=== PATIENT | female | born 1945 | race Caucasian/White ===

== ENCOUNTER 2019-11-26 13:45 | Outpatient (CLI) | payer MEDICARE, SELFPAY ==
--- NOTE | ~2019-11-26 | XR_ITS ---
EXAMINATION: XR lumbar spine 2-3V DATE: 11/26/2019 14:23 INDICATION: Low back pain. Fall. TECHNIQUE: 3 views of lumbar spine were obtained. COMPARISON: None. FINDINGS: There is 3 degrees levocurvature of lumbar spine. There is 6 mm anterolisthesis of L5 on S1 . There is mild chronic anterior wedging of T11 vertebral body. There is moderately decreased disc he ight at T12-L1 and L2-L3, mildly decreased disc height at L3-L4, and severely decreased disc height a t L4-L5 and L5-S1. There is moderate osteoarthritis of the hips. IMPRESSION: 1. Severe lumbar spondylosis. 2. Grade 1 anterolisthesis of L5 on S1, likely secondary to bilateral L5 pars defects. Reviewed, dictated and finalized at location A. IMPRESSION: 1. Severe lumbar spondylosis. 2. Grade 1 anterolisthesis of L5 on S1, likely secondary to bilateral L5 pars d efects.
== END 2019-11-26 13:46 | disposition home or self-care (01) ==
LOC: ANHIMG 13:57
PROVIDERS: PCP Internal Medicine; Visit Provider Internal Medicine
DX: M47.816 Spondylosis without myelopathy or radiculopathy, lumbar region (principal)
CPT/HCPCS: 72100

== ENCOUNTER 2020-08-18 08:50 | Outpatient (CLI) | payer MEDICARE, SELFPAY ==
[2020-08-18 09:19] LABS: Hematocrit 44.5 % (37.0-47.0); Hemoglobin 15.2 g/dL (12.0-15.0)
== END 2020-08-18 08:51 | disposition home or self-care (01) ==
LOC: ANHSURGERY 08:55
PROVIDERS: Anesthesiology; PCP Internal Medicine; Visit Provider Urology
DX: N21.1 Calculus in urethra (principal); D64.9 Anemia, unspecified; Z01.812 Encounter for preprocedural laboratory examination
CPT/HCPCS: 36415; 85014; 85018; 87086; 87088

== ENCOUNTER 2020-08-26 01:36 | Outpatient (CLI) | payer MEDICARE, SELFPAY ==
[2020-08-26 18:13] LABS: SARS-CoV-2 RNA PCR Negative
== END 2020-08-26 01:37 | disposition home or self-care (01) ==
LOC: ANHCOVIDDT 01:37
PROVIDERS: PCP Internal Medicine; Visit Provider Urology
DX: Z01.812 Encounter for preprocedural laboratory examination (principal); Z20.822 Contact with and (suspected) exposure to COVID-19
CPT/HCPCS: C9803; U0003; U0005

== ENCOUNTER 2020-08-29 02:10 | Day surgery (SDC) | payer MEDICARE, SELFPAY ==
[2020-08-15 08:41] VITALS: BMI 32.3
--- NOTE | 2020-08-24 15:43 | PM.IMHP ---
H&P: HPI History of Present Illness Date/Time: 08/24/20 15:43 Chief Complaint: urethral stone Narrative: China Ham is a 75 year old female urethral stone. Previous sling in 2012 by another MD Review of Systems Review of Systems: All systems reviewed & are unremarkable except as noted in HPI and below PMFSH Social History Social History Years smoked: 15 Smoking status: Former smoker Tobacco type: cigarettes Smoking end date: 08/01/74 Alcohol intake: current Drinks per week: 1 Spiritual care concerns: No Meds Home Medications and Allergies Home Medications Medication Instructions Recorded Confirmed Type amlodipine 2.5 mg PO QAM 08/15/20 08/15/20 History aspirin [Adult Low Dose Aspirin] 81 mg PO DAILY 08/15/20 08/15/20 History calcium citrate-vitamin D3 2 tablet PO DAILY 08/15/20 08/15/20 History [Citracal + D Maximum] cyanocobalamin (vitamin B-12) 1,000 mcg SUBLINGUAL DAILY 08/15/20 08/15/20 History escitalopram oxalate 10 mg PO QAM 08/15/20 08/15/20 History ferrous sulfate 324 mg PO DAILY 08/15/20 08/15/20 History gabapentin 300 mg PO HS 08/15/20 08/15/20 History levothyroxine 50 mcg PO HS 08/15/20 08/15/20 History meclizine 25 mg PO PRN PRN 08/15/20 08/15/20 History pravastatin 40 mg PO HS 08/15/20 08/15/20 History Allergies Allergy/AdvReac Type Severity Reaction Status Date / Time No Known Allergies Allergy Unverified 08/15/20 08:25 Exam Const: General: cooperative, healthy appearing, comfortable and no acute distress HENMT: Head: normal to inspection Eyes: General: appearance normal, both eyes and all related structures Resp: Effort & Inspection: normal respiratory effort and able to speak in complete sentences : Speculum Exam - Vagina: normal appearance of the vagina and vagina atrophic Skin: General skin exam: normal color Assessment and Plan Assessment and plan (1) Calculus, urethra: Code(s): N21.1 - Calculus in urethra Status: Acute Assessment and Plan: attempt at endoscopic removal. Made need a ramesh or multiple procedures
--- NOTE | 2020-08-28 14:30 | WPDANESEPPF ---
Anes - Initial Pre Proc Eval Procedure: Operation Date: 08/29/20 10:00 Proposed Procedures p Cystoscopy With Removal Of Urethral Foreign Body - Cody Ware MD s Holmium Laser Procedure - Cody Ware MD Date/Time: 08/28/20 14:30 Surgeon: Cody Ware MD Pre Op Diagnosis: Calculus of Urethra Patient Data Age: 75 Gender: F Height: 1.52 m Weight: 75.25 kg Allergies Allergy/AdvReac Type Severity Reaction Status Date / Time No Known Allergies Allergy Unverified 08/15/20 08:25 Home Medications Medication Instructions Recorded Confirmed Type amlodipine 2.5 mg PO QAM 08/15/20 08/15/20 History aspirin [Adult Low Dose Aspirin] 81 mg PO DAILY 08/15/20 08/15/20 History calcium citrate-vitamin D3 2 tablet PO DAILY 08/15/20 08/15/20 History [Citracal + D Maximum] cyanocobalamin (vitamin B-12) 1,000 mcg SUBLINGUAL DAILY 08/15/20 08/15/20 History escitalopram oxalate 10 mg PO QAM 08/15/20 08/15/20 History ferrous sulfate 324 mg PO DAILY 08/15/20 08/15/20 History gabapentin 300 mg PO HS 08/15/20 08/15/20 History levothyroxine 50 mcg PO HS 08/15/20 08/15/20 History meclizine 25 mg PO PRN PRN 08/15/20 08/15/20 History pravastatin 40 mg PO HS 08/15/20 08/15/20 History Patient hx anesthesia problems: none Family hx anesthesia problems: none [facility] Past Medical History Medical History (Updated 08/28/20 @ 14:32 by Dionicio Jorge MD) Arthritis Calculus, urethra Depression HTN (hypertension) Hypercholesterolemia Hypothyroidism Obesity CAROL on CPAP Social History Social History Years smoked: 15 Smoking status: Former smoker Tobacco type: cigarettes Smoking end date: 08/01/74 Alcohol intake: current Drinks per week: 1 Living arrangements: with family Spiritual care concerns: No Anes - Eval Final PreProcedure Day of Procedure 08/28/20 14:30 Patient weight: obese Heart: regular rate and rhythm Lungs: clear to auscultation and normal air movement Airway: Mallampati scale class II Neurological: alert and oriented Last oral intake: >/= 8 hours ASA classification: III Emergent: no Anesthetic plan: proceed Anesthesia type and monitoring: general GIVS and LMA Informed Consent: The patient's anesthetic plan and its attendant risks and benefits were discussed with the patient/family/POA. Questions were solicited and answers provided to the satisfaction of the patient/family/POA.
[2020-08-29] VITALS (8 sets, daily range): BP systolic 117–163; BP diastolic 60–78; PULSE 59–66; RESP 14–20; TEMP 36.3–36.6; O2SAT 94–100
--- NOTE | 2020-08-29 04:59 | WPDHPUPDATE1 ---
History and Physical Update Update Date/Time: 08/29/20 04:59 History and Physical has been reviewed, including an updated exam of the patient. There are NO changes in the patient's condition. Risks, benefits, and alternatives have been discussed and questions answered. Patient agrees to proceed with procedure. may use holmium laser durring the procedure
[2020-08-29] MEDS: LACTATED RINGERS 1,000 ML 30 ML IV CONT (08:28)
[2020-08-29] MEDS: ceFAZolin 2 GM/D5W 50 ML 2 GM/50 ML BAG IVPB (09:35)
[2020-08-29] MEDS: LIDOCAINE HCL 2% GEL UROJET 10 ML PKG MUCOUS MEM (09:41)
--- NOTE | 2020-08-29 10:21 | PM.PROC ---
Procedure Note - Detailed Date of procedure: 08/29/20 Pre-op diagnosis: Calculus of Urethra Post-op diagnosis: same Procedure performed: Ureteroscopy with holmium laser lithotripsy of foreign body/stone of the urethra Description of procedure: She understood the risks of bleeding, infection, incontinence, damage to the urethra, inability to remove the foreign body, need for repeat procedures. She agrees to proceed She was correctly identified. Informed was obtained. She from the operating room. She was given general anesthesia. Placed in dorsolithotomy position. Pressure points were padded. She was given appropriate preop antibiotics. Time-out performed. Upon cystoscopy was difficult to enter her bladder. I found the tract in the 6 o'clock position and her normal bladder. The bladder was examined and there is no abnormalities. She had a large stone at the 12 o'clock position of her distal urethra. It appeared to be mesh underneath the stone. I used the rigid ureteralscope. I used the holmium laser at settings of 8 and 0.8 to fragment the stone. Underneath the stone there was foreign material consistent with mesh. I ablated this mesh. This was very difficult as it is very distal in the urethra at the 12 o'clock position. I was able to remove all stone. I was able to ablate the foreign material back flush with the mucosa. It was evident I could not remove the entire for material without a urethrotomy and significant urethral reconstruction. This was not something that neither myself number the patient is prepared to do. My hope is this well temporize things as she had her sling about 10 years ago. I could very easily place a Rodney catheter in of the bladder once I completed the procedure. I would like to descend room without a Rodney catheter. She was awakened and transferred to PACU in stable condition. Anesthesia: GLMA Surgeon: Cody Ware MD Estimated blood loss (mL): 1 Drains: No Packing: No Pathology: none sent Complications: No immediate complications Condition: stable
== END 2020-08-29 12:00 | disposition home or self-care (01) ==
PROVIDERS: PCP Internal Medicine; Visit Provider Urology
PROC: (CPT 52352; principal; 2020-08-29 10:00)
PROC: (CPT 57295; 2020-08-29 10:00)
DX: N21.1 Calculus in urethra (principal); T83.722A Exposure of implanted urethral mesh into urethra, initial encounter; Z87.891 Personal history of nicotine dependence; Z79.82 Long term (current) use of aspirin; E03.9 Hypothyroidism, unspecified; Y83.8 Other surgical procedures as the cause of abnormal reaction of the patient, or of later complication, without mention of misadventure at the time of the procedure
CPT/HCPCS: 57295; 52318; 52351; A9270; C1769; J0690; J1100; J2405; J2704; J3010; J7120

== ENCOUNTER 2020-11-25 10:04 | Outpatient (CLI) | payer MEDICARE, SELFPAY ==
--- NOTE | ~2020-11-25 | DEXA_ITS ---
Bone Density Report Name: China Ham Age: 75 Sex: Female Ethnicity: White Date of : 1945 Indication: osteopenia; height loss; prior fracture; hysterectomy; Referring Provider: Shanta, Henok Study: Bone densitometry was performed. Exam Date: November 25, 2020 Accession number: [id number] Bone Density: Region BMD T-score Z-score Classification AP Spine (L1, L2, L3) 0.961 -0.5 2.0 Normal Femoral Neck (Left) 0.636 -1.9 0.3 Osteopenia Total Hip (Left) 0.829 -0.9 1.0 Normal Total Hip Bilateral Avg 0.802 -1.1 0.8 Osteopenia Femoral Neck (Right) 0.655 -1.7 0.4 Osteopenia Total Hip (Right) 0.773 -1.4 0.5 Osteopenia World Health Organization criteria for BMD impression classify patients as: Normal (T-score at or above -1.0), Osteopenia (T-score between -1.0 and -2.5), or Osteoporosis (T-score at or below -2.5). 10-year Fracture Risk(1): Major Osteoporotic Fracture 19% Hip Fracture 4.4% Reported Risk Factors: [place] (), Neck BMD=0.636, BMI=31.8, previous fracture (1) FRAX(R) Version 3.08. Fracture probability calculated for an untreated patient. Fracture probability may be lower if the patient has received treatment. Previous Exams: Region Exam Age BMD T-score BMD Change BMD Change Date g/cm2 vs Baseline vs Previous AP Spine(L1, L2, L3) 11/25/2020 75 0.961 -0.5 -0.006(-0.6%) -0.006(-0.6%) 04/05/2017 71 0.967 -0.5 Total Hip(Left) 11/25/2020 75 0.829 -0.9 0.023(2.9%) 0.023(2.9%) 04/05/2017 71 0.806 -1.1 Total Hip(Right) 11/25/2020 75 0.773 -1.4 0.029(4.0%)* 0.029(4.0%)* 04/05/2017 71 0.744 -1.6 *Denotes significance at 95% confidence level, LSC for AP Spine = 0.022 g/cm2, LSC for Total Hip = 0.027 g/cm2 Clinical Information Provided by Patient: Has had a low trauma fracture Has used the following medications: Vitamin D, Calcium Has the following medical conditions: Hysterectomy Patient maximum height was 62 Menopause Age: 53 Does not regularly consume dairy products Onset of menses at age 11 Number of children 2 Impression: The patient has low bone mass, based on the Left Femoral Neck T-score. The patient has an estimated ten-year risk of hip fracture of 4.4% and an estimated ten-year risk of major fracture of 19%, based on the WHO FRAX algorithm. The patient has risk factors, including: previous fracture. No significant bone loss was observed. Discussion: BONE DENSITY IS LOW AT ONE
== END 2020-11-25 10:05 | disposition home or self-care (01) ==
PROVIDERS: PCP Internal Medicine; Visit Provider Internal Medicine
DX: Z78.0 Asymptomatic menopausal state (principal); M85.852 Other specified disorders of bone density and structure, left thigh; M85.851 Other specified disorders of bone density and structure, right thigh
CPT/HCPCS: 77080

== ENCOUNTER 2022-01-19 07:54 | Outpatient (CLI) | payer MEDICARE, SELFPAY ==
--- NOTE | ~2022-01-19 | MM_ITS ---
EXAMINATION: MM screening tylor BI w baudilio HISTORY: Screening mammogram TECHNIQUE: Craniocaudal and mediolateral oblique 3-D tomosynthesis images were obtained and synthetic 2-D images were generated. CAD analysis was submitted and interpreted. COMPARISON: No prior mammogram is available for comparison at this institution. BREAST PARENCHYMAL COMPOSITION: The breasts are almost entirely fatty. FINDINGS: There is no evidence of suspicious mass, calcification, or architectural distortion to sugg est malignancy in either breast. There has been no suspicious interval change. IMPRESSION: 1. No mammographic evidence of malignancy. 2. Recommend routine screening mammography in one year. BI-RADS Category 1: Negative Reviewed, dictated and finalized at location A.
== END 2022-01-19 07:55 | disposition home or self-care (01) ==
PROVIDERS: PCP Internal Medicine; Visit Provider Internal Medicine
DX: Z12.31 Encounter for screening mammogram for malignant neoplasm of breast (principal)
CPT/HCPCS: 77063; 77067

== ENCOUNTER 2023-05-13 08:13 | Outpatient (CLI) | payer MEDICARE, SELFPAY ==
--- NOTE | ~2023-05-13 | DEXA_ITS ---
Bone Density Report Name: REZA ORONA Age: 77 Sex: Female Ethnicity: White Date of : 1945 Indication: osteopenia; monitoring treatment; height loss; hysterectomy; postmenopausal Referring Provider: MILTON[place]Y Study: Bone densitometry was performed. Exam Date: May 13, 2023 Accession number: [id number] Bone Density: Region BMD T-score Z-score Classification AP Spine(L1-L4) 1.039 -0.1 2.6 Normal Femoral Neck (Left) 0.582 -2.4 -0.1 Osteopenia Total Hip (Left) 0.795 -1.2 0.8 Osteopenia Femoral Neck (Right) 0.632 -2.0 0.3 Osteopenia Total Hip (Right) 0.750 -1.6 0.5 Osteopenia Total Hip Mean 0.773 -1.4 0.7 Osteopenia World Health Organization criteria for BMD impression classify patients as: Normal (T-score at or above -1.0), Osteopenia (T-score between -1.0 and -2.5), or Osteoporosis (T-score at or below -2.5). 10-year Fracture Risk: FRAX not reported because: Treated for osteoporosis Previous Exams: Region Exam Age BMD T-score BMD Change BMD Change Date g/cm2 vs Baseline vs Previous Total Hip(Left) 05/13/2023 77 0.795 -1.2 -0.011 (-1.3%) -0.034 (-4.1%) 11/25/2020 75 0.829 -0.9 0.023 (2.9%) 0.023 (2.9%) 04/05/2017 71 0.806 -1.1 Total Hip(Right) 05/13/2023 77 0.750 -1.6 0.007 (0.9%) -0.023 (-3.0%) 11/25/2020 75 0.773 -1.4 0.029 (4.0%)* 0.029 (4.0%)* 04/05/2017 71 0.744 -1.6 *Denotes significance at 95% confidence level, LSC for Total Hip = 0.027 g/cm2 Clinical Information Provided by Patient: Is being treated for osteoporosis Has used the following medications: Vitamin D, Calcium Has the following medical conditions: Hysterectomy Patient maximum height was 62.5 Menopause Age: 53 Onset of menses at age 12 Number of children 2 Impression: The patient has low bone mass, based on the Left Femoral Neck T-score. The BMD for the Total Hip(Left) decreased, changing by -4.1% since the last DXA exam. Discussion: SIGNIFICANT BONE LOSS OBSERVED. Adherence to therapy (including calcium and vitamin D intake) should be assessed. If compliance is not a factor, review management and exclusion of secondary causes of bone loss. It is important to ask patients whether they are taking their medications and to encourage continued and appropriate compliance with their osteoporosis therapies to reduce fracture risk. It is also important to review their risk factors and encourage appropriate calcium and vitamin D intakes, exercise, fall prev
--- NOTE | ~2023-05-13 | MM_ITS ---
EXAMINATION: MM screening tylor BI w baudilio HISTORY: Screening mammogram TECHNIQUE: Craniocaudal and mediolateral oblique 3-D tomosynthesis images were obtained and synthetic 2-D images were generated. CAD analysis was submitted and interpreted. COMPARISON: 01/19/2022 bilateral screening mammogram BREAST PARENCHYMAL COMPOSITION: The breasts are almost entirely fatty. FINDINGS: There is no evidence of suspicious mass, calcification, or architectural distortion to sugg est malignancy in either breast. There has been no suspicious interval change. IMPRESSION: 1. No mammographic evidence of malignancy. 2. Recommend routine screening mammography in one year. BI-RADS Category 1: Negative Reviewed, dictated and finalized at location A.
== END 2023-05-13 08:14 | disposition home or self-care (01) ==
LOC: ANHIMG 08:22
PROVIDERS: PCP Internal Medicine; Visit Provider Internal Medicine
DX: Z12.31 Encounter for screening mammogram for malignant neoplasm of breast (principal); Z13.820 Encounter for screening for osteoporosis; M85.852 Other specified disorders of bone density and structure, left thigh; M85.851 Other specified disorders of bone density and structure, right thigh
CPT/HCPCS: 77063; 77067; 77080

== ENCOUNTER 2024-04-12 09:30 | Outpatient (RCR) | payer MEDICARE, SELFPAY ==
--- NOTE | 2024-03-29 08:56 | OPREHPOC ---
Outpatient Therapy Plan of Care This is a Multidisciplinary Plan of Care that may contain components documented by all disciplines (PT, OT, and ST.) PT Problem 1 PT Problem #1 Knowledge Deficit PT Goal 1 Goal / Goal Update Pt to be IND with issued HEP. Target Visit 8 PT Problem 2 PT Problem #2 Pain PT Goal 1 Goal / Goal Update Pt to report low back pain no greater than 4/10 in the last week. Target Visit 10 PT Goal 2 Goal / Goal Update Pt to report 50% improvement in overall symptoms. Target Visit 10 PT Problem 3 PT Problem #3 Impaired Gait PT Goal 1 Goal / Goal Update Pt to report being able to walk 20 minutes for exercise. Target Visit 10 PT Goal 2 Goal / Goal Update Pt to ambulate with equal stride length. Target Visit 10 PT Problem 4 PT Problem #4 Impaired Range of Motion PT Goal 1 Goal / Goal Update pt to improve hip flexion to 110 and extension to 10 deg to improve gait and functional squatting. Target Visit 10
--- NOTE | 2024-03-29 08:56 | PTOPEVAL1 ---
Assessment and note entered by Qian Gomes, PT, DPT Evaluation Information Assessment Status Evaluation Diagnosis L knee OA ICD-10 Condition Codes (PT) Pain in left knee M25.562,R26.9 Subjective Information Pt states she has chronic L knee pain, and is getting injections to manage this. States she will eventually need a knee replacement. Pt reports primary concerns of lower back pain that limits her activity. She states at times she cannot stand up straight to walk. She states she finds herself bending forward to relieve the pressure in her back. 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 Reported Pain Level Pain Score 3: Self Report Assessment PT Clinical Summary Pt presents to therapy today for her initial evaluation, with a diagnosis of L knee and chronic low back pain. Today she demonstrates decreased core strength, gait deviations, decreased hip flexion, extension, and int rot and decreased strength in all planes. She reports limited ADL ability d/t limiting pain. Skilled physical therapy services are indicated to improve body mechanics, core strength, and to improve overall functional mobility. Plan of Care Interventions Electrical Stimulation,Gait Training,Hot Pack/Cold Pack,Manual Therapy,Neuro Re-education,Patient/ Caregiver Educati,Therapeutic Activities, Therapeutic Exercise PT Services Indicated Yes Treatment Frequency and 2x/wk for 10 visits Duration These treatments will address the objective and functional deficits as defined above. The patient will be advanced safely and appropriately in order for the patient to progress towards his/her prior level of function. Additional exercises will be introduced and as well as a comprehensive home exercise program upon discharge, if needed, ?to ensure carryover of functional gains achieved in the clinic. This treatment plan has been reviewed and agreement upon by the patient.
--- NOTE | 2024-04-16 09:12 | PTOPDC ---
Assessment and note entered by Qian Gomes, PT, DPT Evaluation Information Assessment Status Discharge - Pt Not Present Diagnosis L knee OA ICD-10 Condition Codes (PT) Pain in left knee M25.562,R26.9 Subjective Information Pt called and cancelled all remaining appointments , she states she is not improving like she expected. Talked to pt prior about getting hip x- ray. Assessment PT Clinical Summary Pt completed 6 visits of skilled therapy, will be d/c'ed at this time per pt request.
== END 2024-04-16 09:47 | disposition home or self-care (01) ==
LOC: ANHGOSHPT 09:30
PROVIDERS: PCP Family Medicine; Visit Provider Physician Assistant Surgical
DX: M17.12 Unilateral primary osteoarthritis, left knee (principal)
CPT/HCPCS: 97110; 97112; 97161; 97530

== ENCOUNTER 2024-04-19 11:43 | Outpatient (CLI) | payer MEDICARE, SELFPAY ==
--- NOTE | ~2024-04-19 | XR_ITS ---
AP view of the pelvis and AP and lateral views of the left hip Clinical history: Pain Findings: No acute fracture or dislocation is seen. Osseous alignment is anatomic. Bilateral hip and SI joint spaces are preserved. Soft tissues are unremarkable. Impression: No significant abnormality is seen. Reviewed, dictated and finalized at location . Impression: No significant abnormality is seen.
== END 2024-04-19 11:44 | disposition home or self-care (01) ==
PROVIDERS: PCP Orthopaedic Surgery; Visit Provider Family Medicine
DX: M25.552 Pain in left hip (principal); R10.32 Left lower quadrant pain
CPT/HCPCS: 73502

== ENCOUNTER 2024-05-26 13:16 | Emergency (ER) | payer MEDICARE, SELFPAY ==
--- NOTE | ~2024-05-26 | XR_ITS ---
XR lumbar spine 2-3V DATE: 05/26/2024 14:17 INDICATION: Fall. Back pain. TECHNIQUE: AP, lateral, coned lateral lumbosacral views COMPARISON: 11/26/2019 lumbar spine FINDINGS: There is osteopenia. There is thoracic dextroscoliosis and mild compensatory lumbar levoscoliosis There is minimal grade 1 anterolisthesis at L2-3 and L3-4. There is grade 2 anterolisthesis at L5-S1. Multilevel degenerative disc disease: Moderately severe degenerative disc disease at L1-2, L2-3, with associated mild retrolisthesis at L1- 2. Moderate degenerative disc disease at L3-4. There is severe degenerative disc disease at L4-5 and L5-S1. No fracture or bone destruction, the included lower thoracic and lumbar pedicles appear intact. The sacroiliac joints are intact. Moderately severe bilateral hip osteoarthritis. IMPRESSION: No fracture is evident Scoliosis Osteopenia Multilevel degenerative disc disease, severe at L4-5 and L5-S1 Grade 2 anterolisthesis at L5-S1, minimal grade 1 anterolisthesis at L2-3 and L3-4 Reviewed, dictated and finalized at location A. IMPRESSION: No fracture is evident Scoliosis Osteopenia Multilevel degenerative disc disease, severe at L4-5 and L5-S1 Grade 2 anterolisthesis at L5-S1, minimal grade 1 anterolisthesis at L2-3 and L 3-4
[2024-05-26 13:24] VITALS: BP 117/64; PULSE 76; RESP 16; TEMP 36.6; O2SAT 98
--- NOTE | 2024-05-26 13:37 | ED.LOWEXIN ---
HPI - Extremity Injury (Lower) General Chief Complaint: Extremity Injury, Lower Stated Complaint: Back Pain/Leg Pain Time Seen by Provider: 05/26/24 13:37 Source: patient, RN notes reviewed and old records reviewed Mode of arrival: ambulatory Limitations: no limitations History of Present Illness HPI Narrative: 78-year-old female to [facility] Care with complaint right lateral upper leg pain and left lower back pain since yesterday. Patient reports that she fell at home yesterday at 5:00 a.m.. Patient states she was walking around a corner in her home when she slipped and fell onto her right side. Patient has attempted to treat at home with rest and ice with little relief. Patient able to ambulate about with and steady gait. Patient numbness, tingling weakness, saddle anesthesia bladder changes. Patient resting comfortably in exam room in no acute distress. Related Data Home Medications Medication Instructions Recorded Confirmed aspirin 81 mg tablet 81 mg PO DAILY 08/15/20 05/30/24 calcium 315 mg (as 2 tablet PO DAILY 08/15/20 05/30/24 citrate)-vitamin D3 6.25 mcg (250 unit) tablet (Citracal + Vitamin D Maximum) cyanocobalamin (vitamin B-12) 1,000 mcg sublingual DAILY 08/15/20 05/30/24 1,000 mcg sublingual tablet ferrous sulfate 324 mg (65 mg 324 mg PO DAILY 08/15/20 05/30/24 iron) tablet,delayed release meclizine 12.5 mg tablet 25 mg PO PRN PRN Dizziness 08/15/20 05/30/24 Allergies Allergy/AdvReac Type Severity Reaction Status Date / Time amoxicillin [From Augmentin] Allergy Vomiting Verified 05/30/24 07:00 clavulanic acid Allergy Vomiting Verified 05/30/24 07:00 [From Augmentin] Review of Systems Review of Systems: All systems reviewed & are unremarkable except as noted in HPI and below Constitutional: Constitutional: Reports no additional constitutional complaints Eyes: Eyes: Reports no additional eye complaints ENT: Reports system reviewed and no additional complaints, except as documented Cardiovascular: Cardiovascular: Reports no additional cardiovascular complaints, Denies chest pain and Denies dyspnea Respiratory: Respiratory: Reports no additional respiratory complaints, Denies cough and Denies dyspnea Musculoskeletal: Musculoskeletal: Reports as per HPI, Reports back pain ( Left, lower) and Reports other ( right lateral leg pain) Neurologic: Reports system reviewed and no additional complaints, except as documented Psychiatric: Psychiatric: Reports no additional psychiatric complaints PMFSH Past Medical History Medical History Arthritis Calculus, urethra Depression HTN (hypertension) Hypercholesterolemia Hypothyroidism Memory change Obesity CAROL on CPAP Pacemaker Uterine prolapse Surgical History Surgical History H/O knee surgery H/O lithotripsy H/O: hysterectomy History of carpal tunnel surgery History of cataract surgery Family History Family History Father CHF (congestive heart failure) Heart disease Mother Heart disease Alzheimer dementia Grandparent Alzheimer dementia Heart attack Sibling No problems noted. Social History Social History Smoking packs per day: 3 Smoking cigarettes per day: 60.0 Years smoked: 15 Smoking pack-years: 45.00 Smoking status: Former smoker Tobacco type: cigarettes Second hand tobacco smoke exposure: No Smoking end date: 08/01/74 Alcohol intake: current Drinks per week: 1 Substance use: never Substance use type: does not use Do You Feel Safe in your Home?: Yes Lack of Transportation: No Lack of Food: Never True Current Housing: I Have Housing Concerned About Future Housing: No Difficulty Paying Gas/Electric Bills: No Difficulty Paying for Meds: No Currently Unemployed: No Education: High School Diploma/GED Difficulty w/ Childcare or Family Care: No Living arrangements: with family Occupation/Education: retired 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 Gender identity (if verbalized by the patient): Female Spiritual care concerns: No Comments At the time of my signature, I reviewed and agree with the nursing past medical, surgical, social, and family history. There is no relevant family history pertinent to the patient complaint. Exam Const: General: cooperative, comfortable, no acute distress, alert and well nourished Nutritional Appearance: well nourished Orientation/consciousness: patient oriented x3 Limitations: no limitations HENMT: Head: normal to inspection Ears: external ears normal Face/Nose/Sinus: Normal external nose present, Normal nares present, normal facial exam, No erythema and No edema Face and sinus: normal facial exam, no erythema and no edema Mouth: Yes Normal oral and palatal mucosa present Eyes: General: appearance normal, both eyes and all related structures Neck: Neck: normal visual inspection, full ROM and no meningeal signs Lymphatic: no lymphadenopathy noted and no lymphedema noted Chest: Chest palpation & inspection: normal inspection of the chest Resp: Effort & Inspection: normal respiratory effort and able to speak in complete sentences Auscultation: clear to auscultation bilaterally Cardio: Jugular venous distension: no JVD Rate: regular rate Rhythm: regular rhythm Back/Spine/Pelvis: Back: No erythema, No warmth, No ecchymosis and No back tenderness Cervical Spine: cervical ROM normal Skin: General skin exam: turgor normal and other Other: 9 cm wide by 10 cm long hematoma with small central ecchymosis to right lateral upper leg Neuro: General: patient oriented x3, gait normal, moves all extremities and no meningeal signs Speech: normal speech Gait exam (Neuro): Normal gait present Extrem: General: normal to inspection, full ROM and capillary refill normal Psych: Appearance: grossly normal and well kempt Course Course Emergency Course: Some parts of this dictation were generated by voice recognition software and may contain typographical and/or grammatical inaccuracies. Level of Care: Express Care Visit Vital Signs Vital signs: Vital Signs Temperature 36.6 C 05/26/24 13:24 Pulse Rate 76 05/26/24 13:24 Respiratory Rate 16 05/26/24 13:24 Blood Pressure 117/64 05/26/24 13:24 Pulse Oximetry 98 05/26/24 13:24 Temperature 36.6 C 05/26/24 13:24 Pulse Rate 76 05/26/24 13:24 Respiratory Rate 16 05/26/24 13:24 Blood Pressure 117/64 05/26/24 13:24 Pulse Oximetry 98 05/26/24 13:24 reviewed MDM - Extremity Injury (Lower) MDM Narrative Medical decision making narrative: 78-year-old female to Express Care with complaint right lateral upper leg pain and left lower back pain since yesterday. Patient reports that she fell at home yesterday at 5:00 a.m.. Patient states she was walking around a corner in her home when she slipped and fell onto her right side. Patient has attempted to treat at home with rest and ice with little relief. Patient able to ambulate about with and steady gait. Patient numbness, tingling weakness, saddle anesthesia bladder changes. Patient resting comfortably in exam room in no acute distress. On exam, 9 cm wide by 10 cm long hematoma with small central ecchymosis to right lateral upper leg. exam otherwise unremarkable. IMPRESSION: No fracture is evident Scoliosis Osteopenia Multilevel degenerative disc disease, severe at L4-5 and L5-S1 Grade 2 anterolisthesis at L5-S1, minimal grade 1 anterolisthesis at L2-3 and L3-4 Patient is sitting comfortably in exam room nontoxic in appearance. Patient appropriate for outpatient treatment and follow-up. Discharge instructions reviewed with patient, as well as provided in writing per nursing staff. The instructions also include specific and strict return/GO TO THE ER as well as f/u information. All questions have been answered, and the patient deny any further questions with discharge and discharge plan. Some parts of this dictation were generated by voice recognition software and may contain typographical and/or grammatical inaccuracies. Differential Diagnosis Differential diagnosis: Likely ankle sprain and strain, acute internal derangement of knee, fracture of femur, fracture of hip, puncture wound of foot, fracture of toe and ankle fracture Imaging Data Radiologist's impression: INDICATION: Fall. Back pain. TECHNIQUE: AP, lateral, coned lateral lumbosacral views COMPARISON: 11/26/2019 lumbar spine FINDINGS: There is osteopenia. There is thoracic dextroscoliosis and mild compensatory lumbar levoscoliosis There is minimal grade 1 anterolisthesis at L2-3 and L3-4. There is grade 2 anterolisthesis at L5-S1. Multilevel degenerative disc disease: Moderately severe degenerative disc disease at L1-2, L2-3, with associated mild retrolisthesis at L1-2. Moderate degenerative disc disease at L3-4. There is severe degenerative disc disease at L4-5 and L5-S1. No fracture or bone destruction, the included lower thoracic and lumbar pedicles appear intact. The sacroiliac joints are intact. Moderately severe bilateral hip osteoarthritis. IMPRESSION: No fracture is evident Scoliosis Osteopenia Multilevel degenerative disc disease, severe at L4-5 and L5-S1 Grade 2 anterolisthesis at L5-S1, minimal grade 1 anterolisthesis at L2-3 and L3-4 Discharge Plan Discharge Clinical Impression: Contusion of right thigh, Lumbar strain, Hematoma of right thigh Patient Disposition: Home, Self-Care Condition: Stable Instructions: Low Back Strain (ED), Contusion in Adults (ED), Hematoma (ED) Additional Instructions: Please review attached instructions and implement suggestions as tolerated. Alternate Tylenol and ibuprofen as needed for pain. Rest, ice, protect from additional injury. For new or worsening symptoms please go directly to the emergency department Prescriptions: No Action escitalopram oxalate 20 mg tablet 20 mg PO DAILY Qty: 90 1RF amlodipine 2.5 mg tablet 2.5 mg PO QAM Qty: 90 1RF levothyroxine 50 mcg tablet 50 mcg PO HS Qty: 90 1RF gabapentin 300 mg capsule 300 mg PO HS Qty: 90 1RF naproxen 500 mg tablet 500 mg PO BID PRN (Reason: pain) Qty: 60 0RF pravastatin 40 mg tablet 40 mg PO HS Qty: 90 1RF cyclobenzaprine 10 mg tablet 10 mg PO TID Qty: 60 0RF aspirin 81 mg Tablet 81 mg PO DAILY meclizine 12.5 mg tablet 25 mg PO PRN PRN (Reason: Dizziness) cyanocobalamin (vitamin B-12) 1,000 mcg Tablet, Sublingual 1,000 mcg SUBLINGUAL DAILY calcium citrate-vitamin D3 [Citracal + D Maximum] 315 mg-6.25 mcg (250 unit) Tablet 2 tablet PO DAILY ferrous sulfate 324 mg (65 mg iron) Tablet,Delayed Release (Dr/Ec) 324 mg PO DAILY baclofen 10 mg tablet 10 mg PO TID Qty: 30 0RF Rx Instructions: 0.5-1.0 tablets 2-3 times per day PRN for pain Follow-up/Referrals: Crys Dunn DO [Primary Care Provider] -
== END 2024-05-26 15:17 | disposition home or self-care (01) ==
PROVIDERS: Emergency Provider Nurse Practitioner Family; PCP Family Medicine
DX: S70.11XA Contusion of right thigh, initial encounter (principal); S39.012A Strain of muscle, fascia and tendon of lower back, initial encounter; W01.0XXA Fall on same level from slipping, tripping and stumbling without subsequent striking against object, initial encounter; I10 Essential (primary) hypertension; E78.00 Pure hypercholesterolemia, unspecified; E03.9 Hypothyroidism, unspecified; G47.33 Obstructive sleep apnea (adult) (pediatric); M19.90 Unspecified osteoarthritis, unspecified site; Z95.0 Presence of cardiac pacemaker
CPT/HCPCS: 72100; 99213; G0463

== ENCOUNTER 2024-06-01 12:55 | Emergency (ER) | payer MEDICARE, SELFPAY ==
--- NOTE | ~2024-06-01 | CT_ITS ---
EXAMINATION: CT thoracic lumbar wo con DATE: 06/01/2024 13:42 INDICATION: Back pain. Fall. TECHNIQUE: Computed tomography (CT) of the thoracic and lumbar spine was performed without intravenou s contrast. Automated exposure control and iterative reconstruction technique were employed. The dose -length product was 1135.29 mGy-cm. COMPARISON: Lumbar spine radiographs 05/26/24, 11/26/2019 FINDINGS: CT THORACIC SPINE: There is a trace left pleural effusion. There is 10 degrees dextroscoliosis of tho racic spine. There is mild chronic anterior wedging of T6 and T7 vertebral bodies. There is a rose markos fracture of T10 with 1/5 loss of height. There is mildly decreased disc height at most levels. T here is moderately decreased disc height at T11-T12 and severely decreased disc height at T12-L1. The re is multilevel facet joint osteoarthritis, severe in upper thoracic spine. On the right, there is m ild neural foraminal stenosis at T3-T4, T4-T5, and T7-T8. On the left, there is mild neural foraminal stenosis at T4-T5 and T8-T9. There is mild central canal stenosis at T10-T11 and T11-T12. CT LUMBAR SPINE: There is 6 degrees levocurvature of lumbar spine. There are old healed bilateral L5 pars defects. There is 8 mm anterolisthesis of L5 on S1. There is moderately decreased disc height at L1-L2, severely decreased disc height at L2-L3, moderately decreased disc at L3-L4, and severely dec reased disc height at L4-L5 and L5-S1. There is mild chronic height loss of L5 vertebral body posteri kay. The following disc levels are specifically discussed: L1-L2: The disc is bulging. There is mild bilateral facet joint osteoarthritis. There is mild bilater al neural foraminal stenosis. There is mild central canal stenosis. L2-L3: The disc is bulging. There is severe bilateral facet joint osteoarthritis. There is mild bilat eral neural foraminal stenosis. There is mild central canal stenosis. L3-L4: The disc is bulging. There is severe bilateral facet joint osteoarthritis. There is mild bilat eral neural foraminal stenosis. There is mild central canal stenosis. L4-L5: The disc is bulging. There is severe bilateral facet joint osteoarthritis. There is mild bilat eral neural foraminal stenosis. There is mild central canal stenosis. L5-S1: The disc does not extend beyond the endplate margin. There is severe bilateral facet joint ost eoarthritis. There is moderate bilateral neural foraminal stenosis. There is no central canal stenosi s. IMPRESSION: 1. T10 compression fracture, likely acute or subacute. 2. Moderate thoracic spondylosis and severe lumbar spondylosis. Reviewed, dictated and finalized at location B.
[2024-06-01 12:56] VITALS: BP 121/64; PULSE 76; RESP 18; TEMP 36.5; O2SAT 100
--- NOTE | 2024-06-01 13:17 | ED_ITS ---
HPI - Back Pain/Injury General Chief Complaint: Back Pain/Injury Stated Complaint: back pain Time Seen by Provider: 06/01/24 13:17 Focused HPI: This is a 78 year old female that presents to the ER for mid/low back pain. Reports a fall about a week ago. Reports her leg slipped and she fell. Reports she hit the door jam going into the bedroom. Had x-rays which were negative. Has been taking muscle relaxers, Tylenol and Naproxen with little relief. Last dose of medications this morning. Denies saddle anesthesia, or bowel/bladder incontinence. GENERAL: Well-appearing, well-nourished, and in no acute distress. HEAD: Normocephalic, atraumatic. CHEST: Clear to auscultation. ?No respiratory distress. HEART: Regular rate and rhythm.? NEURO: ?Alert and oriented x3. Patient screened in triage and initial orders placed.? ?Additional care and disposition to be based upon?diagnostic testing and treatment. Related Data Home Medications Medication Instructions Recorded Confirmed aspirin 81 mg tablet 81 mg PO DAILY 08/15/20 05/30/24 calcium 315 mg (as 2 tablet PO DAILY 08/15/20 05/30/24 citrate)-vitamin D3 6.25 mcg (250 unit) tablet (Citracal + Vitamin D Maximum) cyanocobalamin (vitamin B-12) 1,000 mcg sublingual DAILY 08/15/20 05/30/24 1,000 mcg sublingual tablet ferrous sulfate 324 mg (65 mg 324 mg PO DAILY 08/15/20 05/30/24 iron) tablet,delayed release meclizine 12.5 mg tablet 25 mg PO PRN PRN Dizziness 08/15/20 05/30/24 Allergies Allergy/AdvReac Type Severity Reaction Status Date / Time amoxicillin [From Augmentin] Allergy Vomiting Verified 05/30/24 07:00 clavulanic acid Allergy Vomiting Verified 05/30/24 07:00 [From Augmentin] Review of Systems Review of Systems: CONSTITUTIONAL: Denies fever MUSCULOSKELETAL: Reports back pain, joint pain, and myalgia. NEUROLOGIC: Denies numbness, or weakness. All systems reviewed & are unremarkable except as noted in HPI and below PMFSH Past Medical History Medical History Arthritis Calculus, urethra Depression HTN (hypertension) Hypercholesterolemia Hypothyroidism Memory change Obesity CAROL on CPAP Pacemaker Uterine prolapse Surgical History Surgical History H/O knee surgery H/O lithotripsy H/O: hysterectomy History of carpal tunnel surgery History of cataract surgery Family History Family History Father CHF (congestive heart failure) Heart disease Mother Heart disease Alzheimer dementia Grandparent Alzheimer dementia Heart attack Sibling No problems noted. Social History Social History Smoking packs per day: 3 Smoking cigarettes per day: 60.0 Years smoked: 15 Smoking pack-years: 45.00 Smoking status: Former smoker Tobacco type: cigarettes Second hand tobacco smoke exposure: No Smoking end date: 08/01/74 Alcohol intake: current Drinks per week: 1 Substance use: never Substance use type: does not use Do You Feel Safe in your Home?: Yes Lack of Transportation: No Lack of Food: Never True Current Housing: I Have Housing Concerned About Future Housing: No Difficulty Paying Gas/Electric Bills: No Difficulty Paying for Meds: No Currently Unemployed: No Education: High School Diploma/GED Difficulty w/ Childcare or Family Care: No Living arrangements: with family Occupation/Education: retired 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 Gender identity (if verbalized by the patient): Female Spiritual care concerns: No Exam Narrative: GENERAL: Well-appearing, well-nourished, and in no acute distress. HEAD: Normocephalic, atraumatic. EYES: EOMI. CHEST: Clear to auscultation. No respiratory distress. No wheezes rales or rhonchi HEART: Regular rate and rhythm. No murmur heard. Normal peripheral pulses. EXTREMITIES: Normal range of motion. No edema. SKIN: Warm, dry, no rash. NEURO: No focal deficits. Alert and oriented x3. Normal gait PSYCH: Normal mood and affect Course Course Emergency Course: Patient updated on her workup and agrees with plan of care Vital Signs Vital signs: Vital Signs Temperature 97.7 F 06/01/24 12:56 Pulse Rate 76 06/01/24 12:56 Respiratory Rate 18 06/01/24 12:56 Blood Pressure 121/64 06/01/24 12:56 Pulse Oximetry 100 06/01/24 12:56 Oxygen Delivery Room Air 06/01/24 12:56 Temperature 97.7 F 06/01/24 12:56 Pulse Rate 76 06/01/24 12:56 Respiratory Rate 18 06/01/24 12:56 Blood Pressure 121/64 06/01/24 12:56 Pulse Oximetry 100 06/01/24 12:56 Oxygen Delivery Room Air 06/01/24 12:56 MDM - Back Pain/Injury MDM Narrative Medical decision making narrative: Patient presents to the emergency department for mid to low back pain after a fall. CT thoracic and lumbar spine shows a T2 compression fracture. Patient was updated on her workup. She is neurovascularly intact. Instructed to have further follow-up with her primary provider. Given information for interventional pain consult if needed. She was given warnings to return to the ER Differential Diagnosis Differential diagnosis: Likely strain of lumbar region, thoracic back pain and other (Compression fracture) Imaging Data Radiologist's impression: ITS Impressions Thoracic/Lumbar Spine CT 06/01/24 13:46 IMPRESSION: 1. T10 compression fracture, likely acute or subacute. 2. Moderate thoracic spondylosis and severe lumbar spondylosis. Critical Care Time Critical Care Time Critical Care Time: No Discharge Plan Discharge Clinical Impression: Thoracic compression fracture Qualifiers: Encounter type: initial encounter Thoracic vertebra fracture level: T10 Qualified Code(s): S22.070A - Wedge compression fracture of T9-T10 vertebra, initial encounter for closed fracture Patient Disposition: Home, Self-Care Condition: Stable Instructions: Vertebral Compression Fracture (ED) Additional Instructions: Return to the ER if you experience fever, numbness, weakness, or any other symptoms that are concerning to you Rest. Ice to the area. Over the counter pain medication as needed. Prescribed pain medication ([place]) as needed Follow up with your primary care doctor. Dr. Holden is our neurosurgeon sculpture conservator if needed Interventional pain consultants if needed [phone] Prescriptions: New hydrocodone-acetaminophen 5-325 mg tablet 1 tablet PO Q8H PRN (Reason: pain) Qty: 20 0RF No Action escitalopram oxalate 20 mg tablet 20 mg PO DAILY Qty: 90 1RF amlodipine 2.5 mg tablet 2.5 mg PO QAM Qty: 90 1RF levothyroxine 50 mcg tablet 50 mcg PO HS Qty: 90 1RF gabapentin 300 mg capsule 300 mg PO HS Qty: 90 1RF naproxen 500 mg tablet 500 mg PO BID PRN (Reason: pain) Qty: 60 0RF pravastatin 40 mg tablet 40 mg PO HS Qty: 90 1RF cyclobenzaprine 10 mg tablet 10 mg PO TID Qty: 60 0RF aspirin 81 mg Tablet 81 mg PO DAILY meclizine 12.5 mg tablet 25 mg PO PRN PRN (Reason: Dizziness) cyanocobalamin (vitamin B-12) 1,000 mcg Tablet, Sublingual 1,000 mcg SUBLINGUAL DAILY calcium citrate-vitamin D3 [Citracal + D Maximum] 315 mg-6.25 mcg (250 unit) Tablet 2 tablet PO DAILY ferrous sulfate 324 mg (65 mg iron) Tablet,Delayed Release (Dr/Ec) 324 mg PO DAILY baclofen 10 mg tablet 10 mg PO TID Qty: 30 0RF Rx Instructions: 0.5-1.0 tablets 2-3 times per day PRN for pain Follow-up/Referrals: Nicole Holden MD [Physician] - Crys Dunn DO [Primary Care Provider] - 3 Days
[2024-06-01] MEDS: KETOROLAC 30 MG/ML VIAL (*BKC) IM (13:30)
[2024-06-01] MEDS: ACETAMINOPHEN 500 MG TABLET 1000 MG PO (13:31)
[2024-06-01 15:03] VITALS: BP 137/65; PULSE 82; RESP 16; TEMP 36.6; O2SAT 97
== END 2024-06-01 15:03 | disposition home or self-care (01) ==
LOC: ANHED 14:58
PROVIDERS: Emergency Provider Physician Assistant; PCP Family Medicine
DX: S22.070A Wedge compression fracture of T9-T10 vertebra, initial encounter for closed fracture (principal); I10 Essential (primary) hypertension; E78.00 Pure hypercholesterolemia, unspecified; E03.9 Hypothyroidism, unspecified; E66.9 Obesity, unspecified; Z68.31 Body mass index [BMI] 31.0-31.9, adult; G47.33 Obstructive sleep apnea (adult) (pediatric); M19.90 Unspecified osteoarthritis, unspecified site; Z95.0 Presence of cardiac pacemaker; Z98.49 Cataract extraction status, unspecified eye; Z90.710 Acquired absence of both cervix and uterus; Z87.891 Personal history of nicotine dependence; M47.816 Spondylosis without myelopathy or radiculopathy, lumbar region; M47.814 Spondylosis without myelopathy or radiculopathy, thoracic region; W01.0XXA Fall on same level from slipping, tripping and stumbling without subsequent striking against object, initial encounter
CPT/HCPCS: 72128; 72131; 96372; 99284; A9270; J1885

== ENCOUNTER 2024-09-20 07:17 | Outpatient (CLI) | payer MEDICARE, SELFPAY ==
--- OUTSIDE RECORDS SUMMARY | 2024-09-20 07:26 | XMS_ITS | Referral Summary ---
Author Organization [facility] Address [address] [facility] [address] [place] [address] Phone Care Team Providers Care Carrier Associate Name Role Phone Giorgio Dixon MD Unavailable Rashard De La Rosa MD Unavailable [phone] Cleve Renae MD Unavailable Bebeto Woodard MD, Alex Shelton Unavailable John Womack MD Primary Care Provide r Encounters Date Type Department Care Team Description 07/09/2024 1:28 PM LIQUIFIED NATURAL GAS SPECIALIST - 07/09/2024 11:59 PM LIQUIFIED NATURAL GAS SPECIALIST Hospital Encounter [facility] [place] [address] Discharge Disposition: Discharge to home or self care 07/09/2024 12:09 PM LIQUIFIED NATURAL GAS SPECIALIST - 07/09/2024 11:59 PM LIQUIFIED NATURAL GAS SPECIALIST Hospital Encounter [facility] [place] [address] Memory loss Discharge Disposition: Discharge to home or self care from Last 3 Months Allergies Active Allergy Reactions Criticality Noted Date Comments Amoxicillin-Pot Clavulanate Other (See comments),Sweating Low 03/13/2024 Dry heaving; patient stated that she didn't have anything in her stomach to throw up only mucous would come up Medications amLODIPine (NORVASC) 2.5 mg tablet Take 1 tablet (2.5 mg total) by mouth Active aspirin-calcium carbonate 81 mg-300 mg calcium(777 mg) tablet Take 81 mg by mouth. Active levothyroxine (SYNTHROID, LEVOTHROID) 50 mcg tablet Take 0.5 mcg by mouth. Active pravastatin (PRAVACHOL) 20 mg tablet Take 1 tablet (20 mg total) by mouth Active gabapentin (NEURONTIN) 300 mg capsule Take 1 capsule (300 mg total) by mouth as needed 05/07/2020 Active ferrous sulfate ER 324 mg (65 mg iron) EC tablet Take 1 tablet (324 mg total) by mouth daily Active CALCIUM CITRATE-VITAMIN D3 ORAL Take 2 tablets by mouth daily 10/09/2019 Active cyanocobalamin (Vitamin B-12) 1,[address] 1 tablet (1,000 mcg total) under the tongue daily 05/07/2020 Active escitalopram (LEXAPRO) 20 mg tablet Take 1 tablet (20 mg total) by mouth daily Active Active Problems Problem Noted Date Diagnosed Date Memory loss 03/30/2024 Strain of lumbar region 12/12/2019 Grade 1 isthmic spondylolisthesis at L5-S1 12/11 Lumbar spondylosis 12/12/2019 BMI 30.0-30.9,adult 04/30/2019 Recurrent syncope 10/04/2018 Overview (04/30/2019): Implanted loop recorder CAROL (obstructive sleep apnea) 10/04/2018 Blood in stool 08/02/2018 Overview (08/02/2018): Added automatically from request for surgery [id number] Rectal bleeding 07/24/2018 Assessment & Plan (07/24/2018 1:10 PM LIQUIFIED NATURAL GAS SPECIALIST): GI has been consulted for which we appreciate their evaluation and recommendations. Anusol suppository. Colace. Holding ASA for now. Anemia 07/24/2018 Assessment & Plan (07/24/2018 1:11 PM LIQUIFIED NATURAL GAS SPECIALIST): With dizziness, likely 2/2 recent rectal bleeding. To receive 1 unit of PRBC. H&H after transfusion. Hypertension 07/24/2018 Assessment & Plan (07/24/2018 1:11 PM LIQUIFIED NATURAL GAS SPECIALIST): Stable. On Norvasc. HLD (hyperlipidemia) 07/24/2018 Assessment & Plan (07/24/2018 1:12 PM LIQUIFIED NATURAL GAS SPECIALIST): On Statin. Check lipid panel. History of vertigo 07/24/2018 Assessment & Plan (07/24/2018 1:12 PM LIQUIFIED NATURAL GAS SPECIALIST): Resumed prn meclizine. Presence of cardiac device 09/02/2017 Lightheadedness 06/02/2017 Palpitations 06/02/2017 Depression 09/08/2016 Emotional lability 09/08/2016 Cold intolerance 03/10/2016 Dysphagia 03/10/2016 Fatigue 03/10/2016 Osteopenia 01/05/2016 Overview (12/12/2019): Bone density due 2018 Prediabetes 01/05/2016 Syncope and collapse 11/21/2015 Acquired hypothyroidism 09/16/2015 Primary osteoarthritis of right knee 09/16/2015 Thyroid nodule 05/21/2015 Bilateral carotid artery disease 03/21/2015 Urgency of urination 01/13/2015 Overview (12/12/2019): Post robotic sacrocolpopexy 03/21/13 New onset urgency, frequency and nocturia-> could not tolerate ditropan; toviaz 4mg Unresponsive to anticholinergics Last Assessment & Plan: - compound pharmacy estrace - UDS - 2 doses abx Arthritis of right knee 09/19/2014 Left leg pain 07/04/2013 Overview (12/12/2019): Began one month after robotic sacrocolpopexy. Left lateral thigh and left lateral calf sharp/stabbing pain, not burning/tingling. Lower back pain, possibly shooting pain down left leg. Last Assessment & Plan: Ms. Ham's discomfort could be due to positioning but its location and quality does not seem consistent with this. It may be on the order of tensor fascia josh irritation or sciatic nerve irritation. We will refer to Dr. Dixon of Orthopedic Surgery for evaluation of her lower back pain as well. Continue to follow with PT. Female genital prolapse 11/20/2012 Overview (12/12/2019): -s/p lap assisted total vaginal hysterectomy with bilateral SPO, anterior and posterior colporrhaphy, enterocele repair, sacrospinous ligament fixation, graft augmentation of anterior and posterior colporrhaphy and retropubic urethral sling on 04/19/[address] Juvenal Vásquez -recurrence post-operatively with grade 4 apical pelvic organ prolapse -Urodynamics (+/-) pessary 01/29/13: DO and complete emptying; no stress leak -Robotic sacrocolpopexy (03/21/13) - doing well with some nocturia and urgency during the day. Last Assessment & Plan: - [place] well supported and patient happy with results - New Daytime urgency and nocturia -d/c Ditropan due to failure and side effects -start on Toviaz 4mg -Start timed and double voiding with new medication -Follow up in 2 months -s/p lap assisted total vaginal hysterectomy with bilateral SPO, anterior and posterior colporrhaphy, enterocele repair, sacrospinous ligament fixation, graft augmentation of anterior and posterior colporrhaphy and retropubic urethral sling on 04/19/[address] Juvenal Vásquez -recurrence post-operatively with grade 4 apical pelvic organ prolapse -Urodynamics (+/-) pessary 01/29/13: DO and complete emptying; no stress leak -Robotic sacrocolpopexy (03/21/13) - doing well with some nocturia and urgency during the day. Last Assessment & Plan: - [place] well supported and patient happy with results - New Daytime urgency and nocturia -d/c Ditropan due to failure and side effects -start on Toviaz 4mg -Start timed and double voiding with new medication -Follow up in 2 months Cystocele, midline 08/07/2012 Incomplete emptying of bladder 08/07/2012 Urge incontinence of urine 06/02/2012 Urinary tract infection 06/02/2012 Overview (12/12/2019): IMO Replacement Update Social History Tobacco Use Types Packs/Day Years Used Date Smoking Tobacco: Former Smokeless Tobacco: Never Tobacco Cessation:Counseling Given: Not Answered Alcohol Use Standard Drinks/Week Comments Yes 2 (1 standard drink = 0.6 oz pur e alcohol) Comments No Sex and Gender Information Value Date Recorded Sex Assigned at Not on file Legal Sex Female 1:38 PM CDT Gender Identity Female 04/12/2019 12:30 PM CDT Sexual Orientation Not on file Last Filed Vital Signs Vital Sign Reading Time Taken Comments Blood Pressure 156/85 04/24/2024 2:59 PM CDT Pulse 71 04/24/2024 2:58 PM CDT Temperature 36.5 C (97.7 F) 04/24/2024 2:58 PM CDT Respiratory Rate 16 08/10/2018 1:15 PM LIQUIFIED NATURAL GAS SPECIALIST Oxygen Saturation 97% 04/30/2019 11:54 AM CDT Inhaled Oxygen Concentration - - Weight 69.6 kg (153 lb 6.4 oz) 03/13/2024 8:39 A M CDT Height 152.4 cm (5') 04/24/2024 12:27 PM CDT Body Mass Index 29.96 03/13/2024 8:39 AM CDT Plan of Treatment Not on file Procedures Procedure Name Priority Date/Time Associated Diagnosis Comments PET/CT AMYLOID BRAIN Schedule Routine, Read Routine (OP Routine) 07/09/2024 2:08 PM LIQUIFIED NATURAL GAS SPECIALIST Memory loss from Last 3 Months Results * PET/CT Amyloid Brain (07/09/2024 2:08 PM LIQUIFIED NATURAL GAS SPECIALIST) Anatomical Region Laterality Modality Positron Emissio n Tomography (PET) 07/09/2024 2:32 PM LIQUIFIED NATURAL GAS SPECIALIST Impressions 07/09/2024 6:00 PM LIQUIFIED NATURAL GAS SPECIALIST Positive amyloid-PET study, 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 General comments on amyloid-PET interpretation: A negative amyloid-PET study indicates sparse to no neuritic plaques and is inconsistent with Alzheimer disease at the time of the study. A negative study reduces the likelihood that the patient's cognitive impairment is due to Alzheimer disease. A positive amyloid-PET study indicates moderate to frequent neuritic plaques which is the amount present in patients with Alzheimer disease. However, a positive amyloid-PET study does not establish the diagnosis of Alzheimer disease. Moderate to frequent neuritic plaques can also be present in patients with other neurological conditions as well as in older people with normal cognition. Dictated by: Chandni Kaminski MD The radiology attending physician has personally reviewed this study, and had reviewed and/or edited this written report and agrees with it. Electronically signed by: Estrella Belle M.D. Narrative 07/09/2024 6:00 PM LIQUIFIED NATURAL GAS SPECIALIST EXAMINATION: BRAIN AMYLOID-PET/CT IMAGING DATE OF STUDY: 07/09/2024 SCANNER: [email or web address] N mCT RADIOPHARMACEUTICAL: 11.9 mCi F-18 florbetapir i.v. HISTORY: 79-year-old woman undergoing evaluation for cognitive impairment. Reported worsening cognitive decline starting in 2019. TECHNIQUE: At 32 minutes after injection of tracer, non-contrast CT images of the head were obtained for attenuation correction and for fusion with emission PET images to allow for anatomical localization of PET findings. Standard emission PET imaging of the brain was then performed. The study was interpreted on the [email or web address] workstation. COMPARISON: No relevant prior imaging is available for comparison. FINDINGS: There is normal cortical-white matter contrast in the cerebellum. There is absent cortical-white matter contrast involving the bilateral cerebral hemispheres. Incidental CT findings: Bilateral ocular lens replacements1. Procedure Note Estrella Belle MD - 07/09/2024 EXAMINATION: BRAIN AMYLOID-PET/CT IMAGING DATE OF STUDY: 07/09/2024 SCANNER: [employer] N mCT RADIOPHARMACEUTICAL: 11.9 mCi F-18 florbetapir i.v. HISTORY: 79-year-old woman undergoing evaluation for cognitive impairment. Reported worsening cognitive decline starting in 2019. TECHNIQUE: At 32 minutes after injection of tracer, non-contrast CT images of the head were obtained for attenuation correction and for fusion with emission PET images to allow for anatomical localization of PET findings. Standard emission PET imaging of the brain was then performed. The study was interpreted on the [email or web address] workstation. COMPARISON: No relevant prior imaging is available for comparison. FINDINGS: There is normal cortical-white matter contrast in the cerebellum. There is absent cortical-white matter contrast involving the bilateral cerebral hemispheres. Incidental CT findings: Bilateral ocular lens replacements1. 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 General comments on amyloid-PET interpretation: A negative amyloid-PET study indicates sparse to no neuritic plaques and is inconsistent with Alzheimer disease at the time of the study. A negative study reduces the likelihood that the patient's cognitive impairment is due to Alzheimer disease. A positive amyloid-PET study indicates moderate to frequent neuritic plaques which is the amount present in patients with Alzheimer disease. However, a positive amyloid-PET study does not establish the diagnosis of Alzheimer disease. Moderate to frequent neuritic plaques can also be present in patients with other neurological conditions as well as in older people with normal cognition. Dictated by: Chandni Kaminski MD The radiology attending physician has personally reviewed this study, and had reviewed and/or edited this written report and agrees with it. Electronically signed by: Estrella Belle M.D. Kris León MD PhD IMG PET PROCEDURES Fin al Result from Last 3 Months Insurance MEDICARE SOLUTIONS MEDICARE SOLUTIONS Advance Directives For more information, please contact: [phone] * Full Code (Latest Code Status on File) Date Activated Date Inactivated Comments 07/24/2018 5:12 AM 07/26/2018 4:18 PM Care Teams Carrier Associate Relationship Specialty Start Date End Date John Womack MD [address] [facility] [address] [place] [address] PCP - General Internal Medicine 06/27/24 Giorgio Dixon MD Consulting Physician Gastroenterology 07/26/18 Rashard De La Rosa MD Consulting Physician Cardiology 04/30/19 Cleve Renae MD Consulting Physician Cardiovascular Disease 07/07/20 Alex Tate Jr., MD [address] [place] [address] Consulting Physician Cardiovascular Disease 10/08/20
--- OUTSIDE RECORDS SUMMARY | 2024-09-20 07:26 | XMS_ITS | Data Portability ---
Author Organization [place] - [facility] [employer], Main Office Address [address] [place] [address] Care Team Providers Care Cathode Maker Name Role Phone SONY WOMACK Primary Care Provider SONY WOMACK Referring Provider [phone] [facility] Neurosurgeon [phone] ALEX WALL Quality Compliance Consultant ERNIE CHERY Dog Races Manager Assessment Encounter Date Assessment Date Assessment LastModified by Organization Details LastModified Time 08/29/2023 08/29/2023 HPI: Patient returns. We saw her in 2021 for pain in left knee. She had moderately severe osteoarthritis at that time in the medial compartment. She had a cortisone injection. She has had recurrence of her symptoms. She has had symptoms a little bit progressively worsening over last 6-7 months. She was taking meloxicam approximately 1 year ago however her seo associate recommended that she stop taking this. Most of the pain she is having is over the medial knee. Physical exam: 78-year-old female very alert pleasant. She walks very well today without limp or assistance. she is 5 ft 2 and 155 lb. She has a mild effusion the left knee. Range of motion is from 0-140 degrees. Mild tenderness over the medial joint line to palpation. Hip range of motion is full without discomfort. No pain with patellofemoral grind. After alcohol was used on skin 20 mg Kenalog and 3 cc of 0.5% ropivacaine was injected into the left knee. impression: 78 old female who has moderately severe medial compartment osteoarthritis in the left knee. I discussed x-ray findings with her. She is not a candidate for anti-inflammatori es due to her seo associate's recommendation. We talked about cortisone injection which she had in 2021 and she wished to proceed with that. She has had the right knee replaced in the past and is not wanting to have surgery on the left if at all possible. She may repeat cortisone injections As often as every 3 months. She will call when she feels she needs additional injection. 20 minutes was spent in treatment patient with more than half of this in [id number] conversation [email or web address] Not available 08/29/2023 17:38:06 09/12/2023 09/12/2023 01/20/2023: A1C 6.2 LDL 115 WBC 4.1 05/25/2023: Glob 2.4, TP WNL LDL 99 Not available 09/12/2023 14:27:42 10/12/2023 10/12/2023 01/20/2023: A1C 6.2 LDL 115 WBC 4.1 05/25/2023: Glob 2.4, TP WNL LDL 99 09/15/2023: A1C 5.5 B12>1000 Urine micro alb 24.5 TP 6.2, glob 2.3 Not available 10/11/2023 18:12:35 08/09/2024 08/09/2024 01/20/2023: A1C 6.2 LDL 115 WBC 4.1 05/25/2023: Glob 2.4, TP WNL LDL 99 Not available 08/03/2024 22:21:34 Plan of Treatment Reminders Order Date Submit Date Provider Last Modified By Organization Details Last Modified Time Details Appointments Any 15 2024 08:45A Bonifacio bains MD Not available Not available Not available Lab glycohemo globin, total, blood 2024 025 [email or web address] [facility], [address], [place], [address], 08/09/2024 14:08:57 microalbu min, urine 2024 025 [email or web address] [facility], [address], [place], [address], 08/09/2024 14:08:57 lipid panel, serum 2024 025 [email or web address] [facility], [address] [place] [address], [place], [address], 08/09/2024 14:08:55 CMP, serum or plasma 2024 025 [email or web address] [facility], [address] [place] [address], [place], [address], 08/09/2024 14:08:56 CBC w/ auto diff 2024 025 [email or web address] [facility], [address] [place] [address], [place], [address], 08/09/2024 14:08:56 TSH + free T4, serum 2024 025 [email or web address] [facility], [address] [place] [address], [place], [address], 08/09/2024 14:08:57 vitamin D, 25-hydrox y, total, serum 2024 025 [email or web address] [facility], [address] [place] [address], [place], [address], 08/16/2024 11:31:51 vitamin B12 + folate, serum or blood 2024 025 [email or web address] [facility], [address] [place] [address], [place], [address], 08/09/2024 14:08:58 glycohemo globin, total, blood 2023 024 JOE Not available 09/15/2023 15:47:22 microalbu min, urine 2023 024 JOE Not available 09/15/2023 14:02:05 lipid panel, serum 2023 024 JOE Not available 09/15/2023 13:02:12 CMP, serum or plasma 2023 024 JOE Not available 09/15/2023 13:02:17 CBC w/ auto diff 2023 024 JOE Not available 09/15/2023 12:40:19 TSH + free T4, serum 2023 024 [email or web address] Not available 03/14/2024 09:47:00 vitamin B12 + folate, serum or blood 2023 024 [email or web address] Not available 03/14/2024 09:47:00 Referral neurologi madiha surgeon referral 2024 025 [place], [address] [facility], [place], [address], 08/21/2024 16:56:56 pulmonolo gist referral - Please call patient to schedule. 2024 025 NOAH Live Chi, MD, [address] [facility] [address], [address], 09/19/2024 16:45:26 cardiolog ist referral 2024 025 [email or web address] Alex Wall MD, [address] [facility] [address], [address], 08/13/2024 18:14:28 dermatolo gist referral - Please call patient to schedule an appointme nt. Thank you. 2024 025 ATHENADENEEN Shi MD, [address] [place], [address], 09/19/2024 13:35:[address] referral 2023 024 [email or web address] Ho Koenig MD, [address] [facility], [place], [address], 03/14/2024 09:47:18 pulmonolo gist referral 2023 024 [email or web address] Calos Ingram MD, [address], [address], [place], [address], 03/14/2024 09:47:17 cardiolog ist referral 2023 024 [email or web address] Alex Wall MD, [address], [address], [place], [address], 03/14/2024 09:47:17 dermatolo gist referral 2023 024 [email or web address] Hardik Shi MD, [address] [place], [address], 03/14/2024 09:47:20 Procedures injection /aspirati on joint/bur sa (PROC) - in office procedure , administe red by provider 2023 024 In-Office Order, Internal Use Only DO Not Attach Compendium DO Not Attach Compendium, Do Not Delete/merge, [id number] 08/29/2023 17:25:15 Surgeries None recorded. Imaging DEXA 2024 025 [email or web address] (Imaging), [address] [facility] [address], [place], [address], 09/12/2024 15:25:22 XR, knee 2023 024 [email or web address] [facility], [address] [facility] [address], [place], [address], 08/29/2023 17:43:01 Medication Orders Augmentin 875 mg-125 mg tablet 2023 024 [email or web address] [id number], [address], [place], [id number], 11/17/2023 17:38:53 amoxicill in 500 mg capsule 2023 024 [facility], [address], [place], [id number], 11/16/2023 15:44:07 amoxicill in 875 mg-potass ium clavulana te 125 mg tablet 2023 024 [facility] #29742, [address], [place], [id number], 11/17/2023 17:38:53 Kenalog 10 mg/mL suspensio n for injection 2023 024 [email or web address] #27938, [address], [place], [id number], 09/12/2023 14:19:20 ropivacai ne (PF) 5 mg/mL (0.5 %) injection solution 2023 024 [email or web address] #21765, [address], [place], [id number], 09/12/2023 14:19:27 Patient TargetsNo targets recorded. Patient Instructions Encounter Date Encounter Id Patient Instructions Last Modified By Organization Details Last Modified Time 08/09/2024 [id number] dementia rating scale-2* [email or web address] 2 Not available 08/09/2024 10:27:13 alcohol misuse* [email or web address] 2 Not available 08/09/2024 10:27:13 depression screening* [email or web address] 2 Not available 08/09/2024 10:27:13 Timed Up and Go test (TUG)* [email or web address] 2 Not available 08/09/2024 10:27:13 multi-dimensiona l health assessment questionnaire* [email or web address] Not available 08/15/2024 12:54:21 Personalized Hea lt Plan and Screening Recommendations Advance Directives - Do you have one? Yes Advance Directives - Do we have your advance directive on file in your health record? Primary Prevention/Interven tion (prevents or decreases the chance of common diseases from occurring) Smoking Risk: Non Smoker Alcohol Misuse Screening: Negative Weight: Appropriate Overwei ght continue your current weight loss efforts try to lose 5% of your body weight try to lose 10% of your body weight Physical activity: Need more exercise/physical activity decrease sitting time to no more than 5hr/day Nutrition: Good Average Refer to attached handout Heart-Healthy Diet: After Your Visit Fall Risk (screened today): Low Intermediate Refer to attached handout Preventing Falls: After your Visit Vaccines Pneumococcal: Ordered Recommended today Recommended today, but you have declined No further needed Influenza: Your next one in the fall of this year Chronic Disease Risks Stroke: Low Risk Intermediate Risk Heart Attack: Low risk Intermediate Risk Clogging of the Arteries: Low risk Intermediate Risk Diabetes: Low Risk Intermediate Risk I have no recommendations Ref er to attached handout P re-diabetes: After Your Visit Drastically limit sugar and products made with any type of flour (bread, pasta, cereal, cookies, crackers, etc.) Secondary Prevention/Interven tion (detects treatable diseases before they may cause symptoms, disability, or ) Breast Cancer Screening with mammogram: Your next mammogram: Ordered Cervical/Uterine/Ov erik Cancer Screening: No screening necessary Osteoporosis Screening: Your next DEXA in: Ordered Date Screening Last Performed: 05/13/2023 Colon Cancer Screening: Colonoscopy Date Screening Last Performed: Declined Eye Disease Screening: Ordered Recommended today Dementia Risk: High My recommendation would be to have an appointment with the Neurologist Depression Screening: Negative Active diagnosis, Continue current treatment plan [email or web address] Not available 08/09/2024 11:44:02 Reason for Referral Quality Compliance Consultant Referral for Sy ncope Referring Physician: Sony Womack Internal [facility], Encounter Date: 09/12/2023 Band Tumbler Referral for O bstructive sleep apnea syndrome Referring Physician: Sony Womack [facility], Encounter Date: 09/12/2023 Neurologist Referral for For getful Referring Physician: Sony Womack [facility], Encounter Date: 09/12/2023 Pressing Machine Operator Referral for S kin lesion Referring Physician: Sony Womack [facility], Encounter Date: 09/12/2023 Quality Compliance Consultant Referral for Sy ncope Referring Physician: Sony Womack [facility], Encounter Date: 08/09/2024 Band Tumbler Referral for O bstructive sleep apnea syndrome Please call patient to schedule. Referring Physician: Sony Womack Internal [facility], Encounter Date: 08/09/2024 Pressing Machine Operator Referral for S kin lesion Please call patient to schedule an appointment. Thank you. Referring Physician: Sony Womack Internal [facility], Encounter Date: 08/09/2024 Neurological Surgeon Referra fabiola for Low back pain Referring Physician: Sony Womack Internal [facility], Encounter Date: 08/09/2024 Results Created Date Observation Date Name Description Value Unit Range Abnormal Flag Note LastModifiedBy Organization Detail LastModifiedTime 09/15/19 24 09/15/2023 CBC/C OMPLE TE BLD COUNT W/DIF F white blood cells 5.6 x10'3 /uL 4.2-10 .8 Not Available [facility] (Lab) [address] [place], [address], 09/15/2023 12:40:19 09/15/19 24 09/15/2023 CBC/C OMPLE TE BLD COUNT W/DIF F red blood cells 4.69 x10'6 /uL 3.80-5 .20 Not Available [facility] (Lab) [address] [place], [address], 09/15/2023 12:40:19 09/15/19 24 09/15/2023 CBC/C OMPLE TE BLD COUNT W/DIF F hemoglobin 15.1 g/dL 12.0-1 5.6 Not Available [facility] (Lab) [address] [place], [address], 09/15/2023 12:40:19 09/15/19 24 09/15/2023 CBC/C OMPLE TE BLD COUNT W/DIF F hematocrit 45.0 % 35.7-4 5.7 Not Available [facility] (Lab) [address] [place], [address], 09/15/2023 12:40:19 09/15/19 24 09/15/2023 CBC/C OMPLE TE BLD COUNT W/DIF F mean red cell volume 95.9 fL 82.0-9 9.0 Not Available [facility] (Lab) [address] [place], [address], 09/15/2023 12:40:19 09/15/19 24 09/15/2023 CBC/C OMPLE TE BLD COUNT W/DIF F mean red cell hemoglobin 32.2 pg 27.0-3 3.0 Not Available [facility] (Lab) [address] [place], [address], 09/15/2023 12:40:19 09/15/19 24 09/15/2023 CBC/C OMPLE TE BLD COUNT W/DIF F mean RBC HGB concentratio n 33.6 g/dL 31.0-3 6.0 Not Available [facility] (Lab) [address] [place], [address], 09/15/2023 12:40:19 09/15/19 24 09/15/2023 CBC/C OMPLE TE BLD COUNT W/DIF F red cell distribution width 13.6 % 11.8-1 5.5 Not Available [facility] (Lab) [address] [place], [address], 09/15/2023 12:40:19 09/15/19 24 09/15/2023 CBC/C OMPLE TE BLD COUNT W/DIF F platelets 187 x10'3 /uL 150-40 0 Not Available [facility] (Lab) [address] [place], [address], 09/15/2023 12:40:19 09/15/19 24 09/15/2023 CBC/C OMPLE TE BLD COUNT W/DIF F mean platelet volume 10.3 fL 9.0-12 .4 Not Available [facility] (Lab) [address] [place], [address], 09/15/2023 12:40:19 09/15/19 24 09/15/2023 CBC/C OMPLE TE BLD COUNT W/DIF F neutrophils 67.5 % 39.0-7 2.0 Not Available [facility] (Lab) [address] [place], [address], 09/15/2023 12:40:19 09/15/19 24 09/15/2023 CBC/C OMPLE TE BLD COUNT W/DIF F lymphocytes 17.1 % 16.0-4 7.0 Not Available [facility] (Lab) [address] [place], [address], 09/15/2023 12:40:19 09/15/19 24 09/15/2023 CBC/C OMPLE TE BLD COUNT W/DIF F monocytes 11.5 % 5.0-12 .0 Not Available [facility] (Lab) [address] [place], [address], 09/15/2023 12:40:19 09/15/19 24 09/15/2023 CBC/C OMPLE TE BLD COUNT W/DIF F eosinophils 3.2 % 1.0-7. 0 Not Available [facility] (Lab) [address] [place], [address], 09/15/2023 12:40:19 09/15/19 24 09/15/2023 CBC/C OMPLE TE BLD COUNT W/DIF F basophils 0.2 % 0.0-2. 0 Not Available [facility] (Lab) [address] [place], [address], 09/15/2023 12:40:19 09/15/19 24 09/15/2023 CBC/C OMPLE TE BLD COUNT W/DIF F immature granulocytes 0.5 % 0.00-0 .50 Not Available [facility] (Lab) [address] [place], [address], 09/15/2023 12:40:19 09/15/19 24 09/15/2023 CBC/C OMPLE TE BLD COUNT W/DIF F neutrophils, absolute count 3.75 x10'3 /uL 1.5-8. 0 Not Available [facility] (Lab) [address] [place], [address], 09/15/2023 12:40:19 09/15/19 24 09/15/2023 CBC/C OMPLE TE BLD COUNT W/DIF F lymphocytes, absolute count 0.95 x10'3 /uL 1.07-3 .43 low Not Available [facility] (Lab) [address] [place], [address], 09/15/2023 12:40:19 09/15/19 24 09/15/2023 CBC/C OMPLE TE BLD COUNT W/DIF F monocytes, absolute count 0.64 x10'3 /uL 0.29-0 .99 Not Available [facility] (Lab) [address] [place], [address], 09/15/2023 12:40:19 09/15/19 24 09/15/2023 CBC/C OMPLE TE BLD COUNT W/DIF F eosinophils, absolute count 0.18 x10'3 /uL 0.02-0 .53 Not Available [facility] (Lab) [address] [place], [address], 09/15/2023 12:40:19 09/15/19 24 09/15/2023 CBC/C OMPLE TE BLD COUNT W/DIF F basophils, absolute count 0.01 x10'3 /uL 0.01-0 .08 Not Available [facility] (Lab) [address] [place], [address], 09/15/2023 12:40:19 09/15/19 24 09/15/2023 CBC/C OMPLE TE BLD COUNT W/DIF F immature granulocytes ,absolute 0.03 x10'3 /uL 0.00-0 .05 Not Available [facility] (Lab) [address] [place], [address], 09/15/2023 12:40:19 09/15/19 24 09/15/2023 CBC/C OMPLE TE BLD COUNT W/DIF F nucleated red blood cells 0.0 % -0 Not Available [facility] (Lab) [address] [place], [address], 09/15/2023 12:40:19 09/15/19 24 09/15/2023 CBC/C OMPLE TE BLD COUNT W/DIF F NRBC# 0.00 x10'3 /uL Not Available [facility] (Lab) [address] [place], [address], 09/15/2023 12:40:19 09/15/19 24 09/15/2023 LIPID PANEL cholesterol 149 mg/dL 140-19 9 NIH CELINE NSUS RECOM MENDA TION FOR VERO STERO L: ADULT CHILD LOW RISK: <200 <170 BORDE RLINE : <200- 239 ----- HIGH RISK: >240 >200 Not Available [facility] (Lab) [address] [place], [address], 09/15/2023 13:02:12 09/15/19 24 09/15/2023 LIPID PANEL triglyceride s 97 mg/dL 0-150 NIH CELINE NSUS REPOR T RECOM MENDA TION FOR TRIGL YCERI ADE: ADULT CHILD LOW RISK: <150 ----- BODER LINE: 150-1 99 ----- HIGH RISK: >200 ----- Not Available [facility] (Lab) [address] [place], [address], 09/15/2023 13:02:12 09/15/19 24 09/15/2023 LIPID PANEL HDL cholesterol 58 mg/dL 40- Not Available [facility] (Lab) [address] [place], [address], 09/15/2023 13:02:12 09/15/19 24 09/15/2023 LIPID PANEL LDL cholesterol, calculated 72 mg/dL 0-130 NIH CELINE NSUS REPOR T RECOM MENDA TIONS FOR LDL: ADULT CHILD LOW RISK <130 <110 (OPTI MAL LDL) <100 ----- BORDE RLINE : 130-1 59 ----- HIGH RISK: >160 >130 A TRIGL YCERI DE RESUL T >400 INVAL IDATE S THE CALCU LATIO N FOR LDL FRACT IONAT ION - THE LDL RESUL T WILL NOT BE REPOR DONNY. Not Available [facility] (Lab) [address] [place], [address], 09/15/2023 13:02:12 09/15/19 24 09/15/2023 COMPR EHENS TAHMINA METAB OLIC PANEL sodium 139 mmol/ L 137-14 5 Not Available [facility] (Lab) [address] [place], [address], 09/15/2023 13:02:16 09/15/19 24 09/15/2023 COMPR EHENS TAHMINA METAB OLIC PANEL potassium 4.1 mmol/ L 3.5-5. 1 Not Available [facility] (Lab) [address] [place], [address], 09/15/2023 13:02:16 09/15/19 24 09/15/2023 COMPR EHENS TAHMINA METAB OLIC PANEL chloride 104 mmol/ L 98-107 Not Available [facility] (Lab) [address] [place], [address], 09/15/2023 13:02:16 09/15/19 24 09/15/2023 COMPR EHENS TAHMINA METAB OLIC PANEL carbon dioxide 30 mmol/ L 22-30 Not Available [facility] (Lab) [address] [place], [address], 09/15/2023 13:02:16 09/15/19 24 09/15/2023 COMPR EHENS TAHMINA METAB OLIC PANEL anion gap 9.1 mmol/ L 14-22 low Not Available [facility] (Lab) [address] [place], [address], 09/15/2023 13:02:16 09/15/19 24 09/15/2023 COMPR EHENS TAHMINA METAB OLIC PANEL glucose 84 mg/dL 70-99 Not Available [facility] (Lab) [address] [place], [address], 09/15/2023 13:02:16 09/15/19 24 09/15/2023 COMPR EHENS TAHMINA METAB OLIC PANEL BUN 19 mg/dL 8-19 Not Available [facility] (Lab) [address] [place], [address], 09/15/2023 13:02:16 09/15/19 24 09/15/2023 COMPR EHENS TAHMINA METAB OLIC PANEL creatinine 0.62 mg/dL 0.66-1 .25 low Not Available [facility] (Lab) [address] [place], [address], 09/15/2023 13:02:16 09/15/19 24 09/15/2023 COMPR EHENS TAHMINA METAB OLIC PANEL GFR >60 Refer ence Range : [place] ge GFR Healt hy Adult : >60 mL/mi n/1.7 3 m2 Chron ic Kidne y Disea se: 15-60 mL/mi n/1.7 3 m2 Kidne y Failu re: <15/m L/min /1.73 m2 www.n iddk. nih.g ov The MDRD study equat ion has not been valid ated in child elena <18 years of age; pregn ant women ; the elder ly >85 years of age; or in some racia l or ethni c subgr oups, such as Hispa nics. Outsi de the valid ated nasreen eters , estim ated GFR is less accur ate, requi ring clini madiha judgm ent on a case- by-ca se basis . Clini madiha inter preta tion for other races and ages must be made by the clini gwen. The MDRD study equat ion has not been valid ated for the evalu ation of serum creat inine relat ed to nutri isaiah l statu s or medic ation usage . For perso ns <18 years of age, a pedia tric GFR calcu lator is avail able on the [facility] websi te: https ://ww w.kid shell.o rg/pr ofess ional s/kdo qi/gf r_cal culat or Not Available [facility] (Lab) [address] [place], [address], 09/15/2023 13:02:16 09/15/19 24 09/15/2023 COMPR EHENS TAHMINA METAB OLIC PANEL alkaline phosphatase 50 U/L 38-126 Not Available [facility] (Lab) [address] [place], [address], 09/15/2023 13:02:16 09/15/19 24 09/15/2023 COMPR EHENS TAHMINA METAB OLIC PANEL alanine aminotransfe rase 26 U/L 0-35 Not Available [facility] (Lab) [address] [place], [address], 09/15/2023 13:02:16 09/15/19 24 09/15/2023 COMPR EHENS TAHMINA METAB OLIC PANEL aspartate aminotransfe rase 28 U/L 15-37 Not Available [facility] (Lab) [address] [place], [address], 09/15/2023 13:02:16 09/15/19 24 09/15/2023 COMPR EHENS TAHMINA METAB OLIC PANEL bilirubin, total 0.50 mg/dL 0.20-1 .30 Not Available [facility] (Lab) [address] [place], [address], 09/15/2023 13:02:16 09/15/19 24 09/15/2023 COMPR EHENS TAHMINA METAB OLIC PANEL calcium 9.2 mg/dL 8.4-10 .2 Not Available [facility] (Lab) [address] [place], [address], 09/15/2023 13:02:16 09/15/19 24 09/15/2023 COMPR EHENS TAHMINA METAB OLIC PANEL total protein 6.2 g/dL 6.3-8. 2 low Not Available [facility] (Lab) [address] [place], [address], 09/15/2023 13:02:16 09/15/19 24 09/15/2023 COMPR EHENS TAHMINA METAB OLIC PANEL albumin 3.9 g/dL 3.0-4. 4 Not Available [facility] (Lab) [address] [place], [address], 09/15/2023 13:02:16 09/15/19 24 09/15/2023 COMPR EHENS TAHMINA METAB OLIC PANEL globulin 2.3 g/dL 2.6-4. 2 low Not Available [facility] (Lab) [address] [place], [address], 09/15/2023 13:02:16 09/15/19 24 09/15/2023 COMPR EHENS TAHMINA METAB OLIC PANEL A/G ratio 1.7 ratio 1.0-2. 0 Not Available [facility] (Lab) [address] [place], [address], 09/15/2023 13:02:16 09/15/19 24 09/15/2023 T4 FREE free T4 1.16 NG/dL 0.78-2 .19 Not Available [facility] (Lab) [address] [place], [address], 09/15/2023 13:24:27 09/15/19 24 09/15/2023 TSH thyroid-stim ulating hormone 1.010 uIU/m L 0.465- 4.680 Not Available [facility] (Lab) [address] [place], [address], 09/15/2023 13:31:51 09/15/19 24 09/15/2023 MICRO ALBUM IN RANDO M URINE microalbumin , urine 24.5 mg/L 0.0-16 .6 high Not Available [facility] (Lab) [address] [place], [address], 09/15/2023 14:02:05 09/15/19 24 09/15/2023 VITAM IN B12 (FRANCHESKA LOY ) vb12 >1000 pg/mL 239-93 1 high Not Available [facility] (Lab) [address] [place], [address], 09/15/2023 14:52:45 09/15/19 24 09/15/2023 FOLAT E, SERUM /PLAS MA folate 11.6 NG/mL 2.76-2 0.0 Not Available [facility] (Lab) [address] [place], [address], 09/15/2023 14:52:47 09/15/19 24 09/15/2023 HEMOG LOBIN A1C HA1C 5.5 % 4.0-6. 0 Diabe brant Scree misty Crite beth: <5.7% Consi stent with absen ce of diabe brant 5.7-6 .4% Consi stent with incre ased risk for diabe brant (pred iabet es) >OR=6 .5% Consi stent with diabe brant REFER ENCE: Diabe brant Care 2016, 39(Laureano ppl.1 ):s13 -s22 Not Available [facility] (Lab) [address] [place], [address], 09/15/2023 15:47:22 08/29/19 24 XR, knee No observ ation record ed. [email or web address] [facility] [place] [address], [place], [address], 08/29/2023 17:35:16 Result Notes None recorded. Problems Name Problem SNOMED Code Status Onset Date Resolution Date Notes Provider Name and Address Organization Details Recorded Time Acute sinusitis 40631712 Active 2021 Not Available [facility] 3 02:51:32 Closed fracture of distal end of radius 61280656 Active Not Available [facility] 3 02:51:32 Localized, primary osteoarthr itis of the hand 722519803 Active Not Available [facility] 3 02:51:32 Closed fracture proximal humerus, greater tuberosity 436345705 Active Not Available [facility] 3 02:51:32 Shoulder joint pain 485478422 Active Not Available [facility] 3 02:51:32 Pain of left wrist 1542765219803 02 Active 2021 Not Available [facility] 3 02:51:32 Vitamin D deficiency 78807104 Active 2021 Not Available [facility] 3 02:51:32 Hypothyroi dism 66379733 Active 2018 Not Available [facility] 3 02:51:32 Pain of left knee joint 3760155424944 07 Active 2021 Not Available [facility] 3 02:51:32 Hyperlipid emia 01810148 Active 2021 Not Available [facility] 3 02:51:32 Carpal tunnel syndrome 02113775 Active Not Available [facility] 3 02:51:32 Osteoporos is 97239494 Active 2018 Not Available [facility] 3 02:51:32 Fracture of forearm 60993656 Active Not Available [facility] 3 02:51:32 Fracture of humerus 14717332 Active Not Available [employer] 3 02:51:33 Hyperglyce chadd 23739004 Active 09/21/ 2022 Not Available [employer] 3 02:51:33 Pain in right hand 3644029075289 09 Active 2022 POLINA Ken null, [facility] 3 08:58:30 Pain of right wrist 5998531793994 00 Active 2022 Jerri Lozano null, [facility] 3 09:41:12 Carpal tunnel syndrome of right wrist 9646624253197 08 Active 2022 Cassius Page MD [address], [address], [place], [address] , [facility] 3 09:44:59 Ulnar nerve entrapment at elbow 243140090 Active 2022 Cassius Page MD [address], [address], [place], [address] , [facility] 3 09:45:29 Bilateral carpal tunnel syndrome 8430880614226 9101 Active 2022 POLINA Gonzales null, [facility] 3 08:57:10 Essential hypertensi on 26022907 Active 2022 oSny renner MD [address], [address], [place], [address] , [facility] 3 08:57:47 Obstructiv e sleep apnea syndrome 85008922 Active 2022 Sony renner MD [address], [address], [place], [address] , [facility] 3 08:58:00 Depressive disorder 14308676 Active 2022 Sony renner MD [address], [address], [place], [address] , [facility] 3 08:58:06 Syncope 309493129 Active 2022 Sony renner MD [address], [place], [address] , [place] [facility] 3 08:58:16 Numbness of hand 630999439 Active 2022 Sony renner MD [address], [address], [place], [address] , [place] [facility] 3 08:58:29 Dizziness 679909825 Active 2022 Sony renner MD [address], [address], [place], [address] , [place] [facility] 3 08:58:36 Low back pain 093499206 Active 2022 Sony renner MD [address], [address], [place], [address] , [place] 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 3 08:59:06 Pain of bilateral knee joints 2526456125179 04 Active 2022 Sony renner MD [address], [address], [place], [address] , [place] [facility] 3 08:59:44 Prediabete s 625879613 Active 2022 Sony renner MD [address], [address], [place], [address] , [facility] 3 09:26:40 Leukopenia 10632382 Active 2022 Sony renner MD [address], [place], [address] , [place] [facility] 3 09:31:09 Benign paroxysmal positional vertigo 824477110 Active 2022 Sony renner MD [address], [place], [address] , [facility] 3 09:49:21 Seasonal allergic rhinitis 294874103 Active 2022 Sony renner MD [address], [place], [address] , [facility] 3 10:54:33 Forgetful 50746719 Active 2022 Sony renner MD [address], [place], [address] , [facility] 3 10:56:43 Skin lesion 31353468 Active 2022 Sony renner MD [address], [place], [address] , [facility] 3 11:01:09 Otitis media 33606286 Active 2023 Sony renner MD [address], [place], [address] , [facility] 4 14:48:04 Upper respirator y infection 63042813 Active 2023 Eveline Stewart MA null, [facility] 4 16:00:37 Proteinuri a 49258484 Active 2023 YOVANY Mcgill, MS - [facility] 4 16:12:32 Reactive lymphadeno chiquita 868785041 Active 2023 Sony renner MD [address], [place], [address] , [facility] 4 16:15:23 Serum vitamin B12 below reference range 922799000 Active 2024 Sony renner MD [address], [facility] [address], [place], [address] , [employer] 5 10:26:02 Notes:coronary artery diseas e depression high cholesterol hypertension migraines urinary/bladder/kidney infections Problem Notes None recorded. Procedures Surgical History Date Name Laterality Status Provider Name and Address Organization Details Recorded Time 08/09/19 25 Medicare Wellness CPT Code, subsequent completed Michel Sharma LPN [employer] 07/26/2024 10:04:30 11/26/19 21 Most Recent Bone Density completed Not Available [facility] 09/29/2022 02:44:52 09/25/19 21 Pacemaker completed Not Available [facility] 02:44:54 02/24/20 16 Thyroid Surgery completed Not Available [facility] 08/2022 02:44:54 09/16/19 16 Orthopedic Surgery completed Not Available [facility] 09/29/2022 02:44:54 01/30/20 15 Date of Last Colonoscopy completed Not Available [facility] 09/29/2022 02:44:52 01/30/20 15 Colonoscopy with biopsy completed Not Available [facility] 09/29/2022 02:44:54 03/02/20 13 other completed Not Available [facility] 3 02:44:54 03/01/20 13 [employer] Surgery completed Not Available [facility] 09/30/19 23 02:44:54 03/01/20 13 other completed Not Available [facility] 3 02:44:54 04/19/20 12 other completed Not Available [facility] 3 02:44:54 04/19/20 12 Bso omentectomy w/sarah completed Not Available [facility] 09/29/2022 02:44:54 Eye Surgery completed Not Available [facility] 09/29/2022 02:44:54 other completed Not Available [facility] 08/2022 02:44:54 other completed Not Available [facility] 08/2022 02:44:54 Imaging Results Imaging Date Name Status LastModified by Organiz ation Details LastModified Time 08/29/2023 XR, knee completed [email or web address] [address], [place], [address], 08/29/2023 17:35:16 Procedure Notes None recorded. Medical Equipment None Reported. Allergies Allergen ID Allergen Name Allergen Category Reaction Reaction Severity Criticality Documentation Date Start Date Code Code System Note Provider Name and Address Organization Details Recorded Time 77640 Augmentin medicatio n vomiting Not available Not available 11/16/2023 18452 2 RxNorm YOVANY Mcgill, JOSE ARMANDO [facility] [employer] 17:39:20 Medications Name Sig Start Date Stop Date Status Note LastModified by Organization Details LastModified Time cyclobenz aprine 10 mg tablet TAKE 1 TABLET BY MOUTH THREE TIMES DAILY 08/09 completed Not Available Not Available Not Available amoxicill in 500 mg capsule TAKE 1 CAPSULE BY MOUTH TWICE DAILY FOR 7 DAYS 11/15 completed Not Available Not Available Not Available Augmentin 875 mg-125 mg tablet Take 1 tablet every 12 hours by oral route for 7 days. 11/16 completed Not Available Not Available Not Available clindamyc in HCl 300 mg capsule TAKE 1 CAPSULE BY MOUTH EVERY 6 HOURS FOR 10 DAYS 08/09 completed Not Available Not Available Not Available polyethyl gayle glycol 3350 17 gram oral powder packet 08/14 completed Not Available Not Available Not Available cetirizin e 10 mg tablet TAKE 1 TABLET BY MOUTH DAILY 08/09 completed Not Available Not Available Not Available oxybutyni n chloride ER 10 mg tablet,ex tended release 24 hr TAKE 1 TABLET BY MOUTH DAILY 04/24 completed Not Available Not Available Not Available pravastat in 40 mg tablet TAKE 1 TABLET BY MOUTH EVERY DAY AT BEDTIME active Not Available Not Available No t Available tizanidin e 4 mg tablet active Not Available Not Available Not Available hydrocodo ne 5 mg-acetam inophen 325 mg tablet TAKE 1 TABLET BY MOUTH EVERY 8 HOURS NEEDED FOR PAIN active Not Available Not Available No t Available meloxicam 15 mg tablet TAKE 1 TABLET BY MOUTH EVERY DAY WITH FOOD NEEDED 11/15 completed Not Available Not Available Not Available ondansetr on HCl 4 mg tablet 05/23 completed Not Available Not Available Not Available meclizine 12.5 mg tablet Take 1 tablet twice a day by oral route as needed for 30 days. active Not Available Not Available No t Available amlodipin e 2.5 mg tablet TAKE 1 TABLET BY MOUTH EVERY DAY active Not Available Not Available No t Available ciproflox acin 500 mg tablet TAKE 1 TABLET BY MOUTH EVERY 12 HOURS active Not Available Not Available No t Available aspirin 81 mg tablet,de layed release Take 1 tablet every day by oral route. 2019 active Not Available Not Available Not Avai lable tramadol 50 mg tablet TAKE 1 TABLET BY MOUTH EVERY 6 HOURS NEEDED PAIN active Not Available Not Available No t Available amoxicill in 500 mg tablet 09/26 completed Not Available Not Available Not Available levothyro xine 25 mcg tablet 03/29 completed Not Available Not Available Not Available ferrous sulfate 324 mg tablet Take 1 tablet every day by oral route. 2019 active Not Available Not Available Not Avai lable amoxicill in 875 mg tablet 08/14 completed Not Available Not Available Not Available gabapenti n 800 mg tablet 09/12 completed Not Available Not Available Not Available ondansetr on 4 mg tablet Take 2 tablets every 12 hours by oral route. 02/17 completed Not Available Not Available Not Available Kenalog 10 mg/mL suspensio n for injection in office 09/12 completed [facility]: 0003-049 11-18 Not Available Not Available Not Available meclizine 25 mg tablet Take 1 tablet as needed by oral route. 04/24 completed Not Available Not Available Not Available baclofen 10 mg tablet TAKE 1 TABLET BY MOUTH THREE TIMES DAILY NEEDED 08/09 completed Not Available Not Available Not Available levothyro xine 50 mcg tablet TAKE 1 TABLET BY MOUTH DAILY active Not Available Not Available No t Available cephalexi n 500 mg capsule TAKE 1 CAPSULE BY MOUTH THREE TIMES DAILY FOR 5 DAYS active Not Available Not Available No t Available gabapenti n 300 mg capsule TAKE ONE CAPSULE BY MOUTH TWICE DAILY. NO ALCOHOL, DRIVING, OR WITH OTHER SEDATING MEDICATI ONS active Not Available Not Available No t Available diclofena c sodium 75 mg tablet,de layed release TAKE 1 TABLET BY MOUTH TWICE DAILY WITH FOOD 04/28 completed Not Available Not Available Not Available pravastat in 20 mg tablet Take 20 mg every day by oral route. 05/08 completed Not Available Not Available Not Available levofloxa derrick 750 mg tablet TAKE 1 TABLET BY MOUTH EVERY DAY FOR 7 DAYS 08/09 completed Not Available Not Available Not Available methylpre dnisolone 4 mg tablets in a dose pack FOLLOW PACKAGE DIRECTIO NS 08/09 completed Not Available Not Available Not Available ondansetr on 4 mg disintegr ating tablet DIS ONE T PO Q 8 H PRN N active Not Available Not Available No t Available fluticaso ne propionat e 50 mcg/actua tion nasal spray,sanjay pension SPRAY ONCE IN EACH NOSTRIL EVERY DAY 08/09 completed Not Available Not Available Not Available naproxen 500 mg tablet TAKE 1 TABLET BY MOUTH TWICE DAILY NEEDED FOR PAIN active Not Available Not Available No t Available Blood Glucose Test strips test once daily 02/07 completed Not Available Not Available Not Available escitalop lavinia 10 mg tablet TAKE 1 TABLET BY MOUTH EVERY DAY active Not Available Not Available No t Available escitalop lavinia 20 mg tablet TAKE 1 TABLET BY MOUTH DAILY active Not Available Not Available No t Available Asprin Ec Low Dose 81 mg tablet,de layed release Take 1 tablet every day by oral route. 06/14 completed Not Available Not Available Not Available moxifloxa derrick 0.5 % eye drops INSTILL 1 DROP IN RIGHT EYE THREE TIMES DAILY FOR 1 WEEK 11/09 completed Not Available Not Available Not Available bupropion HCl XL 150 mg 24 hr tablet, extended release qd 02/07 completed Not Available Not Available Not Available escitalop lavinia 5 mg tablet TAKE 1 TABLET BY MOUTH DAILY 06/15 completed take 2, 5 mg tab per day Not Available Not Available Not Available aspirin 81mg 1 daily 10/20 completed Not Available Not Available Not Available levothyro xine .05mg 1 daily 02/22 completed Not Available Not Available Not Available Vitamin D3 qd 05/01 completed Not Available Not Available Not Available Slow-Mag takes one daily 04/12 completed Not Available Not Available Not Available ondansetr on 4 mg 1 as needed for nausea 02/22 completed Not Available Not Available Not Available Culturell e 08/22 completed Not Available Not Available Not Available lidocaine (PF) 10 mg/mL (1 %) injection solution In office injectio n administ ered by the provider 04/19 completed [facility]: 0409-427 6-17 Not Available Not Available Not Available Voltaren 1 % topical gel 08/22 completed Not Available Not Available Not Available Vitamin D-3 with Aloe 2ooomg 1 tablet daily 10/20 completed Not Available Not Available Not Available Citracal + D Maximum 2 TABS Daily 2019 active Not Available Not Available Not Avai lable levothyro xine 50 mcg capsule TAKE 1 CAPSULE BY MOUTH EVERY MORNING 04/19 completed duplicat e Not Available Not Available Not Available amlodipin e besylate (bulk) 2.5 mg 1 daily 02/22 completed Not Available Not Available Not Available Suprep Bowel Prep Kit 17.5 gram-3.13 gram-1.6 gram oral solution 08/14 completed Not Available Not Available Not Available Vitamin D3 50 mcg (2,000 unit) capsule Take 1 capsule every day by oral route. 11/09 completed Not Available Not Available Not Available ropivacai ne (PF) 5 mg/mL (0.5 %) injection solution in office 09/12 completed [facility] 64475-35 4-01 Not Available Not Available Not Available Citracal- D3 Gummies twice a day 10/21 completed Not Available Not Available Not Available cyanocoba loy (vit B-12) 1,000 mcg sublingua l lozenge Place by sublingu al route. 2019 active Not Available Not Available Not Avai lable Fluzone High-Dose 2490-7120 (PF) 180 mcg/0.5 mL intramusc ular syringe ADM 0.5ML IM UTD 06/28 completed Not Available Not Available Not Available Fluzone High-Dose 2018- (PF) 180 mcg/0.5 mL intramusc ular syringe ADM 0.5ML IM UTD 06/11 completed Not Available Not Available Not Available Fluzone High-Dose Quad (PF) 240 mcg/0.7 mL IM syringe ADM 0.7ML IM UTD 06/16 completed Not Available Not Available Not Available BinaxNOW COVID-19 Ag Self Test kit TEST DIRECTED TODAY 04/19 completed Not Available Not Available Not Available Vitals Date Recorded Body height Provider Name an d Address Organization Details Last Updated DateTime 08/29/2023 157.48 cm Nuris Dolan Gianfrnaco MS [employer] [facility] [employer] 08/29/2023 16:56:22 Date Recorded Body height Body mass index (BMI) Body weight Body temperature Heart rate Systolic blood pressure Diastolic blood pressure Provider Name and Address Organization Details Last Updated DateTime 4 157.48 cm 28.9 kg/m2 93416.5 9 g 97.7 [degF] 60 /min 116 mm[Hg] 62 mm[Hg] Sanjuana Craft Gianfranco [employer] [facility] [employer] 4 14:24:22 Date Recorded Body height Body mass index (BMI) Body weight Body temperature Heart rate Systolic blood pressure Diastolic blood pressure Provider Name and Address Organization Details Last Updated DateTime 4 157.48 cm 28.5 kg/m2 69463.4 1 g 97.7 [degF] 60 /min 118 mm[Hg] 64 mm[Hg] Sanjuana Craft Gianfranco [employer] [facility] [employer] 4 10:03:47 Date Recorded Body height Body mass index (BMI) Body weight Body temperature Heart rate Oxygen saturation Oxygen saturation in Arterial blood by Pulse oximetry Systolic blood pressure Diastolic blood pressure Provider Name and Address Organization Details Last Updated DateTime 4 157.48 cm 29.1 kg/m2 88165.1 9 g 96.9 [degF] 68 /min 99 % 99 % 118 mm[Hg] 62 mm[Hg] Kay Walsh MA [employer] [facility] [employer] 4 15:41:37 Date Recorded Body height Provider Name an d Address Organization Details Last Updated DateTime 08/09/2024 157.48 cm Kay Walsh MA [employer] [facility] [employer] 08/09/2024 09:08:54 Date Recorded Body mass index (BMI) Body weight Body temperature Heart rate Respiratory rate Oxygen saturation Oxygen saturation in Arterial blood by Pulse oximetry Pain severity - 0-10 verbal numeric rating [Score] - Reported Systolic blood pressure Diastolic blood pressure Provider Name and Address Organization Details Last Updated DateTime 29.1 kg/m2 69198.1 9 g 98.2 [degF] 88 /min 16 /min 96 % 96 % 6 108 mm[Hg] 54 mm[Hg] Michel Sharma LPN [employer] 09:34:24 Social History Question Answer Notes LastModified by Organization Details LastModified Time Tobacco Smoking Status Former Smoker quit 1978 Emelyn dubon, [employer] 03/30/2023 09:38:18 Do You Have An Advance Directive? Yes [id number] Information not available 09/29/2022 What Is Your Level Of Alcohol Consumption? Occasional [id number] Information not available 09/29/2022 How Many Years Have You Consumed Alcohol? 60 [email or web address] Information not available 08/09/2024 Do You Wear A Helmet When Biking? No Does Not Bike [email or web address] Information not available 08/09/2024 Are You Blind Or Do You Have Difficulty Seeing? No Information not available 03/30/2023 Is Blood Transfusion Acceptable In An Emergency? Yes [email or web address] Information not available 08/09/2024 What Is Your Level Of Caffeine Consumption? None [id number] Information not available 09/29/2022 How Much Tobacco Do You Chew? None [id number] Information not available 09/29/2022 What Is Your Code Status? DNR [email or web address] Information not available 08/09/2024 In The 14 Days Before Symptom Onset, Have You Had Close Contact With A Laboratory-conf irmed COVID-19 While That Case Was Ill? No Information not available 03/30/2023 In The 14 Days Before Symptom Onset, Have You Had Close Contact With A Person Who Is Under Investigation For COVID-19 While That Person Was Ill? No Information not available 03/30/2023 Are You Currently Employed? No Retired Information not available 08/09/2024 Are You Deaf Or Do You Have Serious Difficulty Hearing? No Information not available 03/30/2023 What Type Of Diet Are You Following? REGULAR [email or web address] Information not available 08/09/2024 Which Illicit Or Recreational Drugs Have You Used? None Information not available 03/30/2023 Do You Or Have You Ever Used E-cigarettes Or Vape? Never Used Electronic Cigarettes Information not available 03/30/2023 What Is The Highest Grade Or Level Of School You Have Completed Or The Highest Degree You Have Received? [id number] Information not available 03/30/2023 How Many Days Of Moderate To Strenuous Exercise, Like A Brisk Walk, Did You Do In The Last 7 Days? 0 [email or web address] Information not available 08/09/2024 Have There Been Any Changes To Your Family Or Social Situation? No Information not available 03/30/2023 What Is The Fluoride Status Of Your Home? Unknown Information not available 03/30/2023 When Did You Quit Smoking? 16+[email or web address] igarette Information not available 03/30/2023 Are There Any Guns Present In Your Home? No Information not available 03/30/2023 Do You Use Insect Repellent Routinely? No Information not available 03/30/2023 Where Do You Live? SingleLevelHouse With Basement Information not available 03/30/2023 Advance Directive- Providers Has Reviewed Directive And Consents To Follow Them (insert Provider Name With Any Objectives In Notes Field) Yes Information not available 08/09/2024 Presence Of Domestic Violence No [email or web address] Information not available 08/09/2024 Guns Present In The Home? No [email or web address] Information not available 08/09/2024 Are You Able To Care For Yourself? Yes [email or web address] Information not available 08/09/2024 Are You Blind Or Do Yo Have Difficulty Seeing? No [email or web address] Information not available 08/09/2024 Are You Deaf Or Do You Have Serious Difficulty Hearing? No [email or web address] Information not available 08/09/2024 General Stress Level? Low Information not available 08/09/2024 Live Alone Of With Others? With Others [email or web address] Information not available 08/09/2024 Do You Have A Medical Power Of Personal Shopper? Yes Information not available 03/30/2023 What Was The Date Of Your Most Recent Tobacco Screening? 11/16/2023 [email or web address] Information not available 11/16/2023 How Many Children Do You Have? 1 Information not available 08/09/2024 What Is Your Current Pack Years? 10-19packyears Information not available 03/30/2023 Have You Ever Been Counseled For Unhealthy Alcohol Use? No [email or web address] Information not available 08/09/2024 Do You Have Any Pets? No Information not available 03/30/2023 What Is Your Relationship Status? [id number] Information not available 09/29/2022 Do You Use Your Seat Belt Or Car Seat Routinely? Yes Information not available 03/30/2023 Are You Sexually Active? No [email or web address] Information not available 08/09/2024 Do You Have Smoke And Carbon Monoxide Detectors In Your Home? Yes Information not available 03/30/2023 At What Age Did You Start Smoking Tobacco? 19 Information not available 03/30/2023 Are You Passively Exposed To Smoke? No Information not available 03/30/2023 Are There Any Smokers In Your House? No Information not available 03/30/2023 How Much Tobacco Do You Smoke? No [id number] Information not available 09/29/2022 What Types Of Sporting Activities Do You Participate In? None [email or web address] Information not available 08/09/2024 Do You Feel Stressed (tense, Restless, Nervous, Or Anxious, Or Unable To Sleep At Night)? [id number] Information not available 03/30/2023 Do You Use Any Illicit Or Recreational Drugs? No Information not available 03/30/2023 Do You Use Sunscreen Routinely? No Information not available 03/30/2023 Has Tobacco Cessation Counseling Been Provided? No N/A Information not available 03/30/2023 How Many Years Have You Smoked Tobacco? 15 Information not available 03/30/2023 Have You Recently Traveled Abroad? No Information not available 03/30/2023 Do You Have Any Dietary Restrictions? No Information not available 03/30/2023 Do You Or Have You Ever Used Any Other Forms Of Tobacco Or Nicotine? No Information not available 03/30/2023 How Many Days In The Past Year Have You Consumed 4 Or More Drinks? -1 [email or web address] Information not available 08/09/2024 Sex: Female Functional Status Question Answer Note LastModified by Organizat ion Details LastModified Time Do you have transportation difficulties? No Information not available 03/30/2023 Are you able to walk? [email or web address] Information not available 03/30/2023 Do you have difficulty doing errands alone? No Information not available 03/30/2023 Are you able to care for yourself? Yes Information not available 03/30/2023 Do you have difficulty dressing or bathing? No Information not available 03/30/2023 What is your exercise level? None [email or web address] Information not available 08/09/2024 Mental Status Question Answer Note LastModified by Organizat ion Details LastModified Time Do you have difficulty concentrating, remembering or making decisions? Yes Poor memory [email or web address] Information no t available 08/09/2024 Family History Relationship Description Onset Age of this Age Resolved Age Notes LastModified by Organization Details LastModified Time Maternal Aunt Diabetes mellitus [id number] Not available 09/29/2022 02:45:00 Brother Diabetes mellitus [id number] Not available 09/29/2022 02:45:00 Brother Family history of stroke Not available 2022 08:50:29 Brother Malignant melanoma [email or web address] Not available 2022 09:25:37 Father Hypertensive disorder [id number] Not available 09/29/2022 02:45:01 Father Heart disease [id number] Not available 09/29/2022 02:45:01 Father Family history of stroke Not available 2022 08:50:29 Father Heart failure 93 Not available 2022 08:50:29 Paternal Grandmother Family history of stroke 70 Not available 2022 08:50:29 Mother Alzheimer's disease 93 Not available 2022 08:50:29 Mother Cardiac arrhythmia Not available 12/14 08:50:29 Maternal Grandmother Dementia 70 Not available 08:50:29 Maternal Grandfather Myocardial infarction 60 [id number] Not available 09/29/2022 02:45:01 Medical History Condition Response KIDNEY STONES Y SLEEP APNEA Y HIGH CHOLESTEROL / HYPERLIPIDEMIA Y HYPOTHYROIDISM Y DEPRESSION (INCLUDING POST ) Y HAVE YOU BEEN HOSPITALIZED OR SEEN IN [facility] ER IN THE PAST YEAR ? N OSTEOPOROSIS Y URINARY/BLADDER/KIDNEY PROBLEMS Y ARTHRITIS Y DIZZINESS Y KIDNEY DISEASE Y HEART DISEASE/HEART PROBLEMS Y HYPERTENSION Y Gynecological History Statement/Question Response Date of Last Pap Date of Last Mammogram 01/19/2022 Current Control Method Hysterectom y Date of Last Colonoscopy 01/29/2015 Most Recent Bone Density 11/25/2020 Obstetrics History GPAL:G 2 P 2 0 0 2 Type Value Full Term 2 Living 2 Total 2 Immunizations Vaccine Type Date Status Note Provider Nam e and Address Organization Details Recorded Time Influenza, high-dose, quadrivalent, PF 1 completed Not Available Counts include 234 beds at the [facility] 09/29/2022 02:58:55 COVID-19 vaccine, vector-nr, rS-Ad26, PF, 0.5 mL 1 completed Not Available Counts include 234 beds at the [facility] 09/29/2022 02:58:55 SARS-COV-2 (COVID-19) vaccine, UNSPECIFIED 1 completed Not Available Counts include 234 beds at the [facility] 09/29/2022 02:58:55 SARS-COV-2 (COVID-19) vaccine, UNSPECIFIED 1 completed Not Available [facility] 09/29/2022 02:58:55 Influenza, high-dose, quadrivalent, PF 0 completed Not Available [facility] 09/29/2022 02:58:55 Influenza, high-dose, trivalent, PF 9 completed Not Available [facility] 09/29/2022 02:58:55 Influenza, MDCK, trivalent, PF 2 completed Not Available [facility] 09/29/2022 02:58:55 SARS-COV-2 (COVID-19) vaccine, UNSPECIFIED 2 completed Not Available Counts include 234 beds at the [facility] 09/29/2022 02:58:56 SARS-COV-2 (COVID-19) vaccine, UNSPECIFIED 2 completed Not Available [facility] 09/29/2022 02:58:56 Influenza, split virus, quadrivalent, preservative 8 completed Not Available [facility] 09/29/2022 02:58:56 influenza, unspecified formulation 6 completed Not Available [facility] 09/29/2022 02:58:56 influenza, unspecified formulation 6 completed Not Available [facility] 09/29/2022 02:58:56 influenza, unspecified formulation 5 completed Not Available [facility] 09/29/2022 02:58:56 Pneumococcal conjugate PCV 13 5 completed Not Available Counts include 234 beds at the [facility] 09/29/2022 02:58:56 Tdap 3 completed Not Available [facility] 09/29/2022 02:58:56 pneumococcal polysaccharide PPV23 0 completed Not Available Counts include 234 beds at the [facility] 09/29/2022 02:58:56 herpes simplex 2 7 completed Not Available Counts include 234 beds at the [facility] 09/29/2022 02:58:56 TST-PPD intradermal 3 completed Not Available Counts include 234 beds at the [facility] 09/29/2022 02:58:56 Influenza, high-dose, trivalent, PF 7 completed Not Available Counts include 234 beds at the [facility] 09/29/2022 02:58:56 Influenza, high-dose, quadrivalent, PF 3 completed POLINA Newberry null, [place] - [facility] [employer] [facility] 06/01/2023 10:15:26 zoster recombinant 3 completed Sanjuana Craft RMA null, [place] - [facility] [employer] [facility] 06/01/2023 10:16:02 zoster recombinant 3 completed Sanjuana Craft RMA null, [facility] [employer] [facility] 06/01/2023 10:16:12 COVID-19, mRNA, LNP-S, PF, 3 mcg/0.2 mL dose, malia-sucrose 06/29/202 3 completed POLINA Newberry null, [facility] [employer] [facility] 06/01/2023 10:17:18 tetanus toxoid, unspecified formulation 3 completed POLINA Newberry null, [facility] [employer] [facility] 06/01/2023 10:17:48 RSV, recombinant, protein subunit RSVpreF, adjuvant reconstituted, 0.5 mL, PF 3 completed POLINA Newberry, [facility] [employer] [facility] 06/01/2023 10:20:21 Past Encounters Encounter ID Performer Location Encounter Start Date Encounter Closed Date Diagnosis/Indication Diagnosis SNOMED-CT Code Diagnosis ICD10 Code Diagnosis Note [id number] [facility] [address] [place] [address] y , [place] [address] 10/20/2020 00:00:00 10/21/2020 17:01:59 [id number] [facility] [address] [place] [address] y , [place] [address] 11/10/2020 00:00:00 11/10/2020 12:22:53 [id number] _ATHENA_M IGRATION_ DEFAULT_1 _1 , 11/27/2020 00:00:00 11/27/2020 11:52:46 [id number] [facility] [address] [place] [address] y , [place] [address] 02/16/2021 00:00:00 02/18/2021 09:38:17 [id number] [facility] [place] [address] [facility] [address] [place] [address] 04/24/2021 00:00:00 04/24/2021 10:55:26 [id number] [facility] Internal Med [address] y , [place] [address] 2021 00:00:00 06/11/2021 12:54:17 [id number] [facility] Internal Med Rickey Sullivan [facility] [place] [address] [place] [address] 11/09/2021 00:00:00 11/09/2021 12:39:05 [id number] [facility] [place] [address] [place] [address] 12/16/2021 00:00:00 12/16/2021 16:40:10 [id number] [facility] Internal Med Rickey Sullivan [facility] [place] [address] 04/19/2022 00:00:00 04/19/2022 17:10:16 [id number] [facility] [place] [address] [facility] [address] [place] [address] 05/12/2022 00:00:00 05/12/2022 09:43:57 [id number] [facility] [place] [address] [place] [address] 09/20/2022 00:00:00 09/20/2022 17:33:57 [id number] Cassius Page MD [facility] [place] [address] 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 [place] [address] 12/14/2022 08:49:14 12/14/2022 09:31:01 Pain in right hand 9620230688 00466 M79.641 Carpal abram ratna syndrome of right wrist 5307467149 65396 G56.01 Ulnar nerv e entrapment at elbow 593118406 G56.[id number] [facility] [place] [address] [place] [address] 01/11/2023 08:48:44 01/11/2023 09:06:00 Pain in right hand 2282318637 22367 M79.641 Bilateral carpal tunnel syndrome 5761293576 7486334 G56.01 patient can continue with a stress and load program to the palm we will see her back in a few months for final evaluation . Ulnar nerv e entrapment at elbow 796894295 G56.21 [id number] Sony renner MD [facility] Internal Med [place] [id number] [facility] [place] [address] 01/24/2023 09:16:50 01/24/2023 09:48:05 Screening - NAD 231720150 Z13.9 C-scope: DId do this 01/29/15 Dr Salter-sco pe Dr Dixon in [facility] 08/10/18, referred to colorectal surgeon for hemorrhoid s, no more c-scope recommende d, does not know the name Mammogram/ PAP: Not doing any PAPMammogr am 03/25/17: Neg, 03/27/18: NegMammogr am: 08/29/2019 : NegMammogr am: 10/16/2020 : Neg, orderedMam mogram: 01/19/2022 : NegOrdered 01/24/2023 PAP: Did see Dr Johnson, noted to have prolapse of vagina and is referred to a urogynecol ogyDoes not see an OB any more UTD on flu shot 04/29/2020 UTD on zostavax 04/20/2007 UTD on pneumonia shot #13 2014 and 2009UTD tdap 10/03/12UT D on COVID 19 vaccine DEXA 02/13/19: Osteopenia , on ca and vit dDEXA 11/25/2020 : Low bone mass, get on calcium and vit d RTC in 3 monthswith labsER if any life threatenin g symptomssh e did verbalize her understand ing of the above Essential hypertension 86549880 I10 On ASAOn amlodipine 2.5mg dailyGet labs Hyperlipidemia 38640420 E78.5 On pravastati n 40mg dailyGet labs again Hypothyroidism 52676432 E03.9 On levothyrox ine 50mcgs dailySees Dr Conde Obstructiv e sleep apnea syndrome 85655211 G47.33 07/07/2020 : Dr Ingram: good compliance and is on autoCPAP or 6-12cm of H2O and a small Mirage FX nasal mask2020: Dr Pat: excellent compliance , f/u in one monthOV :Needs to see her pulmonary MD Depressive disorder 0548 9007 F32.A On lexapro 10mg dailyDoes wellNot suicidal or homicidalD eclines any referrals to psychiatry Syncope 569868175 R55 Has had ECHO, stress test, and CT head, US carotidCar diologist Dr. Desmond Kendall in [facility] [phone] recall last such episode, she is to see Dr De La Rosa in [place] on 06/02/17OV 08/22/17:Khai joy today, s/p now on the medtronic device 07/15/17 and now will see Dr De La Rosa next 08/19Sandy does want an apt with Dr Avlia a cardiologi whom she has seen with her husbandOV 11/21/17:S [facility] Records:St ress test 05/15: NegSandy is seeing Dr Avila, next apt is on 11/28/17No more episodes of syncope, did have a episode of presyncope , advised ER if this occursNow sees also sleep MD Dr Ingram and Dr Atkins neurologyM RI brain 10/28/17: Neg as per Dr Patel carotid 10/28/17: Neg as per Dr Florian 03/06/18:K eep apt with Dr Will and next apt with Dr Will 03/20/18h e does want a 2nd opinion with a cardiologi st, will refer to Dr. Kam 06/28/18:S ees cardiology Dr Will, Dr De La Rosa cardiology 08/24/18, Wash UDid see Dr Renae 03/29/18Di d see Dr Whitehead in [place] [facility] he may use the [place] for her UE and LE strength training at their gym, this note was provided to herOV 10/04/18:I s to see Dr De La Rosa today and Dr Whitehead neurology this monthOV 02/07/19:D id see Dr Whitehead yesterday, and is doing wellDid see Dr De La Rosa cardiology and next apt is in one yearOV 06/11/19:S ee cardiology See neurologyO V 10/22/2019 :Sees Dr De La Rosa, now wants to see Dr Renae, get an appointmen tSees Dr Whitehead, but does not want to do this at this timeDoes well at this timeOV 02/18/2020 :She did see Dr Renae and is now to follow up with himOV 04/30/2020 :Needs to see Dr Renae on 05/07/2020 OV 06/16/2020 :Does well at this time, did see Dr Renae 05/08/2020 OV 10/20/2020 :: [facility] Dr Wall s/p pacemaker insertion s/p syncopeKee p apt with Dr Stark 02/16/2021 :Keep apt with Dr Wall 03/24/2021 She would like to get an ECHO done as she would like Dr Wall to see what it isGet ECHOOV 2021 :Does wellDid see Dr Wall 03/18/2021 , next apt in one yearOV 11/09/2021 :See Dr Stark 04/19/2022 :See cardiology OV 09/20/2022 :Alex Wall [facility] 04/21/2022 OV 01/24/2023 : Keep apt with Dr Wall Numbness of hand 6998464 04 R20.0 R>LGet EMG/NCVDid see Dr Mcknight/p EMG 08/25/17/ p Corrina Ott s well nowPain in L wrist seen by Dr Page next on 04/12/2023 Dizziness 091245462 R42 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 urology, [facility], Dr Goldstein/p surgery for vaginal prolapse, 03/02/2013 Dr Dot hernández, [facility] in [facility]/p f/u Dr Ware 08/11/2020 Pain of bi lateral knee joints 4010058320 70173 M25.[address] Cheatham, last OV 04/24/2021 , 05/12/2022 Does well now Screening mammography 24 185133 Z12.31 Screening for osteoporosis 607231159 Z13.820 Prediabetes 862043492 R7 3.03 Needs to diet and exercise!, repeat the labs Pain in right hand 47112 62547 32370 M79.641 Evan MEYERS 12/14/2022 Leukopenia 14380033 D72. 819 Repeat the CBC again Benign par oxysmal positional vertigo 927145521 H81.13 C/o shree BPPV, states that she has noted dizziness with standing up from a sitting position [id number] Igor Castañeda MD [facility] [place] [address] [place] [address] 03/30/2023 09:37:06 03/30/2023 10:10:52 Pain in right hand 9243895863 13765 M79.305 [id number] Sony renner MD [facility] [place] [id number] [facility] [place] [address] 06/01/2023 10:11:19 06/01/2023 11:06:29 Screening - NAD 219550514 Z13.9 C-scope: DId do this 01/29/15 Dr Salter-sco pe Dr Dixon in [facility] 08/10/18, referred to colorectal surgeon for hemorrhoid s, no more c-scope recommende d, does not know the name Mammogram/ PAP: Not doing any PAPMammogr am 03/25/17: Neg, 03/27/18: NegMammogr am: 08/29/2019 : NegMammogr am: 10/16/2020 : Neg, orderedMam mogram: 01/19/2022 : NegMammogr am: 05/13/2023 : Neg PAP: Did see Dr Johnson, noted to have prolapse of vagina and is referred to a urogynecol ogyDoes not see an OB any more UTD on flu shot 04/29/2020 UTD on zostavax 04/20/2007 UTD on pneumonia shot #13 2014 and 23 2009UTD tdap 10/03/12UT D on COVID 19 vaccine DEXA 02/13/19: Osteopenia , on ca and vit dDEXA 11/25/2020 : Low bone mass, get on calcium and vit dDEXA: 05/13/2023 : Low bone mass RTC in 3 monthswith labsER if any life threatenin g symptomssh e did verbalize her understand ing of the above Essential hypertension 28319495 I10 On ASAOn amlodipine 2.5mg dailyGet labs Hyperlipidemia 96633044 E78.5 On pravastati n 40mg dailyGet labs again Hypothyroidism 77208739 E03.9 On levothyrox ine 50mcgs dailySeen by Dr Conde Obstructiv e sleep apnea syndrome 63943093 G47.33 07/07/2020 : Dr Ingram: good compliance and is on autoCPAP or 6-12cm of H2O and a small Mirage FX nasal mask 10/08/2020 : Dr Pat: excellent compliance , f/u in one month OV :Needs to see her pulmonary MD OV 06/01/2023 : Keep apt with Dr Chil Depressive disorder 3548 9007 F32.A On lexapro 10mg dailyDoes well Not suicidal or homicidalD eclines any referrals to psychiatry Syncope 427045939 R55 Has had ECHO, stress test, and CT head, US carotidCar diologist Dr. Desmond Kendall in [facility] [phone] recall last such episode, she is to see Dr De La Rosa in [place] on 06/02/17OV 08/22/17:D oing well today, s/p now on the medtronic device 07/15/17 and now will see Dr De La Rosa next 08/19She does want an apt with Dr Avila a cardiologi st whom she has seen with her husbandOV 11/21/17:S [facility] Records:St ress test 05/15: NegSharcadio is seeing Dr Avila, next apt is on 11/28/17No more episodes of syncope, did have a episode of presyncope , advised ER if this occursNow sees also sleep MD Dr Ingram and Dr Atkins neurologyM RI brain 10/28/17: Neg as per Dr Patel carotid 10/28/17: Neg as per Dr Florian 03/06/18:K eep apt with Dr Will and next apt with Dr Will 03/20/18h e does want a 2nd opinion with a cardiologi st, will refer to Dr. Kam 06/28/18:S ees cardiology Dr Will, Dr De La Rosa cardiology 08/24/18, [place] UDid see Dr Renae 03/29/18Di d see Dr [facility] he may use the [facility] for her UE and LE strength training at their gym, this note was provided to herOV 10/04/18:I s to see Dr De La Rosa today and Dr Whitehead neurology this monthOV 02/07/19:D id see Dr Whitehead yesterday, and is doing wellDid see Dr De La Rosa cardiology and next apt is in one yearOV 06/11/19:S ee cardiology See neurologyO V 10/22/2019 :Sees Dr De La Rosa, now wants to see Dr Renae, get an appointmen tSees Dr Whitehead, but does not want to do this at this timeDoes well at this timeOV 02/18/2020 :She did see Dr Renae and is now to follow up with himOV 04/30/2020 :Needs to see Dr Renae on 05/07/2020 OV 06/16/2020 :Does well at this time, did see Dr Renae 05/08/2020 OV 10/20/2020 :: [facility] Dr Wall s/p pacemaker insertion s/p syncopeKee p apt with Dr Stark 02/16/2021 :Keep apt with Dr Wall 03/24/2021 She would like to get an ECHO done as she would like Dr Wall to see what it isGet ECHOOV 2021 :Does wellElmirad see Dr Wall 03/18/2021 , next apt in one yearOV 11/09/2021 :See Dr Stark 04/19/2022 :See cardiology OV 09/20/2022 :Alex Wall [facility] 04/21/2022 OV 01/24/2023 : Keep apt with Dr Wall OV 06/01/2023 :ECHO [facility] 05/06/2023 : Dr Wall Numbness of hand 4827422 04 R20.0 R>LGet EMG/NCVDid see Dr Mcknight/jo EMG 08/25/17/ p Corrina Ott s well nowPain in L wrist seen by Dr Page next on 04/12/2023 Dizziness 004667812 R42 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/p surgery for vaginal prolapse, 03/02/2013 Dr Dot hernández, [facility] [place] Dr Ware 08/11/2020 Pain of bi lateral knee joints 4316539992 67316 M25.[address] Cheatham, last OV 04/24/2021 , 05/12/2022 Does well now Prediabetes 303888709 R7 3.03 Needs to diet and exercise!, repeat the labs Pain in right hand 71330 26054 47712 M79.641 Evan MEYERS 12/14/2022 Leukopenia 12011262 D72. 819 Repeat the CBC again Benign par oxysmal positional vertigo 918967947 H81.13 C/o shree BPPV, states that she has noted dizziness with standing up from a sitting position Seasonal a llergic rhinitis 784299580 J30.2 Get on flonaseGet on zyrtec as needed Forgetful 37704240 R41.3 Get neurology apt, get labs, get MRI brain Skin lesion 67960623 L98 .9 Flat crusty lesion noted on the L lower lateral neckRefer to dermatolog y [id number] MIRA Chaney [facility] [place] [address] [place] [address] 08/29/2023 16:46:40 08/29/2023 17:39:17 Pain of left knee joint 4781026610 47454 M25.492 [id number] Sony renner MD [facility] Internal Med [address] [facility] [place] [address] 09/12/2023 14:11:18 09/12/2023 15:06:24 Screening - NAD 760717823 Z13.9 C-scope: DId do this 01/29/15 Dr Salter-sco pe Dr Dxion in [facility] 08/10/18, referred to colorectal surgeon for hemorrhoid s, no more c-scope recommende d, does not know the name Mammogram/ PAP: Not doing any PAPMammogr am 03/25/17: Neg, 03/27/18: NegMammogr am: 08/29/2019 : NegMammogr am: 10/16/2020 : Neg, orderedMam mogram: 01/19/2022 : NegMammogr am: 05/13/2023 : Neg PAP: Did see Dr Johnson, noted to have prolapse of vagina and is referred to a urogynecol ogyDoes not see an OB any more UTD on flu shot 04/29/2020 UTD on zostavax 04/20/2007 UTD on pneumonia shot #13 2015 and 23 2009UTD tdap 10/03/12UT D on COVID 19 vaccineGet RSV vaccine DEXA 02/13/19: Osteopenia , on ca and vit dDEXA 11/25/2020 : Low bone mass, get on calcium and vit dDEXA: 05/13/2023 : Low bone mass RTC in 3 monthswith labsER if any life threatenin g jassonsh e did verbalize her understand ing of the above Essential hypertension 66317815 I10 On ASAOn amlodipine 2.5mg dailyGet labs Hyperlipidemia 50225451 E78.5 On pravastati n 40mg dailyGet labs again Hypothyroidism 55952787 E03.9 On levothyrox ine 50mcgs dailySeen by Dr Conde Obstructiv e sleep apnea syndrome 96061330 G47.33 07/07/2020 : Dr Ingram: good compliance and is on autoCPAP or 6-12cm of H2O and a small Mirage FX nasal mask 10/08/2020 : Dr Pat: excellent compliance , f/u in one month OV :Needs to see her pulmonary MD OV 06/01/2023 : Keep apt with Dr Pat OV 09/12/2023 : See Dr Pat her lung MD Depressive disorder 8978 9007 F32.A On lexapro 10mg dailyDoes well Not suicidal or homicidalD eclines any referrals to psychiatry Syncope 765010987 R55 Has had ECHO, stress test, and CT head, US carotidCar diologist Dr. Desmond Kendall in [facility] [phone] recall last such episode, she is to see Dr De La Rosa in [place] on 06/02/17OV 08/22/17:D oing well today, s/p now on the medtronic device 07/15/17 and now will see Dr De La Rosa next 08/19She does want an apt with Dr Avila a cardiologi st whom she has seen with her husbandOV 11/21/17:S [facility] Records:St ress test 05/15: Chandana is seeing Dr Avila, next apt is on 11/28/17No more episodes of syncope, did have a episode of presyncope , advised ER if this occursNow sees also sleep MD Dr Ingram and Dr Atkins neurologyM RI brain 10/28/17: Neg as per Dr Patel carotid 10/28/17: Neg as per Dr Florian 03/06/18:K eep apt with Dr Will and next apt with Dr Will 03/20/18h e does want a 2nd opinion with a cardiologi st, will refer to Dr. Kam 06/28/18:S ees cardiology Dr Will, Dr De La Rosa cardiology 08/24/18, [place] UDid see Dr Renae 03/29/18Di d see Dr Whitehead [facility] he may use the [facility] for her UE and LE strength training at their gym, this note was provided to herOV 10/04/18:I s to see Dr De La Rosa today and Dr Whitehead neurology this monthOV 02/07/19:D id see Dr Whitehead yesterday, and is doing wellDid see Dr De La Rosa cardiology and next apt is in one yearOV 06/11/19:S ee cardiology See neurologyO V 10/22/2019 :Sees Dr De La Rosa, now wants to see Dr Renae, get an appointmen tSees Dr Whitehead, but does not want to do this at this timeDoes well at this timeOV 02/18/2020 :She did see Dr Renae and is now to follow up with himOV 04/30/2020 :Needs to see Dr Renae on 05/07/2020 OV 06/16/2020 :Does well at this time, did see Dr Renae 05/08/2020 OV 10/20/2020 : 1: HV Dr Wall s/p pacemaker insertion s/p syncopeKee p apt with Dr Stark 02/16/2021 :Keep apt with Dr Wall 03/24/2021 She would like to get an ECHO done as she would like Dr Wall to see what it isGet ECHOOV 2021 :Does wellDid see Dr Wall 03/18/2021 , next apt in one yearOV 11/09/2021 :See Dr Stark 04/19/2022 :See cardiology OV 09/20/2022 :Alex Wall [facility] 04/21/2022 OV 01/24/2023 : Keep apt with Dr Wall OV 06/01/2023 :ECHO [facility] 05/06/2023 : Dr Wall OV 09/12/2023 : Sees Dr Wall, last OV 06/29/2023 Numbness of hand 1069931 04 R20.0 R>LGet EMG/NCVDid see Dr Mcknight/p EMG 08/25/17/ p Corrina Ott s well nowPain in L wrist seen by Dr Page next on 04/12/2023 Dizziness 864035961 R42 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 urology, [facility], Dr Goldstein/p surgery for vaginal prolapse, 03/02/2013 Dr Dot Almanzar n, [facility] [place] Dr Ware 08/11/2020 Pain of bi lateral knee joints [id number] 26983 M25[address] Cheatham, last OV 04/24/2021 , 05/12/2022 Does well now Fredo Branch PA 08/29/2023 Prediabetes 568616833 R7 3.03 Needs to diet and exercise!, repeat the labs Dr Mcnamara 06/02/2023 Pain in right hand 34281 99689 28486 M79.641 Evan Felix MIRA 12/14/2022 Leukopenia 73837009 D72. 819 Repeat the CBC again Benign par oxysmal positional vertigo 766717519 H81.13 C/o shree BPPV, states that she has noted dizziness with standing up from a sitting position Seasonal a llergic rhinitis 303114656 J30.2 On flonaseOn zyrtec as needed Forgetful 86623311 R41.3 Get neurology apt, get labs, get MRI brain CT head 06/07/2023 Skin lesion 86793364 L98 .9 Flat crusty lesion noted on the L lower lateral neckRefer to dermatolog y Otitis media 80194968 H6 6.92 Get on augmentin 875mg po bid for 7 days, ER if worse [id number] Sony renner MD [facility] Internal Med [address] [place] [address] 10/12/2023 09:43:37 10/12/2023 10:27:05 Otitis media 64754031 H66.92 Ear flushed with warm water, she tolerated the procedure well Get on amoxicilli nIf not better will see ENT [id number] Sony renner MD [facility] Internal Med [address] [place] [address] 11/16/2023 15:16:39 11/16/2023 16:07:05 Reactive lymphadenopathy 705412917 R59.1 Likely reactive, d/t URIWill get on augmentin, if not better may need US neck [id number] Sony renner MD [facility] Internal Med [facility] [address] , [facility] [address] [place] [address] 08/09/2024 09:05:48 08/09/2024 10:28:53 Adult health examination 112184204 Z00.00 Screening for disorder 463000863 Z13.9 Screening - NAD 15045342 3 Z13.9 C-scope: DId do this 01/29/15 Dr Salter-sco pe Dr Dixon in [facility] 08/10/18, referred to colorectal surgeon for hemorrhoid s, no more c-scope recommende d, does not know the name Mammogram/ PAP: Not doing any PAPMammogr am 03/25/17: Neg, 03/27/18: NegMammogr am: 08/29/2019 : NegMammogr am: 10/16/2020 : Neg, orderedMam mogram: 01/19/2022 : NegMammogr am: 05/13/2023 : Neg PAP: Did see Dr Johnson, noted to have prolapse of vagina and is referred to a urogynecol ogyDoes not see an OB any more UTD on flu shot 04/29/2020 UTD on zostavax 04/20/2007 UTD on pneumonia shot #13 2014 and 23 2009UTD tdap 10/03/12UT D on COVID 19 vaccineGet RSV vaccine DEXA 02/13/19: Osteopenia , on ca and vit dDEXA 11/25/2020 : Low bone mass, get on calcium and vit dDEXA: 05/13/2023 : Low bone mass RTC in 3 monthswith labsER if any life threatenin g symptomssh e did verbalize her understand ing of the above Essential hypertension 35484961 I10 On ASAOn amlodipine 2.5mg dailyGet labs Hyperlipidemia 82578029 E78.5 On pravastati n 40mg dailyGet labs again Hypothyroidism 91616955 E03.9 On levothyrox ine 50mcgs dailySeen by Dr Conde Obstructiv e sleep apnea syndrome 91249596 G47.33 07/07/2020 : Dr Ingram: good compliance and is on autoCPAP or 6-12cm of H2O and a small Mirage FX nasal mask 10/08/2020 : Dr Pat: excellent compliance , f/u in one month OV :Needs to see her pulmonary MD OV 06/01/2023 : Keep apt with Dr Pat OV 09/12/2023 : See Dr Pat her lung MD OV 08/09/2024 : Keep apt with her lung MD Depressive disorder 3548 9007 F32.A On lexapro 10mg dailyDoes well Not suicidal or homicidalD eclines any referrals to psychiatry Syncope 603311469 R55 Has had ECHO, stress test, and CT head, US carotidCar diologist Dr. Desmond Kendall in [facility] [phone] recall last such episode, she is to see Dr De La Rosa in [place] on 06/02/17OV 08/22/17:D oing well today, s/p now on the medtronic device 07/15/17 and now will see Dr De La Rosa next 08/19Sharcadio does want an apt with Dr Avila a cardiologi st whom she has seen with her husbandOV 11/21/17:S [facility] Records:St ress test 05/15: NegSandy is seeing Dr Avila, next apt is on 11/28/17No more episodes of syncope, did have a episode of presyncope , advised ER if this occursNow sees also sleep MD Dr Ingram and Dr Atkins neurologyM RI brain 10/28/17: Neg as per Dr Patel carotid 10/28/17: Neg as per Dr Florian 03/06/18:K eep apt with Dr Will and next apt with Dr Will 03/20/18h e does want a 2nd opinion with a cardiologi st, will refer to Dr. Kam 06/28/18:S ees cardiology Dr Will, Dr De La Rosa cardiology 08/24/18, [place] UDid see Dr Renae 03/29/18Di d see [facility] he may use the [facility] for her UE and LE strength training at their gym, this note was provided to herOV 10/04/18:I s to see Dr De La Rosa today and Dr Whitehead neurology this monthOV 02/07/19:D id see Dr Whitehead yesterday, and is doing wellDid see Dr De La Rosa cardiology and next apt is in one yearOV 06/11/19:S ee cardiology See neurologyO V 10/22/2019 :Sees Dr De La Rosa, now wants to see Dr Renae, get an appointmen Sharon Whitehead, but does not want to do this at this timeDoes well at this timeOV 02/18/2020 :She did see Dr Renae and is now to follow up with himOV 04/30/2020 :Needs to see Dr Renae on 05/07/2020 OV 06/16/2020 :Does well at this time, did see Dr Renae 05/08/2020 OV 10/20/2020 :: [facility] Dr Wall s/p pacemaker insertion s/p syncopeKee p apt with Dr Stark 02/16/2021 :Keep apt with Dr Wall 03/24/2021 She would like to get an ECHO done as she would like Dr Wall to see what it isGet ECHOOV 2021 :Does Luzd see Dr Wall 03/18/2021 , next apt in one yearOV 11/09/2021 :See Dr Stark 04/19/2022 :See cardiology OV 09/20/2022 :Alex Wall [facility] 04/21/2022 OV 01/24/2023 : Keep apt with Dr Wall OV 06/01/2023 :ECHO [facility] 05/06/2023 : Dr Wall OV 09/12/2023 : Sees Dr Wall, last OV 06/29/2023 Numbness of hand 7688428 04 R20.0 R>LGet EMG/NCVDid see Dr Mcknight/p EMG 08/25/17/ p Corrina Ott s well nowPain in L wrist seen by Dr Page next on 04/12/2023 Dizziness 063556080 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, Dr Goldstein/p surgery for vaginal prolapse, 03/02/2013 Dr Dot hernández, [facility] in [facility]/p f/u Dr Ware 08/11/2020 Pain of bi lateral knee joints 2285690773 12093 [address]25.[address] Cheatham, last OV 04/24/2021 , 05/12/2022 Does well now Fredo MEYERS 08/29/2023 Prediabetes 501614852 R7 3.03 Needs to diet and exercise!, repeat the labs Dr Mcnamara 06/02/2023 Pain in right hand 30934 97121 79084 M79.641 Evan MEYERS 12/14/2022 Leukopenia 17957847 D72. 819 Repeat the CBC again Benign par oxysmal positional vertigo 151647451 H81.13 C/o shree BPPV, states that she has noted dizziness with standing up from a sitting position Seasonal a llergic rhinitis 141351363 J30.2 On flonaseOn zyrtec as needed Forgetful 32630940 R41.3 Get neurology apt, get labs, get MRI brain CT head 06/07/2023 Skin lesion 22030996 L98 .9 Flat crusty lesion noted on the L lower lateral neckRefer to dermatolog y Screening for osteoporosis 318882485 Z13.820 Vitamin D deficiency 347 88223 E55.9 Serum alida min B12 below reference range 728022252 R79.89 Osteoporosis 06227226 M8 1.0 Health Concerns Section Related Observation LastModified by Organization Detai ls LastModified Time None Recorded Concern Status LastModified by Organization Details LastModified Time None Recorded Advance Directives Directive Y: Payers Encounter Date Sequence Insurance Name Policy Number Policy Renee Covered Member ID Renee Member ID Guarantor Name 08/29/2023 1 [facility] (MEDICARE REPLACEMENT/A DVANTAGE - PPO) [id number] [place] [id number] [place] 09/12/2023 1 [facility] (MEDICARE REPLACEMENT/A DVANTAGE - PPO) [id number] [place] [id number] [place] 10/12/2023 1 [facility] (MEDICARE REPLACEMENT/A DVANTAGE - PPO) [id number] Chian Ham [id number] [place] 11/16/2023 1 [facility] (MEDICARE REPLACEMENT/A DVANTAGE - PPO) [id number] [place] [id number] [place] Fatoumata 08/09/2024 1 [facility] (MEDICARE REPLACEMENT/A DVANTAGE - PPO) [id number] [place] Fatoumata [id number] [place] Notes Date Note Type Note Provider Name and Address Organization Details Recorded Time 09/12/2023 text/html Here to hu acosta care:Past Hx:HTNDepressionHypothy roidismReviewed social, family and surgical historyHere to get established, review above and get labs.She is doing well, noted to have pain in the R elbow, did fall and hit her R elbowOV 05/23/17:Here to review the labs, otherwise doing well, no syncopal episodes at this time, is to see Dr De La RosaOV 08/22/17:Here for her routine follow up, she did do the labs on 07/05/17OV 11/21/17:Here for her routine aptShe states that she was in Dr Atkins's office and was told she was 'orthostatic'She states that she did have a MRI of the brainShe also states that she has not done the labs yet and also is waiting for her shoulder issues to resolved OV 03/06/18:Here for her routine aptShe has not done labs recentlyShe states that she is dietingAlso wants a 2nd cardiology referraland needs to have her LN noted on the R neck area, this is after she has had her tooth pulled on the R side, it is slightly tender, but better nowOV 06/28/18:Here for her routine aptShe states that she is doing wellShe did do the labs 06/14/18 OV 08/14/18:Here s/p hospitalizationShe did do the labs on 08/11/18She feels that she is doing wellOV 10/04/18:Here for her routine aptShe states that she is doing wellHer last labs were on 09/28/18OV 12/07/18:ACVHere with L wrist fractureWas in [facility] and slipped and tripped over a baby stroller and fell on her outstretched handShe returned to [facility] the next day and ws seen in the ER at [facility] and treated with a cast, now she has an apt with Dr Puente is here as she does have some pain and wants pain medsNo N/T in the fingersOV 02/07/19:Here for her routine aptShe did do the labsFeels wellExtensive ROS was negativeOV 06/11/19:Here for her routine aptHere with her husbandShe did see Dr Conde and has done labs via her officeShe did fall on Tuesday and now L sided rib pain, no SOB, no CABRERA, no cough, no wheezing, no redness nor bruising notedHer ROS is negative otherwiseOV 10/22/2019:Here to discuss her anti depressantsShe states otherwise she is doing wellShe did state that about a week ago she felt slightly dizzy and then that went awayHer rest of ROS extensively today is negativeShe would like to now see Dr RenaeOV 02/18/2020:Here for her routine aptShe is doing wellShe did do the labsShe also had a fall in 11/18/2019 and had to have some opiates but is doing well todayShe is here for her MWV alsoOV 04/30/2020:Tele visit and she is agreeable to do this visitShe wants to discuss the referral to urogynecologyNo new labsOV 06/16/2020:Here for her routine aptShe is doing well todayShe did see Dr Ware and was told she did not need to do surgery, also started on oxybutynin, but has not taken d/t extreme dry mouthOV 10/20/2020:Here for her routine 4 month visitShe feels John did do the labs on 10/16/2020OV 02/18/2021:Her for her routine aptShe is doing very wellShe did do the labs on 02/12/2021Her LBP is better, she states that that gabapentin has helped, but she would like to get xrays for the backOV 2021:Here for her routine aptShe is doing wellNo new labsShe is here for her MWVOV 11/09/2021:Here for her routine aptShe is doing wellShe has lost weight and has done her labs OV 04/19/2022:Here for her f/u apt, she is doing very well, she did the labs on 04/15/2022 OV 09/20/2022:Here for her routine apt, she is doing well, labs just done today OV 01/24/2023: Here for her f/u apt, she is doing well today, she did do the labs on 01/20/2023 Ov 06/01/2023: Here for her f/u apt, she did do the labs, she c/o some nasal congestion, this has caused her to have some anosmia, she has also noted some forgetfulness, she would also like to get a referral to dermatology as she has noted her brothers have had melanoma, and she does have a lesion by her L neck OV 09/12/2023: Here for her f/u apt, she is doing very well today, no new labs Sony Womack MD [address] [facility], [facility] [address], [place], [address], [place] [facility] [employer] 09/18/2023 20:27:54 10/12/2023 text/html Here to hu parada:Past Hx:HTNDepressionHypothy roidismReviewed social, family and surgical historyHere to get established, review above and get labs.She is doing well, noted to have pain in the R elbow, did fall and hit her R elbowOV 05/23/17:Here to review the labs, otherwise doing well, no syncopal episodes at this time, is to see Dr De La RosaOV 08/22/17:Here for her routine follow up, she did do the labs on 07/05/17OV 11/21/17:Here for her routine aptShe states that she was in Dr Atkins's office and was told she was 'orthostatic'She states that she did have a MRI of the brainShe also states that she has not done the labs yet and also is waiting for her shoulder issues to resolved OV 03/06/18:Here for her routine aptShe has not done labs recentlyShe states that she is dietingAlso wants a 2nd cardiology referraland needs to have her LN noted on the R neck area, this is after she has had her tooth pulled on the R side, it is slightly tender, but better nowOV 06/28/18:Here for her routine aptShe states that she is doing wellShe did do the labs 06/14/18 OV 08/14/18:Here s/p hospitalizationShe did do the labs on 08/11/18She feels that she is doing wellOV 10/04/18:Here for her routine aptShe states that she is doing wellHer last labs were on 09/28/18OV 12/07/18:ACVHere with L wrist fractureWas in [facility] and slipped and tripped over a baby stroller and fell on her outstretched handShe returned to [facility] the next day and ws seen in the ER at [facility] and treated with a cast, now she has an apt with Dr Piercehe is here as she does have some pain and wants pain medsNo N/T in the fingersOV 02/07/19:Here for her routine aptShe did do the labsFeels wellExtensive ROS was negativeOV 06/11/19:Here for her routine aptHere with her husbandShe did see Dr Conde and has done labs via her officeShe did fall on Tuesday and now L sided rib pain, no SOB, no CABRERA, no cough, no wheezing, no redness nor bruising notedHer ROS is negative otherwiseOV 10/22/2019:Here to discuss her anti depressantsShe states otherwise she is doing wellShe did state that about a week ago she felt slightly dizzy and then that went awayHer rest of ROS extensively today is negativeShe would like to now see Dr Kam 02/18/2020:Here for her routine aptShe is doing wellShe did do the labsShe also had a fall in 11/18/2019 and had to have some opiates but is doing well todayShe is here for her MWV alsoOV 04/30/2020:Tele visit and she is agreeable to do this visitShe wants to discuss the referral to urogynecologyNo new labsOV 06/16/2020:Here for her routine aptShe is doing well todayShe did see Dr Ware and was told she did not need to do surgery, also started on oxybutynin, but has not taken d/t extreme dry mouthOV 10/20/2020:Here for her routine 4 month visitShe feels John did do the labs on 10/16/2020OV 02/18/2021:Her for her routine aptShe is doing very wellShe did do the labs on 02/12/2021Her LBP is better, she states that that gabapentin has helped, but she would like to get xrays for the backOV 2021:Here for her routine aptShe is doing wellNo new labsShe is here for her MWVOV 11/09/2021:Here for her routine aptShe is doing wellSlauren has lost weight and has done her labs OV 04/19/2022:Here for her f/u apt, she is doing very well, she did the labs on 04/15/2022 OV 09/20/2022:Here for her routine apt, she is doing well, labs just done today OV 01/24/2023: Here for her f/u apt, she is doing well today, she did do the labs on 01/20/2023 Ov 06/01/2023: Here for her f/u apt, she did do the labs, she c/o some nasal congestion, this has caused her to have some anosmia, she has also noted some forgetfulness, she would also like to get a referral to dermatology as she has noted her brothers have had melanoma, and she does have a lesion by her L neck OV 09/12/2023: Here for her f/u apt, she is doing very well today, no new labs OV 10/12/2023: ACVC/o L ear ache, feels that she also has some ringing in her L ear, no fevers or chills, no d/c from the ear, no other URI sx Sony Womack MD [address] [facility], [facility] [address], [place], [address], [place] [facility] [employer] [employer] 10/12/2023 14:09:45 11/16/2023 text/html Here to hu acosta care:Past Hx:HTNDepressionHypothy roidismReviewed social, family and surgical historyHere to get established, review above and get labs.She is doing well, noted to have pain in the R elbow, did fall and hit her R elbowOV 05/23/17:Here to review the labs, otherwise doing well, no syncopal episodes at this time, is to see Dr Graham 08/22/17:Here for her routine follow up, she did do the labs on 07/05/17OV 11/21/17:Here for her routine aptShe states that she was in Dr Atkins's office and was told she was 'orthostatic'She states that she did have a MRI of the brainShe also states that she has not done the labs yet and also is waiting for her shoulder issues to resolved OV 03/06/18:Here for her routine aptShe has not done labs recentlyShe states that she is dietingAlso wants a 2nd cardiology referraland needs to have her LN noted on the R neck area, this is after she has had her tooth pulled on the R side, it is slightly tender, but better nowOV 06/28/18:Here for her routine aptShe states that she is doing wellShe did do the labs 06/14/18 OV 08/14/18:Here s/p hospitalizationShe did do the labs on 08/11/18She feels that she is doing wellOV 10/04/18:Here for her routine aptShe states that she is doing wellHer last labs were on 09/28/18OV 12/07/18:ACVHere with L wrist fractureWas in [facility] and slipped and tripped over a baby stroller and fell on her outstretched handShe returned to [facility] the next day and ws seen in the ER at [facility] and treated with a cast, now she has an apt with Dr Piercehe is here as she does have some pain and wants pain medsNo N/T in the fingersOV 02/07/19:Here for her routine aptShe did do the labsFeels wellExtensive ROS was negativeOV 06/11/19:Here for her routine aptHere with her husbandShe did see Dr Conde and has done labs via her officeShe did fall on Tuesday and now L sided rib pain, no SOB, no CABRERA, no cough, no wheezing, no redness nor bruising notedHer ROS is negative otherwiseOV 10/22/2019:Here to discuss her anti depressantsShe states otherwise she is doing wellShe did state that about a week ago she felt slightly dizzy and then that went awayHer rest of ROS extensively today is negativeShe would like to now see Dr Kam 02/18/2020:Here for her routine aptShe is doing wellShe did do the labsShe also had a fall in 11/18/2019 and had to have some opiates but is doing well todayShe is here for her MWV alsoOV 04/30/2020:Tele visit and she is agreeable to do this visitShe wants to discuss the referral to urogynecologyNo new labsOV 06/16/2020:Here for her routine aptShe is doing well todayShe did see Dr Ware and was told she did not need to do surgery, also started on oxybutynin, but has not taken d/t extreme dry mouthOV 10/20/2020:Here for her routine 4 month visitShe feels John did do the labs on 10/16/2020OV 02/18/2021:Her for her routine aptShe is doing very wellShe did do the labs on 02/12/2021Her LBP is better, she states that that gabapentin has helped, but she would like to get xrays for the backOV 2021:Here for her routine aptShe is doing wellNo new labsShe is here for her MWVOV 11/09/2021:Here for her routine aptShe is doing wellShe has lost weight and has done her labs OV 04/19/2022:Here for her f/u apt, she is doing very well, she did the labs on 04/15/2022 OV 09/20/2022:Here for her routine apt, she is doing well, labs just done today OV 01/24/2023: Here for her f/u apt, she is doing well today, she did do the labs on 01/20/2023 Ov 06/01/2023: Here for her f/u apt, she did do the labs, she c/o some nasal congestion, this has caused her to have some anosmia, she has also noted some forgetfulness, she would also like to get a referral to dermatology as she has noted her brothers have had melanoma, and she does have a lesion by her L neck OV 09/12/2023: Here for her f/u apt, she is doing very well today, no new labs OV 10/12/2023: ACVC/o L ear ache, feels that she also has some ringing in her L ear, no fevers or chills, no d/c from the ear, no other URI sx OV11/16/2023: Beba noted 'glands; over the R side of her neck, non tender, has noted that she does still have a URI and some R earache now, no fever or chills, no cough, no chest pain or SOB, no nasal congestion, no wheezing Sony Womack MD [address] [facility], [address], [place], [address], [place] [facility] [employer] 11/16/2023 16:20:03 08/09/2024 text/html Here to hu acosta care:Past Hx:HTNDepressionHypothy roidismReviewed social, family and surgical historyHere to get established, review above and get labs.She is doing well, noted to have pain in the R elbow, did fall and hit her R elbowOV 05/23/17:Here to review the labs, otherwise doing well, no syncopal episodes at this time, is to see Dr De La RosaOV 08/22/17:Here for her routine follow up, she did do the labs on 07/05/17OV 11/21/17:Here for her routine aptShe states that she was in Dr Atkins's office and was told she was 'orthostatic'She states that she did have a MRI of the brainShe also states that she has not done the labs yet and also is waiting for her shoulder issues to resolved OV 03/06/18:Here for her routine aptShe has not done labs recentlyShe states that she is dietingAlso wants a 2nd cardiology referraland needs to have her LN noted on the R neck area, this is after she has had her tooth pulled on the R side, it is slightly tender, but better nowOV 06/28/18:Here for her routine aptShe states that she is doing wellShe did do the labs 06/14/18 OV 08/14/18:Here s/p hospitalizationShe did do the labs on 08/11/18She feels that she is doing wellOV 10/04/18:Here for her routine aptShe states that she is doing wellHer last labs were on 09/28/18OV 12/07/18:ACVHere with L wrist fractureWas in [facility] and slipped and tripped over a baby stroller and fell on her outstretched handShe [facility] and ws seen in the ER at [facility] and treated with a cast, now she has an apt with Dr Piercehe is here as she does have some pain and wants pain medsNo N/T in the fingersOV 02/07/19:Here for her routine aptShe did do the labsFeels wellExtensive ROS was negativeOV 06/11/19:Here for her routine aptHere with her husbandShe did see Dr Conde and has done labs via her officeShe did fall on Tuesday and now L sided rib pain, no SOB, no CABRERA, no cough, no wheezing, no redness nor bruising notedHer ROS is negative otherwiseOV 10/22/2019:Here to discuss her anti depressantsShe states otherwise she is doing wellShe did state that about a week ago she felt slightly dizzy and then that went awayHer rest of ROS extensively today is negativeShe would like to now see Dr RenaeOV 02/18/2020:Here for her routine aptShe is doing wellShe did do the labsShe also had a fall in 11/18/2019 and had to have some opiates but is doing well todayShe is here for her MWV alsoOV 04/30/2020:Tele visit and she is agreeable to do this visitShe wants to discuss the referral to urogynecologyNo new labsOV 06/16/2020:Here for her routine aptShe is doing well todayShe did see Dr Ware and was told she did not need to do surgery, also started on oxybutynin, but has not taken d/t extreme dry mouthOV 10/20/2020:Here for her routine 4 month visitShe feels John did do the labs on 10/16/2020OV 02/18/2021:Her for her routine aptShe is doing very wellShe did do the labs on 02/12/2021Her LBP is better, she states that that gabapentin has helped, but she would like to get xrays for the backOV 2021:Here for her routine aptShe is doing wellNo new labsShe is here for her MWVOV 11/09/2021:Here for her routine aptSharcadio is doing wellShe has lost weight and has done her labs OV 04/19/2022:Here for her f/u apt, she is doing very well, she did the labs on 04/15/2022 OV 09/20/2022:Here for her routine apt, she is doing well, labs just done today OV 01/24/2023: Here for her f/u apt, she is doing well today, she did do the labs on 01/20/2023 Ov 06/01/2023: Here for her f/u apt, she did do the labs, she c/o some nasal congestion, this has caused her to have some anosmia, she has also noted some forgetfulness, she would also like to get a referral to dermatology as she has noted her brothers have had melanoma, and she does have a lesion by her L neck OV 09/12/2023: Here for her f/u apt, she is doing very well today, no new labs OV 10/12/2023: ACVC/o L ear ache, feels that she also has some ringing in her L ear, no fevers or chills, no d/c from the ear, no other URI sx OV 11/16/2023: ACVHas noted 'glands; over the R side of her neck, non tender, has noted that she does still have a URI and some R earache now, no fever or chills, no cough, no chest pain or SOB, no nasal congestion, no wheezing OV 08/09/2024: Here to re establish care, she feels well today Sony Womack MD [address], [facility] [address], [place], [address], [place] [employer] 08/29/2024 18:47:16 OBGyn Episode No OBEpisode recorded.
--- OUTSIDE RECORDS SUMMARY | 2024-09-20 07:26 | XMS_ITS | Referral Summary ---
Author Organization [facility] Address [address] [place] [address] Care Team Providers Care Firer Locomotive Name Role Phone Henok Womack MD Primary Care Provider Source Comments [facility],non-owned Affiliates and Associated Physician Practices is amultiple site organization consisting of ambulatory clinics and hospital sitesin [place], [place], [place] and [place]. This disclosure is being madepursuant to the Care Everywhere program and may not contain all information available regarding this patient. Last updated 18.[facility] Encounters Date Type Department Care Team Description 09/04/2024 9:09 AM NARROW FABRIC CALENDERER - 09/09/2024 11:59 PM [facility] Hospital Encounter [facility] - Nuclear Medicine [address] [place] [id number] Desmond Burns MD Discharge Disposition: Home or Self Care from Last 3 Months Allergies No known active allergies Medications * Be aware that medications may not be up to date on this document. Alwaysverify current medications with the patient. Medication Sig Dispensed Refills Start Date End Date Status aspirin EC (ECOTRIN) 81 MG tablet Take 81 mg by mouth once daily Active amLODIPine (NORVASC) 2.5 MG tablet Take 2.5 mg by mouth once daily Active escitalopram (LEXAPRO) 10 MG tablet Take 10 mg by mouth once daily Active levothyroxine (SYNTHROID) 50 MCG tablet Take 0.5 mcg by mouth daily before breakfast Active pravastatin (PRAVACHOL) 20 MG tablet Take 40 mg by mouth at bedtime Active Cholecalciferol (VITAMIN D3) 400 UNITS tablet Take 2,000 Units by mouth once daily Active meclizine (ANTIVERT) 25 MG tablet Take 25 mg by mouth 3 times daily as needed for Dizziness Active gabapentin (NEURONTIN) 300 MG capsule Take 300 mg by mouth at bedtime Active ferrous sulfate EC (FERROUS SULFATE) 324 (65 Fe) MG tablet Take 324 mg by mouth once daily Active cyanocobalamin (VITAMIN B-12) 1000 MCG tablet Take 1,000 mcg by mouth once daily Active Active Problems Problem Noted Date Diagnosed Date HTN (hypertension), benign 08/20/2020 Hypothyroidism 08/20/2020 Syncope 08/20/2020 CAROL (obstructive sleep apnea) 08/20/2020 AV block, 3rd degree 08/20/2020 Vertigo 08/20/2020 Social History Tobacco Use Types Packs/Day Years Used Date Smoking Tobacco: Former Cigarettes Q uit: 1975 Smokeless Tobacco: Never Alcohol Use Standard Drinks/Week Comments Yes 2 (1 standard drink = 0.6 oz pur e alcohol) Sex and Gender Information Value Date Recorded Sex Assigned at Not on file Gender Identity Not on file Sexual Orientation Not on file Last Filed Vital Signs Vital Sign Reading Time Taken Comments Blood Pressure 110/56 02/05/2019 10:03 AM CDT Pulse 63 08/20/2020 11:34 AM NARROW FABRIC CALENDERER Temperature 36.2 C (97.2 F) 03/14/2018 11:14 AM CDT Respiratory Rate 10 08/20/2020 11:34 AM NARROW FABRIC CALENDERER Oxygen Saturation 97% 02/05/2019 10:03 AM CDT Inhaled Oxygen Concentration - - Weight 75.1 kg (165 lb 9.6 oz) 08/20/2020 11:34 AM NARROW FABRIC CALENDERER Height 155.6 cm (5' 1.25 ) 08/20/2020 11:[address] Body Mass Index 31.03 08/20/2020 11:34 AM NARROW FABRIC CALENDERER Plan of Treatment Not on file Procedures Procedure Name Priority Date/Time Associated Diagnosis Comments NM BONE SCAN WHOLE BODY Routine 09/04/2024 1:33 PM NARROW FABRIC CALENDERER Lumbar back pain Wedge compression fracture of T9-T10 vertebra, initial encounter for closed fracture (HCC) from Last 3 Months Results * NM Bone Scan Whole Body (09/04/2024 1:33 PM NARROW FABRIC CALENDERER) Anatomical Region Laterality Modality Abdomen Nuclear Medicine 09/04/2024 1:53 PM NARROW FABRIC CALENDERER Impressions 09/04/2024 2:20 PM NARROW FABRIC CALENDERER IMPRESSION: 1. Intense radiotracer activity at T9-10, consistent with known compression deformity. 2. Mild to moderate uptake in the lumbar spine is likely degenerative. Additional degenerative changes as detailed above. > Interpreting Provider: Marquis Kolb DO on 09/04/2024 2:20 PM Narrative 09/04/2024 2:20 PM NARROW FABRIC CALENDERER PROCEDURE: NM BONE SCAN WHOLE BODY with SPECT/CT DATE/TIME OF EXAM: 09/04/2024 1:33 PM CLINICAL INFORMATION: None relevant/not provided if blank. Indication: M54.50: Low back pain, unspecified S22.070A: Wedge compression fracture of T9-T10 vertebra, initial encounter for closed fracture (HCC) COMPARISON: None. HISTORY: 79-year-old with low back pain and wedge compression fracture of T9-10. TECHNIQUE: The patient was injected with 27.4 mCi of [id number] MDP IV. Anterior and posterior whole body images were obtained after 3 hours. Additional images of the lumbar spine and pelvis were also obtained as well as SPECT/CT images of the thoracic and lumbar spine.. FINDINGS: Planar whole body images demonstrate focal intense radiotracer activity in the region of T9-T10. That there is otherwise mild heterogeneous uptake within the mid to lower lumbar spine. Photopenia is seen in the right knee, likely representing arthroplasty. Mild degenerative changes in the bilateral shoulders, hips, left knee and feet. The biodistribution of radiopharmaceutical is normal. SPECT/CT images demonstrate focal intense uptake in a compression deformity at T8 9-10. Moderate increased uptake is seen between L4-5 and L2-3. Incidental CT images demonstrate a calcified granuloma in the anterior right lung base. Minimal bibasilar atelectasis. No evidence of pneumothorax or pleural effusion. Cardiac leads are seen in the heart. Atherosclerotic calcifications within the coronary arteries. The liver, kidneys, adrenal glands, spleen and pancreas are grossly unremarkable. Atherosclerotic calcifications within the abdominal aorta. Procedure Note Marquis Kolb DO - 09/04/2024 PROCEDURE: NM BONE SCAN WHOLE BODY with SPECT/CT DATE/TIME OF EXAM: 09/04/2024 1:33 PM CLINICAL INFORMATION: None relevant/not provided if blank. Indication: M54.50: Low back pain, unspecified S22.070A: Wedge compression fracture of T9-T10 vertebra, initialencounter for closed fracture (HCC) COMPARISON: None. HISTORY: 79-year-old with low back pain and wedge compression fractureof T9-10. TECHNIQUE: The patient was injected with 27.4 mCi of [id number] MDPIV. Anterior and posterior whole body images were obtained after 3 hours. Additional images of the lumbar spine and pelvis were also obtained aswell as SPECT/CT images of the thoracic and lumbar spine.. FINDINGS: Planar whole body images demonstrate focal intenseradiotracer activity in the region of T9-T10. That there is otherwise mild heterogeneous uptake within the mid to lower lumbar spine. Photopenia is seen in the right knee, likely representing arthroplasty. Milddegenerative changes in the bilateral shoulders, hips, left knee and feet. The biodistribution of radiopharmaceutical is normal. SPECT/CT images demonstrate focal intense uptake in a compressiondeformity at T8 9-10. Moderate increased uptake is seen between L4-5 and L2-3. Incidental CT images demonstrate a calcified granuloma in the anterior right lung base. Minimal bibasilar atelectasis. No evidence ofpneumothorax or pleural effusion. Cardiac leads are seen in the heart.Atherosclerotic calcifications within the coronary arteries. The liver, kidneys, adrenal glands, spleen and pancreas are grossly unremarkable. Atherosclerotic calcifications within the abdominal aorta. IMPRESSION: 1. Intense radiotracer activity at T9-10, consistent with knowncompression deformity. 2. Mild to moderate uptake in the lumbar spine is likely degenerative. Additional degenerative changes as detailed above. > Interpreting Provider: Marquis Kolb DO on 09/04/2024 2:20 PM Desmond Burns MD NM ORDERABLES from Last 3 Months Care Teams Firer Locomotive Relationship Specialty Start Date End Date Henok Womack MD [address] [address] PCP - General Internal Medicine 03/10/18
--- OUTSIDE RECORDS SUMMARY | 2024-09-20 07:26 | XMS_ITS | Clinical Summary ---
Author Organization [facility] Address [address] [place] [address] Phone Care Team Providers Care Operations Welder Name Role Phone Giorgio Dixon MD Unavailable [phone] Rashard De La Rosa MD Unavailable [phone] Cleve Renae MD Unavailable Bebeto Woodard MD, Alex Shelton Unavailable [phone] John Womack MD Primary Care Provide r Allergies Active Allergy Reactions Criticality Noted Date [...] (08/02/2018): Added automatically from request for surgery [id number] Rectal bleeding 07/24/2018 Assessment & Plan (07/24/2018 1:10 PM ELECTRONICS TECHNICIAN): GI has been consulted for which we appreciate their evaluation and recommendations. Anusol suppository. Colace. Holding ASA for now. Anemia 07/24/2018 Assessment & Plan (07/24/2018 1:11 PM ELECTRONICS TECHNICIAN): With dizziness, likely 2/2 recent rectal bleeding. To receive 1 unit of PRBC. H&H after transfusion. Hypertension 07/24/2018 Assessment & Plan (07/24/2018 1:11 PM ELECTRONICS TECHNICIAN): Stable. On Norvasc. HLD (hyperlipidemia) 07/24/2018 Assessment & Plan (07/24/2018 1:12 PM ELECTRONICS TECHNICIAN): On Statin. Check lipid panel. History of vertigo 07/24/2018 Assessment & Plan (07/24/2018 1:12 PM ELECTRONICS TECHNICIAN): Resumed prn meclizine. Presence of cardiac device [...] the day. Last Assessment & Plan: - [place] well supported and patient happy with results [...] the day. Last Assessment & Plan: - [place] well supported and patient happy with results - New Daytime urgency and nocturia -d/c Ditropan due to failure and side effects -start on Toviaz 4mg -Start timed and double voiding with new medication -Follow up in 2 months Cystocele, midline 08/07/2012 Incomplete emptying of bladder 08/07/2012 Urge incontinence of urine 06/02/2012 Urinary tract infection 06/02/2012 Overview (12/12/2019): IMO Replacement Update Encounters Date Type Department Care Team Description 07/09/2024 1:28 PM ELECTRONICS TECHNICIAN - 07/09/2024 11:59 PM ELECTRONICS TECHNICIAN Hospital Encounter [facility] [address] [place] [address] Discharge Disposition: Discharge to home or self care 07/09/2024 12:09 PM ELECTRONICS TECHNICIAN - 07/09/2024 11:59 PM ELECTRONICS TECHNICIAN Hospital Encounter [facility] [address] [place] [address] Memory loss Discharge Disposition: Discharge to home or self care from Last 3 Months Surgical History Surgery Date Site/Laterality Comments REPLACEMENT TOTAL KNEE Right COLONOSCOPY last colonoscopy 2014, recent bleeding Medical History Medical History Date Comments HTN (hypertension) HLD (hyperlipidemia) Hypothyroid CAD (coronary artery disease) Recurrent syncope CAROL (obstructive sleep apnea) Anemia Syncope History of transfusion Kidney stone Family History Medical History Relation Name Comments Diabetes Brother Family history of diabetes mellitus - (Added by TW Conv) Heart failure Father Stroke Father Family history of stroke - (Added by TW Conv) Emphysema Mother Diabetes Other Family history of diabetes mellitus - (Added by TW Conv) Relation Name Status Comments Brother Father Mother Other Social History Tobacco Use Types Packs/Day Years [...] PM CDT Sexual Orientation Not on file Obstetrics History Last Filed Vital Signs Vital Sign Reading Time Taken Comments Blood Pressure 156/85 04/24/2024 2:59 PM CDT Pulse 71 04/24/2024 2:58 PM CDT Temperature 36.5 C (97.7 F) 04/24/2024 2:58 PM CDT Respiratory Rate 16 08/10/2018 1:15 PM ELECTRONICS TECHNICIAN Oxygen Saturation 97% 04/30/2019 11:54 AM CDT Inhaled Oxygen Concentration - - Weight 69.6 kg (153 lb 6.4 oz) 03/13/2024 8:39 A M CDT Height 152.4 cm (5') 04/24/2024 12:27 PM CDT Body Mass Index 29.96 03/13/2024 8:39 AM CDT Plan of Treatment Health Maintenance Due Date Last Done Comments Depression Screening 1943 Fall Risk Assessment 1945 Osteoporosis Screening-Bone Density Scan 1943 Hepatitis B Screening 1961 Well Visit 65+ 2008 DTaP/Tdap/Td Vaccine (2 - Td or Tdap) 10/03/2022 10/03/2012 Influenza Vaccine (#1) 2024 2, 04/29/2020, 05/21/2019, Additional history exists Pneumococcal vaccine 65+ Completed 12/30/2014, 04/02 Zoster Vaccine Completed 05/16/2023, 10/2022, 04/20/2007 Procedures Procedure Name Priority Date/Time Associated Diagnosis Comments PET/CT AMYLOID BRAIN Schedule Routine, Read Routine (OP Routine) 07/09/2024 2:08 PM ELECTRONICS TECHNICIAN Memory loss from Last 3 Months Results * PET/CT Amyloid Brain (07/09/2024 2:08 PM ELECTRONICS TECHNICIAN) Anatomical Region Laterality Modality Positron Emissio n Tomography (PET) 07/09/2024 2:32 PM ELECTRONICS TECHNICIAN Impressions 07/09/2024 6:00 PM ELECTRONICS TECHNICIAN Positive amyloid-PET study, 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 Narrative 07/09/2024 6:00 PM ELECTRONICS TECHNICIAN EXAMINATION: BRAIN AMYLOID-PET/CT IMAGING DATE OF STUDY: 07/09/2024 SCANNER: [facility] RADIOPHARMACEUTICAL: 11.9 mCi F-18 florbetapir i.v. HISTORY: [...] performed. The study was interpreted on the i[employer]ories workstation. COMPARISON: No relevant prior imaging is available for comparison. FINDINGS: There is normal cortical-white matter contrast in the cerebellum. There is absent cortical-white matter contrast involving the bilateral cerebral hemispheres. Incidental CT findings: Bilateral ocular lens replacements1. Procedure Note Estrella Belle MD - 07/09/2024 EXAMINATION: BRAIN AMYLOID-PET/CT IMAGING DATE OF STUDY: 07/09/2024 SCANNER: [facility] RADIOPHARMACEUTICAL: 11.9 mCi F-18 florbetapir i.v. HISTORY: [...] performed. The study was interpreted on the i[employer]ories workstation. COMPARISON: No relevant prior imaging is [...] it. Electronically signed by: Estrella Belle M.D. us Kris León MD PhD IMG PET PROCEDURES Fin al Result from Last 3 Months Insurance MED[employer]ARE [employer] MEDICARE [employer] [place] [id number] Advance Directives For more information, please contact: [phone] * Full Code (Latest Code Status on File) Date Activated Date Inactivated Comments 07/24/2018 5:12 AM 07/26/2018 4:18 PM Care Teams Operations Welder Relationship Specialty Start Date End Date John Womack MD [address] [place] [address] PCP - General Internal Medicine 06/27/24 Giorgio Dixon MD Consulting Physician Gastroenterology 07/26/18 Rashard De La Rosa MD Consulting Physician Cardiology 04/30/19 Cleve Renae MD Consulting Physician Cardiovascular Disease 07/07/20 Alex Tate Jr., MD [address] [place] [address] Consulting Physician Cardiovascular Disease 10/08/20
--- OUTSIDE RECORDS SUMMARY | 2024-09-20 07:26 | XMS_ITS | Patient Health Summary ---
Author Organization [facility] Address [address] [place] [address] Care Team Providers Care Pastry Cook Name Role Phone Henok Womack MD Primary Care Provider Note from [facility],non-owned Affiliates and Associated Physician Practices is amultiple site organization consisting of ambulatory clinics and hospital sitesin [place], [place], [place] and [place]. This disclosure is being madepursuant to the Care Everywhere program and may not contain all information available regarding this patient. Last updated 18.[facility] Allergies No known active allergies Medications * Be aware that medications may not be up to date on this document. Alwaysverify current medications with the patient. * aspirin EC (ECOTRIN) 81 MG tablet Take 81 mg by mouth once daily * amLODIPine (NORVASC) 2.5 MG tablet Take 2.5 mg by mouth once daily * escitalopram (LEXAPRO) 10 MG tablet Take 10 mg by mouth once daily * levothyroxine (SYNTHROID) 50 MCG tablet Take 0.5 mcg by mouth daily before breakfast * pravastatin (PRAVACHOL) 20 MG tablet Take 40 mg by mouth at bedtime * Cholecalciferol (VITAMIN D3) 400 UNITS tablet Take 2,000 Units by mouth once daily * meclizine (ANTIVERT) 25 MG tablet Take 25 mg by mouth 3 times daily as needed for Dizziness * gabapentin (NEURONTIN) 300 MG capsule Take 300 mg by mouth at bedtime * ferrous sulfate EC (FERROUS SULFATE) 324 (65 Fe) MG tablet Take 324 mg by mouth once daily * cyanocobalamin (VITAMIN B-12) 1000 MCG tablet Take 1,000 mcg by mouth once daily Active Problems Problem Noted Date Diagnosed Date [...] AM CDT Pulse 63 08/20/2020 11:34 AM SANITATION TRUCK DRIVER Temperature 36.2 C (97.2 F) 03/14/2018 11:14 AM CDT Respiratory Rate 10 08/20/2020 11:34 AM SANITATION TRUCK DRIVER Oxygen Saturation 97% 02/05/2019 10:03 AM CDT Inhaled Oxygen Concentration - - Weight 75.1 kg (165 lb 9.6 oz) 08/20/2020 11:34 AM SANITATION TRUCK DRIVER Height 155.6 cm (5' 1.25 ) 08/20/2020 11:[address] Body Mass Index 31.03 08/20/2020 11:34 AM SANITATION TRUCK DRIVER Procedures * NM BONE SCAN WHOLE BODY(Performed 09/04/2024) Performed for Lumbar back pain, Wedge compression fracture of T9-T10 vertebra, initial encounter for closed fracture (HCC) * IMAGING/RADIOLOGY/XRAY RESULTS ORDER(Performed 08/26/2020) * IMAGING/RADIOLOGY/XRAY RESULTS ORDER(Performed 08/25/2020) * EKG 12-LEAD(Performed 08/20/2020) Performed for Vasovagal syncope, HTN (hypertension), benign * EKG 12-LEAD(Performed 05/07/2020) * US CAROTID DUPLEX BILAT(Performed 01/02/2020) * ECHO COMPLETE(Performed 01/02/2020) * ECHOCARDIOGRAM(Performed 01/02/2020) * VITAMIN B12(Performed 10/24/2018) Performed for MCI (mild cognitive impairment) * VAS CAROTID DUPLEX BILATERAL(Performed 10/23/2018) Performed for Bruit of right carotid artery * EEG AWAKE OR DROWSY ROUTINE(Performed 03/30/2018) * CARDIAC EKG ORDER(Performed 03/16/2018) * VASCULAR LAB ORDER(Performed 03/16/2018) Results * NM Bone Scan Whole Body (09/04/2024 1:33 PM SANITATION TRUCK DRIVER) Anatomical Region Laterality Modality Abdomen Nuclear Medicine 09/04/2024 1:53 PM SANITATION TRUCK DRIVER Impressions 09/04/2024 2:20 PM SANITATION TRUCK DRIVER IMPRESSION: 1. Intense radiotracer activity at T9-10, consistent with known compression deformity. 2. Mild to moderate uptake in the lumbar spine is likely degenerative. Additional degenerative changes as detailed above. > Interpreting Provider: Marquis Kolb DO on 09/04/2024 2:20 PM Narrative 09/04/2024 2:20 PM SANITATION TRUCK DRIVER PROCEDURE: NM BONE SCAN WHOLE BODY with SPECT/CT DATE/TIME OF EXAM: 09/04/2024 1:33 PM CLINICAL INFORMATION: None relevant/not provided if blank. Indication: M54.50: Low back pain, unspecified S22.070A: Wedge compression fracture of T9-T10 vertebra, initial encounter for closed fracture (HCC) COMPARISON: None. HISTORY: 79-year-old with low back pain and wedge compression fracture of T9-10. TECHNIQUE: The patient was injected with 27.4 mCi of -w MDP IV. Anterior and posterior whole body [...] patient was injected with 27.4 mCi of [id number] MDPIV. Anterior and posterior whole body images [...] on 09/04/2024 2:20 PM Desmond Burns MD DE ORDERABLES * IMAGING RADIOLOGY XRAY RESULTS ORDER (08/26/2020) Only the most recent of2 resultswithin the time period is included. Anatomical Region Laterality Modality Other Alex Tate MD IMAGING * EKG 12-LEAD (08/20/2020 12:21 PM SANITATION TRUCK DRIVER) Only the most recent of2 resultswithin the time period is included. Narrative Erica Bales - 08/20/2020 12:21 PM SANITATION TRUCK DRIVER Veronica SuhSIOBHAN 08/20/2020 12:22 PM SEE SCAN Procedure Note Veronica Suh SIOBHAN - 08/20/2020 12:21 PM CST SEE SCAN Kevyn Sandoval MD ECG ORDERABLES * ECHOCARDIOGRAM (01/02/2020) Cleve Renae MD SCANNING ONLY * ECHO COMPLETE (01/02/2020) Historical Provider ECHO ORDERABLES * US CAROTID DUPLEX BILAT (01/02/2020) Anatomical Region Laterality Modality Other Historical Provider VASCULAR LAB ORDArcadio REESE * VITAMIN B12 (10/24/2018 9:36 AM CDT) Vitamin B12 384 232 - 1,245 pg/mL [facility] INSURANCE BILL Comment:FASTING Blood BLOOD SPECIMEN / Unknown 10/24/2018 9:36 AM CDT 10/24/2018 Narrative [facility]ing [facility] [address] [facility] [facility] [id number] Cassius Whitehead MD LAB - CHEMISTRY ORD ERABLES [facility] INSURANCE BILL [address] [place] [address] * VAS CAROTID DUPLEX BILATERAL (10/23/2018 11:11 AM CDT) Anatomical Region Laterality Modality Ultrasound 10/23/2018 10:5 9 AM CDT Narrative Procedure Note Jake Todd MD - 10/23/2018 [facility] [place] [address], [address] [place] [address] Carotid Duplex Report Pat.Name: CHINA ORONA.ID: [id number] .Date: 10/23/2018 Refer.MD: GREGORY DREW Exam Time: 10:59:00 AM Study Type:Carotid Age: 11 1945,73Y Sex: FEMALE Sonogrphr: Sanya Arrington RVT Pat. Stat.:Outpatient ICD - 9: I67.89 Other cerebrovascular disease CPT - 4: 60413 Procedures: Carotid Duplex - Bilateral Race: 2 Visit ID: [id number] ++++++++++++++++++++++++++++++++++++ SUMMARY: ++++++++++++++++++++++++++++++++++++ 1. Less than 50% stenosis bilaterally of the internal carotid arteries. 2. Antegrade flow in the vertebral arteries bilaterally. ++++++++++++++++++++++++++++++++++++ FINDINGS: ++++++++++++++++++++++++++++++++++++ Procedure: The extracranial carotid systems were examined bilaterally with duplex and color flow imaging as well as spectral Doppler analysis. Study Quality: This study is of adequate technical quality. Rt CCA: Intimal thickening is present Rt ICA: There is smooth, heterogenous plaque in the proximal ICA. Rt Vert: Antegrade flow within the right vertebral Artery. Lt CCA: Intimal thickening is present Lt ICA: There is smooth, heterogenous plaque in the proximal ICA. Lt Vert: Antegrade flow within the left vertebral Artery. ++++++++++++++++++++++++++++++++++++ MEASUREMENTS: ++++++++++++++++++++++++++++++++++++ DOPPLER Left CCA Dist CCA Dist EDV 17 cm/s CCA Dist PSV 57 cm/s CCA Dist EDV 17 cm/s CCA Dist PSV 57 cm/s Left CCA Prox CCA Prox EDV 19 cm/s CCA Prox PSV 61 cm/s CCA Prox EDV 19 cm/s CCA Prox PSV 61 cm/s Left ECA ECA EDV 45 cm/s ECA PSV 313 cm/s ECA EDV 45 cm/s ECA PSV 313 cm/s Left ECA PSV/EDV ECA PSV/EDV 6.9 ECA PSV/EDV 6.9 Left ICA Dist ICA Dist EDV 26 cm/s ICA Dist PSV 93 cm/s ICA Dist EDV 26 cm/s ICA Dist PSV 93 cm/s Left ICA Prox ICA Prox EDV 23 cm/s ICA Prox PSV 81 cm/s ICA Prox EDV 23 cm/s ICA Prox PSV 81 cm/s Left ICA/CCA ICA/CCA PSV 1.6 ICA/CCA PSV 1.6 Right CCA Dist CCA Dist EDV 16 cm/s CCA Dist PSV 64 cm/s CCA Dist EDV 16 cm/s CCA Dist PSV 64 cm/s Right CCA Prox CCA Prox EDV 12 cm/s CCA Prox PSV 43 cm/s CCA Prox EDV 12 cm/s CCA Prox PSV 43 cm/s Right ECA ECA EDV 18 cm/s ECA PSV 51 cm/s ECA EDV 18 cm/s ECA PSV 51 cm/s Right ECA PSV/EDV ECA PSV/EDV 2.8 ECA PSV/EDV 2.8 Right ICA Dist ICA Dist EDV 18 cm/s ICA Dist PSV 58 cm/s ICA Dist EDV 18 cm/s ICA Dist PSV 58 cm/s Right ICA Prox ICA Prox EDV 25 cm/s ICA Prox PSV 87 cm/s ICA Prox EDV 25 cm/s ICA Prox PSV 87 cm/s Right ICA/CCA ICA/CCA PSV 1.4 ICA/CCA PSV 1.4 Signed 10/23/2018 02:59 PM Jake Todd MD Cassius Whitehead MD VASCULAR LAB ORDERA BLES * EEG AWAKE OR DROWSY ROUTINE (03/30/2018 11:48 PM CDT) Narrative [facility] MARIA R - 03/30/2018 11:48 PM CDT Richmond Robison MD 03/30/2018 11:48 PM [facility] EEG/EMG [id number] [facility] [id number] Electroencephalogram China Orona 03/30/2018 Indication: China Orona is a 72 y.o. female who presents with Syncope. Current Outpatient Prescriptions Medication meclizine (ANTIVERT) 25 MG tablet aspirin EC (ECOTRIN) 81 MG tablet amLODIPine (NORVASC) 2.5 MG tablet escitalopram (LEXAPRO) 10 MG tablet levothyroxine (SYNTHROID) 50 MCG tablet ondansetron (ZOFRAN) 4 MG tablet pravastatin (PRAVACHOL) 20 MG tablet Cholecalciferol (VITAMIN D3) 400 UNITS tablet No current facility-administered medications for this encounter. Procedure: Pt is awake and drowsy during the recording. A 16 channel EEG was performed in the International 10-20 system. One lead of EKG records a regular rate of 72 bpm. The technical quality is good.The background rhythm is alpha in the range of 8-9 hertz, with faster beta activity present anteriorly. Voltages range from 20-75 microvolts. Hyperventilation was not performed and photic stimulation produced no abnormal responses. There are no epileptiform discharges identified. Sleep was attempted. Impression: This is a normal electroencephalogram. Please note that a normal EEG cannot exclude a seizure disorder. If strongly suspected, further study may be performed with a sleep-deprived EEG. Richmond Robison MD PhD Cassius Whitehead MD [facility]OLOG[facility] ORDERABLE [facility] * CARDIAC EKG ORDER (03/16/2018 9:42 PM CDT) Narrative 03/16/2018 9:42 PM CDT Ordered by an unspecified provider. Scanned Document CARDIAC SERVICES ORD ERABLES * VASCULAR LAB ORDER (03/16/2018 9:42 PM CDT) Anatomical Region Laterality Modality Other Narrative 03/16/2018 9:42 PM CDT Ordered by an unspecified provider. Scanned Document VASCULAR LAB ORDERAB LES Care Teams Pastry Cook Relationship Specialty Start Date End Date Henok Womack MD [address] [phone] PCP - General Internal Medicine 03/10/18
--- OUTSIDE RECORDS SUMMARY | 2024-09-20 07:26 | XMS_ITS | Encounter Summary ---
Author Organization [facility] Address [address] [place] [address] Phone Care Team Providers Care Horticultural Specialty Grower Name Role Phone John Womack MD Primary Care Provide r Giorgio Dixon MD Unavailable [phone] Rashard De La Rosa MD Unavailable [phone] Cleve Renae MD Unavailable Bebeto Woodard MD, lAex Shelton Unavailable [phone] Crys Dunn DO Primary Care Provider [phone] John Womack MD Primary Care Provide r Encounter Details Date Type Department Care Team (Latest Contact Info) Description 07/07/2020 Orders Only [facility] SLEEP Scanning, Provider Social History Tobacco Use Types Packs/Day Years Used Date Smoking Tobacco: Former Smokeless Tobacco: Never Alcohol Use Standard Drinks/Week Comments Yes 2 (1 standard drink = 0.6 oz pur e alcohol) Comments No Sex and Gender Information Value Date Recorded Sex Assigned at Not on file Legal Sex Female 1:38 PM CDT Gender Identity Female 04/12/2019 12:30 PM CDT Sexual Orientation Not on file documented as of this encounter Plan of Treatment Not on file documented as of this encounter Procedures Procedure Name Priority Date/Time Associated Diagnosis Comments SLEEP LAB/STUDY - RESULT 07/07/2020 documented in this encounter Results * SLEEP LAB/STUDY - RESULT (07/07/2020) us Provider Scanning Final Result documented in this encounter Visit Diagnoses Not on filedocumented in this encounter Care Teams Horticultural Specialty Grower Relationship Specialty Start Date End Date John Womack MD [address] [facility] [address] [place] [address] PCP - General 08/11/17 04/30/24 Crys Dunn DO [address] [place] [address] [id number] PCP - General Family Medicine 05/01/24 06/26/24 John Womack MD [address] [address] PCP - General Internal Medicine 06/27/24 Giorgio Dixon MD [address] [address] Consulting Physician Gastroenterology 07/26/18 Rashard De La Rosa MD [address] [place] [address] Consulting Physician Cardiology 04/30/19 Cleve Renae MD [address] [place] [address] Consulting Physician Cardiovascular Disease 07/07/20 Alex Tate Jr., MD [address] [place] [address] Consulting Physician Cardiovascular Disease 10/08/20 documented as of this encounter
--- OUTSIDE RECORDS SUMMARY | 2024-09-20 07:26 | XMS_ITS | Clinical Summary ---
Author Organization [facility] Address [address] [place] [address] Phone Care Team Providers Care Structural Metal Worker Name Role Phone Henok Womack MD Primary Care Provider Allergies Active Allergy Reactions Criticality Noted Date Comments Amoxicillin-Pot Clavulanate Other (See Comments) Low 03/13/2024 Dry heaving; patient stated that she didn't have anything in her stomach to throw up only mucous would come up Medications amLODIPine (NORVASC) 2.5 mg tablet Take 1 Tablet by mouth daily. 07/01/2024 Active escitalopram oxalate (LEXAPRO) 20 mg tablet Take 1 Tablet by mouth daily. 07/02/2024 Active gabapentin (NEURONTIN) 300 mg capsule 05/28/2024 Active HYDROcodone-joseph taminophen (NORCO) 5-325 mg tablet Take 1 Tablet by mouth every 8 hours as needed for Pain. 06/01/2024 Active levothyroxine 50 mcg tablet Take 1 Tablet by mouth daily. 07/01/2024 Active naproxen (NAPROSYN) 500 mg tablet Take 500 mg by mouth 2 times daily as needed for Pain. 06/25/2024 Active pravastatin (PRAVACHOL) 40 mg tablet take 1 tablet by mouth every day at bedtime 07/01/2024 Active aspirin (ECOTRIN EC) 81 mg Tablet, Delayed Release (E.C.) Take 81 mg by mouth daily. Active meclizine (ANTIVERT) 25 mg tablet Take 25 mg by mouth 3 times daily as needed for Dizziness. Active CYANOCOBALAMIN, VITAMIN B-12, ORAL Take by mouth. Active calcium phosphate trib/vit D3 (CITRACAL-D3 GUMMIES ORAL) Take by mouth. Active ferrous gluconate 324 mg (38 mg iron) tablet Take 324 mg by mouth. Active tiZANidine (ZANAFLEX) 4 mg Tablet Take 1 Tablet (4 mg) by mouth every 6 hours as needed for Spasm. 40 Tablet 08/21/2024 Active Active Problems No known active problems Encounters Date Type Department Care Team Description 08/29/2024 External Device Data [facility] ABSTRACTION Provider, Abstract 08/28/2024 External Device Data [facility] ABSTRACTION Provider, Abstract 08/23/2024 External Device Data [facility] ABSTRACTION Provider, Abstract 08/21/2024 9:55 AM MATCHER OFFBEARER Ancillary Procedure [facility] [address] [phone] Joshua Erazo NP Closed wedge compression fracture of T11 vertebra, initial encounter ([facility]) 08/21/2024 9:00 AM MATCHER OFFBEARER Office Visit [facility] [address] [phone] Joshua Erazo NP Closed wedge compression fracture of T11 vertebra, initial encounter ([facility]) (Primary Dx) 08/21/2024 Abstract [facility] [address] [phone] Provider, Abstract 08/21/2024 Orders Only [facility] [address] [phone] Crys Dunn, 08/20/2024 Abstract [facility] [address] [phone] Jim Govea MD from Last 3 Months Family History Relation Name Status Comments Father Mother Social History Tobacco Use Types Packs/Day Years Used Date Smoking Tobacco: Former Cigarettes Smokeless Tobacco: Never Tobacco Cessation:Counseling Given: Not Answered Alcohol Use Standard Drinks/Week Comments Not Currently 0 (1 standard drink = 0.6 oz pur e alcohol) Comments Unknown Sex and Gender Information Value Date Recorded Sex Assigned at Not on file Legal Sex Female 12:12 PM MATCHER OFFBEARER Gender Identity Not on file Sexual Orientation Not on file Last Filed Vital Signs Vital Sign Reading Time Taken Comments Blood Pressure 147/83 08/21/2024 9:08 AM MATCHER OFFBEARER Pulse 82 08/21/2024 9:08 AM MATCHER OFFBEARER Temperature 36.3 C (97.3 F) 08/21/2024 9:08 AM MATCHER OFFBEARER Respiratory Rate 16 08/21/2024 9:08 AM MATCHER OFFBEARER Oxygen Saturation 99% 08/21/2024 9:08 AM MATCHER OFFBEARER Inhaled Oxygen Concentration - - Weight 73.3 kg (161 lb 8 oz) 08/21/2024 9:08 AM MATCHER OFFBEARER Height 152.4 cm (5') 08/21/2024 9:08 AM MATCHER OFFBEARER Body Mass Index 31.54 08/21/2024 9:08 AM MATCHER OFFBEARER Plan of Treatment Health Maintenance Due Date Last Done Comments OSTEOPOROSIS SCREENING 2008 RSV VACCINE (60+ or ) (1 - 1-dose 75+ series) 2018 DTAP/TDAP/TD VACCINES (2 - T d or Tdap) 10/03/2022 10/03/2012 INFLUENZA VACCINE (#1) 2024 , 05/01/2022, 04/29/2021, Additional history exists Medicare Ad[place]age ([place]) Preventative Visit/Annual Wellness Visit 08/01/2024 PNEUMOCOCCAL VACCINE 65+ YEARS Completed 12/30/2014 , 04/24/2010 ZOSTER VACCINE Completed 05/16/2023, 0810/2022, 04/20/2007 Procedures Procedure Name Priority Date/Time Associated Diagnosis Comments XR THORACOLUMBAR SPINE 2 VW Routine 08/21/2024 9:59 AM MATCHER OFFBEARER Closed wedge compression fracture of T11 vertebra, initial encounter ([facility]) from Last 3 Months Results * XR THORACOLUMBAR SPINE 2 VW (08/21/2024 9:59 AM MATCHER OFFBEARER) Anatomical Region Laterality Modality Spine Computed Radiogr aphy Narrative 09/13/2024 7:04 PM MATCHER OFFBEARER L-spine xray report: Clinical Indications: h/o compression fracture at T10 Technique: AP and lateral lumbar spine films were performed today in clinic and personally reviewed by me. My findings/interpretation are: There is no acute evidence of fracture or traumatic subluxation identified apart from T10. Overall sagittal alignment shows normal lumbar lordosis. AP alignment of the lumbar spine shows degenerative scoliosis. Vertebrae show normal architecture apart from T10 which shows an inferior endplate fracture and about 20% loss of height Intervertebral disc spaces show significant degeneration and collapse at all levels. There is a grade 2 anterolisthesis of L5 on S1. The sacroiliac joints appear symmetric. Joshua Erazo PROJECT OFFICER DIAGNOSTIC IMAGING ORDERAB LES Final Result from Last [address] [facility] [id number] Member Subscriber Plan / Payer (Ef fective 2024-Present) Name:China Ham Relation to Subscriber:Self Name:Fatoumata China Payer ID:[id number] (NAIC) Type:O Address: [place] [id number] Care Teams Structural Metal Worker Relationship Specialty Start Date End Date Henok Womack MD [address] [place] [address] PCP - General Internal Medicine 08/21/24
--- OUTSIDE RECORDS SUMMARY | 2024-09-20 07:26 | XMS_ITS | Clinical Summary ---
Author Organization [facility] [employer] Address [address] [place] [address] Care Team Providers Care Food Cashier Name Role Phone Henok Womack MD Primary Care Provider Source Comments [employer],non-owned Affiliates and Associated Physician Practices is amultiple site organization consisting of ambulatory clinics and hospital sitesin [place], [place], [place] and [place]. This disclosure is being madepursuant to the Care Everywhere program and may not contain all information available regarding this patient. Last updated 18.[employer] Allergies No known active allergies Medications * [...] AV block, 3rd degree 08/20/2020 Vertigo 08/20/2020 Encounters Date Type Department Care Team Description 09/04/2024 9:09 AM PRINTING PRESSMAN - 09/09/2024 11:59 PM PRINTING PRESSMAN Hospital Encounter [facility] - Nuclear Medicine [address] [place] [address] Desmond Burns MD Discharge Disposition: Home or Self Care from Last 3 Months Family History Medical History Relation Name Comments Other Brother TIA CVA Father Diabetes - Type 2 Father Hypertension Father Other Father CHF Alzheimer's Disease Mother CAD (Coronary Artery Disease) Mother Migraine Mother Relation Name Status Comments Brother Father Mother Social History Tobacco Use Types [...] AM CDT Pulse 63 08/20/2020 11:34 AM PRINTING PRESSMAN Temperature 36.2 C (97.2 F) 03/14/2018 11:14 AM CDT Respiratory Rate 10 08/20/2020 11:34 AM PRINTING PRESSMAN Oxygen Saturation 97% 02/05/2019 10:03 AM CDT Inhaled Oxygen Concentration - - Weight 75.1 kg (165 lb 9.6 oz) 08/20/2020 11:34 AM PRINTING PRESSMAN Height 155.6 cm (5' 1.25 ) 08/20/2020 11:34 AM C Body Mass Index 31.03 08/20/2020 11:34 AM PRINTING PRESSMAN Plan of Treatment Health Maintenance Due Date Last Done Comments BONE DENSITY TESTING 1945 MEDICARE AWV 12 MONTHS 1945 DTAP/TDAP/TD VACCINES (1 - Tdap) 1962 PNEUMOCOCCAL VACCINE 50+ (1 of 1 - PCV) 1993 ZOSTER VACCINE (1 of 2) 1993 Respiratory Syncytial Virus (RSV) Vaccine Pt: or over 60 yrs (1 - 1-dose 75+ series) 2018 COVID-19 VACCINE ( season) 2024 04/29/2021 INFLUENZA VACCINE (#1) 2024 2, 04/29/2020, 05/21/2019, Additional history exists DEPRESSION SCREENING 08/01/2024 HEPATITIS B VACCINE Aged Out No longe r eligible based on patient's age to complete this topic HIB VACCINE Aged Out No longer eligi ble based on patient's age to complete this topic HPV VACCINE Aged Out No longer eligi ble based on patient's age to complete this topic MENINGOCOCCAL (Group B) VACCINE Aged Out No longer eligible based on patient's age to complete this topic MENINGOCOCCAL VACCINE Aged Out No angeline brenda eligible based on patient's age to complete this topic Procedures Procedure Name Priority Date/Time Associated Diagnosis Comments NM BONE SCAN WHOLE BODY Routine 09/04/2024 1:33 PM PRINTING PRESSMAN Lumbar back pain Wedge compression fracture of T9-T10 vertebra, initial encounter for closed fracture (HCC) from Last 3 Months Results * NM Bone Scan Whole Body (09/04/2024 1:33 PM PRINTING PRESSMAN) Anatomical Region Laterality Modality Abdomen Nuclear Medicine 09/04/2024 1:53 PM PRINTING PRESSMAN Impressions 09/04/2024 2:20 PM PRINTING PRESSMAN IMPRESSION: 1. Intense radiotracer activity at T9-10, consistent with known compression deformity. 2. Mild to moderate uptake in the lumbar spine is likely degenerative. Additional degenerative changes as detailed above. > Interpreting Provider: Marquis Kolb DO on 09/04/2024 2:20 PM Narrative 09/04/2024 2:20 PM PRINTING PRESSMAN PROCEDURE: NM BONE SCAN WHOLE BODY with SPECT/CT DATE/TIME OF EXAM: 09/04/2024 1:33 PM CLINICAL INFORMATION: None relevant/not provided if blank. Indication: M54.50: Low back pain, unspecified S22.070A: Wedge compression fracture of T9-T10 vertebra, initial encounter for closed fracture (HCC) COMPARISON: None. HISTORY: 79-year-old with low back pain and wedge compression fracture of T9-10. TECHNIQUE: The patient was injected with 27.4 mCi of ffrrhtyckv07-i MDP IV. Anterior and posterior whole body [...] within the abdominal aorta. Procedure Note Marquis Kolb, - 09/04/2024 PROCEDURE: NM BONE SCAN WHOLE BODY with SPECT/CT DATE/TIME OF EXAM: 09/04/2024 1:33 PM CLINICAL INFORMATION: None relevant/not provided if blank. Indication: M54.50: Low back pain, unspecified S22.070A: Wedge compression fracture of T9-T10 vertebra, initialencounter for closed fracture (HCC) COMPARISON: None. HISTORY: 79-year-old with low back pain and wedge compression fractureof T9-10. TECHNIQUE: The patient was injected with 27.4 mCi of [id number]-b MDPIV. Anterior and posterior whole body images [...] ORDERABLES from Last 3 Months Care Teams Food Cashier Relationship Specialty Start Date End Date Henok Womack MD [address] [facility] [address] [place] [phone] PCP - General Internal Medicine 03/10/18
--- OUTSIDE RECORDS SUMMARY | 2024-09-20 07:26 | XMS_ITS | Encounter Summary ---
Author Organization [facility] Address [address] [place] [address] Phone Care Team Providers Care Lime Sludge Kiln Operator Name Role Phone John Womack MD Primary Care Provide r Giorgio Dixon MD Unavailable [phone] Rashard De La Rosa MD Unavailable [phone] Venkatesh Avila MD Unavailable [phone] Cleve Renae MD Unavailable Bebeto Woodard MD, Alex Shelton Unavailable [phone] Crys Dunn DO Primary Care Provider [phone] John Womack MD Primary Care Provide r Encounter Details Date Type Department Care Team (Late st Contact Info) Description 10/16/2017 Orders Only [facility] Provider, MD Andrea [address] [place] [address] Social History Tobacco Use Types Packs/Day Years Used Date Smoking Tobacco: Former Comments Unknown Sex and Gender Information Value Date Recorded Sex Assigned at Not on file Legal Sex Female 1:38 PM CDT Gender Identity Female 04/12/2019 12:30 PM CDT Sexual Orientation Not on file documented as of this encounter Plan of Treatment Not on file documented as of this encounter Procedures Procedure Name Priority Date/Time Associated Diagnosis Comments CARDIOLOGY REPORT 10/16/2017 CARDIOLOGY REPORT 10/16/2017 documented in this encounter Results * CARDIOLOGY REPORT (10/16/2017) Anatomical Region Laterality Modality Other Narrative 10/16/2017 Ordered by an unspecified provider. us Historical Provider [facility] CARDIAC SERVICES PROCE DURES Final Result * CARDIOLOGY REPORT (10/16/2017) Anatomical Region Laterality Modality Other Narrative 10/16/2017 Ordered by an unspecified provider. us Historical Provider CV CARDIAC SERVICES PROCE DURES Final Result documented in this encounter Visit Diagnoses Not on filedocumented in this encounter Care Teams Lime Sludge Kiln Operator Relationship Specialty Start Date End Date John Womack MD [address] [facility] [address] [place] [address] PCP - General 08/11/17 04/30/24 Crys Dunn DO [address] [place] [address] PCP - General Family Medicine 05/01/24 06/26/24 John Womack MD [address] [facility] [address] [place] [address] PCP - General Internal Medicine 06/27/24 Giorgio Dixon MD [address] [facility] [address] [place] [address] Consulting Physician Gastroenterology 07/26/18 Rashard De La Rosa MD [address] [address] Consulting Physician Cardiology 04/30/19 Venkatesh Avila MD [address] [address] Referring Physician Cardiology 04/30/19 07/06/20 Cleve Renae MD [address] [address] Consulting Physician Cardiovascular Disease 07/07/20 Alex Tate Jr., MD [address] [place] [address] Consulting Physician Cardiovascular Disease 10/08/20 documented as of this encounter
[2024-09-20 07:42] LABS: Basophils Percent Auto 0.9 % (0.2-1.2); Eosinophils Absolute Auto 0.2 K/mm3 (0-0.3); Eosinophils Percent Auto 3.2 % (0-4.4); Hematocrit 42.2 % (37.0-47.0); Hemoglobin 13.8 g/dL (12.0-15.0); Immature Granulocyte Absolute 0.03 K/mm3 (0.00-0.031); Immature Granulocyte Percent A 0.6 % (0-0.5); Lymphocytes Absolute Auto 1.22 K/mm3 (0.9-3.2); Lymphocytes Percent Auto 26.1 % (18.3-44.2); Mean Corpuscular HGB Conc 32.7 g/dl (32-36); Mean Corpuscular Hemoglobin 30.5 pg (26-34); Mean Corpuscular Volume 93.2 fl (80-100); Mean Platelet Volume 9.6 fl (7.4-10.4); Monocytes Absolute Auto 0.4 K/mm3 (0.1-0.6); Monocytes Percent Auto 9.2 % (2.6-8.5); Neutrophils Absolute Auto 2.8 K/mm3 (1.3-6.7); Platelet Count Result 187 k/mm3 (150-375); Red Blood Count 4.53 M/mm3 (4.2-5.4); Red Cell Distribution Width 13.2 % (11.5-14.5); White Blood Count 4.7 K/mm3 (4.5-10.0)
[2024-09-20 07:59] LABS: Alanine Aminotransferase 21 U/L (6-35); Alkaline Phosphatase 68 U/L (38-126); Anion Gap 6 mmol/L (4-12); Aspartate Amino Transferase 23 U/L (14-36); Bilirubin,Total 0.6 mg/dL (0.2-1.3); Blood Urea Nitrogen 15 mg/dL (7-17); Calcium 9.3 mg/dL (8.4-10.2); Carbon Dioxide 33 mmol/L (22-30); Chloride 102 mmol/L (98-107); Cholesterol 162 mg/dL (0-200); Estimated Glomerular Filt Rate > 60; Glucose 95 mg/dL (65-110); HDL Direct 57 mg/dL; Potassium 3.6 mmol/L (3.4-5.0); Sodium 141 mmol/L (137-145); Triglycerides 104 mg/dL (<150)
[2024-09-20 08:10] LABS: LDL Cholesterol Direct 83 mg/dL
[2024-09-20 09:14] LABS: Folic Acid > 20.0 ng/mL (2.76->20); Vitamin B12 > 1000.0 pg/mL (239-931)
[2024-09-20 10:33] LABS: Free T4 Free Thyroxine 1.29 ng/dL (0.78-2.19); Vitamin D 25 Hydroxy 38.6 ng/mL
[2024-09-20 10:47] LABS: Hemoglobin A1C 5.9 % (<5.7)
[2024-09-20 11:08] LABS: Creatinine Urine 6.7 mg/dL
[2024-09-20 12:05] LABS: MALB Creatinine Ratio < 89.6 mg/g (0-30); Microalbumin Urine Random < 6.0 mg/L (0-16.7)
== END 2024-09-20 07:18 | disposition home or self-care (01) ==
PROVIDERS: PCP Internal Medicine; Visit Provider Internal Medicine
DX: E55.9 Vitamin D deficiency, unspecified (principal); E78.5 Hyperlipidemia, unspecified; R73.03 Prediabetes; R79.89 Other specified abnormal findings of blood chemistry
CPT/HCPCS: 36415; 80053; 80061; 82043; 82306; 82607; 82746; 83036; 84439; 84443; 85025

== ENCOUNTER 2025-02-07 07:55 | Outpatient (CLI) | payer MEDICARE, SELFPAY ==
--- OUTSIDE RECORDS SUMMARY | 2025-02-07 08:02 | XMS_ITS | Clinical Summary ---
Author Organization [facility] Address [address] [place] [address] Phone Care Team Providers Care Hand Scudder Name Role Phone Giorgio Dixon MD Unavailable Rashard De La Rosa MD Unavailable Cleve Renae MD Unavailable Bebeto Woodard MD, Alex Shelton Unavailable [phone] John Womack MD Primary Care Provide r Kris León MD PhD Unavailable [phone] Allergies Active Allergy Reactions Criticality Noted Date [...] (20 mg total) by mouth daily Active naproxen (NAPROSYN) 500 mg tablet Take 1 tablet (500 mg total) by mouth 2 (two) times a day as needed Active donepeziL (ARICEPT) 5 mg tabletIndicatio ns:Alzheimer's disease (HCC) Take 1 tablet (5 mg total) by mouth nightly 30 tablet 1 10/30/2024 Active Active Problems Problem Noted Date Diagnosed Date ICD (implantable cardioverter-defibrillator) in place 02/05/2025 Alzheimer's disease 09/24/2024 Memory loss 03/30/2024 Strain of lumbar region 12/12/2019 Grade 1 isthmic spondylolisthesis at L5-S1 12/11 Lumbar spondylosis 12/12/2019 BMI 30.0-30.9,adult 04/30/2019 Recurrent syncope 10/04/2018 Overview (04/30/2019): Implanted loop recorder CAROL (obstructive sleep apnea) 10/04/2018 Blood in stool 08/02/2018 Overview (08/02/2018): Added automatically from request for surgery [id number] Rectal bleeding 07/24/2018 Assessment & Plan (07/24/2018 1:10 PM FABRICATION LEAD): GI has been consulted for which we appreciate their evaluation and recommendations. Anusol suppository. Colace. Holding ASA for now. Anemia 07/24/2018 Assessment & Plan (07/24/2018 1:11 PM FABRICATION LEAD): With dizziness, likely 2/2 recent rectal bleeding. To receive 1 unit of PRBC. H&H after transfusion. Hypertension 07/24/2018 Assessment & Plan (07/24/2018 1:11 PM FABRICATION LEAD): Stable. On Norvasc. HLD (hyperlipidemia) 07/24/2018 Assessment & Plan (07/24/2018 1:12 PM FABRICATION LEAD): On Statin. Check lipid panel. History of vertigo 07/24/2018 Assessment & Plan (07/24/2018 1:12 PM FABRICATION LEAD): Resumed prn meclizine. Presence of cardiac device [...] the day. Last Assessment & Plan: - [place] well supported and patient happy with results [...] the day. Last Assessment & Plan: - [place] well supported and patient happy with results [...] Encounters Date Type Department Care Team Description 02/05/2025 10:53 AM CDT - 02/05/2025 11:59 PM CDT Hospital Encounter [facility] [address] [place] [address] Syncope and collapse; 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 Discharge Disposition: Discharge to home or self care 02/05/2025 10:30 AM CDT Office Visit [facility] [address] [place] [address] [place] [address] [place] [address] Bing Jones NP Syncope and collapse (Primary Dx); Hypertension; 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 02/05/2025 10:00 AM CDT Ancillary Procedure [facility] [address] [place] [address] [place] [address] Cardiomyopathy, unspecified type (HCC) (Primary Dx); Syncope and collapse; Fitting and adjustment of cardiac pacemaker 02/05/2025 Results Follow-Up [facility] Building [address] [place] [phone] Bing Jones NP XR Chest Pa Lateral 2 Views 01/28/2025 Telephone [facility] [address] [place] [address] [place] [address] Rachael Banegas 01/25/2025 Orders Only [facility] [address] [place] [address] [place] [address] [place] [address] Bing Jones NP Syncope and collapse (Primary Dx) from Last 3 Months Surgical History Surgery [...] Sign Reading Time Taken Comments Blood Pressure 148/69 02/05/2025 9:53 AM CDT Pulse 68 02/05/2025 9:53 AM CDT Temperature 36.7 C (98 F) 09/24/2024 10:09 AM FABRICATION LEAD Respiratory Rate 16 08/10/2018 1:15 PM FABRICATION LEAD Oxygen Saturation 94% 02/05/2025 9:53 AM CDT Inhaled Oxygen Concentration - - Weight 67.2 kg (148 lb 3.2 oz) 02/05/2025 9:53 A M CDT Height 152.4 cm (5') 02/05/2025 9:53 AM CDT Body Mass Index 28.94 02/05/2025 9:53 AM CDT Plan of Treatment Health Maintenance Due Date Last Done Comments Depression Screening 1943 Fall Risk Assessment 1945 Osteoporosis Screening-Bone Density Scan 1945 Hepatitis B Screening 1961 Well Visit 65+ 2008 DTaP/Tdap/Td Vaccine (2 - Td or Tdap) 10/03/2022 10/03/2012 Influenza Vaccine (#1) 2025 , 04/29/2020, 05/21/2019, Additional history exists Pneumococcal vaccine 65+ Completed 12/30/2014, 04/02 Zoster Vaccine Completed 05/16/2023, 0810/2022, 04/20/2007 Medical Devices Implanted Type Area Bolt Cutter Device Identifier Shelf Expiration Date Model / Serial / Lot Biotronik Ra Lead [id number]/25/20 Implanted:08/02 (Quantity not on file) Lead Heart Biotronik [id number] / / Biotronik Rv Lead [id number]/25/20 21 Implanted:08/02 (Quantity not on file) Lead Heart Biotronik [id number] / / Biotronik Pm [id number]/25/20 21 Implanted:08/02 (Quantity not on file) Pacemaker Chest Wall Biotronik [id number] / / Procedures Procedure Name Priority Date/Time Associated Diagnosis Comments XR CHEST PA LATERAL 2 VIEWS Schedule AGUILAR, Read AGUILAR (Appt Today, Awaiting Results) 02/05/2025 10:59 AM CDT Syncope and collapse ICD (implantable cardioverter-defib rillator) in place from Last 3 Months Results * XR Chest Pa Lateral 2 Views (02/05/2025 10:59 AM CDT) Anatomical Region Laterality Modality Body, Chest N/A Computed Radiogr aphy 02/05/2025 11:0 1 AM CDT Impressions 02/05/2025 11:01 AM CDT No prior radiograph is available for comparison. Pacemaker seen with leads overlying the right atrium and right ventricle. No pneumothorax or pulmonary edema. No pneumonia or pleural effusion. The heart size and mediastinal contour are unchanged. Vertebroplasty changes are seen in the lower thoracic spine. Electronically signed by: Apolinar Ring M.D. Narrative 02/05/2025 11:01 AM CDT EXAMINATION: 2 view chest radiograph Procedure Note Apolinar Ring MD - 02/05/2025 EXAMINATION: 2 view chest radiograph IMPRESSION: No prior radiograph is available for comparison. Pacemaker seen with leads overlying the right atrium and right ventricle. No pneumothorax or pulmonary edema. No pneumonia or pleural effusion. The heart size and mediastinal contour are unchanged. Vertebroplasty changes are seen in the lower thoracic spine. Electronically signed by: Apolinar Ring M.D. Bing Jones DOPE WORKER IMG XR PROCEDURES Final R esult from Last 3 Months Insurance MEDICARE AD[facility]ANTAGE [facility] Address: [address] [address] [place] [address] MEDICARE ADVANTAGE [facility] Address: [address] [address] [place] [id number] Advance Directives For more information, please contact: [phone] * Full Code (Latest Code Status on File) Date Activated Date Inactivated Comments 07/24/2018 5:12 AM 07/26/2018 4:18 PM Care Teams Hand Scudder Relationship Specialty Start Date End Date John Womack MD [address] [place] [address] PCP - General Internal Medicine 06/27/24 Giorgio Dixon MD Consulting Physician Gastroenterology 07/26/18 Rashard De La Rosa MD Consulting Physician Cardiology 04/30/19 Cleve Renae MD Consulting Physician Cardiovascular Disease 07/07/20 Alex Tate Jr., MD [address] [place] [address] Consulting Physician Cardiovascular Disease 10/08/20 Kris León MD PhD [address] [place] [address] Referring Physician Neurology 09/24/24
--- OUTSIDE RECORDS SUMMARY | 2025-02-07 08:02 | XMS_ITS | Patient Health Record ---
Author Organization [facility] Address [address] [place] [address] Care Team Providers Care Senior Structural Engineer Name Role Phone DaisyShawn rennerallati Primary Care Provider Desmond Gonzalez Unavailable [phone] Jim Govea Unavailable Unavailable Allergies Allergen (clinical drug ingredient) Drug/Non Drug Allergy documented on EMR Reaction Allergy Type Onset Date Status amoxicillin Amoxicillin Unknown Drug Allergy Act natasha Reason For Referral Reason T10 Kypho Diagnosis 1 Age-related osteopor osis with current pathological fracture, vertebra(e), initial encounter for fracture (M80.08XA) Referred Organization [facility] Referred Provider Desmond Burns Referred Address [address],[place], [place],[address], Procedure 1 PERCUTANEOUS VERTEBR AL AUGMENTATION ([address]) General Notes No auth needed per [facility], info scanned into pt chart, Reshma Goodrich 09/12/2024 12:52:14 PM > Referral Priority Routine Reason Osteoporosis Evaluat ion and Treatment Diagnosis 1 Age-related osteopor osis with current pathological fracture, vertebra(e), initial encounter for fracture (M80.08XA) Referral Organization [facility] Referring Provider First Name Desmond Referring Provider Last Name Grant Referring Provider Speciality Pain Medic ine Referred Provider Specialty Internal Med icine Referral Priority Routine Reason Finding of elevated blood pressure Diagnosis 1 Elevated blood-press ure reading, without diagnosis of hypertension (R03.0) Referral Organization [facility] Referring Provider First Name Desmond Referring Provider Last Name Grant Referring Provider Speciality Pain Medic ine Referred Provider Specialty General phys ician Referral Priority Routine Reason Osteoporosis Evaluat ion and Treatment Diagnosis 1 Age-related osteopor osis with current pathological fracture, vertebra(e), initial encounter for fracture (M80.08XA) Referral Organization [facility] Referring Provider First Name Desmond Referring Provider Last Name Grant Referring Provider Speciality Pain Medic paddy Referred Provider Specialty Internal Med icine Referral Priority Routine Reason Eval and treat for m id and low back pain, history of T10 and T11 fractures, Had kyphoplasty done for both Diagnosis 1 Age-related osteopor osis with current pathological fracture, vertebra(e), initial encounter for fracture (M80.08XA) Referral Organization [facility] Referring Provider First Name Desmond Referring Provider Last Name Grant Referring Provider Speciality Pain Medic paddy Referred Provider Specialty Physical The rapist Referral Priority Routine Medications Medication SIG (Take, Route, Fr equency, Duration) Notes Start Date End Date Status Gabapentin Active Levothyroxine Sodium Active Meclizine HCl Active Citracal +D3 Active Ferrous Sulfate Acti ve Pravastatin Sodium A ctive B12 Active amLODIPine Besylate Active Escitalopram Oxalate Active Aspirin Active Social History Tobacco Use: Social History Observation Description Date Details (start date - stop date) Former Smoker NA - NA Tobacco Use/Smoking Question Answer Notes Are you a former smoker Alcohol Screen (Audit-C) Question Answer Notes Did you have a drink contain ing alcohol in the past year? Yes How often did you have a dri nk containing alcohol in the past year? 2 to 4 times a month (2 points) Points 2 Interpretation Negative Problems Problem Type SNOMED Code ICD Code Onset Dates Problem Status W/U Status Risk Notes Problem Radiculopathy, thoracic region (M54.14) Active confirmed Problem Pathological fracture of vertebra (863022263) Age-related osteoporosis with current pathological fracture, vertebra(e), initial encounter for fracture (M80.08XA) Active confirmed Vital Signs Heart Rate 75 /min 12/04/2024 Temperature 96.7 degrees Fahrenheit 12/04/2024 Respiratory Rate 18 /min 12/04/2024 Blood pressure diastolic 93 mm Hg 12/04/2024 Height 60 in 12/04/2024 Blood pressure systolic 156 mm Hg 12/04/2024 Weight 155 lbs 12/04/2024 BMI 30.27 kg/m2 12/04/2024 Encounters Encounter Location Date Provider Diagnosis [facility] [address] [facility] [address] [place] [phone] 08/29/2024 Desmond Burns Wedge compression fracture of T9-T10 vertebra, initial encounter for closed fracture S22.070A and Radiculopathy, thoracic region M54.14 [facility] [address] [facility] [address] [place], [place] [id number] 09/14/2024 Desmond Burns Age-related osteoporosis with current pathological fracture, vertebra(e), initial encounter for fracture M80.08XA and Wedge compression fracture of T9-T10 vertebra, initial encounter for closed fracture S22.070A [facility] [address] [place] [address] [place] [phone] 09/26/2024 Desmond Burns Age-related osteoporosis with current pathological fracture, vertebra(e), initial encounter for fracture M80.08XA and Wedge compression fracture of T9-T10 vertebra, initial encounter for closed fracture S22.070A [facility] [address] [place] [phone] 12/04/2024 Desmond Burns Age-related osteoporosis with current pathological fracture, vertebra(e), initial encounter for fracture M80.08XA ; Wedge compression fracture of T11-T12 vertebra, initial encounter for closed fracture S22.080A and Elevated blood-pressure reading, without diagnosis of hypertension R03.0 [facility] [address] [place] [phone] 11/30/2024 Desmond Burns [facility] [address] [place] [phone] 08/30/2024 Desmond Burns [facility] [address] [place] [phone] 09/05/2024 Desmond Burns [facility] [address] [place] [address] [place] [phone] 09/07/2024 Desmond Burns [facility] [address] [place] [phone] 09/12/2024 [facility] [address] [place] [address] [place] [phone] 10/01/2024 Des[facility] [address] [place] [address] [place] [phone] 10/03/2024 Desmond Burns Age-related osteoporosis with current pathological fracture, vertebra(e), initial encounter for fracture M80.08XA and Radiculopathy, thoracic region M54.14 [facility] [address] [place] [address] [place] [phone] 10/24/2024 Desmond Burns [facility] [address] [place] [phone] 12/13/2024 Desmond Burns Assessments Encounter Date Diagnosis (ICD Code) Assessment Notes Treatment Notes Treatment Clinical Notes Section Notes 09/14/2024 Age-related osteoporosis with current pathological fracture, vertebra(e), initial encounter for fracture (ICD-10 - M80.08XA) I will proceed with a T10 kyphoplasty under fluoroscopic guidance. For complete details please see the attached procedure note. I discussed with the patient the risks of the procedure including those of bleeding, infection, neurologic injury, cement embolization of the spinal canal or lungs and the possibility of limited improvement. They understood the risk and wished to proceed with the kyphoplasty. The patient will continue to be part of a comprehensive pain management program as tolerated., while and after the treatment plan is carried out. The patient was instructed to follow up with his primary care physician for a bone density test and evaluation for treatment of osteoporosis. Following the procedure, the patient was monitored for 15-20 minutes to ensure no side effects from procedure were present. 09/26/2024 Age-related osteoporosis with current pathological fracture, vertebra(e), initial encounter for fracture (ICD-10 - M80.08XA) Patient has a history of a treated vertebral fracture. She did very well with the T10 kyphoplasty and then the pain returned we need to make sure that there is not another fracture going on. Like to order a MRI of both the mid back in the low back however it needs to be a specialized MRI since she does have a pacemaker. Reshma is going to check on that in the morning and order the most appropriate 1 09/26/2024 Wedge compression fracture of T9-T10 vertebra, initial encounter for closed fracture (ICD-10 - S22.070A) 10/03/2024 Age-related osteoporosis with current pathological fracture, vertebra(e), initial encounter for fracture (ICD-10 - M80.08XA) 12/04/2024 Age-related osteoporosis with current pathological fracture, vertebra(e), initial encounter for fracture (ICD-10 - M80.08XA) I will proceed with a T11 kyphoplasty under fluoroscopic guidance. For complete details please see the attached procedure note. We did review the patient's films the other day. I did been read as a T12 compression fracture I believe it was a T11 compression fracture. And then there was a questionable lesion in the sacrum. We did call the radiologist and we got an addendum report saying indeed it is a T11 fracture and that the lesion is very common and the bone scan was negative and no further testing is required. I did talk to the patient today she agreed she does not want to get the biopsy today. I discussed with the patient the risks of the procedure including those of bleeding, infection, neurologic injury, cement embolization of the spinal canal or lungs and the possibility of limited improvement. They understood the risk and wished to proceed with the kyphoplasty. The patient will continue to be part of a comprehensive pain management program as tolerated., while and after the treatment plan is carried out. The patient was instructed to follow up with his primary care physician for a bone density test and evaluation for treatment of osteoporosis. Following the procedure, the patient was monitored for 15-20 minutes to ensure no side effects from procedure were present. Patient is requesting additional visits for her phsyical therapy as well. 09/14/2024 Wedge compression fracture of T9-T10 vertebra, initial encounter for closed fracture (ICD-10 - S22.070A) 08/29/2024 Radiculopathy, thoracic region (ICD-10 - M54.14) 08/29/2024 Wedge compression fracture of T9-T10 vertebra, initial encounter for closed fracture (ICD-10 - S22.070A) Thoracic radicular pain. Redo a bilateral T7 transforaminal epidural steroid injection under fluoroscopy. Patient has a fracture has a lot of uncomfortableness. Does not been able to do many of her daily activities. We talked to her quite in detail today about a kyphoplasty. She is getting a bone scan and then we will go from there 12/04/2024 Wedge compression fracture of T11-T12 vertebra, initial encounter for closed fracture (ICD-10 - S22.080A) 12/04/2024 Elevated blood-pressure reading, without diagnosis of hypertension (ICD-10 - R03.0) 10/03/2024 Radiculopathy, thoracic region (ICD-10 - M54.14) 08/29/2024 Other The risk of thi s procedure were discussed with the patient in which they verbalized understanding and wished to proceed. The patient will continue to be part of a comprehensive pain management program. 09/26/2024 Other 12/04/2024 Other Plan Of Treatment Pending Test Test Name Order Date Physical Therapy 10/03/2024 Whole Body Bone Scan 08/29/2024 Insurance Providers Payer Name Payer Address Payer Phone Subscriber Number Group Number Insured Name Patient Relationship to Insured Coverage Start Date Coverage End Date [facility] Medicare Complete [address] [address] [place], [place] [id number] [place] Self - patient is the insured Medical (General) History Medical History History ICD Code high blood pressure pacemaker osteoarthritis kidney stones urinary incontinence depression Surgical History Surgery Date(Month/Year) carpal tunnel release 2017 cataract removal 2014
--- OUTSIDE RECORDS SUMMARY | 2025-02-07 08:02 | XMS_ITS | Encounter Summary ---
Author Organization [facility] Healthcare Address [address] [place] [address] Care Team Providers Care Sidewalk Inspector Name Role Phone Giorgio Dixon MD Unavailable Rashard De La Rosa MD Unavailable Cleve Renae MD Unavailable Bebeto Woodard MD, Alex Shelton Unavailable [phone] John Womack MD Primary Care Provide r Kris León MD PhD Unavailable [phone] Encounter Details Date Type Department Care Team (Latest Contact Info) Description 02/05/2025 10:53 AM CDT - 02/05/2025 11:59 PM CDT Hospital Encounter [facility] [address] [place] [address] Syncope and collapse; 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 CALCIUM CITRATE-VITAMIN D3 ORAL Take 2 tablets by mouth daily 10/09/2019 cyanocobalamin (Vitamin B-12) 1,[address] 1 tablet (1,000 mcg total) under the tongue daily 05/07/2020 escitalopram (LEXAPRO) 20 mg tablet Take 1 tablet (20 mg total) by mouth daily ferrous sulfate ER 324 mg (65 mg iron) EC tablet Take 1 tablet (324 mg total) by mouth daily gabapentin (NEURONTIN) 300 mg capsule Take 1 capsule (300 mg total) by mouth as needed 05/07/2020 levothyroxine (SYNTHROID, LEVOTHROID) 50 mcg tablet Take 0.5 mcg by mouth. naproxen (NAPROSYN) 500 mg tablet Take 1 tablet (500 mg total) by mouth 2 (two) times a day as needed pravastatin (PRAVACHOL) 20 mg tablet Take 1 tablet (20 mg total) by mouth documented as of this encounter Discharge Disposition Disposition Code Departure Means Destination Discharge to home or self care documented in this encounter Plan of Treatment Not on file documented as of this encounter Procedures Procedure Name Priority Date/Time Associated Diagnosis Comments XR CHEST PA LATERAL 2 VIEWS Schedule AGUILAR, Read AGUILAR (Appt Today, Awaiting Results) 02/05/2025 10:59 AM CDT Syncope and collapse ICD (implantable cardioverter-defib rillator) in place documented in this encounter Results * XR Chest Pa Lateral 2 [...] spine. Electronically signed by: Apolinar Ring M.D. us [facility] [employer] IMG XR PROCEDURES Final R esult documented in this encounter Visit Diagnoses Diagnosis Syncope and collapse ICD (implantable cardioverter-defibrillator) in place documented in this encounter Care Teams Sidewalk Inspector Relationship Specialty Start Date End Date John Womack MD [address] [id number] PCP - General Internal Medicine 06/27/24 Giorgio Dixon MD Consulting Physician Gastroenterology 07/26/18 Rashard De La Rosa MD Consulting Physician Cardiology 04/30/19 Cleve Renae MD Consulting Physician Cardiovascular Disease 07/07/20 Alex Tate Jr., MD [address] [place] [address] Consulting Physician Cardiovascular Disease 10/08/20 Kris León MD PhD [address] [place] [address] Referring Physician Neurology 09/24/24 documented as of this encounter
--- OUTSIDE RECORDS SUMMARY | 2025-02-07 08:02 | XMS_ITS | Data Portability ---
Author Organization [place] [facility], Main Office Address [address] [place] [address] Care Team Providers Care Photogrammetric Surveyor Name Role Phone SONY WOMACK Primary Care Provider SONY WOMACK Referring Provider [facility] Neurosurgeon ALEX WALL Youth Leader ERNIE CHERY Ophthalmic Medical Technician Assessment Encounter Date Assessment Date Assessment LastModified by Organization Details LastModified Time 08/09/2024 08/09/2024 01/20/2023: A1C 6.2 LDL 115 WBC 4.1 05/25/2023: Glob 2.4, TP WNL LDL 99 Not available 08/03/2024 22:21:34 09/20/2024 09/20/2024 01/20/2023: A1C 6.2 LDL 115 WBC 4.1 05/25/2023: Glob 2.4, TP WNL LDL 99 Not available 09/20/2024 09:59:03 12/26/2024 12/26/2024 01/20/2023: A1C 6.2 LDL 115 WBC 4.1 05/25/2023: Glob 2.4, TP WNL LDL 99 09/20/2024: A1C 5.9 Not available 12/26/2024 15:55:05 Plan of Treatment Reminders Order Date Submit Date Provider Last Modified By Organization Details Last Modified Time Details Appointments Follow Up 15 2024 08:45Gianfranco bains MD Not available Not available Not available Lab glycohemo globin, total, blood 2024 025 [facility], [address] [place] [address], [facility], [place], [address], 12/26/2024 10:30:33 microalbu min, urine 2024 025 [facility], [address] [place] [address], [place], [place], [address], 12/26/2024 10:30:32 measles virus IgG Ab, quant, immunoass ay, serum 2024 025 [facility], [address] [place] [address] 2, [place], [address], 12/26/2024 10:30:34 lipid panel, serum 2024 025 [facility], [address] [place] [address], [facility], [place], [address], 12/26/2024 10:30:33 CMP, serum or plasma 2024 025 JOE [facility], [address] [place] [address], [facility], [place], [address], 12/26/2024 10:30:34 CBC w/ auto diff 2024 025 [facility], [address] [place] [address], [place], [place], [address], 12/26/2024 10:30:33 TSH + free T4, serum 2024 025 [facility], [address] [place] [address], [facility], [place], [address], 12/26/2024 10:30:32 vitamin D, 25-hydrox y, total, serum 2024 025 [facility], [address] [place] [address], [facility], [place], [address], 12/26/2024 10:30:33 vitamin B12 + folate, serum or blood 2024 025 [facility], [address] [place] [address], [place], [address], 12/26/2024 10:30:32 glycohemo globin, total, blood 2024 025 [email or web address], [address] [place] [address], [place], [address], 09/20/2024 11:58:32 microalbu min, urine 2024 025 [email or web address], [address] [place] [address], [place], [address], 09/20/2024 11:58:33 measles virus IgG Ab, quant, immunoass ay, serum 2024 025 [email or web address] [facility], [address] [place] [address], [place], [address], 10/17/2024 15:06:25 lipid panel, serum 2024 025 [facility], [address] [place] [address], [place], [address], 09/20/2024 13:54:04 CMP, serum or plasma 2024 025 JOE [facility], [address] [place] [address], [place], [address], 09/20/2024 10:52:33 CBC w/ auto diff 2024 025 JOE [facility], [address] [place] [address], [place], [address], 09/20/2024 10:52:33 TSH + free T4, serum 2024 025 [email or web address], [address] [place] [address], [place], [address], 09/20/2024 11:58:31 vitamin D, 25-hydrox y, total, serum 2024 025 [email or web address], [address] [place] [address], [place], [address], 09/20/2024 11:58:33 vitamin B12 + folate, serum or blood 2024 025 [email or web address] [facility], [address] [place] [address], [place], [address], 09/20/2024 11:58:34 glycohemo globin, total, blood 2024 025 [email or web address] [facility], [address] [place] [address], [place], [address], 02/05/2025 08:22:36 microalbu min, urine 2024 025 [email or web address] [facility], [address] [place] [address], [place], [address], 02/05/2025 08:22:36 lipid panel, serum 2024 025 JOE [facility], [address] [place] [address], [place], [address], 09/20/2024 10:52:33 CMP, serum or plasma 2024 025 JOE [facility], [address] [place] [address], [place], [address], 09/20/2024 10:54:20 CBC w/ auto diff 2024 025 [facility], [address] [place] [address], [place], [address], 02/05/2025 08:22:36 TSH + free T4, serum 2024 025 JOE [facility], [address] [place] [address], [place], [address], 09/20/2024 13:54:04 vitamin D, 25-hydrox y, total, serum 2024 025 [email or web address] [facility], [address] [facility], [place], [address], 08/16/2024 11:31:51 vitamin B12 + folate, serum or blood 2024 025 [email or web address] [facility], [address] [facility] [address], [place], [address], 02/05/2025 08:22:36 Referral otolaryng ologist referral - Please call patient to schedule an appointme nt. Thank you. 2024 025 ATHDONG Almeida MD, [address], [place], [address], 12/28/2024 11:00:44 otolaryng ologist referral - Please call patient to schedule an appointme nt. Thank you. 2024 025 [email or web address] Storm Almeida MD, [address], [place], [address], 10/04/2024 15:48:19 neurologi madiha surgeon referral 2024 025 [place], [address] [facility], [place], [address], 08/21/2024 16:56:56 pulmonolo gist referral - Please call patient to schedule. 2024 025 cash Live Chi, MD, [address] [facility] [address], [place], [address], 01/04/2025 11:09:08 cardiolog ist referral 2024 025 [email or web address] Alex Wall MD, [address], [place], [address], 08/13/2024 18:14:28 dermatolo gist referral - Please call patient to schedule an appointme nt. Thank you. 2024 025 NOAH Shi MD, [address] [place], [address], 09/19/2024 13:35:19 Procedures marialuisa maneuver (PROC) 2024 025 [email or web address] [facility], [address] [facility] [address], [place], [address], 12/25/2024 10:33:13 Surgeries None recorded. Imaging DEXA [address] (Imaging), [address] [facility] [address], [place], [address], 09/21/2024 10:12:58 Medication Orders meclizine 12.5 mg tablet 2024 025 [id number], [address] [place], [place], [id number], 09/20/2024 10:07:36 Augmentin 875 mg-125 mg tablet [email or web address] [facility] [address] [facility], [address], [place], [id number], 11/17/2023 17:38:53 Patient TargetsNo targets recorded. Patient Instructions Encounter Date Encounter Id Patient Instructions Last Modified By Organization Details Last Modified Time 08/09/2024 [id number] dementia rating scale-2* mallorieinwala 2 Not available 08/09/2024 10:27:13 alcohol misuse* mbahrainwala 2 Not available 08/09/2024 10:27:13 depression screening* terrancerainwala 2 Not available 08/09/2024 10:27:13 Timed Up and Go test (TUG)* silasahrainwala 2 Not available 08/09/2024 10:27:13 multi-dimensiona l health assessment questionnaire* [email or web address] Not available 08/15/2024 12:54:21 Personalized a lt Plan and Screening Recommendations Advance Directives - Do you have one? Yes Advance Directives - Do we have your advance directive on file in your health record? Primary Prevention/Interven tion (prevents or decreases the chance of common diseases from occurring) Smoking Risk: Non Smoker Alcohol Misuse Screening: Negative Weight: Overweight try to lose 10% of your body weight Physical activity: Need more exercise/physical activity decrease sitting time to no more than 5hr/day Nutrition: Average Refer to attached handout Heart-Healthy Diet: After Your Visit Fall Risk (screened today): Intermediate Refer to attached handout Preventing Falls: After your Visit Vaccines Pneumococcal: No further needed Influenza: Your next one in the fall of this year Chronic Disease Risks Stroke: Intermediate Risk Follow heart Healthy diet. Heart Attack: Intermediate Risk Follow heart Healthy diet. Clogging of the Arteries: Intermediate Risk Follow heart Healthy diet. Diabetes: Intermediate Risk Drastically limit sugar and products made with any type of flour (bread, pasta, cereal, cookies, crackers, etc.) Secondary Prevention/Interven tion (detects treatable diseases before they may cause symptoms, disability, or ) Breast Cancer Screening with mammogram: Ordered Cervical/Uterine/Ov erik Cancer Screening: No screening necessary Osteoporosis Screening: Ordered Date Screening Last Performed: 05/13/2023 Colon Cancer Screening: Colonoscopy Date Screening Last Performed: Declined Eye Disease Screening: Recommended today Dementia Risk: High My recommendation would be to have an appointment with the Neurologist Depression Screening: Negative Active diagnosis, Continue current treatment plan Not available 08/09/2024 11:44:02 09/20/2024 [id number] diabetic eye exam* mbahradavionw ala 2 Not available 09/21/2024 10:12:58 09/24/2024 [id number] patient will hav e a Fartnu-Hallpike testing and Marialuisa maneuvers if indicated by PT. she will have an audiogram and tympanogram completed. We will follow up when those results become available. [email or web address] Not available 09/24/2024 16:10:37 Reason for Referral Youth Leader Referral for Sy ncope Referring Physician: Sony Womack, Internal Medicine, Encounter Date: 08/09/2024 Storage Architect Referral for O bstructive sleep apnea syndrome Please call patient to schedule. Referring Physician: Sony Womack Internal Medicine, Encounter Date: 08/09/2024 Coping Machine Assembler Referral for S kin lesion Please call patient to schedule an appointment. Thank you. Referring Physician: Sony Womack Internal Medicine, Encounter Date: 08/09/2024 Neurological Surgeon Referra l for Low back pain Referring Physician: Sony Womack Internal Medicine, Encounter Date: 08/09/2024 Ophthalmic Medical Technician Referral fo r Benign paroxysmal positional vertigo Please call patient to schedule an appointment. Thank you. Referring Physician: Sony Womack Internal Medicine, Encounter Date: 09/20/2024 Ophthalmic Medical Technician Referral fo r Benign paroxysmal positional vertigo Please call patient to schedule an appointment. Thank you. Referring Physician: Sony Womack, Internal Medicine, Encounter Date: 12/26/2024 Results Created Date Observation Date Name Description Value Unit Range Abnormal Flag Note LastModifiedBy Organization Detail LastModifiedTime Result Notes None recorded. Problems Name Problem SNOMED Code Status Onset Date Resolution Date Notes Provider Name and Address Organization Details Recorded Time Acute sinusitis 48277900 Active 2021 Not Available [facility] 3 02:51:32 Closed fracture of distal end of radius 54912060 Active Not Available [facility] 3 02:51:32 Localized, primary osteoarthr itis of the hand 448416266 Active Not Available [facility] 3 02:51:32 Closed fracture proximal humerus, greater tuberosity 086957907 Active Not Available [facility] 3 02:51:32 Shoulder joint pain 817099876 Active Not Available [facility] 3 02:51:32 Pain of left wrist 2988188620659 02 Active 2021 Not Available [facility] 3 02:51:32 Vitamin D deficiency 71306585 Active 2021 Not Available [facility] 3 02:51:32 Hypothyroi dism 91210078 Active 2018 Not Available [facility] 3 02:51:32 Pain of left knee joint 5624729540687 07 Active 2021 Not Available [facility] 3 02:51:32 Hyperlipid emia 34923123 Active 2021 Not Available [facility] 3 02:51:32 Carpal tunnel syndrome 63502930 Active Not Available [facility] 3 02:51:32 Osteoporos is 60910849 Active 2018 Not Available [facility] 3 02:51:32 Fracture of forearm 66321101 Active Not Available [facility] 3 02:51:32 Fracture of humerus 85403881 Active Not Available [facility] 3 02:51:33 Hyperglyce chadd 43292721 Active 2021 Not Available [facility] 3 02:51:33 Pain in right hand 4665836949557 09 Active 2022 POLINA Ken, [facility] [employer] [facility] 3 08:58:30 Pain of right wrist 2337406451753 00 Active 2022 Jerri Lozano null, [facility] [employer] [facility] 3 09:41:12 Carpal tunnel syndrome of right wrist 9016573650949 08 Active 2022 Cassius Page MD [address] [address], [place], [address] , [facility] [employer] [facility] 3 09:44:59 Ulnar nerve entrapment at elbow 225635929 Active 2022 Cassius Page MD [address] [address], [place], [address] , [facility] [employer] [facility] 3 09:45:29 Bilateral carpal tunnel syndrome 5421370997743 9101 Active 2022 POLINA Gonzales, [facility] [employer] [facility] 3 08:57:10 Essential hypertensi on 58828726 Active 2022 Sony renner MD [address], [place], [address] , [facility] [employer] [facility] 3 08:57:47 Obstructiv e sleep apnea syndrome 08715222 Active 2022 Sony renner MD [address], [place], [address] , [facility] [employer] [facility] 3 08:58:00 Depressive disorder 02010587 Active 2022 Sony renner MD [address], [place], [address] , [facility] [employer] [facility] 3 08:58:06 Syncope 725869968 Active 2022 Sony renner MD [address], [place], [address] , [facility] [employer] [facility] 3 08:58:16 Numbness of hand 235151764 Active 2022 Sony renner MD [address], [place], [address] , [facility] [employer] [facility] 3 08:58:29 Dizziness 949213352 Active 2022 Sony renner MD [address], [place], [address] , [facility] [employer] [facility] 3 08:58:36 Low back pain 649406034 Active 2022 Sony renner MD [address], [place], [address] , [facility] [employer] [facility] 3 08:58:41 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 25515803 Active 2022 Sony renner MD [address], [place], [address] , [place] [facility] 3 08:59:06 Pain of bilateral knee joints 3041876982750 04 Active 2022 Sony renner MD [address], [place], [address] , [place] [facility] 3 08:59:44 Prediabete s 010961446 Active 2022 Sony renner MD [address], [place], [address] , [place] [facility] 3 09:26:40 Leukopenia 58483966 Active 2022 Sony renner MD [address], [place], [address] , [place] [facility] 3 09:31:09 Benign paroxysmal positional vertigo 107970807 Active 2022 Sony renner MD [address], [place], [address] , [place] [facility] 3 09:49:21 Seasonal allergic rhinitis 550548759 Active 2022 Sony renner MD [address], [place], [address] , [place] [facility] 3 10:54:33 Forgetful 23293542 Active 2022 Sony renner MD [address], [place], [address] , [place] [facility] 3 10:56:43 Skin lesion 97937983 Active 2022 Sony renner MD [address], [place], [address] , [place] [facility] 3 11:01:09 Otitis media 23336081 Active 2023 Sony renner MD [address], [place], [address] , [facility] 4 14:48:04 Upper respirator y infection 97459496 Active 2023 Eveline Stewart MA null, [place] [facility] 4 16:00:37 Proteinuri a 20339640 Active 2023 Eveline Stewart MA null, [place] [facility] 4 16:12:32 Reactive lymphadeno chiquita 612653547 Active 2023 Sony renner MD [address], [place], [address] , [facility] 4 16:15:23 Serum vitamin B12 below reference range 533198403 Active 2024 Sony renner MD [address], [place], [address] , [facility] 5 10:26:02 Sensorineu ral hearing loss 78338464 Active 2024 Ruth East RN null, [place] [facility] 5 16:03:20 Tinnitus 93102114 Active 2024 Ruth East RN null, [place] [facility] 5 16:03:55 Benign paroxysmal positional vertigo 391229776 Active 2024 Ruth East RN null, [place] [facility] 5 16:04:32 Benign paroxysmal positional vertigo 722153326 Active 2024 DASHAWN Ureña [address], [place], [address] , [facility] 5 16:08:25 Bilateral tinnitus 7272631239050 Active 2024 DASHAWN Ureña [address], [place], [address] , [place] [employer] 5 16:08:45 Sensorineu ral hearing loss of bilateral ears 341596084 Active 2024 DASHAWN Ureña [address] [facility], [address], [place], [address] , [employer] [facility] 5 16:09:28 Osteoporot ic fracture 526983161 Active 2024 Sony renner MD [address] [facility], [address], [place], [address] , [employer] 5 13:28:08 Notes:coronary artery diseas e depression high cholesterol hypertension migraines urinary/bladder/kidney infections Problem Notes None recorded. Procedures Surgical History Date Name Laterality Status Provider Name and Address Organization Details Recorded Time 08/09/19 25 Medicare Wellness CPT Code, subsequent completed Michel Sharma LPN [facility] 07/26/2024 10:04:30 11/26/19 21 Most Recent Bone Density completed Not Available [facility] 09/29/2022 02:44:52 09/25/19 21 Pacemaker completed Not Available [facility] 3 02:44:54 02/24/20 16 Thyroid Surgery completed Not Available [facility] 08/2022 02:44:54 09/16/19 16 Orthopedic Surgery completed Not Available [facility] 09/29/2022 02:44:54 01/30/20 15 Date of Last Colonoscopy completed Not Available [facility] 09/29/2022 02:44:52 01/30/20 15 Colonoscopy with biopsy completed Not Available [facility] 09/29/2022 02:44:54 03/02/20 13 other completed Not Available [facility] 3 02:44:54 03/01/20 13 MANAGER COMMUNITY Surgery completed Not Available [facility] 09/30/19 23 02:44:54 03/01/20 13 other completed Not Available [facility] 3 02:44:54 04/19/20 12 other completed Not Available [facility] 3 02:44:54 04/19/20 12 Bso omentectomy w/sarah completed Not Available [facility] 09/29/2022 02:44:54 Back completed Kay Walsh MA [facility] [employer] [facility] 12/26/2024 09:45:40 Eye Surgery completed Not Available [facility] 09/29/2022 02:44:54 other completed Not Available [facility] 08/2022 02:44:54 other completed Not Available [facility] 08/2022 02:44:54 Imaging Results None recorded. Procedure Notes None recorded. Medical Equipment None Reported. Allergies Allergen ID Allergen Name Allergen Category Reaction Reaction Severity Criticality Documentation Date Start Date Code Code System Note Provider Name and Address Organization Details Recorded Time 10099 Augmentin medicatio n vomiting Not available Not available 11/16/2023 19304 2 [facility] [employer] [facility] 17:39:20 Medications Name Sig Start Date Stop [...] tablet TAKE 1 TABLET BY MOUTH DAILY 12/26 completed Not Available Not Available Not Available oxybutyni n chloride ER 10 mg tablet,ex tended release 24 hr TAKE 1 TABLET BY MOUTH DAILY 04/24 completed Not Available Not Available Not Available pravastat in 40 mg tablet TAKE 1 TABLET BY MOUTH AT BEDTIME active Not Available Not Available No t Available tizanidin e 4 mg tablet 09/20 completed Not Available Not Available Not Available hydrocodo ne 5 mg-acetam inophen 325 mg tablet TAKE 1 TABLET BY MOUTH EVERY 6 HOURS FOR 23 DAYS NEEDED active Not Available Not Available No t Available meloxicam 15 mg tablet TAKE 1 TABLET BY MOUTH EVERY DAY WITH FOOD NEEDED 11/15 completed Not Available Not Available Not Available ondansetr on HCl 4 mg tablet 05/23 completed Not Available Not Available Not Available meclizine 12.5 mg tablet TAKE 1 TABLET BY MOUTH TWICE DAILY NEEDED active Not Available Not Available No t Available amlodipin e 2.5 mg tablet TAKE 1 TABLET BY MOUTH EVERY MORNING active Not Available Not Available No t [...] n for injection in office 09/12 completed [facility]: [id number] 11-18 Not Available Not Available Not [...] tablet TAKE 1 TABLET BY MOUTH DAILY 12/26 completed Not Available Not Available Not Available Asprin Ec Low Dose 81 mg [...] administ ered by the provider 04/19 completed [facility]: [phone] Not Available Not Available Not Available Voltaren [...] %) injection solution in office 09/12 completed [facility] [id number] 4- Not Available Not Available Not Available Citracal- D3 Gummies twice a day 10/21 completed Not Available Not Available Not Available cyanocoba loy (vit B-12) 1,000 mcg sublingua l lozenge Place by sublingu al route. 2019 active Not Available Not Available Not Avai lable Fluzone High-Dose (PF) 180 mcg/0.5 mL intramusc ular syringe ADM 0.5ML IM UTD 06/28 completed Not Available Not Available Not Available Fluzone High-Dose 2019-20 (PF) 180 mcg/0.5 mL intramusc ular syringe ADM 0.5ML IM UTD 06/11 completed Not Available Not Available Not Available Fluzone High-Dose Quad 2019- (PF) 240 mcg/0.7 mL IM syringe ADM 0.7ML IM UTD 06/16 completed Not Available Not Available Not Available [employer] COVID-19 Ag Self Test kit TEST DIRECTED TODAY 04/19 completed Not Available Not Available Not Available Vitals Date Recorded Body height Provider Name an d Address Organization Details Last Updated DateTime 08/09/2024 157.48 cm Kay Walsh MA [facility] [email or web address] 08/09/2024 09:08:54 Date Recorded Body mass index (BMI) Body weight Body temperature Heart rate Respiratory rate Oxygen saturation Oxygen saturation in Arterial blood by Pulse oximetry Systolic And Diastolic Provider Name and Address Organization Details Last Updated DateTime 5 29.1 kg/m2 71738.1 9 g 98.2 [degF] 88 /min 16 /min 96 % 96 % 108/54 mm[Hg] iMchel Sharma LPN [facility] 5 09:34:24 Date Recorded Body height Body mass index (BMI) Body weight Body temperature Heart rate Systolic And Diastolic Provider Name and Address Organization Details Last Updated DateTime 5 157.48 cm 29.1 kg/m2 53875.1 9 g 97.7 [degF] 84 /min 100/58 mm[Hg] POLINA Newberry [facility] 5 09:56:39 Date Recorded Body height Body mass index (BMI) Body weight Body temperature Provider Name and Address Organization Details Last Updated DateTime 09/24/2024 157.48 cm 28 kg/m2 88534.63 g 97.7 [degF] Ruth East RN [facility] 09/24/2024 15:14:34 Date Recorded Body height Body mass index (BMI) Body weight Body temperature Heart rate Oxygen saturation Oxygen saturation in Arterial blood by Pulse oximetry Systolic And Diastolic Provider Name and Address Organization Details Last Updated DateTime 4 157.48 cm 29.1 kg/m2 51918.1 9 g 96.9 [degF] 68 /min 99 % 99 % 118/62 mm[Hg] Kay Walsh MA [facility] [employer] [facility] 4 15:41:37 Date Recorded Body height Body mass index (BMI) Body weight Body temperature Heart rate Oxygen saturation Oxygen saturation in Arterial blood by Pulse oximetry Systolic And Diastolic Provider Name and Address Organization Details Last Updated DateTime 5 149.86 cm 31.1 kg/m2 37820.2 2 g 98 [degF] 64 /min 97 % 97 % 149/86 mm[Hg] Kay Walsh MA [facility] [employer] [facility] 5 09:43:09 Social History Question Answer Notes LastModified by Organization Details LastModified Time Tobacco Smoking Status Former Smoker quit 1960 Ruth East RN [facility], [facility] [employer] [facility] 09/24/2024 15:13:49 Do You Have An Advance Directive? Yes [id number] Information not available 09/29/2022 How Many Years Have You Consumed Alcohol? 60 Information not available 08/09/2024 Do You Wear A Helmet When Biking? No Does Not Bike Information not available 08/09/2024 Are You Blind Or Do You Have Difficulty Seeing? No Information not available 03/30/2023 Is Blood Transfusion Acceptable In An Emergency? Yes Information not available 08/09/2024 What Is Your Level Of Caffeine Consumption? None [id number] [id number] Information not available 09/29/2022 How Much Tobacco Do You Chew? None MIGRATION.[id number] [id number] Information not available 09/29/2022 What Is Your Code Status? DNR [email or web address] Information not available 08/09/2024 In The 14 [...] No Information not available 03/30/2023 Are You Deaf Or Do You Have Serious Difficulty Hearing? No Information not available 03/30/2023 What Type Of Diet Are You Following? REGULAR [email or web address] Information not available 08/09/2024 Which Illicit Or Recreational Drugs Have You Used? None Information not available 03/30/2023 What Is The Highest Grade Or Level Of School You Have Completed Or The Highest Degree You Have Received? [id number] Information not available 03/30/2023 How Many Days Of Moderate To Strenuous Exercise, Like A Brisk Walk, Did You Do In The Last 7 Days? 0 Information not available 08/09/2024 Have There Been [...] With Any Objectives In Notes Field) Yes [email or web address] Information not available 08/09/2024 Presence Of Domestic Violence No [email or web address] Information not available 08/09/2024 Guns Present In The Home? No [email or web address] Information not available 08/09/2024 Are You Able To Care For Yourself? Yes [email or web address] Information not available 08/09/2024 Are You Blind Or Do Yo Have Difficulty Seeing? No [email or web address] Information not available 08/09/2024 Are You Deaf Or Do You Have Serious Difficulty Hearing? No [email or web address] Information not available 08/09/2024 General Stress Level? Low [email or web address] Information not available 08/09/2024 Live Alone Of With Others? 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 12/26/2024 [email or web address] Information not available 12/26/2024 How Many Children Do You Have? 1 Information not available 08/09/2024 What Is Your Current Pack Years? 10-19packyears Information not available 03/30/2023 Have You Ever Been Counseled For Unhealthy Alcohol Use? No [email or web address] Information not available 08/09/2024 Do You Have Any Pets? No Information not available 03/30/2023 What Is Your Relationship Status? MIGRATION.[id number] [id number] Information not available 09/29/2022 Do You Use Your Seat Belt Or Car Seat Routinely? Yes Information not available 03/30/2023 Are You Sexually Active? No [email or web address] Information not available 08/09/2024 Do You Have [...] Much Tobacco Do You Smoke? No MIGRATION.[id number] [id number] Information not available 09/29/2022 What Types Of Sporting Activities Do You Participate In? None [email or web address] Information not available 08/09/2024 Do You Use Sunscreen Routinely? No Information not available 03/30/2023 Has Tobacco Cessation Counseling Been Provided? No N/A Information not available 03/30/2023 How Many Years Have You Smoked Tobacco? 15 Information not available 03/30/2023 Have You Recently Traveled Abroad? No Information not available 03/30/2023 Do You Have Any Dietary Restrictions? No Information not available 03/30/2023 Sex: Female Functional Status Question Answer Note LastModified by Organizat ion Details LastModified Time Do you use any illicit or recreational drugs? No Information not available 03/30/2023 Do you or have you ever used any other forms of tobacco or nicotine? No Information not available 03/30/2023 What is your level of alcohol consumption? Occasional [id number] Information not available 09/29/2022 Are you currently employed? No Retired [email or web address] Information not available 08/09/2024 Do you have transportation difficulties? No Information not available 03/30/2023 Are you able to walk? YESWOREST Information not available 03/30/2023 Do you have difficulty doing errands alone? No Information not available 03/30/2023 Are you able to care for yourself? Yes Information n ot available 03/30/2023 Do you have difficulty dressing or bathing? No Information not available 03/30/2023 Do you or have you ever used e-cigarettes or vape? Never used electronic cigarettes Information not available 03/30/2023 What is your exercise level? None Information not available 08/09/2024 Mental Status Question Answer Note LastModified by Organizat ion Details LastModified Time Do you feel stressed (tense, restless, nervous, or anxious, or unable to sleep at night)? [id number] Information not available 03/30/2023 Do you have difficulty concentrating, remembering or making decisions? Yes Poor memory Information not available 08/09/2024 Family History Relationship Description Onset Age of this Age Resolved Age Notes LastModified by Organization Details LastModified Time Maternal Aunt Diabetes mellitus MIGRATION.806 [id number] Not available 09/29/2022 02:45:00 Brother Diabetes mellitus MIGRATION.988 [id number] Not available 09/29/2022 02:45:00 Brother Family history of stroke [email or web address] Not available 09/02 15:01:59 Brother Malignant melanoma [email or web address] Not available 09/02 15:01:59 Father Hypertensive disorder MIGRATION.142 [id number] Not available 09/29/2022 02:45:01 Father Heart disease MIGRATION.654 [id number] Not available 09/29/2022 02:45:01 Father Family history of stroke [email or web address] Not available 09/02 15:01:59 Father Heart failure 93 Not available 09/02 15:01:59 Paternal Grandmother Family history of stroke 70 [email or web address] Not available 09/02 15:01:59 Mother Alzheimer's disease 93 Not available 09/02 15:01:59 Mother Cardiac arrhythmia [email or web address] Not available 15:01:59 Maternal Grandmother Dementia 70 Not available 0 09/24/2024 15:01:59 Maternal Grandfather Myocardial infarction 60 MIGRATION.709 [id number] Not available 09/29/2022 02:45:01 Notes:NO ENT Medical History Condition Response ARTHRITIS Y KIDNEY STONES Y DIZZINESS Y HYPOTHYROIDISM Y SLEEP APNEA Y HEART DISEASE/HEART PROBLEMS Y KIDNEY DISEASE Y OSTEOPOROSIS Y URINARY/BLADDER/KIDNEY PROBLEMS Y DEPRESSION (INCLUDING POST ) Y HAVE YOU BEEN HOSPITALIZED OR SEEN IN [facility] ER IN THE PAST YEAR ? N HYPERTENSION Y HIGH CHOLESTEROL / HYPERLIPIDEMIA Y Gynecological History Statement/Question Response Date of Last Mammogram 01/19/2022 Date of Last Colonoscopy 01/29/2015 Date of LMP Most Recent Bone Density 11/25/2020 Date of Last Pap Current Control Method Hysterectom y Obstetrics History GPAL:G 2 P 2 0 0 2 Type Value Multiple Births 0 Full Term 2 Induced 0 Spontaneous 0 Premature 0 Living 2 Ectopics 0 Total 2 Immunizations Vaccine Type Date Status Note Provider Nam e and Address Organization Details Recorded Time Influenza, high-dose, quadrivalent, PF 1 completed Not Available [facility] 09/29/2022 02:58:55 COVID-19 vaccine, vector-nr, rS-Ad26, PF, 0.5 mL 1 completed Not Available [facility] 09/29/2022 02:58:55 SARS-COV-2 (COVID-19) vaccine, UNSPECIFIED 1 completed Not Available [facility] 09/29/2022 02:58:55 SARS-COV-2 (COVID-19) vaccine, UNSPECIFIED 1 completed Not Available [facility] 09/29/2022 02:58:55 Influenza, high-dose, quadrivalent, PF 0 completed Not Available [facility] 09/29/2022 02:58:55 Influenza, high-dose, trivalent, PF 9 completed Not Available [facility] 09/29/2022 02:58:55 Influenza, MDCK, trivalent, PF 2 completed Not Available [facility] 09/29/2022 02:58:55 SARS-COV-2 (COVID-19) vaccine, UNSPECIFIED 2 completed Not Available [facility] 09/29/2022 02:58:56 SARS-COV-2 (COVID-19) vaccine, UNSPECIFIED 2 completed Not Available [facility] 09/29/2022 02:58:56 Influenza, split virus, quadrivalent, preservative 8 completed Not Available [facility] 09/29/2022 02:58:56 influenza, unspecified formulation 6 completed Not Available [facility] 09/29/2022 02:58:56 influenza, unspecified formulation 6 completed Not Available [facility] 09/29/2022 02:58:56 influenza, unspecified formulation 5 completed Not Available [facility] 09/29/2022 02:58:56 Pneumococcal conjugate PCV 13 5 completed Not Available [facility] 09/29/2022 02:58:56 Tdap 3 completed Not Available [facility] 09/29/2022 02:58:56 pneumococcal polysaccharide PPV23 0 completed Not Available [facility] 09/29/2022 02:58:56 herpes simplex 2 7 completed Not Available [facility] 09/29/2022 02:58:56 TST-PPD intradermal 3 completed Not Available [facility] 09/29/2022 02:58:56 Influenza, high-dose, trivalent, PF 7 completed Not Available [facility] 09/29/2022 02:58:56 Influenza, high-dose, quadrivalent, PF 3 completed POILNA [place] [facility] 06/01/2023 10:15:26 zoster recombinant 3 completed POLINA [place] [facility] 06/01/2023 10:16:02 zoster recombinant 3 completed POLINA [place], [facility] [employer] [facility] 06/01/2023 10:16:12 COVID-19, mRNA, LNP-S, PF, 3 mcg/0.2 mL dose, malia-sucrose 3 completed POLINA [place] null, [facility] [employer] [facility] 06/01/2023 10:17:18 tetanus toxoid, unspecified formulation 3 completed POLINA [place], [facility] [employer] [facility] 06/01/2023 10:17:48 RSV, recombinant, protein subunit RSVpreF, adjuvant reconstituted, 0.5 mL, PF 3 completed POLINA [place], [place] [employer] [facility] [employer] [facility] 06/01/2023 10:20:21 Past Encounters Encounter ID Performer Location Encounter Start Date Encounter Closed Date Diagnosis/Indication Diagnosis SNOMED-CT Code Diagnosis ICD10 Code Diagnosis Note [id number] [facility] [address] [place] [address] 10/20/2020 00:00:00 10/21/2020 17:01:59 [id number] Sony renner MD [facility] Internal [address] [place] [address] 11/10/2020 00:00:00 11/10/2020 12:22:53 [id number] Tasia Conde MD _ATHYAZ_Bonifacio IGRATION_ DEFAULT_1 _1 , 11/27/2020 00:00:00 11/27/2020 11:52:46 [id number] Sony renner MD [facility] Internal [address] [place] [address] 02/16/2021 00:00:00 02/18/2021 09:38:17 [id number] Glenn Cheatham MD [facility] Ortho [place] [address] [place] [address] 04/24/2021 00:00:00 04/24/2021 10:55:26 [id number] Sony renner MD [facility] Internal Med [place] [address] [place] [address] [place] [address] 2021 00:00:00 06/11/2021 12:54:17 [id number] Sony renner MD [facility] Internal Med [place] [address] [place] [address] 11/09/2021 00:00:00 11/09/2021 12:39:05 [id number] Cassius Page MD [facility] Ortho [place] [address] [facility] [address] [place] [address] 12/16/2021 00:00:00 12/16/2021 16:40:10 [id number] Sony renner MD [facility] Internal [address] [place] [address] 04/19/2022 00:00:00 04/19/2022 17:10:16 [id number] Glenn Cheatham MD [facility] Orth[facility] [place] [address] [facility] [address] [place] [address] 05/12/2022 00:00:00 05/12/2022 09:43:57 [id number] Sony renner MD [facility] Internal Med [address] [place] [address] 09/20/2022 00:00:00 09/20/2022 17:33:57 [id number] Cassius Page MD [facility] Orth[facility] [place] [address] [place] [address] 11/16/2022 08:54:44 11/16/2022 09:47:44 Pain in right hand 3316150919 92480 M79.641 patient has a small lesion in the palm over the small finger we will excise that at the same time that we the carpal and cubital tunnel release she states it has been there for few years and is tender Carpal abram ratna syndrome of right wrist [id number] 53745 G56.01 Ulnar nerv e entrapment at elbow 244613582 G56.21 patient has some atrophy of the [...] tunnel release and right cubital tunnel release [id number] Cassius Page MD [facility] Orth[facility] [place] [address] [place] [address] 12/14/2022 08:49:14 12/14/2022 09:31:01 Pain in right hand 4812314663 67977 M79.641 Carpal abram ratna syndrome of right wrist 2335938105 59176 G56.01 Ulnar nerv e entrapment at elbow 409047465 G56.21 [id number] Cassius Page MD [facility] [place] [address] [place] [address] 01/11/2023 08:48:44 01/11/2023 09:06:00 Pain in right hand 2121419100 94088 M79.641 Bilateral carpal tunnel syndrome [id number] 0653081 G56.01 patient can continue with a stress and load program to the palm we will see her back in a few months for final evaluation . Ulnar nerv e entrapment at elbow 484744003 G56.21 [id number] Sony renner MD [facility] Internal Med [place] [address] [place] [address] 01/24/2023 09:16:50 01/24/2023 09:48:05 Screening - NAD 103168702 Z13.9 C-scope: DId do this 01/29/15 Dr Salter-sco pe Dr Dixon in [facility] 08/10/18, referred to colorectal surgeon for hemorrhoid [...] understand ing of the above Essential hypertension 41635854 I10 On ASAOn amlodipine 2.5mg dailyGet labs Hyperlipidemia 41450668 E78.5 On pravastati n 40mg dailyGet labs again Hypothyroidism 99675072 E03.9 On levothyrox ine 50mcgs dailySees Dr Conde Obstructiv e sleep apnea syndrome 08783449 G47.33 07/07/2020 : Dr Ingram: good compliance and is on autoCPAP or 6-12cm of H2O and a small Mirage FX nasal mask2020: Dr Pat: excellent compliance , f/u in one monthOV :Needs to see her pulmonary MD Depressive disorder 9644 9007 F32.A On lexapro 10mg dailyDoes wellNot suicidal or homicidalD eclines any referrals to psychiatry Syncope 742634216 R55 Has had ECHO, stress test, and CT head, US carotidCar diologist Dr. Desmond Kendall in [place] [phone] recall last such episode, she is to see Dr De La Rosa in [place] on 06/02/17OV 08/22/17:D oing well today, s/p now on the medtronic device 07/15/17 and now will see Dr De La Rosa next 08/19Sharcadio does want an apt with Dr Avila a cardiologi st whom she has seen with her husbandOV 11/21/17:S [facility] Records:St ress test 05/15: Chandana is seeing [...] Renae 03/29/18Di d see Dr Whitehead in [facility] neurologyS he may use the CA for [...] to see Dr Renae, [facility], but does not want to do this at this timeDoes well at this timeOV 02/18/2020 :She did see Dr [facility]ae [facility]Needs to see Dr Renae on [...] apt with Dr Wall Numbness of hand 6625713 04 R20.0 R>LGet EMG/NCVDid see Dr Mcknight/p EMG 08/25/17/ p surgeryDr Ott s well nowPain in L wrist seen by Dr Page next on 04/12/2023 Dizziness 400346200 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820 Prediabetes 175273865 R7 3.03 Needs to diet and exercise!, repeat the labs Pain in right hand 65923 34161 29951 M79.641 Evan Felix PA 12/14/2022 Leukopenia 40004128 D72. 819 Repeat the CBC again Benign par oxysmal positional vertigo 443930770 H81.13 C/o shree BPPV, states that she has noted dizziness with standing up from a sitting position [id number] Igor Castañeda MD [facility] Ortho [place] [address] [place] [address] 03/30/2023 09:37:06 03/30/2023 10:10:52 Pain in right hand 4653802678 17748 M79.092 [id number] Sony renner MD [facility] Internal Med [place] [address], [place] [facility] [place] [address] 06/01/2023 10:11:19 06/01/2023 11:06:29 Screening - NAD 953920604 Z13.9 C-scope: DId do this 01/29/15 Dr Salter-sco pe Dr Dixon in [facility] 08/10/18, referred to colorectal surgeon for hemorrhoid [...] understand ing of the above Essential hypertension 24471945 I10 On ASAOn amlodipine 2.5mg dailyGet labs Hyperlipidemia 59118339 E78.5 On pravastati n 40mg dailyGet labs again Hypothyroidism 43909017 E03.9 On levothyrox ine 50mcgs dailySeen by Dr Conde Obstructiv e sleep apnea syndrome 49234733 G47.33 07/07/2020 : Dr Ingram: good compliance and is on autoCPAP or 6-12cm of H2O and a small Mirage FX nasal mask 10/08/2020 : Dr Pat: excellent compliance , f/u in one month OV :Needs to see her pulmonary MD OV 06/01/2023 : Keep apt with Dr Pat Depressive disorder 9568 9007 F32.A On lexapro 10mg dailyDoes well Not suicidal or homicidalD eclines any referrals to psychiatry Syncope 031161514 R55 Has had ECHO, stress test, and CT head, US carotidCar diologist Dr. Desmond Kendall in [place] [phone] recall last such episode, she is to see Dr De La Rosa in [place] on 06/02/17OV 08/22/17:Khai vogel well today, s/p now on the medtronic device 07/15/17 and now will see Dr De La Rosa next 08/19She does want an apt with Dr Avila a cardiologi whom she has seen with her husbandOV 11/21/17:S [facility] Records:St ress test 05/15: NegShe is seeing Dr Avila, next apt is [...] Renae 03/29/18Di d see Dr Whitehead in [facility] neurologyS he may use the [facility] for her UE and LE strength training [...] see Dr Renae 05/08/2020 OV 10/20/2020 :: HV Dr Wall s/p pacemaker insertion s/p [...] 05/06/2023 : Dr Wall Numbness of hand 6927720 04 R20.0 R>LGet EMG/NCVDid see Dr Mcknight/p EMG 08/25/17/ p surgeryDr Pamelaoe s well nowPain in L wrist seen by Dr Page next on 04/12/2023 Dizziness 858597731 R42 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, 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 Low back pain 431158645 M54.50 Patient fell 11/19/2019 , did get [...] 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 819 Repeat the CBC again Benign par oxysmal positional vertigo 866247675 H81.13 C/o shree BPPV, states that she has noted dizziness with standing up from a sitting position Seasonal a llergic rhinitis 995059224 J30.2 Get on flonaseGet on zyrtec as needed Forgetful 10650841 R41.3 Get neurology apt, get labs, get MRI brain Skin lesion 63497857 L98 .9 Flat crusty lesion noted on the L lower lateral neckRefer to dermatolog y [id number] Glenn Cheatham MD [facility] [place] [address] [place] [address] 08/29/2023 16:46:40 08/29/2023 17:39:17 Pain of left knee joint 2651133188 37308 M25.632 [id number] Sony renner MD [facility] Internal Med [place] [address] [place] [address] 09/12/2023 14:11:18 09/12/2023 15:06:24 Screening - NAD 216912570 Z13.9 C-scope: DId do this 01/29/15 Dr Salter-sco pe Dr Dixon in [facility] 08/10/18, referred to colorectal surgeon for hemorrhoid [...] understand ing of the above Essential hypertension 72040080 I10 On ASAOn amlodipine 2.5mg dailyGet labs Hyperlipidemia 67382235 E78.5 On pravastati n 40mg dailyGet labs again Hypothyroidism 70034377 E03.9 On levothyrox ine 50mcgs dailySeen by Dr Conde Obstructiv e sleep apnea syndrome 00716921 G47.33 07/07/2020 : Dr Ingram: good compliance and is on autoCPAP or 6-12cm of H2O and a small Mirage FX nasal mask 10/08/2020 : Dr Pat: excellent compliance , f/u in one month OV :Needs to see her pulmonary MD OV 06/01/2023 : Keep apt with Dr Pat OV 09/12/2023 : See Dr Pat her lung MD Depressive disorder 2807 2124 F32.A On lexapro 10mg dailyDoes well Not suicidal or homicidalD eclines any referrals to psychiatry Syncope 932555787 R55 Has had ECHO, stress test, and CT head, US carotidCar diologist Dr. Desmond Kendall in [place] [phone] recall last such episode, she is to see Dr De La Rosa in [place] on 06/02/17OV 08/22/17:D oing well today, s/p now on the medtronic device 07/15/17 and now will see Dr De La Rosa next 08/19She does want an apt with Dr Avila a cardiologi st whom she has seen with her husbandOV 11/21/17:S [facility] Records:St ress test 05/15: NegSharcadio is seeing [...] Renae 03/29/18Di d see Dr Whitehead in [facility] neurologyS he may use the [facility] for her UE and LE strength training [...] Wall, last OV 06/29/2023 Numbness of hand 9157716 04 R20.0 R>LGet EMG/NCVDid see Dr Mcknight/p EMG 18s/ p santanaDr Pamelaoe s well nowPain in L wrist seen by Dr Page next on 04/12/2023 Dizziness 456268109 R42 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, 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 Low back pain 222898990 M54.50 Patient fell 11/19/2019 , did get [...] 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 55386828 N99.3 S/p hysterecto my 04/19/[address] [facility] urology, [address] [facility], Dr Goldstein/p surgery for vaginal prolapse, 03/02/2013 Dr Dot hernández, [facility] in [facility]/p f/u Dr Ware 08/11/2020 Pain of bi lateral knee joints 4445583530 98465 M25.[address] Cheatham, last OV 04/24/2021 , 05/12/2022 Does well now Fredo MEYERS 08/29/2023 Prediabetes 138189499 R7 3.03 Needs to diet and exercise!, repeat the labs Dr Mcnamara 06/02/2023 Pain in right hand 64061 85827 42593 M79.641 Evan MEYERS 12/14/2022 Leukopenia 85063456 D72. 819 Repeat the CBC again Benign par oxysmal positional vertigo 625251255 H81.13 C/o shree BPPV, states that she has noted dizziness with standing up from a sitting position Seasonal a llergic rhinitis 759265474 J30.2 On flonaseOn zyrtec as needed Forgetful 77864489 R41.3 Get neurology apt, get labs, get MRI brain CT head 06/07/2023 Skin lesion 05865649 L98 .9 Flat crusty lesion noted on the L lower lateral neckRefer to dermatolog y Otitis media 72629047 H6 6.92 Get on augmentin 875mg po bid for 7 days, ER if worse [id number] Sony renner MD [facility] Internal Med [place] [address] [facility] [place] [address] 10/12/2023 09:43:37 10/12/2023 10:27:05 Otitis media 36233574 H66.92 Ear flushed with warm water, she tolerated the procedure well Get on amoxicilli nIf not better will see ENT [id number] MD RAKESH [facility] Internal Med [place] [address] [facility] [place] [address] 11/16/2023 15:16:39 11/16/2023 16:07:05 Reactive lymphadenopathy 108006852 R59.1 Likely reactive, d/t URIWill get on augmentin, if not better may need US neck [id number] Sony renner MD [facility] Internal Med [facility] [address] [facility], [address] [place] [address] 08/09/2024 09:05:48 08/09/2024 10:28:53 Adult health examination 051628829 Z00.00 Screening for disorder 795519410 Z13.9 Screening - NAD 64030260 3 Z13.9 C-scope: DId do this 01/29/15 Dr Salter-sco pe Dr Dixon in [facility] 08/10/18, referred to colorectal surgeon for hemorrhoid [...] understand ing of the above Essential hypertension 50521717 I10 On ASAOn amlodipine 2.5mg dailyGet labs Hyperlipidemia 65823812 E78.5 On pravastati n 40mg dailyGet labs again Hypothyroidism 08042475 E03.9 On levothyrox ine 50mcgs dailySeen by Dr Conde Obstructiv e sleep apnea syndrome 88202692 G47.33 07/07/2020 : Dr Ingram: good compliance [...] apt with her lung MD Depressive disorder 5386 9007 F32.A On lexapro 10mg dailyDoes well Not suicidal or homicidalD eclines any referrals to psychiatry Syncope 551899067 R55 Has had ECHO, stress test, and CT head, US carotidCar diologist Dr. Desmond Kendall in [facility] [phone] recall last such episode, she is to see Dr De La Rosa in [place] on 06/02/17OV 08/22/17:Khai vogel well today, s/p now on the medtronic device 07/15/17 and now will see Dr De La Rosa next 08/19Sandy does want an apt with Dr Avila a cardiologi st whom she has seen with her husbandOV 11/21/17:S [facility] Records:St ress test 05/15: NegSandy is seeing Dr Avila, next apt is on 11/28/17No more episodes of syncope, did have a episode of presyncope , advised ER if this occursNow sees also sleep MD Dr Ingram and Dr Atkins neurology [place] brain 10/28/17: Neg as per Dr [...] Renae 03/29/18Di d see Dr Whitehead in [facility] neurologyS he may use the [employer] for her UE and LE strength training [...] Wall, last OV 06/29/2023 Numbness of hand 4694827 04 R20.0 R>LGet EMG/NCVDid see Dr Mcknight/p EMG 08/25/17/ p surgeryDr Pamelaoe s well nowPain in L wrist seen by Dr Page next on 04/12/2023 Dizziness 972994187 R42 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, 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 Low back pain 478646558 M54.50 Patient fell 11/19/2019 , did get [...] 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 88927880 N99.3 S/p hysterecto my 04/19/2012 with [facility] urology, [address] [facility], Dr Goldstein/p surgery for vaginal prolapse, 03/02/2013 Dr Dot hernández, [facility] in [facility]/p f/u Dr Ware 08/11/2020 Pain of bi lateral knee joints 6865742842 21569 M25.[address] Cheatham, last OV 04/24/2021 , 05/12/2022 Does well now Fredo MEYERS 08/29/2023 Prediabetes 976192005 R7 3.03 Needs to diet and exercise!, repeat the labs Dr Mcnamara 06/02/2023 Pain in right hand 24659 64416 75577 M79.641 Evan MEYERS 12/14/2022 Leukopenia 76564980 D72. 819 Repeat the CBC again Benign par oxysmal positional vertigo 281198729 H81.13 C/o shree BPPV, states that she has noted dizziness with standing up from a sitting position Seasonal a llergic rhinitis 479988315 J30.2 On flonaseOn zyrtec as needed Forgetful 67308396 R41.3 Get neurology apt, get labs, get MRI brain CT head 06/07/2023 Skin lesion 60722524 L98 .9 Flat crusty lesion noted on the L lower lateral neckRefer to dermatolog y Screening for osteoporosis 464613577 Z13.820 Vitamin D deficiency 347 45556 E55.9 Serum alida min B12 below reference range 586232904 R79.89 Osteoporosis 46839981 M8 1.0 [id number] Sony renner MD [facility] [address] , [address] [place] [address] 09/20/2024 09:45:22 09/20/2024 10:38:15 Screening - NAD 272171799 Z13.9 C-scope: DId do this 01/29/15 Dr Salter-alfo pe Dr Dixon in [facility] 08/10/18, referred to colorectal surgeon for hemorrhoid s, no more c-scope recommende d, does not know the name Mammogram/ PAP: Not doing any PAPMammogr am 03/25/17: Neg, 03/27/18: NegMammogr am: 08/29/2019 : NegMammogr am: 10/16/2020 : Neg, orderedMam mogram: 01/19/2022 : NegMammogr am: 05/13/2023 : NegNo more mammograms will do SBE PAP: Did see Dr Johnson, noted to [...] understand ing of the above Essential hypertension 29914113 I10 On ASAOn amlodipine 2.5mg dailyGet labs Hyperlipidemia 26849197 E78.5 On pravastati n 40mg dailyGet labs again Hypothyroidism 95273576 E03.9 On levothyrox ine 50mcgs dailySeen by Dr Conde Obstructiv e sleep apnea syndrome 02781966 G47.33 07/07/2020 : Dr Ingram: good compliance [...] : Keep apt with her lung MD OV 09/20/2024 : As per her history she does see Dr Ingram on 09/24/2024 Depressive disorder 7305 7054 F32.A On lexapro 10mg dailyDoes well Not suicidal or homicidalD eclines any referrals to psychiatry Syncope 189625083 R55 Has had ECHO, stress test, and CT head, US carotidCar diologist Dr. Desmond Kendall in [facility] [phone] recall last such episode, she is to see Dr De La Rosa in [place] on 06/02/17OV 08/22/17:D oing well today, s/p now on the medtronic device 07/15/17 and now will see Dr De La Rosa next 08/19Sandy does want an apt with Dr Avila a cardiologi st whom she has seen with her husbandOV 11/21/17:S [facility] Records:St ress test 05/15: NegSandy is seeing [...] Renae 03/29/18Di d see Dr Whitehead in [facility] neurologyS he may use the [facility] for [...] : Sees Dr Wall, last OV 06/29/2023 OV 09/20/2024 : Dr Wall 04/19/2024 , f/u in one year Numbness of hand 7704374 04 R20.0 R>LGet EMG/NCVDid see Dr Mcknight/p EMG 08/25/17/ p Corrina Ott s well nowPain in L wrist seen by Dr Page Dizziness 443679837 R42 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, 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 Low back pain 401895935 M54.50 Patient fell 11/19/2019 , did get tramadol, but not much relief is asking for hydrocodon e 12/12/2019 : Dr Decker, to do PT, gabapentin , meloxicam, MDP for 12 weeks XR LS spine: 02/17/2021 : Multilevel advanced DJD Did see Dr Cheatham for knee pain on 04/24/2021 , and was told to see NS Dr Adams, declined On gabapentin Does well Now see Uriel Erazo [employer]ACHINE ADJUST[employer] LEADER NS last OV 08/21/2024 , to get injections 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 68276368 N99.3 S/p hysterecto my 04/19/2012 with [facility] urology, [address] [facility], Dr Goldstein/p surgery for vaginal prolapse, 03/02/2013 Dr Dot hernández, [facility] [place] Dr Ware 08/11/2020 Pain of bi lateral knee joints 7313224114 03823 M25.[address] Cheatham, last OV 04/24/2021 , 05/12/2022 Does well now Fredo MEYERS 08/29/2023 Prediabetes 538013642 R7 3.03 Needs to diet and exercise!, repeat the labs Dr Mcnamara 06/02/2023 Pain in right hand 96556 63728 22026 M79.641 Evan MEYERS 12/14/2022 Leukopenia 76015270 D72. 819 Repeat the CBC again Benign par oxysmal positional vertigo 195203163 H81.13 C/o shree BPPV, states that she has noted dizziness with standing up from a sitting positionWi ll start on meclizine, also see ENT Seasonal a llergic rhinitis 831751398 J30.2 On flonaseOn zyrtec as needed Forgetful 68916726 R41.3 Get neurology apt, get labs, get MRI brain CT head 06/07/2023 OV 09/20/2024 :Dr Zelaya neurology, next apt on 10/30/2024 , to discuss Alzheimer' s disease Skin lesion 38246571 L98 .9 Flat crusty lesion noted on the L lower lateral neckRefer to dermatolog y OV 09/20/2024 : Does well now Vitamin D deficiency 347 12484 E55.9 Serum alida min B12 below reference range 126775913 R79.89 Exposure t o viral disease 2372259449 82498 Z20.828 Exposed to measels maybe her grandchild , get measels titer 2820400 Storm Almeida MD [facility] E[facility] [place] [address] [place] [address] 09/24/2024 15:01:40 09/24/2024 16:11:16 Benign paroxysmal positional vertigo 685907879 H81.10 Sensorineu ral hearing loss of bilateral ears 744825284 H90.3 [id number] Sony renner MD [facility] Primary Care Henna hansen [address] [facility] [address] [facility] [address] 12/26/2024 09:34:21 12/26/2024 10:42:26 Screening - NAD 433822893 Z13.9 C-scope: DId do this 01/29/15 Dr Salter-sco pe Dr Dixon in [facility] 08/10/18, referred to colorectal surgeon for hemorrhoid s, no more c-scope recommende d, does not know the name Mammogram/ PAP: Not doing any PAPMammogr am 03/25/17: Neg, 03/27/18: NegMammogr am: 08/29/2019 : NegMammogr am: 10/16/2020 : Neg, orderedMam mogram: 01/19/2022 : NegMammogr am: 05/13/2023 : NegNo more mammograms will do SBE PAP: Did see Dr Johnson, noted to [...] and vit dDEXA: 05/13/2023 : Low bone massCan do prolia as per the RTC in 3 monthswith labsER if any life threatenin g symptomssh e did verbalize her understand ing of the above Essential hypertension 89175176 I10 On ASAOn amlodipine 2.5mg dailyGet labs Hyperlipidemia 93416095 E78.5 On pravastati n 40mg dailyGet labs again Hypothyroidism 76565071 E03.9 On levothyrox ine 50mcgs dailySeen by Dr Conde Obstructiv e sleep apnea syndrome 85453676 G47.33 07/07/2020 : Dr Ingram: good compliance [...] : Keep apt with her lung MD OV 09/20/2024 : As per her history she does see Dr Ingram on 09/24/2024 OV 12/26/2024 :Sees Dr Ingram last OV 09/24/2024 Depressive disorder 6692 9007 F32.A On lexapro 10mg dailyDoes well Not suicidal or homicidalD eclines any referrals to psychiatry Syncope 773244154 R55 Has had ECHO, stress test, and CT head, US carotidCar diologist Dr. Desmond Kendall in [facility] [place] [phone] recall last such episode, she is to see Dr De La Rosa in [place] on 06/02/17OV 08/22/17:Khai vogel well today, s/p now on the medtronic device 07/15/17 and now will see Dr De La Rosa next 08/19She does want an apt with Dr Avila a cardiologi st whom she has seen with her husbandOV 11/21/17:S [facility] Records:St ress test 05/15: NegShe is seeing Dr Avila, next apt is [...] Renae 03/29/18Di d see Dr Whitehead in [facility] neurologyS he may use the [facility] for her UE and LE strength training [...] : Sees Dr Wall, last OV 06/29/2023 OV 09/20/2024 : Dr Wall 04/19/2024 , f/u in one year OV 12/26/2024 : Keep the apt with [facility] Numbness of hand 9423545 04 R20.0 R>LGet EMG/NCVDid see Dr Mcknight/p EMG 08/25/17/ p surgeryDr Ott s well nowPain in L wrist seen by Dr Page Dizziness 958418057 R42 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, 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 Low back pain 693045361 M54.50 Patient fell 11/19/2019 , did get tramadol, but not much relief is asking for hydrocodon e 12/12/2019 : Dr Decker, to do PT, gabapentin , meloxicam, MDP for 12 weeks XR LS spine: 02/17/2021 : Multilevel advanced DJD Did see Dr Cheatham for knee pain on 04/24/2021 , and was told to see NS Dr Adams, declined On gabapentin Does well Now see Uriel Erazo MACH[employer] ADJUST[employer] LEADER NS last OV 08/21/2024 , to get injections Dr Burns 09/26/2024 , as per her and Suhas she needs to be on a 'bone shot' as per recommenda tions of Dr Burns, will order prolia 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 03542523 N99.3 S/p hysterecto my 04/19/2012 with [facility] urology, [facility], Dr Goldstein/p surgery for vaginal prolapse, 03/02/2013 Dr Dot hernández, [facility] in [facility]/p f/u Dr Ware 08/11/2020 Pain of bi lateral knee joints 0466930920 89612 M25.[address] Cheatham, last 12/03/2024 Does well now Fredo MEYERS 08/29/2023 Prediabetes 783520363 R7 3.03 Needs to diet and exercise!, repeat the labs Dr Mcnamara 06/02/2023 Pain in right hand 96672 47178 75611 M79.641 Evan MEYERS 12/14/2022 Leukopenia 84357455 D72. 819 Repeat the CBC again Benign par oxysmal positional vertigo 504901358 H81.13 C/o shree BPPV, states that she has noted dizziness with standing up from a sitting positionWi ll start on meclizine, also see ENT Seasonal a llergic rhinitis 696674542 J30.2 On flonaseOn zyrtec as needed Forgetful 61108157 R41.3 Get neurology apt, get labs, get MRI brain CT head 06/07/2023 Dr Zelaya neurology, as per her history today now to get MRI brain again Skin lesion 90416974 L98 .9 Flat crusty lesion noted on the L lower lateral neckRefer to dermatolog y OV 09/20/2024 : Does well now Vitamin D deficiency 347 55364 E55.9 Serum alida min B12 below reference range 728898892 R79.89 Exposure t o viral disease 8869033663 36544 Z20.828 Exposed to measels maybe her grandchild , get measels titer Health Concerns Section Related Observation LastModified by Organization Detai ls LastModified Time None Recorded Concern Status LastModified by Organization Details LastModified Time None Recorded Advance Directives Directive Y: Payers Insurance Date Sequence Insurance Name Policy Number Policy Renee Covered Member ID Renee Member ID Guarantor Name 12/23/2024 1 [facility] (MEDICARE REPLACEMENT/A DVANTAGE - PPO) [id number] [place] [id number] [place] Notes Date Note Type Note Provider Name and Address Organization Details Recorded Time 11/16/2023 text/html Here to hu acosta care:Past [...] 09/28/18OV 12/07/18:ACVHere with L [facility] and [facility] and tripped over a baby stroller and fell on her outstretched handShe returned to [facility] the next day and ws seen in the ER at [facility] and treated with a cast, [...] the ear, no other URI sx OV11/16/2023: ACVHaabelardo noted 'glands; over the R side of her neck, non tender, has noted that she does still have a URI and some R earache now, no fever or chills, no cough, no chest pain or SOB, no nasal congestion, no wheezing Sony Womack MD [address], [address], [place], [address], [place] [facility] 11/16/2023 16:20:03 08/09/2024 text/html Here to hu [...] 09/28/18OV 12/07/18:ACVHere with L wrist fractureWas in [facility] and slipped and tripped over a baby stroller and fell on her outstretched handShe returned to [facility] the next day and ws seen in the ER at [facility] and treated with a cast, [...] ear, no other URI sx OV 11/16/2023: Beba noted 'glands; over the R side of her neck, non tender, has noted that she does still have a URI and some R earache now, no fever or chills, no cough, no chest pain or SOB, no nasal congestion, no wheezing OV 08/09/2024: Here to re establish care, she feels well today Sony Womack MD [address] [facility], [address], [place], [address], [facility] [employer] 08/29/2024 18:47:16 09/20/2024 text/html Here to hu acosta care:Past Hx:HTNDepressionHypothy [...] 09/28/18OV 12/07/18:ACVHere with L wrist fractureWas in [facility] and slipped and tripped over a baby stroller and fell on her outstretched handShe returned to [facility] the next day and ws seen in the ER at [facility] and treated with a cast, [...] negativeShe would like to now see Dr ReaneOV 02/18/2020:Here for her routine aptShe is doing [...] ear, no other URI sx OV 11/16/2023: ACVincent noted 'glands; over the R side of her neck, non tender, has noted that she does still have a URI and some R earache now, no fever or chills, no cough, no chest pain or SOB, no nasal congestion, no wheezing OV 08/09/2024: Here to re establish care, she feels well today OV 09/20/2024: Here for her f/u one month apt, she is doing well today, here with her , still has some ringing in shree ears, also has noted some vertigo, she is also now seeing a neurologist Dr Chandra for possible Alzheimer's dementia Sony Womack MD [address] [facility], [address], [place], [address], [facility] [employer] [facility] 09/20/2024 11:15:12 09/24/2024 text/html This patient has a past medical history significant for hypothyroidism, vitamin-D deficiency, HLD, CAROL, depression, carpal tunnel syndrome, and BPPV. She presents to the office with a complaint of persistent vertigo that has been present intermittently for years. She states that she has had episodes in which she has completely passed out due to her vertigo symptoms. She notes that in 2018 she did have a tilt-table test done which was negative. She has had an Marialuisa maneuver completed in the past which has alleviated symptoms. She denies use of any nygn-ysm-htbnnsb medications to help alleviate her symptoms such as meclizine. She does report that her vertigo is positional with head movements. She also reports bilateral tinnitus that has been present for years. She denies any loud noise exposures. She does report having to turn up the volume on her television to aid in hearing better. She has not had a recent audiogram completed. Ruth Daniels, DASHAWN [address] [facility], [address], [place], [address], [facility] [employer] [facility] 09/24/2024 16:10:42 12/26/2024 text/html Here to hu acosta care:Past Hx:HTNDepressionHypothy [...] 09/28/18OV 12/07/18:ACVHere with L wrist fractureWas in [facility] and slipped and tripped over a baby stroller and fell on her outstretched handShe returned to [facility] the next day and ws seen in the ER at [facility] and treated with a cast, [...] ear, no other URI sx OV 11/16/2023: ACVincent noted 'glands; over the R side of her neck, non tender, has noted that she does still have a URI and some R earache now, no fever or chills, no cough, no chest pain or SOB, no nasal congestion, no wheezing OV 08/09/2024: Here to re establish care, she feels well today OV 09/20/2024: Here for her f/u one month apt, she is doing well today, here with her , still has some ringing in shree ears, also has noted some vertigo, she is also now seeing a neurologist Dr Chandra for possible Alzheimer's dementia OV 12/26/2024: Here for her f/u apt with her , she is doing well, she has seen her back surgeon who told her to see her PCP for a 'bone shot' Sony Womack MD [address] [place] [address], [address], [place], [address], [place] [facility] 12/26/2024 18:40:38 OBGyn Episode No OBEpisode recorded.
--- OUTSIDE RECORDS SUMMARY | 2025-02-07 08:02 | XMS_ITS | Encounter Summary ---
Author Organization [facility] Address [address] [place] [address] Phone Care Team Providers Care Binding Dyer Name Role Phone Giorgio Dixon MD Unavailable Rashard De La Rosa MD Unavailable [phone] Cleve Renae MD Unavailable Bebeto Woodard MD, Alex Shelton Unavailable John Womack MD Primary Care Provide r Kris León MD PhD Unavailable [phone] Encounter Details Date Type Department Care Team (Late st Contact Info) Description 02/05/2025 Results Follow-Up [facility] Cardiology [address] [facility] [address] [place] [address] Bing Jones, CAUSTIC ROOM OPERATOR [facility] [address] XR Chest Pa Lateral 2 Views Social History Tobacco Use Types Packs/Day Years [...] on file documented as of this encounter Visit Diagnoses Not on filedocumented in this encounter Care Teams Binding Dyer Relationship Specialty Start Date End Date John Womack MD [address] [facility] [address] [place] [address] PCP - General Internal Medicine 06/27/24 Giorgio Dixon MD Consulting Physician Gastroenterology 07/26/18 Rashard De La Rosa MD Consulting Physician Cardiology 04/30/19 Cleve Renae MD Consulting Physician Cardiovascular Disease 07/07/20 Alex Tate Jr., MD [address] [place] [address] Consulting Physician Cardiovascular Disease 10/08/20 Kris León MD PhD [address] [place] [address] Referring Physician Neurology 09/24/24 documented as of this encounter
--- OUTSIDE RECORDS SUMMARY | 2025-02-07 08:02 | XMS_ITS | Referral Summary ---
Author Organization [facility] [employer] [facility] Address [address] [place] [address] Phone Care Team Providers Care Fixing Machine Operator Name Role Phone Giorgio Dixon MD Unavailable [phone] Rashard De La Rosa MD Unavailable [phone] Cleve Renae MD Unavailable Bebeto Woodard MD, Alex Shelton Unavailable [phone] John Womack MD Primary Care Provide r Kris León MD PhD Unavailable [phone] Encounters Date Type Department Care Team Description 02/05/2025 Results Follow-Up [facility] [address] [place] [address] Bing Jones, ELOINA XR Chest Pa Lateral 2 Views 02/05/2025 10:53 AM CDT - 02/05/2025 11:59 PM CDT Hospital Encounter [facility] ([facility]) Counts include 234 beds at the [facility] [place] [address] Syncope and collapse; 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 Discharge Disposition: Discharge to home or self care 02/05/2025 10:30 AM CDT Office Visit [facility] [address] [place] [address] [place] [address] Bing Jones NP Syncope and collapse (Primary Dx); Hypertension; 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 02/05/2025 10:00 AM CDT Ancillary Procedure [facility] [address] [place] [phone] Cardiomyopathy, unspecified type (HCC) (Primary Dx); Syncope and collapse; Fitting and adjustment of cardiac pacemaker 01/28/2025 Telephone [facility] [address] [place] [phone] Rachael Banegas 01/25/2025 Orders Only [facility] [address] [place] [phone] Bing Jones NP Syncope and collapse (Primary Dx) from Last 3 Months Allergies Active Allergy [...] (08/02/2018): Added automatically from request for surgery [id number] Rectal bleeding 07/24/2018 Assessment & Plan (07/24/2018 1:10 PM DIRECTOR DENTAL SERVICES): GI has been consulted for which we appreciate their evaluation and recommendations. Anusol suppository. Colace. Holding ASA for now. Anemia 07/24/2018 Assessment & Plan (07/24/2018 1:11 PM DIRECTOR DENTAL SERVICES): With dizziness, likely 2/2 recent rectal bleeding. To receive 1 unit of PRBC. H&H after transfusion. Hypertension 07/24/2018 Assessment & Plan (07/24/2018 1:11 PM DIRECTOR DENTAL SERVICES): Stable. On Norvasc. HLD (hyperlipidemia) 07/24/2018 Assessment & Plan (07/24/2018 1:12 PM DIRECTOR DENTAL SERVICES): On Statin. Check lipid panel. History of vertigo 07/24/2018 Assessment & Plan (07/24/2018 1:12 PM DIRECTOR DENTAL SERVICES): Resumed prn meclizine. Presence of cardiac device [...] the day. Last Assessment & Plan: - Aurora well supported and patient happy with results [...] the day. Last Assessment & Plan: - Aurora well supported and patient happy with results [...] 36.7 C (98 F) 09/24/2024 10:09 AM DIRECTOR DENTAL SERVICES Respiratory Rate 16 08/10/2018 1:15 PM DIRECTOR DENTAL SERVICES Oxygen Saturation 94% 02/05/2025 9:53 AM CDT Inhaled Oxygen Concentration - - Weight 67.2 kg (148 lb 3.2 oz) 02/05/2025 9:53 A M CDT Height 152.4 cm (5') 02/05/2025 9:53 AM CDT Body Mass Index 28.94 02/05/2025 9:53 AM CDT Plan of Treatment Not on file Medical Devices Implanted Type Area Network Planner Device Identifier Shelf Expiration Date Model / Serial / Lot Biotronik Ra Lead [id number]/25/20 21 Implanted:08/02 (Quantity not on file) Lead Heart Biotronik [id number] / / Biotronik Rv Lead [id number]/25/20 21 Implanted:08/02 (Quantity not on file) Lead Heart Biotronik [id number] / / Biotronik Pm [id number]/25/20 21 Implanted:08/02 (Quantity not on file) Pacemaker Chest Wall Biotronik [id number] / / Procedures Procedure Name Priority Date/Time [...] signed by: Apolinar Ring M.D. Bing Jones PRODUCTION POSTING CLERK IMG XR PROCEDURES Final R esult from Last 3 Months Insurance MEDICARE ADVANTAGE [facility] MEDICARE ADVANTAGE Advance Directives For more information, please contact: [phone] * Full Code (Latest Code Status on File) Date Activated Date Inactivated Comments 07/24/2018 5:12 AM 07/26/2018 4:18 PM Care Teams Fixing Machine Operator Relationship Specialty Start Date End Date John Womack MD [address] [facility] [address] [place] [address] PCP - General Internal Medicine 06/27/24 Giorgio Dixon MD Consulting Physician Gastroenterology 07/26/18 Rashard De La Rosa MD Consulting Physician Cardiology 04/30/19 Cleve Renae MD Consulting Physician Cardiovascular Disease 07/07/20 Alex Tate Jr., MD [address] [place] [address] Consulting Physician Cardiovascular Disease 10/08/20 Kris León MD PhD [address] [place] [address] Referring Physician Neurology 09/24/24
--- OUTSIDE RECORDS SUMMARY | 2025-02-07 08:02 | XMS_ITS | Clinical Summary ---
Author Organization [facility] Address [address] [place] [address] Phone Care Team Providers Care Coat Joiner Lockstitch Name Role Phone Henok Womack MD Primary [...] Encounters Date Type Department Care Team Description 01/16/2025 External Device Data [facility]STRACTION Provider, Abstract 01/15/2025 External Device Data [facility] Provider, Abstract 01/02/2025 Abstract [facility] [address] [place] [id number] Provider, Abstract 12/25/2024 External Device Data [facility] ABSTRACTION Provider, Abstract 12/19/2024 External Device Data [facility]STRACTION Provider, Abstract 12/18/2024 External Device Data [facility]STRACTION Provider, Abstract from Last 3 Months Family History Relation [...] on file Legal Sex Female 12:12 PM [employer] Gender Identity Not on file Sexual Orientation Not on file Last Filed Vital Signs Vital Sign Reading Time Taken Comments Blood Pressure 147/83 08/21/2024 9:08 AM [employer] Pulse 82 08/21/2024 9:08 AM [employer] Temperature 36.3 C (97.3 F) 08/21/2024 9:08 AM [employer] Respiratory Rate 16 08/21/2024 9:08 AM [employer] Oxygen Saturation 99% 08/21/2024 9:08 AM [employer] Inhaled Oxygen Concentration - - Weight 73.3 kg (161 lb 8 oz) 08/21/2024 9:08 AM [employer] Height 152.4 cm (5') 08/21/2024 9:08 AM [employer] Body Mass Index 31.54 08/21/2024 9:08 AM [employer] Plan of Treatment Health Maintenance Due Date Last Done Comments OSTEOPOROSIS SCREENING 2008 RSV VACCINE (60+ or ) (1 - 1-dose 75+ series) 2018 DTAP/TDAP/TD VACCINES (2 - T d or Tdap) 10/03/2022 10/03/2012 INFLUENZA VACCINE (#1) 2025 , 05/01/2022, 04/29/2021, Additional history exists PNEUMOCOCCAL VACCINE 50+ YEARS Completed 12/30/2014 , 04/24/2010 ZOSTER VACCINE Completed 05/16/2023, 08/10/2022, 04/20/2007 Insurance [facility] [id number] Care Teams Coat Joiner Lockstitch Relationship Specialty Start Date End Date Henok Womack MD [address] [place] [phone] PCP - General Internal Medicine 08/21/24
--- OUTSIDE RECORDS SUMMARY | 2025-02-07 08:02 | XMS_ITS | Clinical Summary ---
Author Organization [facility] Address [address] [place] [address] Care Team Providers Care Optical Lab Technician Name Role Phone Henok Womack MD Primary Care Provider Cleve Renae MD Unavailable Source Comments [facility],non-owned Affiliates and Associated Physician Practices is amultiple site organization consisting of ambulatory clinics and hospital sitesin [place], [place], [place]. This disclosure is being madepursuant to the Care Everywhere program and may not contain all information available regarding this patient. Last updated 18.[facility] Allergies No known active allergies Medications * Be aware that medications may not be up to date on this document. Alwaysverify current medications with the patient. aspirin EC (ECOTRIN) 81 MG tablet Take [...] Encounters Date Type Department Care Team Description 11/19/2024 12:07 PM CDT - 11/19/2024 11:59 PM CDT Hospital Encounter [facility] Health Imaging Services - MRI [address] [place] [address] Desmond Burns MD Discharge Disposition: Home or [...] at Not on file Legal Sex Female 11:45 AM CDT Gender Identity Not on file Sexual Orientation Not on file Last Filed Vital Signs Vital Sign Reading Time Taken Comments Blood Pressure 146/73 11/19/2024 1:50 PM CDT Pulse 90 11/19/2024 1:50 PM CDT Temperature 36.2 C (97.2 F) 03/14/2018 11:14 AM CDT Respiratory Rate 16 11/19/2024 1:50 PM CDT Oxygen Saturation 96% 11/19/2024 1:50 PM CDT Inhaled Oxygen Concentration - - Weight 75.1 kg (165 lb 9.6 oz) 08/20/2020 11:34 AM [employer]CH [employer] Height 155.6 cm (5' 1.25) 08/20/2020 11:[address] Body Mass Index 31.03 08/20/2020 11:34 AM C[employer]CH CLE[employer]ER Plan of Treatment Health Maintenance Due Date Last Done Comments BONE DENSITY TESTING 1945 DTAP/TDAP/TD VACCINES (1 - Tdap) 1962 PNEUMOCOCCAL VACCINE 50+ (1 of 1 - PCV) 1993 ZOSTER VACCINE (1 of 2) 1993 Respiratory Syncytial Virus (RSV) Vaccine Pt: or over 60 yrs (1 - 1-dose 75+ series) 2018 COVID-19 VACCINE (2 - season) 2024 04/29/2021 DEPRESSION SCREENING 08/01/2024 MEDICARE AWV CALENDAR YEAR 2024 INFLUENZA VACCINE (#1) 2025 , 04/29/2020, 05/21/2019, Additional history exists HEPATITIS B VACCINE Aged Out No longe r eligible based on patient's age to complete this topic HIB VACCINE Aged Out No longer eligi ble based on patient's age to complete this topic HPV VACCINE Aged Out No longer eligi ble based on patient's age to complete this topic MENINGOCOCCAL (Group B) VACCINE SHARED DECISION-MAKING Aged Out No longer eligible based on patient's age to complete this topic MENINGOCOCCAL GROUPS A/C/Y/W VACCINE Aged Out No longer eligible based on patient's age to complete this topic Medical Devices Implanted Type Area Plumbing Manager Device Identifier Shelf Expiration Date Model / Serial / Lot Cardiac Lead Ra-08/25/2020 Implanted:08/02 (Quantity not on file) Cardiac Lead [employer] [id number] / [id number] / Cardiac Lead Rv-08/25/2020 Implanted:08/02 (Quantity not on file) Cardiac Lead [employer] [id number] / [id number] / Pacemaker-08/25 Implanted:08/02 (Quantity not on file) Pacemaker [employer] [id number] / [id number] / Procedures Procedure Name Priority Date/Time Associated Diagnosis Comments MRI LUMBAR SPINE WO CONTRAST Routine 11/19/2024 1:49 PM CDT Lumbar compression fracture, open, initial encounter (HCC) MRI THORACIC SPINE WO CONTRAST Routine 11/19/2024 1:49 PM CDT Compression fracture of body of thoracic vertebra (HCC) from Last 3 Months Results * MRI Lumbar Spine Wo Contrast (11/19/2024 1:49 PM CDT) Anatomical Region Laterality Modality Spine Magnetic Resonan ce 11/19/2024 2:11 PM CDT Addenda Addendum by Howard Brunner MD on 11/30/2024 1:21 PM CDT Addendum: Adult discussion with Dr. Burns. Per history, prior T10 kyphoplasty. Patient has an acute T11 fracture on this study utilizing the T10 level to assist in enumeration. Regarding the bone lesion in S1, the patient had a bone scan September 2024 with the lesion was not osteoblastic. Bone lesion such as this are common findings. The patient does not have a known malignancy with known metastases then, no additional imaging recommended for this finding. > Interpreting Provider: Howard Brunner MD on 11/30/2024 1:19 PM Impressions 11/19/2024 2:28 PM CDT IMPRESSION: 1. Acute superior endplate compression fracture at T12, with greater than 50% loss of vertical height 2. Multilevel degenerative disc and joint disease described above. Mild canal narrowing at L2-L3 and L3-L4 levels. 3. A T1 hypointense, STIR hyperintense lesion seen within the S1 sacral segment to the left. Finding may represent an atypical vertebral body hemangioma. Osseous metastasis cannot be excluded. Correlate with history of malignancy > Interpreting Provider: Naida Pedraza MD on 11/19/2024 2:28 PM Narrative 11/19/2024 2:28 PM CDT PROCEDURE: MRI LUMBAR SPINE WO CONTRAST, MRI THORACIC SPINE WO CONTRAST DATE/TIME OF EXAM: 11/19/2024 1:49 PM CLINICAL INFORMATION: None relevant/not provided if blank. Indication: S32.000B: Wedge compression fracture of unspecified lumbar vertebra, initial encounter for open fracture (HCC) Additional History: COMPARISON: None. TECHNIQUE: Thoracic and lumbar spine MRI was performed without contrast. FINDINGS: THORACIC SPINE: There is post kyphoplasty changes at T10. There is acute superior endplate compression fracture at T11, with greater than 50% loss of vertical height. Remaining thoracic vertebral bodies demonstrate normal height, without marrow edema. Thoracic spinal cord demonstrate normal signal intensity on all sequences. T1-T2: There is minimal posterior bulge. No foraminal or canal narrowing seen. T2-T3, T3-T4: No disc bulge. Bilateral facet hypertrophy. No foraminal or canal narrowing seen. T4-T5: There is posterior disc bulge. Bilateral facet hypertrophy. There is mild right foraminal narrowing. No canal narrowing seen. T5-T6, T6-T7: No disc bulge. No foraminal or canal narrowing seen. T7-T8: There is posterior disc bulge with left paracentral disc herniation. Bilateral facet hypertrophy. There is mild left foraminal narrowing. No canal narrowing seen. T8-T9, T9-T10: No disc bulge. No foraminal or canal narrowing seen. T10-T11: Posterior disc bulge. Bilateral facet hypertrophy. Mild canal narrowing. There is mild to moderate bilateral foraminal narrowing, left worse than right. T11-T12: There is diffuse disc bulge with central and left paracentral herniation. Bilateral facet hypertrophy. There is mild bilateral foraminal narrowing seen. LUMBAR SPINE: There is anterior listhesis of L5 on S1, measure about 1 cm. Chronic endplate changes at L4-L5 level. Vertebral body hemangioma at inferior aspect of T12. Inferior endplate Schmorl's node, surrounding marrow edema at L4. There is a T1 hypointense, STIR hyperintense lesion seen within the S1 sacral segment to the left. Finding may represent an atypical vertebral body hemangioma. Osseous metastasis cannot be excluded. Correlate with history of malignancy. Lumbar vertebral bodies demonstrate normal height without compression fracture. Conus terminates at L1. Distal cord and conus signal intensity is normal. Visualized portions of the abdomen and pelvis do not reveal significant mass or lymphadenopathy. T12-L1: There is diffuse posterior bulge. Mild bilateral foraminal narrowing. No canal narrowing seen. L1-L2: There is diffuse disc bulge. Bilateral facet hypertrophy. No canal narrowing. There is mild bilateral foraminal narrowing. L2-L3: There is diffuse disc bulge with central herniation. Mild canal narrowing. Bilateral facet hypertrophy. There is moderate bilateral foraminal narrowing seen. L3-L4: Diffuse disc bulge with central herniation. Bilateral facet and ligamentum flavum hypertrophy. Mild canal narrowing. There is moderate bilateral foraminal narrowing seen. L4-L5: Posterior disc osteophyte. Bilateral facet hypertrophy. No canal narrowing. There is severe bilateral foraminal narrowing seen. L5-S1: Posterior superior disc uncovering. Bilateral facet hypertrophy. No canal narrowing. There is moderate to severe bilateral foraminal narrowing, left worse than right. Procedure Note Naida Pedraza MD / Howard Brunner MD - 11/19/2024 PROCEDURE: MRI LUMBAR SPINE WO CONTRAST, MRI THORACIC SPINE WO CONTRAST DATE/TIME OF EXAM: 11/19/2024 1:49 PM CLINICAL INFORMATION: None relevant/not provided if blank. Indication: S32.000B: Wedge compression fracture of unspecified lumbar vertebra, initial encounter for open fracture (HCC) Additional History: COMPARISON: None. TECHNIQUE: Thoracic and lumbar spine MRI was performed without contrast. FINDINGS: THORACIC SPINE: There is post kyphoplasty changes at T10. There is acute superior endplate compression fracture at T11, with greater than 50%loss of vertical height. Remaining thoracic vertebral bodies demonstratenormal height, without marrow edema. Thoracic spinal cord demonstrate normal signal intensity on all sequences. T1-T2: There is minimal posterior bulge. No foraminal or canal narrowing seen. T2-T3, T3-T4: No disc bulge. Bilateral facet hypertrophy. No foraminalor canal narrowing seen. T4-T5: There is posterior disc bulge. Bilateral facet hypertrophy. Thereis mild right foraminal narrowing. No canal narrowing seen. T5-T6, T6-T7: No disc bulge. No foraminal or canal narrowing seen. T7-T8: There is posterior disc bulge with left paracentral discherniation. Bilateral facet hypertrophy. There is mild left foraminal narrowing. No canal narrowing seen. T8-T9, T9-T10: No disc bulge. No foraminal or canal narrowing seen. T10-T11: Posterior disc bulge. Bilateral facet hypertrophy. Mild canal narrowing. There is mild to moderate bilateral foraminal narrowing, left worse than right. T11-T12: There is diffuse disc bulge with central and left paracentral herniation. Bilateral facet hypertrophy. There is mild bilateralforaminal narrowing seen. LUMBAR SPINE: There is anterior listhesis of L5 on S1, measure about 1cm. Chronic endplate changes at L4-L5 level. Vertebral body hemangioma at inferior aspect of T12. Inferior endplate Schmorl's node, surrounding marrow edema at L4. There is a T1 hypointense, STIR hyperintense lesion seen within the S1 sacral segment to the left. Finding may represent an atypical vertebral body hemangioma. Osseous metastasis cannot beexcluded. Correlate with history of malignancy. Lumbar vertebral bodiesdemonstrate normal height without compression fracture. Conus terminates at L1.Distal cord and conus signal intensity is normal. Visualized portions of the abdomen and pelvis do not reveal significant mass or lymphadenopathy. T12-L1: There is diffuse posterior bulge. Mild bilateral foraminal narrowing. No canal narrowing seen. L1-L2: There is diffuse disc bulge. Bilateral facet hypertrophy. Nocanal narrowing. There is mild bilateral foraminal narrowing. L2-L3: There is diffuse disc bulge with central herniation. Mild canal narrowing. Bilateral facet hypertrophy. There is moderate bilateral foraminal narrowing seen. L3-L4: Diffuse disc bulge with central herniation. Bilateral facet and ligamentum flavum hypertrophy. Mild canal narrowing. There is moderate bilateral foraminal narrowing seen. L4-L5: Posterior disc osteophyte. Bilateral facet hypertrophy. No canal narrowing. There is severe bilateral foraminal narrowing seen. L5-S1: Posterior superior disc uncovering. Bilateral facet hypertrophy.No canal narrowing. There is moderate to severe bilateral foraminalnarrowing, left worse than right. IMPRESSION: 1. Acute superior endplate compression fracture at T12, with greaterthan 50% loss of vertical height 2. Multilevel degenerative disc and joint disease described above. Mild canal narrowing at L2-L3 and L3-L4 levels. 3. A T1 hypointense, STIR hyperintense lesion seen within the S1 sacral segment to the left. Finding may represent an atypical vertebral body hemangioma. Osseous metastasis cannot be excluded. Correlate withhistory of malignancy > Interpreting Provider: Naida Pedraza MD on 11/19/2024 2:28 PM Desmond Burns MD MR ORDERABLES Edited Result - Final * MRI Thoracic Spine Wo Contrast (11/19/2024 1:49 PM CDT) Anatomical Region Laterality Modality Chest Magnetic Resonan ce 11/19/2024 2:11 PM CDT Addenda Addendum by Howard Brunner MD on 11/30/2024 1:21 PM CDT Addendum: Adult discussion with Dr. Burns. Per history, prior T10 kyphoplasty. Patient has an acute T11 fracture on this study utilizing the T10 level to assist in enumeration. Regarding the bone lesion in S1, the patient had a bone scan September 2024 with the lesion was not osteoblastic. Bone lesion such as this are common findings. The patient does not have a known malignancy with known metastases then, no additional imaging recommended for this finding. > Interpreting Provider: Howard Brunner MD on 11/30/2024 1:19 PM Impressions 11/19/2024 2:28 PM CDT IMPRESSION: 1. Acute superior endplate compression fracture at T12, with greater than 50% loss of vertical height 2. Multilevel degenerative disc and joint disease described above. Mild canal narrowing at L2-L3 and L3-L4 levels. 3. A T1 hypointense, STIR hyperintense lesion seen within the S1 sacral segment to the left. Finding may represent an atypical vertebral body hemangioma. Osseous metastasis cannot be excluded. Correlate with history of malignancy > Interpreting Provider: Nadia Pedraza MD on 11/19/2024 2:28 PM Narrative 11/19/2024 2:28 PM CDT PROCEDURE: MRI LUMBAR SPINE WO CONTRAST, MRI THORACIC SPINE WO CONTRAST DATE/TIME OF EXAM: 11/19/2024 1:49 PM CLINICAL INFORMATION: None relevant/not provided if blank. Indication: S32.000B: Wedge compression fracture of unspecified lumbar vertebra, initial encounter for open fracture (HCC) Additional History: COMPARISON: None. TECHNIQUE: Thoracic and lumbar spine MRI was performed without contrast. FINDINGS: THORACIC SPINE: There is post kyphoplasty changes at T10. There is acute superior endplate compression fracture at T11, with greater than 50% loss of vertical height. Remaining thoracic vertebral bodies demonstrate normal height, without marrow edema. Thoracic spinal cord demonstrate normal signal intensity on all sequences. T1-T2: There is minimal posterior bulge. No foraminal or canal narrowing seen. T2-T3, T3-T4: No disc bulge. Bilateral facet hypertrophy. No foraminal or canal narrowing seen. T4-T5: There is posterior disc bulge. Bilateral facet hypertrophy. There is mild right foraminal narrowing. No canal narrowing seen. T5-T6, T6-T7: No disc bulge. No foraminal or canal narrowing seen. T7-T8: There is posterior disc bulge with left paracentral disc herniation. Bilateral facet hypertrophy. There is mild left foraminal narrowing. No canal narrowing seen. T8-T9, T9-T10: No disc bulge. No foraminal or canal narrowing seen. T10-T11: Posterior disc bulge. Bilateral facet hypertrophy. Mild canal narrowing. There is mild to moderate bilateral foraminal narrowing, left worse than right. T11-T12: There is diffuse disc bulge with central and left paracentral herniation. Bilateral facet hypertrophy. There is mild bilateral foraminal narrowing seen. LUMBAR SPINE: There is anterior listhesis of L5 on S1, measure about 1 cm. Chronic endplate changes at L4-L5 level. Vertebral body hemangioma at inferior aspect of T12. Inferior endplate Schmorl's node, surrounding marrow edema at L4. There is a T1 hypointense, STIR hyperintense lesion seen within the S1 sacral segment to the left. Finding may represent an atypical vertebral body hemangioma. Osseous metastasis cannot be excluded. Correlate with history of malignancy. Lumbar vertebral bodies demonstrate normal height without compression fracture. Conus terminates at L1. Distal cord and conus signal intensity is normal. Visualized portions of the abdomen and pelvis do not reveal significant mass or lymphadenopathy. T12-L1: There is diffuse posterior bulge. Mild bilateral foraminal narrowing. No canal narrowing seen. L1-L2: There is diffuse disc bulge. Bilateral facet hypertrophy. No canal narrowing. There is mild bilateral foraminal narrowing. L2-L3: There is diffuse disc bulge with central herniation. Mild canal narrowing. Bilateral facet hypertrophy. There is moderate bilateral foraminal narrowing seen. L3-L4: Diffuse disc bulge with central herniation. Bilateral facet and ligamentum flavum hypertrophy. Mild canal narrowing. There is moderate bilateral foraminal narrowing seen. L4-L5: Posterior disc osteophyte. Bilateral facet hypertrophy. No canal narrowing. There is severe bilateral foraminal narrowing seen. L5-S1: Posterior superior disc uncovering. Bilateral facet hypertrophy. No canal narrowing. There is moderate to severe bilateral foraminal narrowing, left worse than right. Procedure Note Naida Pedraza MD / Howard Brunner MD - 11/19/2024 PROCEDURE: MRI LUMBAR SPINE WO CONTRAST, MRI THORACIC SPINE WO CONTRAST DATE/TIME OF EXAM: 11/19/2024 1:49 PM CLINICAL INFORMATION: None relevant/not provided if blank. Indication: S32.000B: Wedge compression fracture of unspecified lumbar vertebra, initial encounter for open fracture (HCC) Additional History: COMPARISON: None. TECHNIQUE: Thoracic and lumbar spine MRI was performed without contrast. FINDINGS: THORACIC SPINE: There is post kyphoplasty changes at T10. There is acute superior endplate compression fracture at T11, with greater than 50%loss of vertical height. Remaining thoracic vertebral bodies demonstratenormal height, without marrow edema. Thoracic spinal cord demonstrate normal signal intensity on all sequences. T1-T2: There is minimal posterior bulge. No foraminal or canal narrowing seen. T2-T3, T3-T4: No disc bulge. Bilateral facet hypertrophy. No foraminalor canal narrowing seen. T4-T5: There is posterior disc bulge. Bilateral facet hypertrophy. Thereis mild right foraminal narrowing. No canal narrowing seen. T5-T6, T6-T7: No disc bulge. No foraminal or canal narrowing seen. T7-T8: There is posterior disc bulge with left paracentral discherniation. Bilateral facet hypertrophy. There is mild left foraminal narrowing. No canal narrowing seen. T8-T9, T9-T10: No disc bulge. No foraminal or canal narrowing seen. T10-T11: Posterior disc bulge. Bilateral facet hypertrophy. Mild canal narrowing. There is mild to moderate bilateral foraminal narrowing, left worse than right. T11-T12: There is diffuse disc bulge with central and left paracentral herniation. Bilateral facet hypertrophy. There is mild bilateralforaminal narrowing seen. LUMBAR SPINE: There is anterior listhesis of L5 on S1, measure about 1cm. Chronic endplate changes at L4-L5 level. Vertebral body hemangioma at inferior aspect of T12. Inferior endplate Schmorl's node, surrounding marrow edema at L4. There is a T1 hypointense, STIR hyperintense lesion seen within the S1 sacral segment to the left. Finding may represent an atypical vertebral body hemangioma. Osseous metastasis cannot beexcluded. Correlate with history of malignancy. Lumbar vertebral bodiesdemonstrate normal height without compression fracture. Conus terminates at L1.Distal cord and conus signal intensity is normal. Visualized portions of the abdomen and pelvis do not reveal significant mass or lymphadenopathy. T12-L1: There is diffuse posterior bulge. Mild bilateral foraminal narrowing. No canal narrowing seen. L1-L2: There is diffuse disc bulge. Bilateral facet hypertrophy. Nocanal narrowing. There is mild bilateral foraminal narrowing. L2-L3: There is diffuse disc bulge with central herniation. Mild canal narrowing. Bilateral facet hypertrophy. There is moderate bilateral foraminal narrowing seen. L3-L4: Diffuse disc bulge with central herniation. Bilateral facet and ligamentum flavum hypertrophy. Mild canal narrowing. There is moderate bilateral foraminal narrowing seen. L4-L5: Posterior disc osteophyte. Bilateral facet hypertrophy. No canal narrowing. There is severe bilateral foraminal narrowing seen. L5-S1: Posterior superior disc uncovering. Bilateral facet hypertrophy.No canal narrowing. There is moderate to severe bilateral foraminalnarrowing, left worse than right. IMPRESSION: 1. Acute superior endplate compression fracture at T12, with greaterthan 50% loss of vertical height 2. Multilevel degenerative disc and joint disease described above. Mild canal narrowing at L2-L3 and L3-L4 levels. 3. A T1 hypointense, STIR hyperintense lesion seen within the S1 sacral segment to the left. Finding may represent an atypical vertebral body hemangioma. Osseous metastasis cannot be excluded. Correlate withhistory of malignancy > Interpreting Provider: Naida Pedraza MD on 11/19/2024 2:28 PM Desmond Burns MD MR ORDERABLES Edited Result - Final from Last 3 Months Insurance [employer] MANAGED MEDICARE ADV MEDICARE [employer] Care Teams Optical Lab Technician Relationship Specialty Start Date End Date Henok Womack MD [address] [place] [id number] PCP - General Internal Medicine 03/10/18 [place] [id number] [address] Cardiology 10/01/24
--- OUTSIDE RECORDS SUMMARY | 2025-02-07 08:02 | XMS_ITS ---
Author Organization [facility] g[facility] Address [address] [place] [address] Care Team Providers Care Director Alumni Relations Name Role Phone Henok Womack Primary Care Provider Desmond Gonzalez [phone] Jim Govea Unavailable Unavailable REASON FOR VISIT Review new MRIs done at [facility] Encounters Encounter Location Date Provider Diagnosis [facility] [address] [place] [address] 10/25/2024 Desmond Burns Plan Of Treatment No Information Progress Notes * [place] ORONADOB:1945 (79 yo F)Acc No.[id number]:10/25/2024 Patient: [place] BREWER Provider: Shaniqua Burns MD :1945 A ge:79 Y S ex:Female Date:10/25/2024 Address:[address] [place] [address], [id number] Pcp:Henok Womack Subjective: * Chief Complaints: * 1 . Review new MRIs done at [facility]. * Medical History: Objective: * Vitals: Assessment: Plan: * Treatment: * * Electronic signature of Aj Burns MD on 02/07/2025 at 08:02 AM CDT Sign off status: Pending * Provider: Shaniqua Burns MD Date: 10/25/2024 Generated for Henry sheth/Gera/eTransmitting on: 02/07/2025 08:02 AM CDT
--- OUTSIDE RECORDS SUMMARY | 2025-02-07 08:02 | XMS_ITS | Encounter Summary ---
Author Organization [facility] Address [address] [place] [address] Phone Care Team Providers Care Histology Technologist Name Role Phone John Womack MD Primary Care Provide r Giorgio Dixon MD Unavailable Rashard De La Rosa MD Unavailable Venkatesh Avila MD Unavailable [phone] Cleve Renae MD Unavailable Bebeto Woodard MD, Alex Shelton Unavailable [phone] Crys Dunn DO Primary Care Provider [phone]- [phone] John Womack MD Primary Care Provide r Kris León MD PhD Unavailable [phone] Encounter Details Date Type Department Care Team (Late st Contact Info) Description 10/16/2017 Orders Only [facility] IM [facility] CLINCONV Provider, MD Andrea [place] [address] Social History Tobacco Use Types Packs/Day [...] Narrative 10/16/2017 Ordered by an unspecified provider. Historical Provider CV CARDIAC SERVICES PROCE DURES Final Result * CARDIOLOGY REPORT (10/16/2017) Anatomical Region Laterality Modality Other Narrative 10/16/2017 Ordered by an unspecified provider. Historical Provider CV CARDIAC SERVICES PROCE DURES Final Result documented in this encounter Visit Diagnoses Not on filedocumented in this encounter Care Teams Histology Technologist Relationship Specialty Start Date End Date John Womack MD [address] [facility] [address] [place] [address] PCP - General 08/11/17 04/30/24 Crys Dunn DO [address] [place] [address] [id number] PCP - General Family Medicine 05/01/24 06/26/24 John Womack MD [address] [facility] [address] [place] [address] PCP - General Internal Medicine 06/27/24 Giorgio Dixon MD [address] [facility] [address] [place] [address] Consulting Physician Gastroenterology 07/26/18 Rashard De La Rosa MD [address] [facility] [address] [place] [address] Consulting Physician Cardiology 04/30/19 Venkatesh Avila MD [address] [facility] [address] [place] [address] Referring Physician Cardiology 04/30/19 07/06/20 Cleve Renae MD [address] [place] [id number] Consulting Physician Cardiovascular Disease 07/07/20 Alex Tate Jr., MD [address] [place] [address] Consulting Physician Cardiovascular Disease 10/08/20 Kris León MD PhD [address] [facility] [address] [place] [address] Referring Physician Neurology 09/24/24 documented as of this encounter
--- OUTSIDE RECORDS SUMMARY | 2025-02-07 08:03 | XMS_ITS | Encounter Summary ---
Author Organization [facility] Address [address] [place] [address] Phone Care Team Providers Care Market Investigator Name Role Phone John Womack MD Primary Care Provide r Giorgio Dixon MD Unavailable Rashard De La Rosa MD Unavailable [phone] Cleve Renae MD Unavailable Bebeto Woodard MD, Alex Shelton Unavailable [phone] Crys Dunn DO Primary Care Provider [phone] John Womack MD Primary Care Provide r [...] Results * SLEEP LAB/STUDY - RESULT (07/07/2020) Provider Scanning Final Result documented in this encounter Visit Diagnoses Not on filedocumented in this encounter Care Teams Market Investigator Relationship Specialty Start Date End Date John Womack MD [address] [address] PCP - General 08/11/17 04/30/24 Crys Dunn DO [address] [place] [id number] PCP - General Family Medicine 05/01/24 06/26/24 John Womack MD [address] [address] PCP - General Internal Medicine 06/27/24 Giorgio Dixon MD [address] [place] [address] Consulting Physician Gastroenterology 07/26/18 Rashard De La Rosa MD [address] [place] [address] Consulting Physician Cardiology 04/30/19 Cleve Renae MD [address] [place] [address] Consulting Physician Cardiovascular Disease 07/07/20 Alex Tate Jr., MD [address] [place] [address] Consulting Physician Cardiovascular Disease 10/08/20 Kris León MD PhD [address] [place] [address] Referring Physician Neurology 09/24/24 documented as of this encounter
[2025-02-07 18:47] LABS: Hematocrit 43.3 % (37.0-47.0); Hemoglobin 14.5 g/dL (12.0-15.0); Mean Corpuscular HGB Conc 33.5 g/dl (32-36); Mean Corpuscular Hemoglobin 30.9 pg (26-34); Mean Corpuscular Volume 92.3 fl (80-100); Platelet Count Result 173 k/mm3 (150-375); Red Blood Count 4.69 M/mm3 (4.2-5.4); White Blood Count 4.0 K/mm3 (4.5-10.0)
[2025-02-07 19:01] LABS: Alanine Aminotransferase 18 U/L (6-35); Albumin Level 4.0 g/dL (3.5-5.1); Alkaline Phosphatase 53 U/L (38-126); Anion Gap 9 mmol/L (4-12); Aspartate Amino Transferase 37 U/L (14-36); Bilirubin,Total 0.5 mg/dL (0.2-1.3); Blood Urea Nitrogen 14 mg/dL (7-17); Calcium 9.3 mg/dL (8.4-10.2); Carbon Dioxide 26 mmol/L (22-30); Chloride 104 mmol/L (98-107); Cholesterol 178 mg/dL (0-200); Estimated Glomerular Filt Rate > 60; Glucose 90 mg/dL (65-110); HDL Direct 56 mg/dL; Potassium 3.3 mmol/L (3.4-5.0); Sodium 139 mmol/L (137-145); Total Protein 6.6 g/dL (6.3-8.2); Triglycerides 94 mg/dL (<150)
[2025-02-07 21:43] LABS: Free T4 Free Thyroxine 1.50 ng/dL (0.78-2.19)
[2025-02-07 21:48] LABS: Thyroid Stimulating Hormone 0.587 uIU/mL (0.465-4.680)
[2025-02-07 22:14] LABS: Vitamin B12 > 1000.0 pg/mL (239-931)
== END 2025-02-07 07:56 | disposition home or self-care (01) ==
PROVIDERS: Family Medicine; Nurse Practitioner; PCP Internal Medicine; Visit Provider Internal Medicine
DX: E78.00 Pure hypercholesterolemia, unspecified (principal); E03.9 Hypothyroidism, unspecified; E55.9 Vitamin D deficiency, unspecified; E53.8 Deficiency of other specified B group vitamins; E66.9 Obesity, unspecified; F32.9 Major depressive disorder, single episode, unspecified; I10 Essential (primary) hypertension; E78.5 Hyperlipidemia, unspecified; R73.03 Prediabetes
CPT/HCPCS: 36415; 80053; 80061; 82306; 82607; 84439; 84443; 85027

== ENCOUNTER 2025-04-30 11:15 | Outpatient (CLI) | payer MEDICARE, SELFPAY ==
--- NOTE | ~2025-04-30 | XR_ITS ---
XR lumbar spine min 4V Indication: Osteoporosis Comparison: None Findings: Moderate osteopenia. Levoconvex scoliosis. Moderate loss of vertebral height throughout. Grade 1 retrolisthesis of L3 to on L3 and L1 on L2. There is a remote compression fracture of T11 with loss of height 50%. Severe loss of disc height throughout. Soft tissues unremarkable Impression: No acute abnormality. Reviewed, dictated and finalized at location P. Impression: No acute abnormality.
== END 2025-04-30 11:16 | disposition home or self-care (01) ==
LOC: MICIMG 11:16
PROVIDERS: PCP Internal Medicine; Visit Provider Physician Assistant
DX: M80.00XA Age-related osteoporosis with current pathological fracture, unspecified site, initial encounter for fracture (principal)
CPT/HCPCS: 72110

== ENCOUNTER 2025-05-15 12:03 | Outpatient (CLI) | payer MEDICARE, SELFPAY ==
--- NOTE | ~2025-05-15 | DEXA_ITS ---
Bone Density Report Name: REZA ORONA Age: 79 Sex: Female Ethnicity: White Date of : 1945 Indication: postmenopausal; screening for osteoporosis; height loss; prior fracture; Referring Provider: MILTON, SONY Study: Bone densitometry was performed. Exam Date: May 15, 2025 Accession number: [id number] Bone Density: Region BMD T-score Z-score Classification AP Spine(L1-L4) 0.977 -0.6 2.1 Normal Femoral Neck (Left) 0.615 -2.1 0.3 Osteopenia Total Hip (Left) 0.830 -0.9 1.3 Normal Femoral Neck (Right) 0.605 -2.2 0.2 Osteopenia Total Hip (Right) 0.828 -0.9 1.2 Normal Femoral Neck Mean 0.610 -2.2 0.2 Osteopenia Total Hip Mean 0.829 -0.9 1.2 Normal World Health Organization criteria for BMD impression classify patients as: Normal (T-score at or above -1.0), Osteopenia (T-score between -1.0 and -2.5), or Osteoporosis (T-score at or below -2.5). 10-year Fracture Risk: FRAX not reported because: Treated for osteoporosis Clinical Information Provided by Patient: Has had a low trauma fracture Is being treated for osteoporosis Patient maximum height was 61 Menopause Age: 48 No regular weight bearing exercise Onset of menses at age 14 Number of children 2 Impression: The patient has low bone mass, based on the Right Femoral Neck T-score. The patient has risk factors, including: previous fracture. Discussion: It is important to ask patients whether they are taking their medications and to encourage continued and appropriate compliance with their osteoporosis therapies to reduce fracture risk. It is also important to review their risk factors and encourage appropriate calcium and vitamin D intakes, exercise, fall prevention and other lifestyle measures. Follow-Up: Consider a repeat BMD and Vertebral Fracture Assessment (VFA) exam in 2 years or sooner if medically necessary, to reassess this patient's status. Reported by: GUMARO on 05/15/2025 12:33:00 PM. Reviewed, dictated and finalized at location A.
--- OUTSIDE RECORDS SUMMARY | 2025-05-15 13:54 | XMS_ITS | Patient Health Record ---
Author Organization [facility] Address [address] [place] [address] Care Team Providers Care Print Color Matcher Name Role Phone DaisyShawn rennerallati Primary Care Provider Desmond Gonzalez Unavailable [phone] Jim Govea Unavailable Unavailable Allergies Allergen (clinical drug ingredient) Drug/Non Drug Allergy documented on EMR Reaction Allergy Type Onset Date Status amoxicillin Amoxicillin Unknown Drug Allergy Act natasha Reason For Referral Reason T10 Kypho Diagnosis 1 Age-related osteopor osis with current pathological fracture, vertebra(e), initial encounter for fracture (M80.08XA) Referred Organization [facility] Referred Provider Desmond Burns Referred Address [address],[place], [place],[address], Procedure 1 PERCUTANEOUS VERTEBR AL AUGMENTATION (05647) General Notes No auth needed per [facility] portal, info scanned into pt chart, Reshma Goodrich 09/12/2024 12:52:14 PM > Referral Priority Routine Reason Osteoporosis Evaluat ion and Treatment Diagnosis 1 Age-related osteopor osis with current pathological fracture, vertebra(e), initial encounter for fracture (M80.08XA) Referral Organization [facility] [employer] [facility] Referring Provider First Name Desmond Referring Provider Last Name Grant Referring Provider Speciality Pain Medic ine Referred Provider Specialty Internal Med icine Referral Priority Routine Reason Finding of elevated blood pressure Diagnosis 1 Elevated blood-press ure reading, without diagnosis of hypertension (R03.0) Referral Organization [facility] [employer] [facility] Referring Provider First Name Desmond Referring Provider Last Name Grant Referring Provider Speciality Pain Medic ine Referred Provider Specialty General phys ician Referral Priority Routine Reason Osteoporosis Evaluat ion and Treatment Diagnosis 1 Age-related osteopor osis with current pathological fracture, vertebra(e), initial encounter for fracture (M80.08XA) Referral Organization [facility] Referring Provider First Name Desmond Referring Provider [...] initial encounter for fracture (M80.08XA) Referral Organization [facility] Referring Provider First Name Desmond Referring Provider [...] Problem Status W/U Status Risk Notes Problem Thoracic radiculopathy (44031073) Radiculopathy, thoracic region (M54.14) Active confirmed Problem Pathological fracture of vertebra (576545346) Age-related osteoporosis with current pathological fracture, vertebra(e), initial encounter for fracture (M80.08XA) Active confirmed Vital Signs Heart Rate 75 /min 12/04/2024 Temperature 96.7 degrees Fahrenheit 12/04/2024 Respiratory Rate 18 /min 12/04/2024 Blood pressure diastolic 93 mm Hg 12/04/2024 Height 60 in 12/04/2024 Blood pressure systolic 156 mm Hg 12/04/2024 Weight 155 lbs 12/04/2024 BMI 30.27 kg/m2 12/04/2024 Encounters Encounter Location Date Provider Diagnosis [facility] [address] [place] [address] [address] [place] [address] 08/29/2024 Desmond Burns Wedge compression fracture of T9-T10 vertebra, initial encounter for closed fracture S22.070A and Radiculopathy, thoracic region M54.14 [facility] [address] [facility] [address] [place], [place] [id number] 09/14/2024 Desmond Burns Age-related osteoporosis with current pathological fracture, vertebra(e), initial encounter for fracture M80.08XA and Wedge compression fracture of T9-T10 vertebra, initial encounter for closed fracture S22.070A [facility] [address] [place] [address] [place] [phone] 09/26/2024 Desmond Burns Age-related osteoporosis with current pathological fracture, vertebra(e), initial encounter for fracture M80.08XA and Wedge compression fracture of T9-T10 vertebra, initial encounter for closed fracture S22.070A [facility] [address] [place] [address] [address] [place] [address] 12/04/2024 Desmond Burns Age-related osteoporosis with current pathological fracture, vertebra(e), initial encounter for fracture M80.08XA ; Wedge compression fracture of T11-T12 vertebra, initial encounter for closed fracture S22.080A and Elevated blood-pressure reading, without diagnosis of hypertension R03.0 [facility] [address] [place] [address] [place] [phone] 11/30/2024 Desmond Burns [facility] [address] [place] [address] [place] [phone] 08/30/2024 Desmond Burns [facility] [address] [place] [address] [address] [place] [address] 09/05/2024 Desmond Burns [facility] [address] [place] [address] [address] [place] [address] 09/07/2024 Desmond Burns [facility] [address] [place] [address] [place] [phone] 09/12/2024 [facility] [address] [place] [address] 10/01/2024 [facility] [address] [place] [phone] 10/03/2024 Desmond Burns Age-related osteoporosis with current pathological fracture, vertebra(e), initial encounter for fracture M80.08XA and Radiculopathy, thoracic region M54.14 [facility] [address] [place] [address] [place] [phone] 10/24/2024 [facility] [address] [address] 12/13/2024 Desmond Burns [facility] [address] [address] 02/26/2025 Desmond Burns Assessments Encounter Date Diagnosis (ICD [...] Insured Coverage Start Date Coverage End Date [facility] Medicare Complete [address] [address] [place], [place] [id number] [place] Self - patient is the insured Medical (General) History Medical History History ICD Code high blood pressure pacemaker osteoarthritis kidney stones urinary incontinence depression Surgical History Surgery Date(Month/Year) carpal tunnel release 2017 cataract removal 2014
--- OUTSIDE RECORDS SUMMARY | 2025-05-15 13:55 | XMS_ITS | Clinical Summary ---
Author Organization [facility] Address [address] [facility] [place] [address] Phone Care Team Providers Care Pattern Drum Maker Name Role Phone Henok Womack MD Primary [...] Encounters Date Type Department Care Team Description 04/02/2025 External Device Data [facility] ABSTRACTION Provider, Abstract 03/20/2025 External Device Data [facility]STRACTION Provider, Abstract 03/06/2025 External Device Data [facility]CTION Provider, Abstract 02/13/2025 External Device Data [facility]STRACTION Provider, Abstract 02/13/2025 External Device Data [facility] ABSTRACTION Provider, Abstract 02/13/2025 External Device Data [facility] ABSTRACTION Provider, Abstract [...] on file Legal Sex Female 12:12 PM COMMERCIAL ANNOUNCER Gender Identity Not on file Sexual Orientation Not on file Last Filed Vital Signs Vital Sign Reading Time Taken Comments Blood Pressure 147/83 08/21/2024 9:08 AM COMMERCIAL ANNOUNCER Pulse 82 08/21/2024 9:08 AM COMMERCIAL ANNOUNCER Temperature 36.3 C (97.3 F) 08/21/2024 9:08 AM COMMERCIAL ANNOUNCER Respiratory Rate 16 08/21/2024 9:08 AM COMMERCIAL ANNOUNCER Oxygen Saturation 99% 08/21/2024 9:08 AM COMMERCIAL ANNOUNCER Inhaled Oxygen Concentration - - Weight 73.3 kg (161 lb 8 oz) 08/21/2024 9:08 AM COMMERCIAL ANNOUNCER Height 152.4 cm (5') 08/21/2024 9:08 AM COMMERCIAL ANNOUNCER Body Mass Index 31.54 08/21/2024 9:08 AM COMMERCIAL ANNOUNCER Plan of Treatment Health Maintenance Due Date Last Done Comments OSTEOPOROSIS SCREENING 2008 RSV VACCINE (60+ or ) (1 - 1-dose 75+ series) 2018 INFLUENZA VACCINE (#1) 2025 , 05/16/2023, 05/01/2022, Additional history exists COVID-19 Vaccine (4 - 2023-2 5 season) 2025 05/03/2024, 05/26/2023, 01/27/2023, Additional history exists DTAP/TDAP/TD VACCINES (3 - T d or Tdap) 01/27/2033 01/27/2023, 10/03/2012 PNEUMOCOCCAL VACCINE 50+ YEARS Completed 0 01/27/2023, 12/30/2014, 04/24/2010 ZOSTER VACCINE Completed 05/16/2023, 0810/2022, 04/20/2007 Insurance [facility] [id number] Care Teams Pattern Drum Maker Relationship Specialty Start Date End Date Henok Womack MD [address] [place] [address] PCP - General Internal Medicine 08/21/24
--- OUTSIDE RECORDS SUMMARY | 2025-05-15 13:55 | XMS_ITS | Clinical Summary ---
Author Organization [facility] Address [address] [place] [address] Phone Care Team Providers Care Marine Design Engineer Name Role Phone Giorgio Dixon MD Unavailable [phone] Rashard De La Rosa MD Unavailable [phone] Cleve Renae MD Unavailable Bebeto Woodard MD, Alex Shelton Unavailable [phone] John Womack MD Primary Care Provide r [...] donepeziL (ARICEPT) 5 mg tabletIndicatio ns:Alzheimer's disease TAKE 1 TABLET(5 MG) BY MOUTH EVERY NIGHT 90 tablet 3 04/10/2025 Active Active Problems Problem Noted Date Diagnosed Date ICD (implantable cardioverter-defibrillator) in place 02/05/2025 Alzheimer's disease 09/24/2024 Memory loss 03/30/2024 Strain of lumbar region 12/12/2019 Grade 1 isthmic spondylolisthesis at L5-S1 12/11 Lumbar spondylosis 12/12/2019 BMI 30.0-30.9,adult 04/30/2019 Recurrent syncope 10/04/2018 Overview (04/30/2019): Implanted loop recorder CAROL (obstructive sleep apnea) 10/04/2018 Blood in stool 08/02/2018 Overview (08/02/2018): Added automatically from request for surgery [id number] Rectal bleeding 07/24/2018 Assessment & Plan (07/24/2018 1:10 PM FOREIGN CORRESPONDENT): GI has been consulted for which we appreciate their evaluation and recommendations. Anusol suppository. Colace. Holding ASA for now. Anemia 07/24/2018 Assessment & Plan (07/24/2018 1:11 PM FOREIGN CORRESPONDENT): With dizziness, likely 2/2 recent rectal bleeding. To receive 1 unit of PRBC. H&H after transfusion. Hypertension 07/24/2018 Assessment & Plan (07/24/2018 1:11 PM FOREIGN CORRESPONDENT): Stable. On Norvasc. HLD (hyperlipidemia) 07/24/2018 Assessment & Plan (07/24/2018 1:12 PM FOREIGN CORRESPONDENT): On Statin. Check lipid panel. History of vertigo 07/24/2018 Assessment & Plan (07/24/2018 1:12 PM FOREIGN CORRESPONDENT): Resumed prn meclizine. Presence of cardiac device [...] the day. Last Assessment & Plan: - [place] well supported and patient happy with results [...] the day. Last Assessment & Plan: - [place] well supported and patient happy with results [...] Encounters Date Type Department Care Team Description 05/07/2025 Telephone [facility] Neuro Sleep [address] 6th [address] [place] [address] Natalia Durbin, RN 05/07/2025 Telemedicine [facility] Neuro Sleep [address] 6[address] [place] [address] Calos Ingram MD CAROL (obstructive sleep apnea) (Primary Dx) 04/18/2025 8:45 AM CDT Office Visit [facility] [address] [facility] 7th [place] [address] Shanika Lan NP Alzheimer's disease (Primary Dx) 04/05/2025 Telephone [facility] Sleep [address] 6[address] [place] [address] Saritha Fiore 04/03/2025 Telephone [facility] Sleep [address] [place] [address] Natalia Durbin, CRISTINA 04/02/2025 7:30 PM CDT Procedure visit [facility] Sleep [address] [place] [address] CAROL (obstructive sleep apnea) (Primary Dx) 02/27/2025 Results Follow-Up Neurology Kris León MD PhD MRI Brain and Volumetric WO Contrast 02/22/2025 Telephone [facility] Cardiology [address] [facility] 8th [place] [address] [place] [address] Rashard De La Rosa MD 02/20/2025 7:30 AM CDT - 02/20/2025 11:59 PM CDT Hospital Encounter [facility] Radiology [address] [facility] [place] [address] Alzheimer's disease (HCC) Discharge Disposition: Discharge to home or self care 02/20/2025 Documentation Cardiology Chuyita Munoz NP from Last 3 Months Surgical History Surgery [...] Former Smokeless Tobacco: Never Tobacco Cessation:Counseling Given: No Alcohol Use Standard Drinks/Week Comments Yes 2 (1 standard drink = 0.6 oz pur e alcohol) Comments No Sex and Gender Information Value Date Recorded Sex Assigned at Not on file Legal Sex Female 1:38 PM CDT Gender Identity Female 04/12/2019 12:30 PM CDT Sexual Orientation Not on file Obstetrics History Last Filed Vital Signs Vital Sign Reading Time Taken Comments Blood Pressure 137/82 04/18/2025 8:43 AM CDT Pulse 80 04/18/2025 8:43 AM CDT Temperature 36.6 C (97.9 F) 04/02/2025 9:19 PM CDT Respiratory Rate 16 08/10/2018 1:15 PM FOREIGN CORRESPONDENT Oxygen Saturation 96% 04/02/2025 9:19 PM CDT Inhaled Oxygen Concentration - - Weight 67.6 kg (149 lb) 04/18/2025 8:43 AM CDT Height 144.8 cm (4' 9) 04/18/2025 8:43 AM CDT Body Mass Index 32.24 04/18/2025 8:43 AM CDT Plan of Treatment Health Maintenance Due Date Last Done Comments Depression Screening 1945 Fall Risk Assessment 1945 Osteoporosis Screening-Bone Density Scan 1945 Hepatitis B Screening 1961 Well Visit 65+ 2008 Influenza Vaccine (#1) 2025 4, 05/01/2022, 04/29/2020, Additional history exists DTaP/Tdap/Td Vaccine (3 - Td or Tdap) 01/27/2033 01/27/2023, 10/03/2012 Pneumococcal vaccine 65+ Completed 017, 08/01/2015, 12/30/2014, Additional history exists Zoster Vaccine Completed 05/16/2023, 03/04/2023 Medical Devices Implanted Type Area Equity Manager Device Identifier Shelf Expiration Date Model / Serial / Lot Biotronik Ra Lead 624672-8/25/20 21 Implanted:08/02 (Quantity not on file) Lead Heart Biotronik [id number] / / Biotronik Rv Lead [id number]/25/20 21 Implanted:08/02 (Quantity not on file) Lead Heart Biotronik [id number] / / Biotronik Pm [id number]/25/20 21 Implanted:08/02 (Quantity not on file) Pacemaker Chest Wall Biotronik [id number] / / Procedures Procedure Name Priority Date/Time Associated Diagnosis Comments PSG (COMPLEX) Routine 04/02/2025 8:00 PM CDT CAROL (obstructive sleep apnea) MRI BRAIN AND VOLUMETRIC WO CONTRAST Schedule Routine, Read Routine (OP Routine) 02/20/2025 9:53 AM CDT Alzheimer's disease (HCC) from Last 3 Months Results * PSG (COMPLEX) (04/02/2025 8:00 PM CDT) Narrative Calos Ingram MD - 04/02/2025 8:00 PM CDT Calos Ingram MD 04/03/2025 2:37 PM PSG-Sleep Provider Use Only Date/Time: 04/02/2025 8:00 PM Performed by: Calos Ingram MD Authorized by: aClos Ingram MD Calos Ingram MD [facility] ORDERABLES Final Re sult * MRI Brain and Volumetric WO Contrast (02/20/2025 9:53 AM CDT) Anatomical Region Laterality Modality Head and Neck N/A Magnetic Resonan ce 02/20/2025 3:09 PM CDT Impressions 02/20/2025 3:55 PM CDT Overall, the pattern of atrophy is nonspecific. 1. The volumetrics where not completed. If they are completed at a later date an addendum can be added to this study. 2. Total cerebral microhemorrhages: 0. 3. Superficial siderosis is 0 4. Lacunar infarct in the left basal ganglia. Dictated by: Chiquis Frey M.D. The radiology attending physician has personally reviewed this study, and had reviewed and/or edited this written report and agrees with it. Electronically signed by: Brionna Hurtado MD, PhD Narrative 02/20/2025 3:55 PM CDT EXAMINATION: Magnetic resonance imaging (MRI) of the brain and brainstem without contrast HISTORY: 79-year-old female with mild Alzheimer's disease, evaluating for lecanemab therapy. TECHNIQUE: Multiplanar multi-weighted MRI of the brain and brainstem was performed without intravenous contrast using a protocol specific to assess patients with memory complaints. The protocol specifically includes FLAIR to assess for potential infarcts and white matter lesions associated with vascular cognitive impairment and with susceptibility sensitive sequences for detection of cerebral microhemorrhages. COMPARISON: None Available. FINDINGS: The scalp and calvarium are normal. The superior sagittal sinus demonstrates normal venous flow. The corpus callosum is normal in shape and signal intensity. The posterior fossa is unremarkable. The pituitary and sella are normal. The brainstem and craniocervical junction are unremarkable. Scattered ill-defined FLAIR hyperintensities in the periventricular and subcortical white matter are nonspecific, likely on the basis of chronic small vessel ischemic change. There is parenchymal volume loss. Diffusion weighted images reveal no hyperintensities to suggest acute cerebral infarction. The susceptibility weighted sequences reveal no evidence of acute or chronic hemorrhage. The ventricles are normal in size and position without evidence of hydrocephalus. The paranasal sinuses are normal. The visualized portions of the mastoids are unremarkable. Bilateral lens replacement. Normal flow voids are demonstrated in the carotid arteries and basilar artery. QUALITATIVE ASSESSMENT: Small infarcts (< 15 mm): 1, left lacunar infarct Infarcts (>15 mm): No. White matter hyperintensities (Fazekas grade): Moderate/Fazekas 2: Beginning confluency of lesions (bridging). Prior cerebral microhemorrhages: No prior exam is available to allow for adequate comparison Total cerebral microhemorrhages: There are no MCH. Prior siderosis: no prior exam available for adequate comparison. New/incident siderosis: None. Procedure Note Brionna Hurtado MD PhD - 02/20/2025 EXAMINATION: Magnetic resonance imaging (MRI) of the brain and brainstem without contrast HISTORY: 79-year-old female with mild Alzheimer's disease, evaluating for lecanemab therapy. TECHNIQUE: Multiplanar multi-weighted MRI of the brain and brainstem was performed without intravenous contrast using a protocol specific to assess patients with memory complaints. The protocol specifically includes FLAIR to assess for potential infarcts and white matter lesions associated with vascular cognitive impairment and with susceptibility sensitive sequences for detection of cerebral microhemorrhages. COMPARISON: None Available. FINDINGS: The scalp and calvarium are normal. The superior sagittal sinus demonstrates normal venous flow. The corpus callosum is normal in shape and signal intensity. The posterior fossa is unremarkable. The pituitary and sella are normal. The brainstem and craniocervical junction are unremarkable. Scattered ill-defined FLAIR hyperintensities in the periventricular and subcortical white matter are nonspecific, likely on the basis of chronic small vessel ischemic change. There is parenchymal volume loss. Diffusion weighted images reveal no hyperintensities to suggest acute cerebral infarction. The susceptibility weighted sequences reveal no evidence of acute or chronic hemorrhage. The ventricles are normal in size and position without evidence of hydrocephalus. The paranasal sinuses are normal. The visualized portions of the mastoids are unremarkable. Bilateral lens replacement. Normal flow voids are demonstrated in the carotid arteries and basilar artery. QUALITATIVE ASSESSMENT: Small infarcts (< 15 mm): 1, left lacunar infarct Infarcts (>15 mm): No. White matter hyperintensities (Fazekas grade): Moderate/Fazekas 2: Beginning confluency of lesions (bridging). Prior cerebral microhemorrhages: No prior exam is available to allow for adequate comparison Total cerebral microhemorrhages: There are no MCH. Prior siderosis: no prior exam available for adequate comparison. New/incident siderosis: None. IMPRESSION: Overall, the pattern of atrophy is nonspecific. 1. The volumetrics where not completed. If they are completed at a later date an addendum can be added to this study. 2. Total cerebral microhemorrhages: 0. 3. Superficial siderosis is 0 4. Lacunar infarct in the left basal ganglia. Dictated by: Chiquis Frey M.D. The radiology attending physician has personally reviewed this study, and had reviewed and/or edited this written report and agrees with it. Electronically signed by: Brionna Hurtado MD, PhD Kris León MD PhD IMG MRI PROCEDURES Fin al Result from Last 3 Months Insurance MEDICARE ADVANTAGE [place] [id number] UHC MEDICARE ADVANTAGE Advance Directives For more information, please contact: [phone] * Full Code (Latest Code Status on File) Date Activated Date Inactivated Comments 07/24/2018 5:12 AM 07/26/2018 4:18 PM Care Teams Marine Design Engineer Relationship Specialty Start Date End Date John Womack MD [address] [place] [address] PCP - General Internal Medicine 06/27/24 Giorgio Dixon MD Consulting Physician Gastroenterology 07/26/18 Rashard De La Rosa MD Consulting Physician Cardiology 04/30/19 Cleve Renae MD Consulting Physician Cardiovascular Disease 07/07/20 Alex Tate Jr., MD [address] [place] [address] Consulting Physician Cardiovascular Disease 10/08/20 Kris León MD PhD [address] [place] [address] Referring Physician Neurology 09/24/24
--- OUTSIDE RECORDS SUMMARY | 2025-05-15 13:55 | XMS_ITS | Clinical Summary ---
Author Organization [facility] Address [address] [place] [address] Care Team Providers Care Highway Engineering Technician Name Role Phone Henok Womack MD Primary Care Provider Cleve Renae MD Unavailable Source Comments [facility],non-owned Affiliates and Associated Physician Practices is amultiple site organization consisting of ambulatory clinics and hospital sitesin [place], [place], [place] and [place]. This disclosure is being madepursuant to the Care Everywhere program and may not contain all information available regarding this patient. 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 Height 155.6 cm (5' 1.25) 08/20/2020 11:[address] Body Mass Index 31.03 08/20/2020 11:34 AM DOCTOR ASSISTANT Plan of Treatment Health Maintenance Due Date Last Done Comments BONE DENSITY TESTING 1945 DTAP/TDAP/TD VACCINES (1 - Tdap) 1962 PNEUMOCOCCAL VACCINE 50+ (1 of 1 - PCV) 1993 ZOSTER VACCINE (1 of 2) 1993 Respiratory Syncytial Virus (RSV) Vaccine Pt: or over 60 yrs (1 - 1-dose 75+ series) 2018 DEPRESSION SCREENING 08/01/2024 MEDICARE AWV CALENDAR YEAR 2024 COVID-19 VACCINE ( season) 2025 04/29/2021 INFLUENZA VACCINE (#1) 2025 2, 04/29/2020, 05/21/2019, Additional history exists HEPATITIS B [...] this topic Medical Devices Implanted Type Area Manager Strategic Alliances Device Identifier Shelf Expiration Date Model / Serial / Lot Cardiac Lead Ra-08/25/2020 Implanted:08/02 (Quantity not on file) Cardiac Lead Biotronik [id number] / [id number] / Cardiac Lead Rv-08/25/2020 Implanted:08/02 (Quantity not on file) Cardiac Lead Biotronik [id number] / [id number] / Pacemaker-08/25 Implanted:08/02 (Quantity not on file) Pacemaker Biotronik [id number] / [id number] / Insurance [facility] MANAGED MEDICARE ADV MEDICARE [employer] Care Teams Highway Engineering Technician Relationship Specialty Start Date End Date Henok Womack MD [address] [id number] PCP - General Internal Medicine 03/10/18 [place] [id number] [address] Cardiology 10/01/24
--- OUTSIDE RECORDS SUMMARY | 2025-05-15 13:55 | XMS_ITS | Data Portability ---
Author Organization [place] [employer], Main Office Address [address] [place] [address] Care Team Providers Care Actuary Manager Name Role Phone SONY WOMACK Primary Care Provider SONY WOMACK Referring Provider [phone] [facility] NEUROSURGERY Neurosurgeon [phone] ALEX TATE Stone Dresser ERNIE CHERY Assignment Desk Assistant [phone] Assessment Encounter Date Assessment Date Assessment LastModified [...] 09/20/2024: A1C 5.9 Not available 12/26/2024 15:55:05 03/18/2025 03/18/2025 01/20/2023: A1C 6.2 LDL 115 WBC 4.1 05/25/2023: Glob 2.4, TP WNL LDL 99 09/20/2024: A1C 5.9 02/07/2025: K 3.3 AST 37 WBC 4.0 kayec Not available 03/18/2025 10:26:17 Plan of Treatment Reminders Order Date Submit Date Provider Last Modified By Organization Details Last Modified Time Details Appointments Follo w Up 15 2024 08:45A M Sony bains MD Not available Not available Not available Lab glyco hemog lobin , total , blood 2024 025 [facility], [address], [place], [address], 03/18/2025 10:29:05 micro album in, urine 2024 025 [facility], [address], [place], [address], 03/18/2025 10:28:51 measl es virus IgG Ab, quant , immun oassa y, serum 2024 025 [facility], [address], [place], [address], 03/18/2025 10:28:51 lipid panel , serum 2024 025 [facility], [address], [place], [address], 03/18/2025 10:28:50 CMP, serum or plasm a 2024 025 [facility], [address], [place], [address], 03/18/2025 10:28:51 CBC w/ auto diff 2024 025 [facility], [address], [place], [address], 03/18/2025 10:28:50 TSH + free T4, serum 2024 025 [facility], [address], [place], [address], 03/18/2025 10:28:50 vitam in D, 25-hy droxy , total , serum 2024 025 JO[facility], [address], [place], [address], 03/18/2025 10:28:51 cobal funez and folat e panel , serum 2024 025 [email or web address] [facility], [address], [place], [address], 03/25/2025 12:10:43 potas sium, serum or plasm a 2024 025 [facility], [address], [place], [address], 03/18/2025 13:01:48 vitam in B12 + folat e, serum or blood 2024 025 [facility], [address], [place], [address], 03/18/2025 10:28:51 glyco hemog lobin , total , blood 2024 025 [facility], [address], [place], [address], 12/26/2024 10:30:33 micro album in, urine 2024 025 [facility], [address], [place], [address], 12/26/2024 10:30:32 measl es virus IgG Ab, quant , immun oassa y, serum 2024 025 [facility], [address], [place], [address], 12/26/2024 10:30:34 lipid panel , serum 2024 025 [facility], [address] [facility], [place], [address], 02/08/2025 08:14:27 CMP, serum or plasm a 2024 025 [facility], [address] [facility], [facility], [place], [address], 02/08/2025 08:14:27 CBC w/ auto diff 2024 025 [facility], [address] [facility], [facility], [place], [address], 02/08/2025 08:14:27 TSH + free T4, serum 2024 025 [facility], [address] [facility], [facility], [place], [address], 02/08/2025 08:14:27 vitam in D, 25-hy droxy , total , serum 2024 025 [facility], [address] [place] [address], [facility], [place], [address], 12/26/2024 10:30:33 vitam in B12 + folat e, serum or blood 2024 025 [facility], [address] [place] [address], [facility], [place], [address], 02/08/2025 08:14:27 glyco hemog lobin , total , blood 2024 025 [email or web address] [facility], [address] [facility], [facility], [place], [address], 03/19/2025 08:41:57 micro album in, urine 2024 025 [email or web address] [facility], [address] [facility], [facility], [place], [address], 03/19/2025 08:41:57 measl es virus IgG Ab, quant , immun oassa y, serum 2024 025 [email or web address] [facility], [address] [place] [address], [place], [address], 04/15/2025 14:08:38 lipid panel , serum 2024 025 [facility], [address] [place] [address], [place], [address], 09/20/2024 13:54:04 CMP, serum or plasm a 2024 025 [facility], [address] [place] [address], [place], [address], 09/20/2024 10:52:33 CBC w/ auto diff 2024 025 [facility], [address] [place] [address], [place], [address], 09/20/2024 10:52:33 TSH + free T4, serum 2024 025 [employer] [facility], [address] [place] [address], [place], [address], 03/19/2025 08:41:57 vitam in D, 25-hy droxy , total , serum 2024 025 [email or web address] [facility], [address] [place] [address], [place], [address], 03/19/2025 08:41:57 vitam in B12 + folat e, serum or blood 2024 025 [employer] [facility], [address] [place] [address], [place], [address], 03/19/2025 08:41:57 glyco hemog lobin , total , blood 2024 025 [email or web address] [facility], [address] [facility], [facility], [place], [address], 02/05/2025 08:22:36 micro album in, urine 2024 025 [email or web address] [facility], [address] [facility], [facility], [place], [address], 02/05/2025 08:22:36 lipid panel , serum 2024 025 [facility], [address] [facility], [facility], [place], [address], 09/20/2024 10:52:33 CMP, serum or plasm a 2024 025 [facility], [address] [facility], [facility], [place], [address], 09/20/2024 10:54:20 CBC w/ auto diff 2024 025 [email or web address] [facility], [address] [place] [address], [facility], [place], [address], 02/05/2025 08:22:36 TSH + free T4, serum 2024 025 [facility], [address] [facility], [facility], [place], [address], 09/20/2024 13:54:04 vitam in D, 25-hy droxy , total , serum 2024 025 [email or web address] [facility], [address] [place] [address], [facility], [place], [address], 02/12/2025 08:27:15 vitam in B12 + folat e, serum or blood 2024 025 [email or web address] [facility], [address] [place] [address], [facility], [place], [address], 02/05/2025 08:22:36 Referral pain manag ement refer sylvia - Pleas e call patie nt to sched ule an appoi ntmen t. Thank you. 2024 025 [facility], [address], [address], [place], [address], 04/30/2025 16:21:49 otola ryngo logis t refer ral - Pleas e call patie nt to sched ule an appoi ntmen t. Thank you. 2024 025 NOAH Almeida MD, [address], [place], [address], 03/19/2025 09:19:52 pulmo nolog ist refer ral - Pleas e call patie nt to sched ule an appoi ntmen t. Thank you. 2024 025 NOAH Live Chi, MD, [address], [facility] [address], [place], [address], 03/19/2025 10:11:[address] refer ral - Pleas e call patie nt to sched ule an appoi ntmen t. Thank you. 2024 025 NOAH Tate MD, [address] [facility], [facility] [address], [place], [address], 03/19/2025 10:25:[address] refer ral - Pleas e call patie nt to sched ule an appoi ntmen t. Thank you. 2024 025 NOAH Carranza MD, [address], [place], [address], 03/19/2025 09:36:42 otola ryngo logis t refer ral - Pleas e call patie nt to sched ule an appoi ntmen t. Thank you. 2024 025 cash Almeida MD, [address], [place], [address], 04/04/2025 11:41:18 otola ryngo logis t refer ral - Pleas e call patie nt to sched ule an appoi ntmen t. Thank you. 2024 025 [email or web address] Storm Almeida MD, [address], [place], [address], 10/04/2024 15:48:19 neuro logic al surge on refer ral 2024 025 [place], [address] [facility], [place], [address], 08/21/2024 16:56:56 pulmo nolog ist refer ral - Pleas e call patie nt to sched ule. 2024 025 cash Live Chi, MD, [address], [address], [place], [address], 01/04/2025 11:09:[address] refer ral 2024 025 [email or web address] Alex Tate MD, [address] [facility], [address], [place], [address], 08/13/2024 18:14:28 derma tolog ist refer ral - Pleas e call patie nt to sched ule an appoi ntmen t. Thank you. 2024 025 cash Shi MD, [address] [place], [address], 03/18/2025 09:40:51 Procedures marialuisa maneu burke (PROC ) 2024 025 [email or web address] [facility] [place] [facility], [address], [place], [address], 12/25/2024 10:33:13 Surgeries None recor ded. Imaging DEXA 2024 025 [facility] (Imaging), [address] [facility] [address], [place], [address], 03/18/2025 10:40:30 DEXA [address] (Imaging), [address] [facility] [address], [place], [address], 03/11/2025 10:01:00 Medication Orders mecli zine 12.5 mg table t 2024 025 [id number], [address], [place], [id number], 09/20/2024 10:07:36 Patient TargetsNo targets recorded. Patient Instructions Encounter Date Encounter Id Patient Instructions Last Modified By Organization Details Last Modified Time 08/09/2024 [id number] dementia rating scale-2* [email or web address] 2 Not available 08/09/2024 10:27:13 alcohol misuse* [email or web address] 2 Not available 08/09/2024 10:27:13 depression screening* [email or web address] 2 Not available 08/09/2024 10:27:13 Timed Up and Go test (TUG)* [email or web address] 2 Not available 08/09/2024 10:27:13 multi-dimensiona l health assessment questionnaire* [email or web address] Not available 08/15/2024 12:54:21 Personalized [facility] Plan and Screening Recommendations Advance Directives - [...] treatment plan Not available 08/09/2024 11:44:02 09/20/2024 [id number] diabetic eye exam* [email or web address] Not avail able 03/19/2025 08:27:09 09/24/2024 [id number] patient will hav e a Fartun-Hallpike testing and Marialuisa maneuvers if indicated by PT. she will have an audiogram and tympanogram completed. We will follow up when those results become available. Not available 09/24/2024 16:10:37 Reason for Referral Stone Dresser Referral for Sy ncope Referring Physician: Sony Womack Internal Medicine, Encounter Date: 08/09/2024 Center Maker Hand Referral for O bstructive sleep apnea syndrome Please call patient to schedule. Referring Physician: Sony Womack Internal Medicine, Encounter Date: 08/09/2024 Resourcing Consultant Referral for S kin lesion Please call patient to schedule an appointment. Thank you. Referring Physician: Sony Womack Internal Medicine, Encounter Date: 08/09/2024 Neurological Surgeon Diony hicks for Low back pain Referring Physician: Sony Womack Internal Medicine, Encounter Date: 08/09/2024 Assignment Desk Assistant Referral fo r Benign paroxysmal positional vertigo Please call patient to schedule an appointment. Thank you. Referring Physician: Sony Womack Internal Medicine, Encounter Date: 09/20/2024 Assignment Desk Assistant Referral fo r Benign paroxysmal positional vertigo Please call patient to schedule an appointment. Thank you. Referring Physician: Sony Womack Internal Medicine, Encounter Date: 12/26/2024 Assignment Desk Assistant Referral fo r Benign paroxysmal positional vertigo Please call patient to schedule an appointment. Thank you. Referring Physician: Sony Womack Internal Medicine, Encounter Date: 03/18/2025 Center Maker Hand Referral for O bstructive sleep apnea syndrome Please call patient to schedule an appointment. Thank you. Referring Physician: Sony Womack Internal Medicine, Encounter Date: 03/18/2025 Stone Dresser Referral for Sy ncope Please call patient to schedule an appointment. Thank you. Referring Physician: Sony Womack Internal Medicine, Encounter Date: 03/18/2025 Pain Management Referral for Low back pain Please call patient to schedule an appointment. Thank you. Referring Physician: Sony Womack Internal Medicine, Encounter Date: 03/18/2025 Please call patient to sched ule an appointment. Thank you. Referring Physician: Sony Womack Internal Medicine, Encounter Date: 03/18/2025 Results Created Date Observation Date Name Description Value Unit Range Abnormal Flag Note LastModifiedBy Organization Detail LastModifiedTime 04/30/2004/30/2025 imagi ng/di agnos tic resul t No observ ation record ed. [facility] [address], [place], [address], 04/30/2025 12:53:20 04/30/20 25 04/30/2025 imagi ng/di agnos tic resul t No observ ation record ed. [facility] [address], [place], [address], 04/30/2025 17:05:24 Result Notes None recorded. Problems Name Problem SNOMED Code Status Onset Date Resolution Date Notes Provider Name and Address Organization Details Recorded Time Closed fracture of distal end of radius 25263357 Active Not Available [facility] 3 02:51:32 Localized, primary osteoarthr itis of the hand 185962006 Active Not Available [facility] 3 02:51:32 Closed fracture proximal humerus, greater tuberosity 945673758 Active Not Available [facility] 3 02:51:32 Shoulder joint pain 928801643 Active Not Available [facility] 3 02:51:32 Carpal tunnel syndrome 31087815 Active Not Available [facility] 3 02:51:32 Fracture of forearm 67514281 Active Not Available [facility] 3 02:51:32 Fracture of humerus 78842923 Active Not Available [facility] 3 02:51:33 Hypothyroi dism 16998280 Active 2018 Not Available [facility] 3 02:51:32 Osteoporos is 96930150 Active 2018 Not Available [facility] 3 02:51:32 Vitamin D deficiency 62172674 Active 2021 Not Available [facility] 3 02:51:32 Hyperlipid emia 93215184 Active 2021 Not Available [facility] 3 02:51:32 Pain of left wrist 0310753634611 02 Active 2021 Not Available [facility] 3 02:51:32 Hyperglyce chadd 60340659 Active 2021 Not Available [facility] 3 02:51:33 Pain of left knee joint 3410967243894 07 Active 2021 Not Available [facility] 3 02:51:32 Acute sinusitis 59801150 Active 2021 Not Available [facility] 3 02:51:32 Pain of right hand 0078846081513 09 Active 2022 POLINA Ken null, [place] [facility] 3 08:58:30 Pain of right wrist 6109664874517 00 Active 2022 Jerri Lozano jagdish, [place] [facility] 3 09:41:12 Carpal tunnel syndrome of right wrist 0912975143585 08 Active 2022 Cassius Page MD [address], [address], [place], [address] , [facility] 3 09:44:59 Ulnar nerve entrapment at elbow 223073440 Active 2022 Cassius Page MD [address], [address], [place], [address] , [facility] 3 09:45:29 Bilateral carpal tunnel syndrome 9616496057400 9101 Active 2022 POLINA Gonzales, [place] [facility] 3 08:57:10 Essential hypertensi on 34504614 Active 2022 Sony renner MD [address], [address], [place], [address] , [facility] 3 08:57:47 Obstructiv e sleep apnea syndrome 64595698 Active 2022 Sony renner MD [address], [place], [address] , [facility] 3 08:58:00 Depressive disorder 08387918 Active 2022 POLINA [place], [place] [facility] 5 17:12:05 Syncope 734845504 Active 2022 Sony renner MD [address], [place], [address] , [facility] 3 08:58:16 Numbness of hand 232329478 Active 2022 Sony renner MD [address], [place], [address] , [facility] 3 08:58:29 Dizziness 595885454 Active 2022 Sony renner MD [address], [place], [address] , [place] [facility] 3 08:58:36 Low back pain 634648431 Active 2022 Sony renner MD [address], [place], [address] , [place] 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 3 08:59:06 Pain of bilateral knee joints 1732586993776 04 Active 2022 Sony renner MD [address], [place], [address] , [place] [facility] 3 08:59:44 Prediabete s 177694898 Active 2022 Sony renner MD [address], [place], [address] , [place] [facility] 3 09:26:40 Leukopenia 64794216 Active 2022 Sony renner MD [address], [place], [address] , [place] [facility] 3 09:31:09 Benign paroxysmal positional vertigo 637427132 Active 2022 Sony rnener MD [address], [place], [address] , [place] [facility] 3 09:49:21 Seasonal allergic rhinitis 936988482 Active 2022 Sony renner MD [address], [place], [address] , [facility] 3 10:54:33 Forgetful 08209949 Active 2022 Sony renner MD [address], [place], [address] , [place] [facility] 3 10:56:43 Skin lesion 36467246 Active 2022 Sony renner MD [address], [place], [address] , [facility] 3 11:01:09 Otitis media 33937044 Active 2023 Sony renner MD [address], [place], [address] , [facility] 4 14:48:04 Upper respirator y infection 23165093 Active 2023 Eveline Stewart MA null, [place] [facility] 4 16:00:37 Proteinuri a 73855852 Active 2023 Eveline Stewart MA null, [place] [facility] 4 16:12:32 Reactive lymphadeno chiquita 256357371 Active 2023 Sony renner MD [address], [place], [address] , [facility] 4 16:15:23 Serum vitamin B12 below reference range 168629652 Active 2024 Sony renner MD [address], [place], [address] , [facility] 5 10:26:02 Sensorineu ral hearing loss 18964201 Active 2024 Ruth East RN null, [place] [facility] 5 16:03:20 Tinnitus 38750472 Active 2024 Ruth East RN null, [place] [facility] 5 16:03:55 Benign paroxysmal positional vertigo 636661184 Active 2024 Ruth East RN null, [place] [facility] 5 16:04:32 Benign paroxysmal positional vertigo 968494258 Active 2024 DASHAWN Ureña [address], [place], [address] , [facility] 5 16:08:25 Bilateral tinnitus 3126476967868 Active 2024 DASHAWN Ureña [address], [place], [address] , [facility] 5 16:08:45 Sensorineu ral hearing loss of bilateral ears 343604680 Active 2024 DASHAWN Ureña [address], [place], [address] , [facility] 5 16:09:28 Osteoporot ic fracture 322137721 Active 2024 Sony renner MD [address], [place], [address] , [facility] 5 13:28:08 Hypokalemi a 37571573 Active 2024 Sony renner MD [address], [place], [address] , [facility] 5 10:28:26 Notes:coronary artery diseas e depression high cholesterol hypertension migraines urinary/bladder/kidney infections Problem Notes None recorded. Procedures Surgical History Date Name Laterality Status Provider Name and Address Organization Details Recorded Time 08/09/19 25 Medicare Wellness CPT Code, subsequent completed Michel Sharma LPN [facility] 07/26/2024 10:04:30 11/26/19 21 Most Recent [facility] Density completed Not Available [facility] 09/29/2022 02:44:52 09/25/19 21 Pacemaker completed Not Available [facility] 02:44:54 02/24/20 16 Thyroid Surgery completed Not Available [facility] 0308/2022 02:44:54 09/16/19 16 Orthopedic Surgery completed Not Available [facility] 09/29/2022 02:44:54 01/30/20 15 Date of Last Colonoscopy completed Not Available [facility] 09/29/2022 02:44:52 01/30/20 15 Colonoscopy with biopsy completed Not Available [facility] 09/29/2022 02:44:54 03/02/20 13 other completed Not Available [facility] 02:44:54 03/01/20 13 BEAM CARRIER HAULER PUSHER Surgery completed Not Available [facility] 09/30/19 23 02:44:54 03/01/20 13 other completed Not Available [facility] 02:44:54 04/19/20 12 other completed Not Available [facility] 3 02:44:54 04/19/20 12 Bso omentectomy w/sarah completed Not Available [facility] 09/29/2022 02:44:54 Back completed Kay Walsh MA [facility] 12/26/2024 09:45:40 Eye Surgery completed Not Available [facility] 09/29/2022 02:44:54 other completed Not Available [facility] 08/2022 02:44:54 other completed Not Available [facility] 08/2022 02:44:54 Imaging Results None recorded. Procedure Notes None recorded. Medical Equipment None Reported. Allergies Allergen ID Allergen Name Allergen Category Reaction Reaction Severity Criticality Documentation Date Start Date Code Code System Note Provider Name and Address Organization Details Recorded Time 76828 Augmentin medicatio n vomiting Not available Not available 11/16/2023 27274 2 RxNorm YOVANY Mcgill [place] [employer] 4 17:39:20 Medications Name Sig Start Date Stop [...] EVERY 6 HOURS FOR 23 DAYS NEEDED 03/18 completed Not Available Not Available Not Available meloxicam 15 mg tablet TAKE 1 [...] n for injection in office 09/12 completed [facility]: [phone] 11-18 Not Available Not Available [...] Available gabapenti n 300 mg capsule TAKE 1 CAPSULE BY MOUTH TWICE DAILY.(N O ALCOHOL, DRIVING OR WITH OTHER SEDATING MEDICATI ONS) 2024 active Not Available Not Available Not Avai lable diclofena c sodium 75 mg tablet,de layed [...] TAKE 1 TABLET BY MOUTH EVERY DAY 03/18 completed Not Available Not Available Not Available escitalop lavinia 20 mg tablet TAKE [...] completed Not Available Not Available Not Available donepezil 5 mg daily active Not Available Not Available No t Available ondansetr on 4 mg 1 as needed for nausea 02/22 completed Not Available Not Available Not Available Culturell e 08/22 completed Not Available Not Available Not Available Hydrocodo ne W/Acetami nophen active Not Available Not Available Not Available lidocaine (PF) 10 mg/mL (1 %) injection solution In office injectio n administ ered by the provider 04/19 completed ND: [id number] 01-15 Not Available Not Available Not Available Voltaren [...] %) injection solution in office 09/12 completed [facility] [id number] 4- Not Available Not Available Not Available Citracal- D3 Gummies twice a day 10/21 completed Not Available Not Available Not Available cyanocoba loy (vit B-12) 1,000 mcg sublingua l lozenge Place by sublingu al route. 2019 active Not Available Not Available Not Avai lable Fluzone High-Dose 0635-3425 (PF) 180 mcg/0.5 mL intramusc ular syringe ADM 0.5ML IM UTD 06/28 completed Not Available Not Available Not Available Fluzone High-Dose (PF) 180 mcg/0.5 mL intramusc [...] DateTime 08/09/2024 157.48 cm Kay Walsh MA [place] - S [employer] 08/09/2024 09:08:54 Date Recorded Body mass index (BMI) Body weight Body temperature Heart rate Respiratory rate Oxygen saturation Oxygen saturation in Arterial blood by Pulse oximetry Pain severity - 0-10 verbal numeric rating [Score] - Reported Systolic And Diastolic Provider Name and Address Organization Details Last Updated DateTime 5 29.1 kg/m2 74637.1 9 g 98.2 [degF] 88 /min 16 /min 96 % 96 % 6 108/54 mm[Hg] Michel Sharma LPN [facility] [employer] [facility] 5 09:34:24 Date Recorded Body height Body mass index (BMI) Body weight Body temperature Heart rate Systolic And Diastolic Provider Name and Address Organization Details Last Updated DateTime 5 157.48 cm 29.1 kg/m2 12195.1 9 g 97.7 [degF] 84 /min 100/58 mm[Hg] POLINA Newberry [facility] [employer] 5 09:56:39 Date Recorded Body height Body mass index (BMI) Body weight Body temperature Provider Name and Address Organization Details Last Updated DateTime 09/24/2024 157.48 cm 28 kg/m2 55956.63 g 97.7 [degF] Ruth East RN [facility] [employer] 09/24/2024 15:14:34 Date Recorded Body height Body mass index (BMI) Body weight Body temperature Heart rate Oxygen saturation Oxygen saturation in Arterial blood by Pulse oximetry Systolic And Diastolic Provider Name and Address Organization Details Last Updated DateTime 5 149.86 cm 31.1 kg/m2 71321.2 2 g 98 [degF] 64 /min 97 % 97 % 149/86 mm[Hg] Kay Walsh MA [facility] [employer] [facility] 5 09:43:09 Date Recorded Body height Body mass index (BMI) Body weight Body temperature Heart rate Oxygen saturation Oxygen saturation in Arterial blood by Pulse oximetry Pain severity - 0-10 verbal numeric rating [Score] - Reported Systolic And Diastolic Provider Name and Address Organization Details Last Updated DateTime 5 149.86 cm 29.9 kg/m2 86064.6 7 g 97.6 [degF] 77 /min 98 % 98 % 9 134/72 mm[Hg] Kay Walsh MA [facility] [employer] 09:38:38 Social History Question Answer Notes LastModified by Organization Details LastModified Time Tobacco Smoking Status Former Smoker quit 1960 Ruth East RN [facility], [facility] [employer] 09/24/2024 15:13:49 Do You Have An Advance Directive? Yes [id number] Information not available 09/29/2022 How Many Years Have You Consumed Alcohol? 60 [email or web address] Information not available 08/09/2024 Do You Wear A Helmet When Biking? No Does Not Bike [email or web address] Information not available 08/09/2024 Are You Blind Or Do You Have Difficulty Seeing? No Information not available 03/30/2023 Is Blood Transfusion Acceptable In An Emergency? Yes Information not available 08/09/2024 What Is Your Level Of Caffeine Consumption? None [id number] [id number] Information not available 09/29/2022 How Much Tobacco Do You Chew? None [id number] Information not available 09/29/2022 What Is Your Code Status? DNR [email or web address] Information not available 08/09/2024 In The 14 [...] Type Of Diet Are You Following? REGULAR Information not available 08/09/2024 Which Illicit Or Recreational Drugs Have You Used? None Information not available 03/30/2023 What Is The Highest Grade Or Level Of School You Have Completed Or The Highest Degree You Have Received? [id number] Information not available 03/30/2023 How Many Days Of Moderate To Strenuous Exercise, Like A Brisk Walk, Did You Do In The Last 7 Days? 0 [email or web address] Information not available 08/09/2024 Have There Been [...] With Any Objectives In Notes Field) Yes [email or web address] Information not available 08/09/2024 Presence Of Domestic Violence No Information not available 08/09/2024 Guns Present In The Home? No [email or web address] Information not available 08/09/2024 Are You Able To Care For Yourself? Yes Information not available 08/09/2024 Are You Blind Or Do Yo Have Difficulty Seeing? No [email or web address] Information not available 08/09/2024 Are You Deaf Or Do You Have Serious Difficulty Hearing? No Information not available 08/09/2024 General Stress Level? Low [email or web address] Information not available 08/09/2024 Live Alone Of With Others? With Others [email or web address] Information not available 08/09/2024 Do You Have A Medical Power Of [employer]? Yes Information not available 03/30/2023 What Was The Date Of Your Most Recent Tobacco Screening? 03/18/2025 [email or web address] Information not available 03/18/2025 How Many Children Do You Have? 1 [email or web address] Information not available 08/09/2024 What Is Your Current Pack Years? 10-19packyears Information not available 03/30/2023 Have You Ever Been Counseled For Unhealthy Alcohol Use? No [email or web address] Information not available 08/09/2024 Do You Have Any Pets? No Information not available 03/30/2023 What Is Your Relationship Status? [id number] Information not available 09/29/2022 Do You Use Your Seat Belt Or Car Seat Routinely? Yes Information not available 03/30/2023 Are You Sexually Active? No [email or web address] Information not available 08/09/2024 Do You Have [...] Much Tobacco Do You Smoke? No MIGRATION.[id number] [id number] Information not available 09/29/2022 What Types Of Sporting Activities Do You Participate In? None [email or web address] Information not available 08/09/2024 Do You Use [...] is your level of alcohol consumption? Occasional [id number] Information not available 09/29/2022 Are you currently employed? No Retired [email or web address] Information not available 08/09/2024 Do you have transportation difficulties? No Information not available 03/30/2023 Are you able to walk independently without assistance or assistive devices? [email or web address] Information not available 03/30/2023 Do you have difficulty doing errands alone? No Information not available 03/30/2023 Are you able to care for yourself independently? Yes Information not available 03/30/2023 Do you have difficulty dressing, bathing, grooming, or toileting? No Information not available 03/30/2023 Do you or have you ever used e-cigarettes or vape? Never used electronic cigarettes Information not available 03/30/2023 What is your exercise level? None [email or web address] Information not available 08/09/2024 Mental Status Question Answer Note LastModified by Organizat ion Details LastModified Time Do you feel stressed (tense, restless, nervous, or anxious, or unable to sleep at night)? [id number] Information not available 03/30/2023 Do you have difficulty concentrating, remembering or making decisions? Yes Poor memory [email or web address] Information not available 08/09/2024 Family History Relationship Description Onset Age of this Age Resolved Age Notes LastModified by Organization Details LastModified Time Maternal Aunt Diabetes mellitus [id number] Not available 09/29/2022 02:45:00 Brother Diabetes mellitus MIGRATION.120 [id number] Not available 09/29/2022 02:45:00 Brother Family history of stroke [email or web address] Not available 09:32:07 Brother Malignant melanoma [email or web address] Not available 09:32:07 Father Hypertensive disorder MIGRATION.671 [id number] Not available 09/29/2022 02:45:01 Father Heart disease MIGRATION.316 [id number] Not available 09/29/2022 02:45:01 Father Family history of stroke [email or web address] Not available 09:32:07 Father Heart failure 93 [email or web address] Not available 09:32:07 Paternal Grandmother Family history of stroke 70 [email or web address] Not available 09:32:07 Mother Alzheimer's disease 93 [email or web address] Not available 09:32:07 Mother Cardiac arrhythmia [email or web address] Not available 09:32:07 Maternal Grandmother Dementia 70 [email or web address] Not available 03/18/2025 09:32:07 Maternal Grandfather Myocardial infarction 60 [id number].082 [id number] Not available 09/29/2022 02:45:01 Notes:NO ENT Medical History Condition Response ARTHRITIS Y KIDNEY STONES Y DIZZINESS Y HYPOTHYROIDISM Y SLEEP APNEA Y KIDNEY DISEASE Y HEART DISEASE/HEART PROBLEMS Y OSTEOPOROSIS Y URINARY/BLADDER/KIDNEY PROBLEMS Y DEPRESSION (INCLUDING POST ) Y HAVE YOU BEEN HOSPITALIZED OR SEEN IN [facility] IN THE PAST YEAR ? N HYPERTENSION [...] high-dose, quadrivalent, PF 1 completed Not Available [facility] 09/29/2022 02:58:55 COVID-19 vaccine, vector-nr, rS-Ad26, PF, 0.5 mL 1 completed Not Available [facility] 09/29/2022 02:58:55 SARS-COV-2 (COVID-19) vaccine, UNSPECIFIED 1 completed Not Available [facility] 09/29/2022 02:58:55 SARS-COV-2 (COVID-19) vaccine, UNSPECIFIED 1 completed Not Available [facility] 09/29/2022 02:58:55 Influenza, high-dose, quadrivalent, PF 0 completed Not Available [facility] 09/29/2022 02:58:55 Influenza, high-dose, trivalent, PF 9 completed Not Available [facility] 09/29/2022 02:58:55 Influenza, MDCK, trivalent, PF 2 completed Not Available [facility] 09/29/2022 02:58:55 SARS-COV-2 (COVID-19) vaccine, UNSPECIFIED 2 completed Not Available [facility] 09/29/2022 02:58:56 SARS-COV-2 (COVID-19) vaccine, UNSPECIFIED 2 completed Not Available [facility] 09/29/2022 02:58:56 Influenza, split virus, quadrivalent, preservative 8 completed Not Available [facility] 09/29/2022 02:58:56 influenza, unspecified formulation 6 completed Not Available [facility] 09/29/2022 02:58:56 influenza, unspecified formulation 6 completed Not Available [facility] 09/29/2022 02:58:56 influenza, unspecified formulation 5 completed Not Available [facility] 09/29/2022 02:58:56 Pneumococcal conjugate PCV 13 5 completed Not Available [facility] 09/29/2022 02:58:56 Tdap 3 completed Not Available [facility] 09/29/2022 02:58:56 pneumococcal polysaccharide PPV23 0 completed Not Available [facility] 09/29/2022 02:58:56 herpes simplex 2 7 completed Not Available [facility] 09/29/2022 02:58:56 TST-PPD intradermal 3 completed Not Available [facility] 09/29/2022 02:58:56 Influenza, high-dose, trivalent, PF 7 completed Not Available [facility] 09/29/2022 02:58:56 Influenza, high-dose, quadrivalent, PF 3 completed POLINA Newberry, [facility] 06/01/2023 10:15:26 zoster recombinant 3 completed Sanjuana Craft RMGianfranco null, [facility] 06/01/2023 10:16:02 zoster recombinant 3 completed POLINA Newberry, [facility] 06/01/2023 10:16:12 COVID-19, mRNA, LNP-S, PF, 3 mcg/0.2 mL dose, malia-sucrose 3 completed POLINA Newberry, [facility] 06/01/2023 10:17:18 tetanus toxoid, unspecified formulation 3 completed POLINA Newberry, [facility] 06/01/2023 10:17:48 RSV, recombinant, protein subunit RSVpreF, adjuvant reconstituted, 0.5 mL, PF 3 completed POLINA Newberry null, [place] - [place] [employer] [facility] 06/01/2023 10:20:21 Influenza, high-dose, trivalent, PF 8 completed Not Available [facility] 03/18/2025 09:32:26 Pneumococcal conjugate PCV20, polysaccharide SPP463 conjugate, adjuvant, PF 3 completed Not Available [facility] 03/18/2025 09:32:26 Tdap 3 completed Not Available [facility] 03/18/2025 09:32:26 COVID-19, mRNA, LNP-S, PF, malia-sucrose, 30 mcg/0.3 mL 3 completed Not Available [facility] 03/18/2025 09:32:26 COVID-19, mRNA, LNP-S, PF, malia-sucrose, 30 mcg/0.3 mL 4 completed Not Available [facility] 03/18/2025 09:32:26 Influenza, high-dose, trivalent, PF 4 completed Not Available [facility] 03/18/2025 09:32:26 Past Encounters Encounter ID Performer Location Encounter Start Date Encounter Closed Date Diagnosis/Indication Diagnosis SNOMED-CT Code Diagnosis ICD10 Code Diagnosis IMO Codes Diagnosis Note [id number] Sony renner MD [facility] [place] [facility] [address] [place], [place] [address] 10/20/2020 00:00:00 10/21/2020 17:01:59 [id number] Sony renner MD [facility] [place] [facility] [address] [facility] [address] [place], [place] [address] 11/10/2020 00:00:00 11/10/2020 12:22:53 [id number] Tasia Conde MD _JOE_Bonifacio IGRATION_ DEFAULT_1 _1 , 11/27/2020 00:00:00 11/27/2020 11:52:46 [id number] Sony renner MD [facility] Internal [place] [address] [place] [address] [place] [address] 02/16/2021 00:00:00 02/18/2021 09:38:17 [id number] Glenn Cheatham MD [facility] [place] [address] [place] [address] 04/24/2021 00:00:00 04/24/2021 10:55:26 [id number] Sony renner MD [facility] Internal [place] [address] [place] [address] [place] [address] 2021 00:00:00 06/11/2021 12:54:17 [id number] Sony renner MD [facility] Internal [place] [address] [place] [address] y , [place] [address] 11/09/2021 00:00:00 11/09/2021 12:39:05 [id number] Cassius Page MD [facility] [place] [address] [facility] [address] [place] [address] 12/16/2021 00:00:00 12/16/2021 16:40:10 [id number] Sony renner MD [facility] Internal [place] [address] [place] [address] y , [place] [address] 04/19/2022 00:00:00 04/19/2022 17:10:16 [id number] Glenn Cheatham MD [facility] [place] [address] [facility] [address] [place] [address] 05/12/2022 00:00:00 05/12/2022 09:43:57 [id number] Sony renner MD [facility] Internal [place] [address] [place] [address] [place] [address] 09/20/2022 00:00:00 09/20/2022 17:33:57 [id number] Cassius Page MD [facility] [place] [address] [place] [address] 11/16/2022 08:54:44 11/16/2022 09:47:44 Pain of right hand 9576451437 34766 M79.641 patient has a small lesion in the palm over the small finger we will excise that at the same time that we the carpal and cubital tunnel release she states it has been there for few years and is tender Carpal abram ratna syndrome of right wrist 6806799799 20424 G56.01 Ulnar nerv e entrapment at elbow 318305363 G56.21 patient has some atrophy of the [...] tunnel release and right cubital tunnel release [id number] Cassius Page MD [facility] [place] [address] [place] [address] 12/14/2022 08:49:14 12/14/2022 09:31:01 Pain of right hand 0516467608 03818 M79.641 Carpal abram ratna syndrome of right wrist 9477755373 44186 G56.01 Ulnar nerv e entrapment at elbow 118103121 G56.21 [id number] Cassius Page MD [facility] [place] [address] [place] [address] 01/11/2023 08:48:44 01/11/2023 09:06:00 Pain of right hand 3397418222 11389 M79.641 Bilateral carpal tunnel syndrome 5586431674 8533455 G56.01 patient can continue with a stress and load program to the palm we will see her back in a few months for final evaluation . Ulnar nerv e entrapment at elbow 606177668 G56.21 [id number] Sony renner MD [facility] [place] [address] [facility] [place] [address] 01/24/2023 09:16:50 01/24/2023 09:48:05 Screening - NAD 605864433 Z13.9 C-scope: DId do this 01/29/15 Dr Salter-sco pe Dr Dixon in [facility] 08/10/18, referred to colorectal surgeon for hemorrhoid [...] understand ing of the above Essential hypertension 67841981 I10 On ASAOn amlodipine 2.5mg dailyGet labs Hyperlipidemia 16430263 E78.5 On pravastati n 40mg dailyGet labs again Hypothyroidism 68174580 E03.9 On levothyrox ine 50mcgs dailySees Dr Conde Obstructiv e sleep apnea syndrome 82288575 G47.33 07/07/2020 : Dr Ingram: good compliance and is on autoCPAP or 6-12cm of H2O and a small Mirage FX nasal mask2020: Dr Pat: excellent compliance , f/u in one monthOV :Needs to see her pulmonary MD Depressive disorder 8187 9002 F32.A On lexapro 10mg dailyDoes wellNot suicidal or homicidalD eclines any referrals to psychiatry Syncope 429469280 R55 Has had ECHO, stress test, and CT head, US carotidCar diologist Dr. Desmond Kendall in [place] [phone] 1794Cannot recall last such episode, she is to see Dr De La Rosa in [place] on 06/02/17OV 08/22/17:D lela well today, s/p now on the medtronic device 07/15/17 and now will see Dr De La Rosa next 08/19She does want an apt with Dr Avila a cardiologi st whom she has seen with her husbandOV 11/21/17:S [facility] Records:St ress test 05/15: NegSandy is seeing [...] Renae 03/29/18Di d [facility] neurolog[facility] he may use the CA [...] to see Dr Renae, [facility], but does not want to do this at this timeDoes well at this timeOV 02/18/2020 :She did see Dr Renae and is now to follow up with himOV 04/30/2020 :Needs to see Dr Renae on 05/07/2020 OV 06/16/2020 :Does well at this time, did see Dr Renae 05/08/2020 OV 10/20/2020 : 1: [facility] Dr Tate s/p pacemaker insertion s/p syncopeKee p apt with Dr Stark 02/16/2021 :Keep apt with Dr Tate 03/24/2021 She would like to get an ECHO done as she would like Dr Tate to see what it isGet ECHOOV 2021 :Does wellDid see Dr Tate 03/18/2021 , next apt in one yearOV 11/09/2021 :See Dr Stark 04/19/2022 :See cardiology OV 09/20/2022 :Alex Tate [facility] 04/21/2022 OV 01/24/2023 : Keep apt with Dr Tate Numbness of hand 3169650 04 R20.0 R>LGet EMG/NCVDid see Dr Mcknight/p EMG 08/25/17/ p surgeryDr Ott s well nowPain in L wrist seen by Dr Page next on 04/12/2023 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820 Prediabetes 139627539 R7 3.03 Needs to diet and exercise!, repeat the labs Pain of right hand 83945 56813 84507 M79.641 Evan MEYERS 12/14/2022 Leukopenia 27429367 D72. 819 Repeat the CBC again Benign par oxysmal positional vertigo 035652026 H81.13 C/o shree BPPV, states that she has noted dizziness with standing up from a sitting position [id number] Igor Castañeda MD [facility] [place] [address] [place] [address] 03/30/2023 09:37:06 03/30/2023 10:10:52 Pain of right hand 0521413601 68880 M79.895 [id number] Sony renner MD [facility] [place] [address] [facility] , [place] [address] 06/01/2023 10:11:19 06/01/2023 11:06:29 Screening - NAD 853343824 Z13.9 C-scope: DId do this 01/29/15 Dr Salter-jamarcus pe Dr Dixon in [facility] 08/10/18, referred to colorectal surgeon for hemorrhoid [...] understand ing of the above Essential hypertension 92708790 I10 On ASAOn amlodipine 2.5mg dailyGet labs Hyperlipidemia 81749884 E78.5 On pravastati n 40mg dailyGet labs again Hypothyroidism 85495275 E03.9 On levothyrox ine 50mcgs dailySeen by Dr Conde Obstructiv e sleep apnea syndrome 64340965 G47.33 07/07/2020 : Dr Ingram: good compliance and is on autoCPAP or 6-12cm of H2O and a small Mirage FX nasal mask 10/08/2020 : Dr Pat: excellent compliance , f/u in one month OV :Needs to see her pulmonary MD OV 06/01/2023 : Keep apt with Dr Pat Depressive disorder 7681 9007 F32.A On lexapro 10mg dailyDoes well Not suicidal or homicidalD eclines any referrals to psychiatry Syncope 610005824 R55 Has had ECHO, stress test, and CT head, US carotidCar diologist Dr. Desmond Kendall in [facility] [phone] recall last such episode, she is to see Dr De La Rosa in [place] on 06/02/17OV 08/22/17:Khai vogel well today, s/p now on the medtronic device 07/15/17 and now will see Dr De La Rosa next 08/19Sandy does want an apt with Dr Avila a cardiologi st whom she has seen with her husbandOV 11/21/17:S [facility] Records:St ress test 05/15: Chandana is seeing [...] Renae 03/29/18Di d see Dr [facility]head in [facility] neurologyS he may use the CA [...] [facility] :Needs to see Dr Renae on 05/07/2020 OV 06/16/2020 :Does well at this time, did see Dr Renae 05/08/2020 OV 10/20/2020 :: [facility] Dr Tate s/p pacemaker insertion s/p syncopeKee p apt with Dr Stark 02/16/2021 :Keep apt with Dr Tate 03/24/2021 She would like to get an ECHO done as she would like Dr Tate to see what it isGet ECHOOV 2021 :Does wellDid see Dr Tate 03/18/2021 , next apt in one yearOV 11/09/2021 :See Dr Stark 04/19/2022 :See cardiology OV 09/20/2022 :Alex Tate [facility] 04/21/2022 OV 01/24/2023 : Keep apt with Dr Tate OV 06/01/2023 :ECHO [facility] 05/06/2023 : Dr Tate Numbness of hand 2132367 04 R20.0 R>LGet EMG/NCVDid see Dr Mcknight/p EMG 08/25/18s/ p surgeryDr Namrata s well nowPain in L wrist seen by Dr Page next on 04/12/2023 Dizziness 720266444 R42 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, 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 Low back pain 015845150 M54.50 Patient fell 11/19/2019 , did get [...] 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 819 Repeat the CBC again Benign par oxysmal positional vertigo 532551450 H81.13 C/o shree BPPV, states that she has noted dizziness with standing up from a sitting position Seasonal a llergic rhinitis 009113686 J30.2 Get on flonaseGet on zyrtec as needed Forgetful 14729927 R41.3 Get neurology apt, get labs, get MRI brain Skin lesion 77359895 L98 .9 Flat crusty lesion noted on the L lower lateral neckRefer to dermatolog y [id number] Glenn Cheatham MD [facility] [place] [address] [place] [address] 08/29/2023 16:46:40 08/29/2023 17:39:17 Pain of left knee joint 0037070895 31015 M25.326 [id number] Sony renner MD [facility] Internal Med [place] [facility] [address] [place] [address] 09/12/2023 14:11:18 09/12/2023 15:06:24 Screening - NAD 453746934 Z13.9 C-scope: DId do this 01/29/15 Dr Salter-sco pe Dr Dixon in [facility] 08/10/18, referred to colorectal surgeon for hemorrhoid [...] understand ing of the above Essential hypertension 47406858 I10 On ASAOn amlodipine 2.5mg dailyGet labs Hyperlipidemia 61384962 E78.5 On pravastati n 40mg dailyGet labs again Hypothyroidism 56079459 E03.9 On levothyrox ine 50mcgs dailySeen by Dr Conde Obstructiv e sleep apnea syndrome 73143809 G47.33 07/07/2020 : Dr Ingram: good compliance and is on autoCPAP or 6-12cm of H2O and a small Mirage FX nasal mask 10/08/2020 : Dr Pat: excellent compliance , f/u in one month OV :Needs to see her pulmonary MD OV 06/01/2023 : Keep apt with Dr Pat OV 09/12/2023 : See Dr Pat her lung MD Depressive disorder 9497 9007 F32.A On lexapro 10mg dailyDoes well Not suicidal or homicidalD eclines any referrals to psychiatry Syncope 385573779 R55 Has had ECHO, stress test, and CT head, US carotidCar diologist Dr. Desmond Kendall in [facility] [phone] recall last such episode, she is to see Dr De La Rosa in [place] on 06/02/17OV 08/22/17:D oing well today, s/p now on the medtronic device 07/15/17 and now will see Dr De La Rosa next 08/19Sandy does want an apt with Dr Avila a cardiologi st whom she has seen with her husbandOV 11/21/17:S [facility] Records:St ress test 05/15: NegSandy is seeing Dr vAila, next apt is on 11/28/17No more episodes [...] Renae 03/29/18Di d see Dr [facility]head in [facility] neurolog[facility]S he may [facility] the [facility] [...] Renae 05/08/2020 OV 10/20/2020 :: [facility] Dr Tate s/p pacemaker insertion s/p syncopeKee p apt with Dr Stark 02/16/2021 :Keep apt with Dr Tate 03/24/2021 She would like to get an ECHO done as she would like Dr Tate to see what it isGet ECHOOV 2021 :Does wellDid see Dr Tate 03/18/2021 , next apt in one yearOV 11/09/2021 :See Dr Stark 04/19/2022 :See cardiology OV 09/20/2022 :Alex Tate [facility] 04/21/2022 OV 01/24/2023 : Keep apt with Dr Tate OV 06/01/2023 :ECHO [facility] 05/06/2023 : Dr Tate OV 09/12/2023 : Sees Dr Tate, last OV 06/29/2023 Numbness of hand 2996260 04 R20.0 R>LGet EMG/NCVDid see Dr Mcknight/p EMG 08/25// p surgeryDr Namrata s well nowPain in L wrist seen by Dr Page next on 04/12/2023 Dizziness 628769053 R42 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 819 Repeat the CBC again Benign par oxysmal positional vertigo 148017291 H81.13 C/o shree BPPV, states that she has noted dizziness with standing up from a sitting position Seasonal a llergic rhinitis 499996059 J30.2 On flonaseOn zyrtec as needed Forgetful 89340799 R41.3 Get neurology apt, get labs, get MRI brain CT head 06/07/2023 Skin lesion 04074626 L98 .9 Flat crusty lesion noted on the L lower lateral neckRefer to dermatolog y Otitis media 17977272 H6 6.92 Get on augmentin 875mg po bid for 7 days, ER if worse [id number] Sony renner MD [facility] [address] [place] [address] 10/12/2023 09:43:37 10/12/2023 10:27:05 Otitis media 58885349 H66.92 Ear flushed with warm water, she tolerated the procedure well Get on amoxicilli nIf not better will see ENT [id number] Sony renner MD [facility] [place] [address] [address] [facility] , [place] [address] 11/16/2023 15:16:39 11/16/2023 16:07:05 Reactive lymphadenopathy 082196127 R59.1 Likely reactive, d/t URIWill get on augmentin, if not better may need US neck [id number] Sony renner MD [facility] [place] [facility] [address] [facility], [facility] [address] [place] [address] 08/09/2024 09:05:48 08/09/2024 10:28:53 Adult health examination 674302667 Z00.00 Screening for disorder 483364365 Z13.9 Screening - NAD 76340574 3 Z13.9 C-scope: DId do this 01/29/15 Dr Salter-sco pe Dr Dixon in [facility] 08/10/18, referred to colorectal surgeon for hemorrhoid [...] understand ing of the above Essential hypertension 89605901 I10 On ASAOn amlodipine 2.5mg dailyGet labs Hyperlipidemia 18374998 E78.5 On pravastati n 40mg dailyGet labs again Hypothyroidism 24970510 E03.9 On levothyrox ine 50mcgs dailySeen by Dr Conde Obstructiv e sleep apnea syndrome 47309900 G47.33 07/07/2020 : Dr Ingram: good compliance [...] apt with her lung MD Depressive disorder 8488 9007 F32.A On lexapro 10mg dailyDoes well Not suicidal or homicidalD eclines any referrals to psychiatry Syncope 364289962 R55 Has had ECHO, stress test, and CT head, US carotidCar diologist Dr. Desmond Kendall in [facility] [phone] recall last such episode, she is to see Dr De La Rosa in [place] on 06/02/17OV 08/22/17:Khia ovgel well today, s/p now on the medtronic device 07/15/17 and now will see Dr De La Rosa next 08/19Sandy does want an apt with Dr Avila a cardiologi whom she has seen with her husbandOV 11/21/17:S [facility] Records:St ress test 05/15: NegSandy is seeing [...] Renae 03/29/18Di d see Dr Whitehead in [place] neurology[place] he may use the [facility] for her UE and LE strength training [...] to see Dr Renae, [facility], but does not want to do this at this timeDoes well at this timeOV 02/18/2020 :She did see Dr Renae and is now to follow up with himOV 04/30/2020 :Needs to see Dr Renae on 05/07/2020 OV 06/16/2020 :Does well at this time, did see Dr Renae 05/08/2020 OV 10/20/2020 : 1: [facility] Dr Tate s/p pacemaker insertion s/p syncopeKee p apt with Dr Stark 02/16/2021 :Keep apt with Dr Tate 03/24/2021 She would like to get an ECHO done as she would like Dr Tate to see what it isGet ECHOOV 2021 :Does wellDid see Dr Tate 03/18/2021 , next apt in one yearOV 11/09/2021 :See Dr Stark 04/19/2022 :See cardiology OV 09/20/2022 :Alex Tate [facility] 04/21/2022 OV 01/24/2023 : Keep apt with Dr Tate OV 06/01/2023 :ECHO [facility] 05/06/2023 : Dr Tate OV 09/12/2023 : Sees Dr Tate, last OV 06/29/2023 Numbness of hand 9914294 04 R20.0 R>LGet EMG/NCVDid see Dr Mcknight/p EMG 08/25/17/ p surgeryDr Ott s well nowPain in L wrist seen by Dr Page next on 04/12/2023 Dizziness 905422604 R42 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, 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 Low back pain 642214255 M54.50 Patient fell 11/19/2019 , did get [...] 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 819 Repeat the CBC again Benign par oxysmal positional vertigo 991766888 H81.13 C/o shree BPPV, states that she has noted dizziness with standing up from a sitting position Seasonal a llergic rhinitis 722364812 J30.2 On flonaseOn zyrtec as needed Forgetful 64043351 R41.3 Get neurology apt, get labs, get MRI brain CT head 06/07/2023 Skin lesion 73128625 L98 .9 Flat crusty lesion noted on the L lower lateral neckRefer to dermatolog y Screening for osteoporosis 083509264 Z13.820 Vitamin D deficiency 347 26518 E55.9 Serum alida min B12 below reference range 986616239 R79.89 Osteoporosis 79303322 M8 1.0 [id number] Sony renner MD [facility] [address] [facility], [address] [place] [address] 09/20/2024 09:45:22 09/20/2024 10:38:15 Screening - NAD 641114504 Z13.9 C-scope: DId do this 01/29/15 Dr Salter-sco pe Dr Dixon in [facility] 08/10/18, referred to colorectal surgeon for hemorrhoid [...] understand ing of the above Essential hypertension 07108656 I10 On ASAOn amlodipine 2.5mg dailyGet labs Hyperlipidemia 12295809 E78.5 On pravastati n 40mg dailyGet labs again Hypothyroidism 26655191 E03.9 On levothyrox ine 50mcgs dailySeen by Dr Conde Obstructiv e sleep apnea syndrome 79564611 G47.33 07/07/2020 : Dr Ingram: good compliance [...] see Dr Ingram on 09/24/2024 Depressive disorder 2748 9007 F32.A On lexapro 10mg dailyDoes well Not suicidal or homicidalD eclines any referrals to psychiatry Syncope 709135023 R55 Has had ECHO, stress test, and CT head, US carotidCar diologist Dr. Desmond Kendall in [facility] [phone] recall last such episode, she is to see Dr De La Rosa in [place] on 06/02/17OV 08/22/17:Khai vogel well today, s/p now on the medtronic device 07/15/17 and now will see Dr De La Rosa next 08/19She does want an apt with Dr Avila a cardiologi whom she has seen with her husbandOV 11/21/17:S [facility] Records:St ress test 05/15: NegShe is seeing [...] Renae 03/29/18Di d see Dr Whitehead in [facility] neurologyS he may use the [facility] for her UE and LE strength training [...] Renae 05/08/2020 OV 10/20/2020 :: [facility] Dr Tate s/p pacemaker insertion s/p syncopeKee p apt with Dr Stark 02/16/2021 :Keep apt with Dr Tate 03/24/2021 She would like to get an ECHO done as she would like Dr Tate to see what it isGet ECHOOV 2021 :Does wellDid see Dr Tate 03/18/2021 , next apt in one yearOV 11/09/2021 :See Dr Stark 04/19/2022 :See cardiology OV 09/20/2022 :Alex Tate [facility] 04/21/2022 OV 01/24/2023 : Keep apt with Dr Tate OV 06/01/2023 :ECHO [facility] 05/06/2023 : Dr Tate OV 09/12/2023 : Sees Dr Tate, last OV 06/29/2023 OV 09/20/2024 : Dr Tate 04/19/2024 , f/u in one year Numbness of hand 2282838 04 R20.0 R>LGet EMG/NCVDid see Dr Mcknight/p EMG 08/25// p surgeryDr SchererDoe s well nowPain in L wrist seen by Dr Page Dizziness 769929482 R42 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, 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 Low back pain 294649041 M54.50 Patient fell 11/19/2019 , did get [...] gabapentin Does well Now see Uriel Erazo [employer] NS last OV 08/21/2024 , to get injections 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 11128018 N99.3 S/p hysterecto my 04/19/2012 with [facility] urology, [facility], Dr Goldstein/p surgery for vaginal prolapse, 03/02/2013 Dr Dot hernández, [facility] in [facility]/p f/u Dr Ware 08/11/2020 Pain of bi lateral knee joints 8429758833 32428 M25.[address] Cheatham, last OV 04/24/2021 , 05/12/2022 Does well now Fredo MEYERS 08/29/2023 Prediabetes 416333874 R7 3.03 Needs to diet and exercise!, repeat the labs Dr Mcnamara 06/02/2023 Pain of right hand 71632 62601 10707 M79.641 Evan MEYERS 12/14/2022 Leukopenia 21959441 D72. 819 Repeat the CBC again Benign par oxysmal positional vertigo 047080894 H81.13 C/o shree BPPV, states that she has noted dizziness with standing up from a sitting positionWi ll start on meclizine, also see ENT Seasonal a llergic rhinitis 477780262 J30.2 On flonaseOn zyrtec as needed Forgetful 35240381 R41.3 Get neurology apt, get labs, get MRI brain CT head 06/07/2023 OV 09/20/2024 :Dr Zelaya neurology, next apt on 10/30/2024 , to discuss Alzheimer' s disease Skin lesion 81617061 L98 .9 Flat crusty lesion noted on the L lower lateral neckRefer to dermatolog y OV 09/20/2024 : Does well now Vitamin D deficiency 347 98792 E55.9 Serum alida min B12 below reference range 038740370 R79.89 Exposure t o viral disease 2848624792 42500 Z20.828 Exposed to measels maybe her grandchild , get measels titer 7419620 Storm Almeida MD [facility] [place] Anne Marie Matute [address] [place] [address] 09/24/2024 15:01:40 09/24/2024 16:11:16 Benign paroxysmal positional vertigo 098859761 H81.10 Sensorineu ral hearing loss of bilateral ears 022699655 H90.3 [id number] Sony renner MD [facility] [place] [facility] [address] [place] [address] 12/26/2024 09:34:21 12/26/2024 10:42:26 Screening - NAD 125578275 Z13.9 C-scope: DId do this 01/29/15 Dr Salter-sco pe Dr Dixon in [facility] 08/10/18, referred to colorectal surgeon for hemorrhoid [...] monthswith labsER if any life threatenin g bridget nicole did verbalize her understand ing of the above Essential hypertension 48620327 I10 On ASAOn amlodipine 2.5mg dailyGet labs Hyperlipidemia 89818145 E78.5 On pravastati n 40mg dailyGet labs again Hypothyroidism 86516489 E03.9 On levothyrox ine 50mcgs dailySeen by Dr Conde Obstructiv e sleep apnea syndrome 72729505 G47.33 07/07/2020 : Dr Ingram: good compliance [...] Dr Ingram last OV 09/24/2024 Depressive disorder 3548 9007 F32.A On lexapro 10mg dailyDoes well Not suicidal or homicidalD eclines any referrals to psychiatry Syncope 905818919 R55 Has had ECHO, stress test, and CT head, US carotidCar diologist Dr. Desmond Kendall in [facility] [phone] recall last such episode, she is to see Dr De La Rosa in [place] on 06/02/17OV 08/22/17:Khai vogel well today, s/p now on the medtronic device 07/15/17 and now will see Dr De La Rosa next 08/19Sandy does want an apt with Dr Avila a cardiologi whom she has seen with her husbandOV 11/21/17:S liam [facility] Records:St ress test 05/15: Chandana is [...] Renae 03/29/18Di d see Dr Whitehead in [facility] neurologyS he may use the [place] [...] to see Dr Renae, get an appointmen [facility] [place] Whitehead, but does not want to do this at this timeDoes well at this timeOV 02/18/2020 :She did see Dr Renae and [facility] :Needs to see Dr Renae on 05/07/2020 OV 06/16/2020 :Does well at this time, did see Dr Renae 05/08/2020 OV 10/20/2020 :: [facility] Dr Tate s/p pacemaker insertion s/p syncopeKee p apt with Dr Stark 02/16/2021 :Keep apt with Dr Tate 03/24/2021 She would like to get an ECHO done as she would like Dr Tate to see what it isGet ECHOOV 2021 :Does wellDid see Dr Tate 03/18/2021 , next apt in one yearOV 11/09/2021 :See Dr Stark 04/19/2022 :See cardiology OV 09/20/2022 :Alex Tate [facility] 04/21/2022 OV 01/24/2023 : Keep apt with Dr Tate OV 06/01/2023 :ECHO [facility] 05/06/2023 : Dr Ttae OV 09/12/2023 : Sees Dr Tate, last OV 06/29/2023 OV 09/20/2024 : Dr Tate 04/19/2024 , f/u in one year OV 12/26/2024 : Keep the apt with [facility] Numbness of hand 1054744 04 R20.0 R>LGet EMG/NCVDid see Dr Mcknight/p EMG 08/25/17/ p surgeryDr Ott s well nowPain in L wrist seen by Dr Page Dizziness 233833771 R42 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, 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 Low back pain 857875480 M54.50 Patient fell 11/19/2019 , did get [...] gabapentin Does well Now see Uriel Erazo [employer] NS last OV 08/21/2024 , to get injections Dr Burns 09/26/2024 , as per her and Suhas she needs to be on a 'bone shot' as per recommenda tions of Dr Burns, will order prolia 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 819 Repeat the CBC again Benign par oxysmal positional vertigo 482972857 H81.13 C/o shree BPPV, states that she has noted dizziness with standing up from a sitting positionWi ll start on meclizine, also see ENT Seasonal a llergic rhinitis 753682946 J30.2 On flonaseOn zyrtec as needed Forgetful 60413148 R41.3 Get neurology apt, get labs, get MRI brain CT head 06/07/2023 Dr Zelaya neurology, as per her history today now to get MRI brain again Skin lesion 39922319 L98 .9 Flat crusty lesion noted on the L lower lateral neckRefer to dermatolog y OV 09/20/2024 : Does well now Vitamin D deficiency 347 75373 E55.9 Serum alida min B12 below reference range 617576282 R79.89 Exposure t o viral disease 6280098891 94227 Z20.828 Exposed to measels maybe her grandchild , get measels titer [id number] Sony renner MD [facility] [address] [place] [address] 03/18/2025 09:31:20 03/18/2025 10:40:29 Screening - NAD 004721269 Z13.9 C-scope: DId do this 01/29/15 Dr Salter-sco pe Dr Dixon in [facility] 08/10/18, referred to colorectal surgeon for hemorrhoid [...] on pneumonia shot #13 2015 and 23 2010UTD tdap 10/03/12UT D on COVID 19 vaccineGet RSV vaccine DEXA 02/13/19: Osteopenia , on ca and vit dDEXA 11/25/2020 : Low bone mass, get on calcium and vit dDEXA: 05/13/2023 : Low bone massCan do prolia as per the RTC in 3 monthswith labsER if any life threatenin g symptomssh e did verbalize her understand ing of the above Essential hypertension 20313432 I10 On ASAOn amlodipine 2.5mg dailyGet labs Hyperlipidemia 37187288 E78.5 On pravastati n 40mg dailyGet labs again Hypothyroidism 29917370 E03.9 On levothyrox ine 50mcgs dailySeen by Dr Conde Obstructiv e sleep apnea syndrome 16717675 G47.33 07/07/2020 : Dr Ingram: good compliance and is on autoCPAP or 6-12cm of H2O and a small Mirage FX nasal mask 10/08/2020 : Dr Pat: excellent compliance , f/u in one month Sees Dr Ingram last OV 09/24/2024 Depressive disorder 3548 9007 F32.A On lexapro 10mg dailyDoes well Not suicidal or homicidalD eclines any referrals to psychiatry Syncope 930667601 R55 Has had ECHO, stress test, and CT head, US carotidCar diologist Dr. Desmond Kendall in [facility] [phone] recall last such episode, she is to see Dr De La Rosa in [place] on 06/02/17OV 08/22/17:Khai vogel well today, s/p now on the medtronic device 07/15/17 and now will see Dr De La Rosa next 08/19Sandy does want an apt with Dr Avila a cardiologi st whom she has seen with her husbandOV 11/21/17:S liam [facility] Records: ress test 05/15: Chandana is seeing Dr [...] Renae 03/29/18Di d see Dr Whitehead in [facility] neurologyS he may use the [facility] for her UE and LE strength training [...] to see Dr Renae, get an appointmen [facility] Dr Whitehead, but does not want to do this at this timeDoes well at this timeOV 02/18/2020 :She did see Dr Renae and is now to follow up with himOV 04/30/2020 :Needs to see Dr Renae on 05/07/2020 OV 06/16/2020 :Does well at this time, did see Dr Renae 05/08/2020 OV 10/20/2020 : 1: [facility] Dr Tate s/p pacemaker insertion s/p syncopeKee p apt with Dr Stark 02/16/2021 :Keep apt with Dr Tate 03/24/2021 She would like to get an ECHO done as she would like Dr Tate to see what it isGet ECHOOV 2021 :Does wellDid see Dr Tate 03/18/2021 , next apt in one yearOV 11/09/2021 :See Dr Stark 04/19/2022 :See cardiology OV 09/20/2022 :Alex Tate [facility] 04/21/2022 OV 01/24/2023 : Keep apt with Dr Tate OV 06/01/2023 :ECHO [facility] 05/06/2023 : Dr Tate OV 09/12/2023 : Sees Dr Tate, last OV 06/29/2023 OV 09/20/2024 : Dr Tate 04/19/2024 , f/u in one year OV 12/26/2024 : Keep the apt with [facility] OV 03/18/2025 : Bing Jones [employer] Cardiology 02/05/2025 Cleared to have brain MRI d/t her having a PCM Numbness of hand 5370114 04 R20.0 R>LGet EMG/NCVDid see Dr Mcknight/p EMG 08/25/17/ p Corrina Ott s well nowPain in L wrist seen by Dr Page Dizziness 245379266 R42 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, 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 Low back pain 976248138 M54.50 Patient fell 11/19/2019 , did get [...] gabapentin Does well Now see Uriel Erazo [employer] NS last OV 08/21/2024 , to get injections Dr Burns 09/26/2024 , as per her and Suhas she needs to be on a 'bone shot' as per recommenda tions of Dr Burns, will order prolia 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 95469361 N99.3 S/p hysterecto my 04/19/2012 with [facility] urology, [facility], Dr Goldstein/p surgery for vaginal prolapse, 03/02/2013 Dr Dot hernández, [facility] in [facility]/p f/u Dr Ware 08/11/2020 Pain of bi lateral knee joints 0166401726 45663 M25.[address] Cheatham, last 12/03/2024 Does well now Fredo Branch PA 08/29/2023 Prediabetes 027919531 R7 3.03 Needs to diet and exercise!, repeat the labs Dr Mcnamara 06/02/2023 Pain of right hand 94475 66034 56459 M79.641 Evan MEYERS 12/14/2022 Leukopenia 01811764 D72. 819 Repeat the CBC again Benign par oxysmal positional vertigo 527981086 H81.13 C/o shree BPPV, states that she has noted dizziness with standing up from a sitting positionWi ll start on meclizine, also see ENT ENT 09/24/2024 : Ruth Daniels [employer] ENT Seasonal a llergic rhinitis 034910818 J30.2 On flonaseOn zyrtec as needed Forgetful 39584012 R41.3 Get neurology apt, get labs, get MRI brain CT head 06/07/2023 Dr Zelaya neurologyD id get MRI and is to now get 'a shot' for Alzhiemers as per Suhas chungand's hx 03/18/2025 Skin lesion 69872914 L98 .9 Flat crusty lesion noted on the L lower lateral neckRefer to dermatolog y OV 09/20/2024 : Does well now Vitamin D deficiency 347 15425 E55.9 Serum alida min B12 below reference range 851248570 R79.89 Exposure t o viral disease 9868264475 99166 Z20.828 Exposed to measels maybe her grandchild , get measels titer Postmenopausal state 764 47673 Z78.0 038127 Hypokalemia 42633874 E87 .6 9791 Repeat the K level today 03/18/2025 Health Concerns Section Related Observation LastModified by Organization Detai ls LastModified Time None Recorded Concern Status LastModified by Organization Details LastModified Time None Recorded Advance Directives Directive Y: Payers Insurance Date Sequence Insurance Name Policy Number Policy Renee Covered Member ID Renee Member ID Guarantor Name 03/15/2025 1 [facility] (MEDICARE REPLACEMENT/A DVANTAGE - PPO) [id number] [place] [id number] [place] Notes Date Note Type Note Provider Name and Address Organization Details Recorded Time 08/09/2024 text/html Here to establish care:Past Hx:HTNDepressionHypothy roidismReviewed social, family and surgical [...] 09/28/18OV 12/07/18:ACVHere with [facility] and [facility] a baby stroller and fell on her outstretched handShe returned [facility] and ws [facility] and treated with a cast, now she [...] she feels well today Sony Womack MD [address] [place] [address], [facility] [address], [place], [address], [place] - [facility] [employer] 08/29/2024 18:47:16 09/20/2024 text/html Here to establish care:Past Hx:HTNDepressionHypothy roidismReviewed social, family and surgical [...] 09/28/18OV 12/07/18:ACVHere with L wrist fractureWas in [facility] and slipped and tripped over a baby stroller and fell on her outstretched handShe returned to [facility] the next day and ws seen in the ER at [facility] and treated with a cast, now she [...] neurologist Dr Chandra for possible Alzheimer's dementia Murtuza Bahrainwala, MD [address] [facility], [facility] [address], [place], [address], [facility] [employer] 09/20/2024 11:15:12 09/24/2024 text/html This patient has [...] alleviated symptoms. She denies use of any yjtk-zdb-lyaimir medications to help alleviate her symptoms such as meclizine. She does report that her vertigo is positional with head movements. She also reports bilateral tinnitus that has been present for years. She denies any loud noise exposures. She does report having to turn up the volume on her television to aid in hearing better. She has not had a recent audiogram completed. DASHAWN Ureña [address] [facility], [facility] [address], [place], [address], [employer] 09/24/2024 16:10:42 12/26/2024 text/html Here to establish care:Past Hx:HTNDepressionHypothy roidismReviewed social, family and surgical [...] 09/28/18OV 12/07/18:ACVHere [facility] and [facility] a baby stroller and fell on her outstretched handShe returned to [facility] and ws seen in the ER at [facility] and treated with a cast, now she [...] ear, no other URI sx OV 11/16/2023: ACVHaabelardo noted 'glands; over the R side [...] for a 'bone shot' Sony Womack MD [address] [facility], [address], [place], [address], [facility] [employer] 12/26/2024 18:40:38 03/18/2025 text/html Here to establish care:Past Hx:HTNDepressionHypothy roidismReviewed social, family and surgical [...] 09/28/18OV 12/07/18:ACVHere with L wrist fractureWas [facility] and [facility] and tripped over a baby stroller and fell on her outstretched handShe returned to [facility] the next day and ws seen in the ER at [facility] and treated with a cast, now she [...] ear, no other URI sx OV 11/16/2023: ACVHaabelardo noted 'glands; over the R side [...] see her PCP for a 'bone shot' OV 03/18/2025: Here for her f/u apt, she is doing well today, here with her Sony Womack MD [address] [place] [address], [facility] [address], [place], [address], [facility] 03/18/2025 13:04:08 OBGyn Episode No OBEpisode recorded.
--- OUTSIDE RECORDS SUMMARY | 2025-05-15 13:55 | XMS_ITS | Encounter Summary ---
Author Organization [facility] Address [address] [place] [address] Phone Care Team Providers Care Sulfuric Acid Plant Operator Name Role Phone John Womack MD Primary Care Provide r Giorgio Dixon MD Unavailable [phone] Rashard De La Rosa MD Unavailable [phone] Cleve Renae MD Unavailable Bebeto Woodard MD, Alex Shelton Unavailable [phone] Crys Dunn DO Primary Care Provider [phone] John Womack MD Primary Care Provide r [...] on filedocumented in this encounter Care Teams Sulfuric Acid Plant Operator Relationship Specialty Start Date End Date John Womack MD [address] [place] [address] PCP - General 08/11/17 04/30/24 Crys Dunn DO [address] [place] [address] PCP - General Family Medicine 05/01/24 06/26/24 John Womack MD [address] [place] [address] PCP - General Internal Medicine 06/27/24 Giorgio Dixon MD [address] [place] [address] Consulting Physician Gastroenterology 07/26/18 Rashard De La Rosa MD [address] [place] [address] Consulting Physician Cardiology 04/30/19 Cleve Renae MD [address] [place] [address] Consulting Physician Cardiovascular Disease 07/07/20 Alex Tate Jr., MD [address] [place] [address] Consulting Physician Cardiovascular Disease 10/08/20 Kris León MD PhD [address] [place] [address] Referring Physician Neurology 09/24/24 documented as of this encounter
--- OUTSIDE RECORDS SUMMARY | 2025-05-15 13:55 | XMS_ITS | Encounter Summary ---
Author Organization [facility] Address [address] [place] [address] Phone Care Team Providers Care Sister Superior Name Role Phone John Womack MD Primary Care Provide r Giorgio Dixon MD Unavailable Rashard De La Rosa MD Unavailable [phone] Venkatesh Avila MD Unavailable [phone] Cleve Renae MD Unavailable Bebeto Woodard MD, Alex Shelton Unavailable [phone] Crys Dunn DO Primary Care Provider [phone] John Womack MD Primary Care Provide r Kris León MD PhD Unavailable [phone] Encounter Details Date Type Department Care Team (Late st Contact Info) Description 10/16/2017 Orders Only [facility]IN[facility] Provider, MD Andrea [facility] [place] [address] Social History Tobacco Use Types [...] on filedocumented in this encounter Care Teams Sister Superior Relationship Specialty Start Date End Date John Womack MD [address] [address] PCP - General 08/11/17 04/30/24 Crys Dunn DO [address] [place] [address] PCP - General Family Medicine 05/01/24 06/26/24 John Womack MD [address] [facility] [address] [place] [address] PCP - General Internal Medicine 06/27/24 Giorgio Dixon MD [address] [facility] [address] [place] [address] Consulting Physician Gastroenterology 07/26/18 Rashard De La Rosa MD [address] [facility] [address] [place] [address] Consulting Physician Cardiology 04/30/19 Venkatesh Avila MD [address] [facility] [address] [place] [address] Referring Physician Cardiology 04/30/19 07/06/20 Cleve Renae MD [address] [address] Consulting Physician Cardiovascular Disease 07/07/20 Alex Tate Jr., MD [address] [place] [address] Consulting Physician Cardiovascular Disease 10/08/20 Kris León MD PhD [address] [facility] [address] [place] [address] Referring Physician Neurology 09/24/24 documented as of this encounter
== END 2025-05-15 12:04 | disposition home or self-care (01) ==
LOC: CHSIMG 12:05
PROVIDERS: PCP Internal Medicine; Visit Provider Internal Medicine
DX: Z78.0 Asymptomatic menopausal state (principal); M85.89 Other specified disorders of bone density and structure, multiple sites
CPT/HCPCS: 77080

== ENCOUNTER 2025-06-11 14:25 | Outpatient (CLI) | payer MEDICARE, SELFPAY ==
--- NOTE | ~2025-06-11 | XR_ITS ---
XR lumbar spine min 4V Indication: Lumbar spondylosis Comparison: None Findings: Grade 1 anterolisthesis of L5 on S1, grade 1 retrolisthesis L1 on L2, no fracture. Moderate osteopenia. There are kyphoplasty changes noted of T10 and T11. Severe loss of disc height throughout. Soft tissues unremarkable Impression: No acute abnormality. Reviewed, dictated and finalized at location P. ER SHEET REPAIRER Impression: No acute abnormality.
== END 2025-06-11 14:26 | disposition home or self-care (01) ==
LOC: MICIMG 14:27
PROVIDERS: PCP Internal Medicine; Visit Provider Pain Medicine Pain Medicine
DX: M47.816 Spondylosis without myelopathy or radiculopathy, lumbar region (principal)
CPT/HCPCS: 72110

== ENCOUNTER 2025-07-04 15:53 | Outpatient (CLI) | payer MEDICARE, SELFPAY ==
[2025-07-04 18:25] LABS: Potassium 4.0 mmol/L (3.4-5.0)
== END 2025-07-04 15:54 | disposition home or self-care (01) ==
LOC: ANHGOSHLAB 15:53
PROVIDERS: PCP Internal Medicine; Visit Provider Internal Medicine
DX: E87.6 Hypokalemia (principal)
CPT/HCPCS: 36415; 84132